=== PATIENT | female | born 1945 | race Caucasian/White ===

== ENCOUNTER → 2018-11-08 09:18 | Outpatient (CLI) | payer OTHER, SELFPAY ==
--- NOTE | 2018-11-08 09:20 | DI.RAD.S_ITS ---
PROCEDURE: XR SHOULDER LT MIN 2V INDICATIONS: left shoulder pain TECHNIQUE: 3 views of the shoulder were acquired. COMPARISON: None. FINDINGS: Bones: Acute comminuted and impacted proximal humeral fracture is seen with superior migration of humeral shaft in relation to humeral head. No frederic dislocation. Fracture is seen involving both greater and lesser tuberosities. No suspicious bony lesions. Visualized ribs appear intact. Soft tissues: No suspicious soft tissue calcifications. IMPRESSION: Acute comminuted impacted proximal humeral fracture as above. Dictated by: Rod Man M.D. on 11/08/2018 at 9:39 Approved by: Rod Man M.D. on 11/08/2018 at 9:41
== END ==
PROVIDERS: Visit Provider Physician Assistant
DX: M25.512 Pain in left shoulder (principal)
CPT/HCPCS: 73030

== ENCOUNTER 2018-11-08 09:59 | Emergency (ER) | payer OTHER, SELFPAY ==
[2018-11-08 10:06] VITALS: BP 166/88; PULSE 95; RESP 18; TEMP 36.9; O2SAT 99; BMI 24.1
--- NOTE | 2018-11-08 10:09 | ED.FALL ---
HPI - Fall General Chief Complaint: Extremity Injury, Upper Stated Complaint: hurt L shoulder Time Seen by Provider: 11/08/18 10:01 Source: patient Mode of arrival: ambulatory Limitations: no limitations History of Present Illness HPI Narrative: This is a 73-year-old female comes to the emergency department sent from walk-in clinic. Patient had a fall 2 days ago. She was getting out of a dinghy and jumping on to shore when she fell onto her left shoulder causing quite a bit of pain and bruising. Patient va came in for evaluation as her guest who were visiting had left. Patient states she has not been able to lift at the shoulder without quite a bit of pain but she is able to extend her arm and hand without issue. She denies any other injury, no headache, no neck pain, no bruising elsewhere. She denies any weakness or numbness in the hand. Patient has been taking Tylenol extra-strength in combination with Aleve which she has found helpful. She has seen Dr. Roberts before for other prior orthopedic surgeries. Denies any other medical issues. Does not take any regular medications. Denies any allergies to medications. Related Data Previous Rx's Medication Instructions Recorded tramadol 50 mg PO Q6H PRN #15 tab 11/08/18 Allergies Allergy/AdvReac Type Severity Reaction Status Date / Time No Known Drug Allergies Allergy Verified 11/08/18 10:10 Review of Systems Review of Systems ROS Unobtainable: All systems reviewed & are unremarkable except as noted in HPI and below Constitutional Denies weakness ENT Ears, Nose, Mouth, and Throat: Denies neck pain Musculoskeletal Reports as per HPI, Denies back pain, Reports arthralgias (left shoulder), Reports limited range of motion, Denies neck pain, Denies numbness, Denies radiating pain into limb, Denies stiffness and Denies tingling Integumentary/Breasts Reports unusual bruising Neurologic Denies numbness, Denies tingling, Denies paresthesias and Denies weakness Exam Narrative Exam Narrative: GENERAL: Alert and oriented x three, well-nourished, well-appearing female in mild distress HEENT: Head normocephalic, atraumatic, EOMI, pupils reactive, face symmetric, moist mucous membranes NECK: Supple, full range of motion CARDIOVASCULAR: Regular rate and rhythm without murmurs, rubs or gallops. RESPIRATORY: Breath sounds equal bilaterally, no wheezes rales or rhonchi. ABDOMEN: Soft, nontender. Normoactive bowel sounds all 4 quadrants. No guarding or rebound, rigidity, no mass : No CVA tenderness EXTREMITIES: Normal range of motion except for the left shoulder, patient has normal range of motion at the left elbow as well as hand and fingers. 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 Normal sensation throughout all 5 fingers. 2+ radial pulse. No clubbing or edema. Neurovascularly intact NEUROLOGICAL: Cranial nerves II through XII grossly intact. Moving all extremities SKIN: Warm, dry, no petechiae, no rashes or lesions. Initial Vital Signs Initial Vital Signs: Vital Signs Temperature 98.5 F 11/08/18 10:06 Pulse Rate 95 H 11/08/18 10:06 Respiratory Rate 18 11/08/18 10:06 Blood Pressure 166/88 H 11/08/18 10:06 Pulse Oximetry 99 11/08/18 10:06 [facility] Social History Smoking Status: Never smoker Social History Smoking Status: Never smoker Course Vital Signs - 8 hr 11/08/18 10:06 11/08/18 10:15 11/08/18 10:30 Temperature 98.5 F Pulse Rate 95 H 92 H Pulse Rate [Left Radial] 95 H Respiratory Rate 18 17 Blood Pressure 166/88 H Blood Pressure [Right Arm] 144/84 H Pulse Oximetry 99 97 MDM - Fall Imaging Data shoulder xray: Radiologist's impression: [address] [address] XRay Report Signed Patient: Radha Ambrocio AMR#: [id number] : 7Acct:[id number] Age/Sex: 73 / FDate of Service: 11/08/18 Loc: RAD Accession Number: [id number] Procedure: XR shoulder LT min 2V Ordering Provider: Usha Mitchell P.A-C PROCEDURE: XR SHOULDER LT MIN 2V INDICATIONS: left shoulder pain TECHNIQUE: 3 views of the shoulder were acquired. COMPARISON: None. FINDINGS: Bones: Acute comminuted and impacted proximal humeral fracture is seen with superior migration of humeral shaft in relation to humeral head. No frederic dislocation. Fracture is seen involving both greater and lesser tuberosities. No suspicious bony lesions. Visualized ribs appear intact. Soft tissues: No suspicious soft tissue calcifications. IMPRESSION: Acute comminuted impacted proximal humeral fracture as above. Dictated by: Rod Man M.D. on 11/08/2018 at 9:39 Approved by: Rod Man M.D. on 11/08/2018 at 9:41 MDM Narrative Medical decision making narrative: Spoke with Usha Mitchell, patient had already left walk in clinic when I spoke with her. Reviewed images, patient evaluated and Dr. Coyne contacted. Images reviewed. Dr. Coyne recommendations are plan for sling, pain control and follow up with office. Discussed with patient. We also discussed maximum amounts of tylenol and ibuprofen in 24 hour periods and medication for breaththrough pain. Patient has had oxycodone in the past but did not like the feeling. All questions answered, patient comfortable with plan. Discharge Plan Departure Patient Disposition: Home Clinical Impression: Left humeral fracture Qualifiers: Encounter type: initial encounter Humerus Location: proximal Discharge Date/Time: 11/08/18 11:09 Interventions: ED Discharge Assessment Last Done: 11/08/18 11:09 Instructions: DI for Humeral Fracture Activity Restrictions/Additional Instructions: Follow up with Dr. Coyne in the next 3-5 days for recheck. Call for an appointment. Take medication as prescribed, this medication can make you sleepy do not drive, perform hazardous activities or make any major decisions while taking it. You may take this medication for breaththrough pain with advil and/or tylenol if it is helpful. Do not exceed more than 3000mg of tylenol in a 24 hour period or 2400mg of ibuprofen in a 24 hours period. OK to use ice pack on the affected body part. Use for 15-20 minutes each time, for 5-6x per day. If you develop worsening pain, numbness, tingling, discoloration of the affected body part, loosen sling, and either see your doctor for an urgent re-assessment, or return to the Emergency Department. Return to the Emergency Department for any new or worsening symptoms. Prescriptions: New tramadol 50 mg tablet 50 mg PO Q6H PRN (Reason: pain) Qty: 15 RF: 0 Referrals: Rayshawn Coyne MD [Physician] -
[2018-11-08 10:15] VITALS: PULSE 95
--- NOTE | 2018-11-08 10:17 | ED_ITS ---
HPI - Fall General Chief Complaint: Extremity Injury, Upper Stated Complaint: hurt L shoulder Time Seen by Provider: 11/08/18 10:01 Source: patient Mode of arrival: ambulatory Limitations: no limitations History of Present Illness HPI Narrative: This is a 73-year-old female comes to the emergency department sent from walk-in clinic. Patient had a fall 2 days ago. She was getting out of a dinghy and jumping on to shore when she fell onto her left shoulder causing quite a bit of pain and bruising. Patient va came in for evaluation as her guest who were visiting had left. Patient states she has not been able to lift at the shoulder without quite a bit of pain but she is able to extend her arm and hand without issue. She denies any other injury, no headache, no neck pain, no bruising elsewhere. She denies any weakness or numbness in the hand. Patient has been taking Tylenol extra-strength in combination with Aleve which she has found helpful. She has seen Dr. Roberts before for other prior orthopedic surgeries. Denies any other medical issues. Does not take any regular medications. Denies any allergies to medications. Related Data Previous Rx's Medication Instructions Recorded tramadol 50 mg PO Q6H PRN #15 tab 11/08/18 Allergies Allergy/AdvReac Type Severity Reaction Status Date / Time No Known Drug Allergies Allergy Verified 11/08/18 10:10 Review of Systems Review of Systems ROS Unobtainable: All systems reviewed & are unremarkable except as noted in HPI and below Constitutional Denies weakness ENT Ears, Nose, Mouth, and Throat: Denies neck pain Musculoskeletal Reports as per HPI, Denies back pain, Reports arthralgias (left shoulder), Reports limited range of motion, Denies neck pain, Denies numbness, Denies radiating pain into limb, Denies stiffness and Denies tingling Integumentary/Breasts Reports unusual bruising Neurologic Denies numbness, Denies tingling, Denies paresthesias and Denies weakness Exam Narrative Exam Narrative: GENERAL: Alert and oriented x three, well-nourished, well- appearing female in mild distress HEENT: Head normocephalic, atraumatic, EOMI, pupils reactive, face symmetric, moist mucous membranes NECK: Supple, full range of motion CARDIOVASCULAR: Regular rate and rhythm without murmurs, rubs or gallops. RESPIRATORY: Breath sounds equal bilaterally, no wheezes rales or rhonchi. ABDOMEN: Soft, nontender. Normoactive bowel sounds all 4 quadrants. No guarding or rebound, rigidity, no mass : No CVA tenderness EXTREMITIES: Normal range of motion except for the left shoulder, patient has normal range of motion at the left elbow as well as hand and fingers. 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 Normal sensation throughout all 5 fingers. 2+ radial pulse. No clubbing or edema. Neurovascularly intact NEUROLOGICAL: Cranial nerves II through XII grossly intact. Moving all extremities SKIN: Warm, dry, no petechiae, no rashes or lesions. Initial Vital Signs Initial Vital Signs: Vital Signs Temperature 98.5 F 11/08/18 10:06 Pulse Rate 95 H 11/08/18 10:06 Respiratory Rate 18 11/08/18 10:06 Blood Pressure 166/88 H 11/08/18 10:06 Pulse Oximetry 99 11/08/18 10:06 [facility] Social History Smoking Status: Never smoker Social History Smoking Status: Never smoker Course Vital Signs - 8 hr 11/08/18 10:06 11/08/18 10:15 11/08/18 10:30 Temperature 98.5 F Pulse Rate 95 H 92 H Pulse Rate [Left Radial] 95 H Respiratory Rate 18 17 Blood Pressure 166/88 H Blood Pressure [Right Arm] 144/84 H Pulse Oximetry 99 97 MDM - Fall Imaging Data shoulder xray: Radiologist's impression: [address] [address] XRay Report Signed Patient: Radha Ambrocio AMR#: [id number] : 7Acct:[id number] Age/Sex: 73 / FDate of Service: 11/08/18 Loc: RAD Accession Number: [id number] Procedure: XR shoulder LT min 2V Ordering Provider: Usha Mitchell P.A-C PROCEDURE: XR SHOULDER LT MIN 2V INDICATIONS: left shoulder pain TECHNIQUE: 3 views of the shoulder were acquired. COMPARISON: None. FINDINGS: Bones: Acute comminuted and impacted proximal humeral fracture is seen with superior migration of humeral shaft in relation to humeral head. No frederic dislocation. Fracture is seen involving both greater and lesser tuberosities. No suspicious bony lesions. Visualized ribs appear intact. Soft tissues: No suspicious soft tissue calcifications. IMPRESSION: Acute comminuted impacted proximal humeral fracture as above. Dictated by: Rod Man M.D. on 11/08/2018 at 9:39 Approved by: Rod Man M.D. on 11/08/2018 at 9:41 MDM Narrative Medical decision making narrative: Spoke with Usha Mitchell, patient had already left walk in clinic when I spoke with her. Reviewed images, patient evaluated and Dr. Coyne contacted. Images reviewed. Dr. Coyne recommendations are plan for sling, pain control and follow up with office. Discussed with patient. We also discussed maximum amounts of tylenol and ibuprofen in 24 hour periods and medication for breaththrough pain. Patient has had oxycodone in the past but did not like the feeling. All questions answered, patient comfortable with plan. Discharge Plan Departure Patient Disposition: Home Clinical Impression: Left humeral fracture Qualifiers: Encounter type: initial encounter Humerus Location: proximal Discharge Date/Time: 11/08/18 11:09 Interventions: ED Discharge Assessment Last Done: 11/08/18 11:09 Instructions: DI for Humeral Fracture Activity Restrictions/Additional Instructions: Follow up with Dr. Coyne in the next 3-5 days for recheck. Call for an appointment. Take medication as prescribed, this medication can make you sleepy do not drive, perform hazardous activities or make any major decisions while taking it. You may take this medication for breaththrough pain with advil and/or tylenol if it is helpful. Do not exceed more than 3000mg of tylenol in a 24 hour period or 2400mg of ibuprofen in a 24 hours period. OK to use ice pack on the affected body part. Use for 15-20 minutes each time, for 5-6x per day. If you develop worsening pain, numbness, tingling, discoloration of the affected body part, loosen sling, and either see your doctor for an urgent re-assessment, or return to the Emergency Department. Return to the Emergency Department for any new or worsening symptoms. Prescriptions: New tramadol 50 mg tablet 50 mg PO Q6H PRN (Reason: pain) Qty: 15 RF: 0 Referrals: Rayshawn Coyne MD [Physician] -
[2018-11-08 10:30] VITALS: BP 144/84; PULSE 92; RESP 17; O2SAT 97
== END 2018-11-08 11:09 | disposition home or self-care (01) ==
PROVIDERS: Emergency Provider Emergency Medicine
DX: S42.302A Unspecified fracture of shaft of humerus, left arm, initial encounter for closed fracture (principal); W19.XXXA Unspecified fall, initial encounter
CPT/HCPCS: 73030; 99282; 99283

== ENCOUNTER → 2018-11-16 09:00 | Outpatient (CLI) | payer OTHER, SELFPAY ==
--- NOTE | 2018-11-16 | DI.CT.S_ITS ---
PROCEDURE: CT UE LT WO CON INDICATIONS: Pain in unspecified shoulder LEFT SURG NECK FX TECHNIQUE: Noncontrast 1-1.5 mm thick sections acquired from the acromioclavicular joint to the inferior scapula, with coronal and sagittal reformatting. COMPARISON: [facility], [place], XR SHOULDER 2+ VIEWS LEFT, 11/13/2018, 10:19. FINDINGS: Image quality: Excellent. Bones: Impacted and severely comminuted fracture of the proximal left humerus involving the surgical neck, anatomic head, greater and lesser tuberosity. There is posterior rotation of the humeral head articular surface. The glenoid appears grossly intact. Anatomic alignment at the AC joint. Associated joint effusion. Visualized portions of the left upper lobe within normal limits. Scattered axillary edema and mild prominent lymph nodes without definite pathologic enlargement IMPRESSION: Severely comminuted and impacted proximal humerus fracture as above. Dictated by: Grzegorz Montejo M.D. on 11/16/2018 at 10:29 Approved by: Grzegorz Montejo M.D. on 11/16/2018 at 10:37
== END ==
PROVIDERS: PCP Nurse Practitioner Family; Visit Provider Orthopaedic Surgery
DX: S42.212A Unspecified displaced fracture of surgical neck of left humerus, initial encounter for closed fracture (principal); M25.519 Pain in unspecified shoulder
CPT/HCPCS: 73200

== ENCOUNTER 2020-08-19 20:55 | Observation (INO) | payer OTHER, SELFPAY ==
[2020-08-19] VITALS (11 sets, daily range): BP systolic 102–143; BP diastolic 59–86; PULSE 87–155; RESP 19–23; TEMP 36.4; O2SAT 94–97
--- NOTE | 2020-08-19 21:08 | DI.RAD.S_ITS ---
PROCEDURE: XR CHEST 1V INDICATIONS: chest pain TECHNIQUE: One view of the chest was acquired. COMPARISON: None. FINDINGS: Surgical changes and devices: None. Lungs and pleura: There is hyperinflation of the lungs with flattening of the hemidiaphragms compatible with COPD. No acute consolidation. No pleural effusions or pneumothorax. Mediastinum: Mediastinal contours appear normal. Heart size is normal. Bones and chest wall: No suspicious bony lesions. Overlying soft tissues appear unremarkable. IMPRESSION: 1. Findings compatible with COPD. 2. No definite acute cardiopulmonary disease. Dictated by: Rayshawn Madrigal M.D. on 08/19/2020 at 22:41 Approved by: Rayshawn Madrigal M.D. on 08/19/2020 at 22:42
[2020-08-19 21:25] LABS: Add Manual Diff / Slide Review NO; Basophils Absolute Auto 100 /uL (0-100); Basophils Percent Auto 1.1 % (0-2); Eosinophils Absolute Auto 100 /uL (0-450); Eosinophils Percent Auto 0.7 % (2-4); Hematocrit 44.2 % (36-46); Hemoglobin 14.7 g/dL (12.0-16.0); Lymphocytes Absolute Auto 1500 /uL (1100-4500); Mean Corpuscular HGB Conc 33.2 % (30-36); Mean Corpuscular Hemoglobin 28.8 PG (26-34); Mean Corpuscular Volume 86.8 fL (80-100); Monocytes Absolute Auto 900 /uL (0-900); Monocytes Percent Auto 11.8 % (3-14); Neutrophils Absolute Auto 5400 /uL (1500-7000); Neutrophils Percent Auto 67.4 % (50-75); Platelet Count 449 X10^3/uL (150-400); Red Cell Distribution Width 13.7 % (11.6-14.8)
[2020-08-19 21:31] LABS: Prothrombin Time 11.5 SECONDS (10.1-12.7)
[2020-08-19 21:34] LABS: PTT Partial Thromboplastin Tim 28 SECONDS (26.4-36.2)
[2020-08-19 21:36] LABS: Alanine Aminotransferase 20 IU/L (<35); Albumin 4.2 g/dL (3.5-5.0); Albumin Globulin Ratio 1.6 (1.0-2.8); Alkaline Phosphatase 68 U/L (38-126); Aspartate Aminotransferase 27 IU/L (14-36); BUN Creatinine Ratio 19.8 (6-22); Bilirubin Total 0.3 mg/dL (0.2-1.3); Blood Urea Nitrogen 18 mg/dL (7-17); Calcium 9.4 mg/dL (8.4-10.2); Carbon Dioxide 24 mmol/L (22-32); Chloride 103 mmol/L (98-107); Creatine Kinase 47 U/L (30-135); Estimated Glomerular Filt Rate > 60.0 mL/min (>60); Globulin 2.6 g/dL (1.7-4.1); Glucose 146 mg/dL (80-110); HEMOLYSIS < 15 (0-50); Lipase 198 U/L (23-300); Potassium 3.7 mmol/L (3.4-5.1); Sodium 139 mmol/L (137-145); Total Protein 6.8 g/dL (6.3-8.2)
[2020-08-19 21:47] LABS: Troponin I < 0.012 ng/mL (0.01-0.034)
--- NOTE | 2020-08-19 22:57 | ED_ITS ---
HPI - General Adult General Chief complaint: Syncope Stated complaint: passed out at home Time Seen by Provider: 08/19/20 22:56 Source: patient and family Mode of arrival: Ambulatory History of Present Illness HPI narrative: 74-year-old woman with no known significant history and currently on no medications presents after syncopal episode at home. She describes periods of fatigue lasting for a couple of weeks with intermittent periods of normal energy level. Most recently she has been somewhat tired over the past 2 weeks. She was standing in the kitchen and her describes an odd look on her face, turning pale she looked like she was going to stumble so he step to help and she had a syncopal episode with him immediately available to help urgently to the floor. She did not have any trauma from fall. Once on the floor she immediately regained consciousness. She has never had similar episodes. Had no seizure-like activity. Was not complaining of chest pain palpitations, tachycardia, cough, fevers, chills, lower extremity edema, weight loss, abdominal pain, nausea, lower extremity edema. Related Data Previous Rx's Medication Instructions Recorded varicella-zoster glycoE [id number] 50 mcg IM ONCE #1 each 11/09/18 adj(PF) 50 mcg/0.5 mL IM susp, kit Allergies Allergy/AdvReac Type Severity Reaction Status Date / Time No Known Drug Allergies Allergy Verified 03/14/20 12:15 Review of Systems Review of Systems Narrative: Remainder of complete review of systems is otherwise unremarkable except for that included in the HPI. Patient History Medical History Chicken pox Fibroids History of vaginal delivery Lesion of lower eyelid Measles Skin cancer (~1975) Surgical History Anesthesia Broken ankle History of elbow surgery Family History Father Hypertension Mother Hypertension Dementia Social History household members: spouse Smoking Status: Never smoker second hand exposure: No alcohol intake: current substance use type: does not use Smoking Status: Never smoker alcohol intake frequency: 0-2 drinks per day Substance Use Type: does not use Exam Narrative Exam Narrative: General: Healthy appearing, in no acute distress. Able to give a complete and coherent history. Well-nourished well-developed HEENT: Moist mucous membranes, normal sclera with reactive pupils, Neck: No JVD, supple Respiratory: Lungs are clear to auscultation, no wheezing no rales no rhonchi. Full and symmetrical air movement Cardiac: Irregular rate and rhythm no murmurs no bruits Abdomen: Soft, nontender, good bowel tones, no flank pain Skin: Warm and dry, no rashes Neurologic: Grossly neurologically intact with no obvious asymmetries or abnormalities Extremities: No trauma, well perfused Psych: Cooperative, appropriate insight and affect Initial Vital Signs Initial Vital Signs: Vital Signs Temperature 97.5 F L 08/19/20 21:04 Pulse Rate 111 H 08/19/20 21:04 Respiratory Rate 20 08/19/20 21:04 Blood Pressure 138/79 08/19/20 21:04 Pulse Oximetry 97 08/19/20 21:04 Course Orders Ordered: ED Orders 08/19/20 21:08 XR chest 1V Stat EKG-12 Lead Stat 08/19/20 21:19 Complete Blood Count AUTO DIFF Stat Comprehensive Metabolic Panel Stat Lipase Stat Partial Thromboplastin Time Stat Prothrombin Time INR Stat Troponin & CK Cardiac Panel Stat 08/20/20 00:40 COVID19 - ADMIT ([employer] swab/PCR) Stat 08/20/20 01:09 Education, smoking cessation ONGOING Apixaban (Apixaban 5 Mg Tablet) 5 mg PO BID JASBIR Diltiazem HCl (Diltiazem 30 Mg Tablet) 30 mg PO Q6HR JASBIR Diltiazem HCl 125 mg/ Sodium (Chloride) 125 mls @ 5 mls/hr IV TITRATE JASBIR; Protocol Last Titration: 08/20/20 02:36 Dose: 2.5 mg/hr, 2.5 mls/hr Documented by: Titration: 08/20/20 00:54 Dose: 5 mg/hr, 5 mls/hr Documented by: Admin: 08/19/20 23:27 Dose: 5 mg/hr, 5 mls/hr Documented by: NURYS Magnesium Hydroxide (Magnesium Hydroxide 30 Ml Udc) 30 ml PO BID PRN PRN Reason: Heartburn Naloxone HCl (Naloxone 0.4 Mg/Ml Vial) 0.2 mg IV Q2MIN PRN PRN Reason: Opiate Reversal Naloxone HCl (Naloxone 0.4 Mg/Ml Vial) 0.2 mg IV Q2MIN PRN PRN Reason: Opiate Reversal Pantoprazole Sodium (Pantoprazole Dr 40 Mg Tablet) 40 mg PO 0700 [facility] Discontinued Medications Diltiazem HCl (Diltiazem 5 Mg/Ml Sdv) 20 mg IV NOW ONE Stop: 08/19/20 22:57 Last Admin: 08/19/20 23:13 Dose: 20 mg Documented by: CHERRIE Enoxaparin Sodium (Enoxaparin 40 Mg/0.4 Ml Syringe) 40 mg SUBCUT DAILY [facility] Vital Signs Vital signs: Vital Signs - 8 hr 08/19/20 22:00 08/19/20 22:30 08/19/20 23:00 Pulse Rate 155 H 153 H 146 H Respiratory Rate 19 19 19 Blood Pressure Pulse Oximetry 94 94 95 08/19/20 23:17 08/19/20 23:20 08/19/20 23:23 Pulse Rate 143 H 105 H 93 H Respiratory Rate 22 23 20 Blood Pressure 143/86 H 106/60 102/59 L Pulse Oximetry 96 95 94 08/19/20 23:27 08/19/20 23:30 08/19/20 23:51 Pulse Rate 87 95 H 98 H Respiratory Rate 20 20 Blood Pressure 102/59 L 111/60 Pulse Oximetry 94 95 08/20/20 00:00 08/20/20 00:10 08/20/20 00:20 Pulse Rate 90 100 H 104 H Respiratory Rate 18 19 22 Blood Pressure 120/58 L 112/57 L 115/64 Pulse Oximetry 94 95 96 08/20/20 00:30 08/20/20 00:40 08/20/20 01:05 Pulse Rate 108 H 103 H 98 H Respiratory Rate 24 27 H Blood Pressure 129/74 118/62 Pulse Oximetry 96 95 Medical Decision Making Medical Records Medical records reviewed: Yes I reviewed the patient's medical records. Lab Data Lab results reviewed: Yes I reviewed the patient's lab results. Result diagrams: 08/19/20 21:19 08/19/20 21:19 Labs: Lab Results 08/19/20 08/19/20 08/19/20 Range/Units 21:19 21:19 21:19 WBC 8.0 (4.5-11.0) X10^3/uL RBC 5.10 (4.0-5.2) X10^6/uL Hgb 14.7 (12.0-16.0) g/dL Hct 44.2 (36-46) % MCV 86.8 (80-100) fL MCH 28.8 (26-34) PG MCHC 33.2 (30-36) % RDW 13.7 (11.6-14.8) % Plt Count 449 H (150-400) X10^3/uL Neut % (Auto) 67.4 (50-75) % Lymph % (Auto) 19.0 L (25-40) % [place] % (Auto) 11.8 (3-14) % Eos % (Auto) 0.7 L (2-4) % Baso % (Auto) 1.1 (0-2) % Neut # (Auto) 5400 (0761-4473) /uL Lymph # (Auto) 1500 (5894-5352) /uL [place] # (Auto) 900 (0-900) /uL Eos # (Auto) 100 (0-450) /uL Baso # (Auto) 100 (0-100) /uL PT 11.5 (10.1-12.7) SECONDS INR 1.0 (0.9-1.3) APTT 28 (26.4-36.2) SECONDS Sodium 139 (137-145) mmol/L Potassium 3.7 (3.4-5.1) mmol/L Chloride 103 (98-107) mmol/L Carbon Dioxide 24 (22-32) mmol/L BUN 18 H (7-17) mg/dL Creatinine 0.91 (0.52-1.04) mg/dL Estimated GFR > 60.0 (>60) mL/min BUN/Creatinine Ratio 19.8 (6-22) Glucose 146 H (80-110) mg/dL Calcium 9.4 (8.4-10.2) mg/dL Magnesium (1.6-2.3) mg/dL Total Bilirubin 0.3 (0.2-1.3) mg/dL AST 27 (14-36) IU/L ALT 20 (<35) IU/L Alkaline Phosphatase 68 (38-126) U/L Total Creatine Kinase 47 (30-135) U/L CK-MB (CK-2) TNP CK-MB (CK-2) Rel Index TNP Troponin I < 0.012 (0.01-0.034) ng/mL Total Protein 6.8 (6.3-8.2) g/dL Albumin 4.2 (3.5-5.0) g/dL Globulin 2.6 (1.7-4.1) g/dL Albumin/Globulin Ratio 1.6 (1.0-2.8) Lipase 198 (23-300) U/L TSH (0.47-4.68) uIU/mL SARS-CoV-2 (PCR) (Negative) 08/19/20 08/19/20 08/20/20 Range/Units 21:19 21:19 00:40 WBC (4.5-11.0) X10^3/uL RBC (4.0-5.2) X10^6/uL Hgb (12.0-16.0) g/dL Hct (36-46) % MCV (80-100) fL MCH (26-34) PG MCHC (30-36) % RDW (11.6-14.8) % Plt Count (150-400) X10^3/uL Neut % (Auto) (50-75) % Lymph % (Auto) (25-40) % [place] % (Auto) (3-14) % Eos % (Auto) (2-4) % Baso % (Auto) (0-2) % Neut # (Auto) (5563-2569) /uL Lymph # (Auto) (3670-6004) /uL [place] # (Auto) (0-900) /uL Eos # (Auto) (0-450) /uL Baso # (Auto) (0-100) /uL PT (10.1-12.7) SECONDS INR (0.9-1.3) APTT (26.4-36.2) SECONDS Sodium (137-145) mmol/L Potassium (3.4-5.1) mmol/L Chloride (98-107) mmol/L Carbon Dioxide (22-32) mmol/L BUN (7-17) mg/dL Creatinine (0.52-1.04) mg/dL Estimated GFR (>60) mL/min BUN/Creatinine Ratio (6-22) Glucose (80-110) mg/dL Calcium (8.4-10.2) mg/dL Magnesium 2.2 (1.6-2.3) mg/dL Total Bilirubin (0.2-1.3) mg/dL AST (14-36) IU/L ALT (<35) IU/L Alkaline Phosphatase (38-126) U/L Total Creatine Kinase (30-135) U/L CK-MB (CK-2) CK-MB (CK-2) Rel Index Troponin I (0.01-0.034) ng/mL Total Protein (6.3-8.2) g/dL Albumin (3.5-5.0) g/dL Globulin (1.7-4.1) g/dL Albumin/Globulin Ratio (1.0-2.8) Lipase (23-300) U/L TSH 3.87 (0.47-4.68) uIU/mL SARS-CoV-2 (PCR) Negative (Negative) Imaging Data Chest x-ray: Radiologist's Impression: FINDINGS: Surgical changes and devices: None. Lungs and pleura: There is hyperinflation of the lungs with flattening of the hemidiaphragms compatible with COPD. No acute consolidation. No pleural effus ions or pneumothorax. Mediastinum: Mediastinal contours appear normal. Heart size is normal. Bones and chest wall: No suspicious bony lesions. Overlying soft tissues appear unremarkable. IMPRESSION: 1. Findings compatible with COPD. 2. No definite acute cardiopulmonary disease. Dictated by: Rayshawn Madrigal M.D. on 08/19/2020 at 22:41 ECG Data Attestation: I personally reviewed and interpreted this ECG as follows: Interpretation: Atrial fibrillation at a rate of 146 without any acute ischemic changes MDM Narrative Medical decision making narrative: 74-year-old woman presents after a syncopal episode at home in new atrial fibrillation without signs or symptoms of acute coronary syndrome, seizure, stroke, pulmonary embolism or congestive heart failure. She has never had a diagnosed episode of atrial fibrillation before and did not recognize the rapid rhythm. Given the history of days to weeks of fatigue followed by normal energy level I suspect that she has been having paroxysmal atrial fibrillation for number of months. In the emergency department she started on a diltiazem drip with rate slowing nicely to the upper 90s. Remainder of workup is otherwise unremarkable. She is admitted to the hospitalist service for further evaluation of new onset atrial fibrillation with rapid ventricular response. Discharge Plan Departure Patient Disposition: Admitted as Observation Clinical Impression: Atrial fibrillation with rapid ventricular response Admit Date/Time: 08/20/20 01:09 Admit Provider: Lor Jain
[2020-08-19] MEDS: dilTIAZem 5 MG/ML SDV 20 MG IV (23:13)
[2020-08-19] MEDS: dilTIAZem 125 MG in SODIUM CHLORIDE 0.9% 100 ML IV (23:27)
[2020-08-20] VITALS (14 sets, daily range): BP systolic 102–139; BP diastolic 57–77; PULSE 61–108; RESP 16–27; TEMP 37–37.1; O2SAT 94–96; BMI 22.4
--- NOTE | 2020-08-20 01:16 | DI.ECHO.S_ITS ---
[place] [facility]---------+ [facility] +---------+ : : [address] : : : : [id number] : : : : Phone: [phone] Echocardiogram Report + + :Name: KAYE CANALES Study Date: 08/20/2020 Height: 65 in : :[facility] ReadingLocation: Weight: 135 lb : : Gender: Female BSA: 1.7 m2 : :: 1945 Age: 74 yrs BP: 126/75 mmHg: :Reason For Study: Atrial fibrillation : :Ordering Physician: KYLIE, : :MCKENZIE Performed By: Bg Daniel : :Referring: MCKENZIE ESPINAL : + + Interpretation Summary Normal sinus rhythm. Normal LV size, wall thickness, wall motion and left ventricular systolic function. Ejection fraction is 65-70%. Normal chamber sizes. No valvular abnormalities. No prior study available for comparison. Procedure: A two-dimensional transthoracic echocardiogram with color flow and Doppler was performed. The study quality was technically adequate. There is no prior echocardiogram noted for this patient. The patient was in sinus rhythm with heart rates between 67-82 bpm during the exam. Left Ventricle: The left ventricle is normal in size and wall thickness. Left ventricular systolic function is normal. The ejection fraction is estimated to be 65-70%. There are no focal wall motion abnormalities. Diastolic parameters suggest a relaxation abnormality of the left ventricle, consistent with probable normal filling pressures. Right Ventricle: The right ventricle is normal in size and function. Atria: Both atria are normal in size. There is no Doppler evidence for an interatrial shunt. Mitral Valve: The mitral valve is normal in structure and function. There is no mitral regurgitation noted. Aortic Valve: The aortic valve is normal in structure and function. No aortic regurgitation is present. Tricuspid Valve: The tricuspid valve is normal in structure and function. There is trace tricuspid regurgitation. Pulmonary artery pressures cannot be estimated because of the lack of a measurable TR jet velocity but the IVC suggests a CVP of around 3 mmHg. Pulmonic Valve: The pulmonic valve is not well visualized. There is no pulmonic valvular regurgitation. Great Vessels: The aortic root is normal size. The dimensions of the ascending aorta are normal. The IVC is of normal diameter and collapses greater than 50% with a sniff. This suggests a low right atrial pressure of 3 mm Hg. Pericardium/ Pleura There is no pericardial effusion. There is no pleural effusion. MMode/2D Measurements & Calculations LVIDd: 4.7 cm LVOT diam: 2.2 cm LVIDs: 3.1 cm Ao root diam: 3.0 cm FS: 33.8 % asc Aorta Diam: 2.8 cm IVSd: 0.85 cm LVPWd: 0.86 cm LV barraza. diameter/BSA (cm/m^2): 2.8 LV sys. diameter/BSA (cm/m^2): 1.9 LA A2 area: 12.9 cm2 RA long axis: 4.0 cm LA A4 area: 10.6 cm2 RA area: 13.6 cm2 LA length (vol): 4.0 cm RA vol: 39.9 ml LA vol: 29.0 ml RA : 23.8 ml/m2 LA vol index: 17.3 ml/m2 IVC diam: 1.6 cm TAPSE: 2.2 cm Doppler Measurements & Calculations Ao V2 max: 156.7 cm/sec LVOT Max Jefry: 127.1 cm/sec Ao V2 mean: 110.1 cm/sec LV V1 max P.5 mmHg Ao max P.8 mmHg LV V1 VTI: 24.1 cm Ao mean P.4 mmHg ARCHIE(I,D): 3.1 cm2 Ao V2 VTI: 28.1 cm ARCHIE(V,D): 3.0 cm2 sev ratio: 0.86 ARCHIE indexed to BSA (cm^2/m^2): 1.9 MV E max jefry: 86.5 cm/sec PA pr(Accel): 46.5 mmHg MV A max jefry: 117.0 cm/sec MV E/A: 0.74 Med Peak E' Jefry: 9.7 cm/sec E/E' med: 8.9 MV dec time: 0.28 sec SV(LVOT): 88.2 ml Electronically signed by: Dary Griffin M.D. on Reading Physician:08/20/2020 04:52 PM
--- NOTE | 2020-08-20 01:19 | P.HP_ITS ---
History of Present Illness History of Present Illness Date Patient Seen: 08/20/20 Time Patient Seen: 01:20 Chief complaint: passed out at home Narrative: Patient is a 74-year-old female Radha Ambrocio who presented to the ED with a chief complaint worsening fatigue over the last 2-3 weeks ending in a syncopal episode this evening. A friend who was an RN instructed the patient to come to the emergency room. Patient denies chest pain, shortness of breath, abdominal pain, nausea, vomiting, diarrhea, chills, body aches, changes in vision, headaches, weakness to 1 side, recent injury, illness, or trauma. Patient states that she cannot feel or sense the rapid heart rate. Patient states she may have had bouts of fatigue Anoop came went as far back is summer but she reports no other loss of consciousness prior. Patient denies any other chronic health conditions with the exception of a basal cell to the left eye in which she was scheduled for a Mohs procedure in [place] with Dr. Razo. Patient is resting comfortably in bed and is completely asymptomatic and unaware of her atrial fibrillation. Patient's vitals upon admit temp 97.5?, BP 118/62, HR 103, R 27, O2 saturation 95% on room air. Patient's labs for the most part are unremarkable we platelets 449, BUN 18, glucose 146, troponin is negative.CXR:Findings compatible with COPD. No definite acute cardiopulmonary disease. EKG : Demonstrated atrial fibrillation with RVR and initial rate of 140. Patient History Medical History Chicken pox Fibroids History of vaginal delivery Lesion of lower eyelid Measles Skin cancer (~1975) Surgical History Anesthesia Broken ankle History of elbow surgery Family & Social History Family History Father Hypertension Mother Hypertension Dementia Tobacco & Substance use: Smoking Status Never smoker alcohol intake current alcohol intake frequency 0-2 drinks per day Substance Use Type does not use Meds Home Medications and Allergies Home Medications Medication Instructions Recorded Confirmed Type varicella-zoster glycoE vacc-AS01B 50 mcg IM ONCE #1 each 08/01/19 12/04/20 Rx adj(PF) 50 mcg/0.5 mL IM susp, kit Allergies Allergy/AdvReac Type Severity Reaction Status Date / Time No Known Drug Allergies Allergy Verified 03/14/20 12:15 Review of Systems Review of Systems ROS: Yes All systems reviewed with the patient and are negative except as otherwise documented Constitutional Constitutional: Reports fatigue and Reports weakness Cardiovascular Cardiovascular: Reports syncope Neurologic Neurologic: Reports syncope and Reports weakness Endocrine Endocrine: Reports fatigue Exam Vital Signs (past 8 hours): - 08/19/20 21:04 08/19/20 21:38 08/19/20 22:00 Temperature 97.5 F L Pulse Rate 111 H 136 H 155 H Respiratory Rate 20 21 19 Blood Pressure 138/79 Pulse Oximetry 97 95 94 08/19/20 22:30 08/19/20 23:00 08/19/20 23:17 Temperature Pulse Rate 153 H 146 H 143 H Respiratory Rate 19 19 22 Blood Pressure 143/86 H Pulse Oximetry 94 95 96 08/19/20 23:20 08/19/20 23:23 08/19/20 23:27 Temperature Pulse Rate 105 H 93 H 87 Respiratory Rate 23 20 Blood Pressure 106/60 102/59 L 102/59 L Pulse Oximetry 95 94 08/19/20 23:30 08/19/20 23:51 08/20/20 00:00 Temperature Pulse Rate 95 H 98 H 90 Respiratory Rate 20 20 18 Blood Pressure 111/60 120/58 L Pulse Oximetry 94 95 94 08/20/20 00:10 08/20/20 00:20 08/20/20 00:30 Temperature Pulse Rate 100 H 104 H 108 H Respiratory Rate 19 22 24 Blood Pressure 112/57 L 115/64 129/74 Pulse Oximetry 95 96 96 08/20/20 00:40 Temperature Pulse Rate 103 H Respiratory Rate 27 H Blood Pressure 118/62 Pulse Oximetry 95 Oxygen Delivery Method Room Air Narrative Exam Narrative: General: Patient is a well-developed, well-nourished in no distress at this time. HEENT: Normocephalic, atraumatic, extraocular muscles intact, oral pharynx is clear and mucous membranes are moist. Neck is supple and symmetric, trachea is midline, no adenopathy, no thyroid enlargement, nontender, no masses palpated. Negative for JVD Chest: Normal AP diameter and contour without kyphoscoliosis, no nasal flaring, retractions, or tachypneic labored Lungs: Auscultation of all lung [place] are clear without adventitious sounds, wheezes, rhonchi, or rales. Cardio: Irregular rate and rhythm without murmur, rubs, or gallops, no carotid bruit, no cardiac pulsations present. Abdomen: Soft nontender, negative for organomegaly, or masses. Bowel sounds are present in all 4 quadrants without guarding or rebound, no CVA tenderness. Musculoskeletal: Muscle strength and tone are equal within normal limits, no deformity, crepitus, effusions, cyanosis, clubbing or edema present. Full range of motion intact radial and pedal pulses are normal. Skin: Warm dry and intact without rashes, ulcerations or petechiae. Neuro: Alert and orientated x3, strength is +5/5 in all extremities, sensation to touch intact, no gross deficits noted of cranial nerves. Psych: Patient has a well-kept appearance, appropriate affect, mental status attitude thought context and judgment are appropriate for age. Objective Labs Result Diagrams: 08/19/20 21:19 08/19/20 21:19 Labs: Laboratory Results - last 24 hr 08/19/20 08/19/20 08/19/20 21:19 21:19 21:19 WBC 8.0 RBC 5.10 Hgb 14.7 Hct 44.2 MCV 86.8 MCH 28.8 MCHC 33.2 RDW 13.7 Plt Count 449 H Neut % (Auto) 67.4 Lymph % (Auto) 19.0 L [place] % (Auto) 11.8 Eos % (Auto) 0.7 L Baso % (Auto) 1.1 Neut # (Auto) 5400 Lymph # (Auto) 1500 [place] # (Auto) 900 Eos # (Auto) 100 Baso # (Auto) 100 PT 11.5 INR 1.0 APTT 28 Sodium 139 Potassium 3.7 Chloride 103 Carbon Dioxide 24 BUN 18 H Creatinine 0.91 Estimated GFR > 60.0 BUN/Creatinine Ratio 19.8 Glucose 146 H Calcium 9.4 Total Bilirubin 0.3 AST 27 ALT 20 Alkaline Phosphatase 68 Total Creatine Kinase 47 CK-MB (CK-2) TNP CK-MB (CK-2) Rel Index TNP Troponin I < 0.012 Total Protein 6.8 Albumin 4.2 Globulin 2.6 Albumin/Globulin Ratio 1.6 Lipase 198 Assessment & Plan Assessment & Plan narrative: This patient requires Critical care inpatient hospital management for new onset atrial fibrillation with RVR. The patient is at much higher risk for medical and surgical complications because of atrial fibrillation. Which increases the chances of poor outcomes such as morbidity and mortality. The patient's finding of COPD on chest xray will likely impact her oxygenation in conjuction with atrial fibrillation. 1.Atrial fibrillation, new onset, with syncopal episode, acute, present on admission -indications for admit for new onset atrial fibrillation, treatment for comorbidities that may have caused the new AF, elderly patients, and further manifestations of heart failure or hypertension after control rhythm and rate.. - -Differential diagnosis PACs, atrial flutter, multifocal atrial tachycardia sinus tachycardia, sinus arrhythmia, SVT, WPW syndrome, and V-tach -evaluate for cardiac, pulmonary, metabolic, drugs, neurogenic, sepsis, malignancy, chronic? -factors hypertension, age, diabetes, cardiac disease, sleep apnea, male, , rheumatic heart disease Consider [id number] Score: 2, HOBSON-BLED score:1 -AFib that is not anticoagulated when it should be according to the CHA2 DS1- Vasc score has a high risk of embolic stroke -Patient has no prior history of stroke, cardiac disease, possible COPD findings on CXR -cardiac and neurological exam Admit telemetry, ICU -initial rate control followed by the attempt at cardioversion -vital signs q.2 hours x4, then decrease to q.4 hours, continuous telemetry. -activity as tolerated have patient sit at edge of bed for minutes before standing, bedrest with up to bathroom with assistance. -O2 via nasal cannula if ASA O2< 93%. -Diet heart healthy -fluids:none -meds:Eliquis 5mg BID -start Diltiazem drip 5mcg/min. Closely monitor blood pressure and heart rate while on Diltiazem drip. Hold drip if systolic blood pressure< 90 or heart rate is< 60. Once heart rate is maintained less than 100 begin oral Diltiazem regimen starting at 30 mg every 6 hours, taper and discontinue infusion 2 hours after 2nd oral dose. In patients with advanced heart failure or significant hypotension consider digoxin as initial therapy -if no other diagnosis is discharge 1 heart rate controlled, if discharged on Coumadin education on INR/diet and follow-up -labs BMP, CBC, trending troponins x3 q.6 hours, TSH, monitor electrolytes and supplement as indicated keep potassium> 4, magnesium> 2 Diagnostics: ECHO Ordered for tomorrow If further work-up is required : TTE - to look for LA size, a thrombosis in LA, valves, EF and pericardium, -monitor for complications stroke, heart failure, dementia 2. 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 Murillo for Mohs procedure Code status: Full code Surrogate decision maker:Alex Ambrocio Spouse COVID PCR: Negative DVT/VTE prophylaxis: Eliquis 5mg BID and SCDs Scores GCS [place] coma scale eye opening: Spontaneous [place] coma scale verbal response: Orientated Min coma scale motor response: Obey commands [place] coma scale total score: 15 CHADS-VASc Congestive heart failure: no Hypertension: no Age 75 years or older: no Diabetes mellitus: no Stroke, TIA, or TE: no Vascular disease: no Age 65 to 74 years: yes Sex category (female): Female CHADS-VASc Score: 2 Wells' Criteria for PE Clinical signs and symptoms of DVT: No PE is #1 Dx or equally likely: No Heart rate > 100: Yes Immobilization at least 3 days or surg in previous 4 weeks: No History of PE or DVT: No Hemoptysis: No Malignancy w/Treatment within 6 months or palliative: No Wells' PE Score total: 1.5 Quality MIPS - Admit I confirm the patient?s Advance Care Plan is present, Code status is documented, Surrogate decision maker is in patient?s record [If Yes, STOP here]: Yes
[2020-08-20 01:47] LABS: Magnesium 2.2 mg/dL (1.6-2.3)
[2020-08-20 01:48] LABS: COVID19 - ADMIT (NP swab/PCR) Negative (Negative)
[2020-08-20 02:05] LABS: Thyroid Stimulating Hormone 3.87 uIU/mL (0.47-4.68)
[2020-08-20 05:57] LABS: Add Manual Diff / Slide Review NO; Basophils Absolute Auto 100 /uL (0-100); Basophils Percent Auto 0.9 % (0-2); Eosinophils Absolute Auto 0 /uL (0-450); Eosinophils Percent Auto 0.4 % (2-4); Hematocrit 44.3 % (36-46); Hemoglobin 14.7 g/dL (12.0-16.0); Lymphocytes Absolute Auto 1500 /uL (1100-4500); Lymphocytes Percent Auto 20.4 % (25-40); Mean Corpuscular HGB Conc 33.1 % (30-36); Mean Corpuscular Hemoglobin 28.7 PG (26-34); Mean Corpuscular Volume 86.9 fL (80-100); Monocytes Absolute Auto 900 /uL (0-900); Monocytes Percent Auto 12.6 % (3-14); Neutrophils Absolute Auto 4900 /uL (1500-7000); Neutrophils Percent Auto 65.7 % (50-75); Platelet Count 465 X10^3/uL (150-400); Red Cell Distribution Width 13.6 % (11.6-14.8); White Blood Cell Count 7.4 X10^3/uL (4.5-11.0)
[2020-08-20 06:01] LABS: Blood Urea Nitrogen 20 mg/dL (7-17); Calcium 9.2 mg/dL (8.4-10.2); Carbon Dioxide 26 mmol/L (22-32); Chloride 107 mmol/L (98-107); Estimated Glomerular Filt Rate > 60.0 mL/min (>60); Glucose 123 mg/dL (80-110); HEMOLYSIS < 15 (0-50); Sodium 139 mmol/L (137-145)
[2020-08-20 06:11] LABS: Troponin I < 0.012 ng/mL (0.01-0.034)
[2020-08-20] MEDS: dilTIAZem 30 MG TABLET PO ×2 (06:13→12:06)
--- NOTE | 2020-08-20 06:41 | PC.NURSE ---
Admit/Night Note-Patient admitted to ICU room 228 at 0115, accompanied by spouse. She is A/Ox4, fatigued but ambulates steadily without dizziness. In A-fib RVR around 100bpm, diltiazem gtt infusing at 5mg/hr, VSS, lung sounds CTA on RA with sats >94%, denies shortness of breath. At 0505 patient converted to NSR, dilt gtt stopped, 30mg PO diltiazem started as ordered.
[2020-08-20] MEDS: PANTOPRAZOLE DR 40 MG TABLET PO (08:45)
[2020-08-20] MEDS: APIXABAN 5 MG TABLET PO (08:45)
[2020-08-20 09:46] LABS: Prothrombin Time 11.6 SECONDS (10.1-12.7)
--- NOTE | 2020-08-20 09:51 | P.DS_ITS ---
History of Present Illness History of Present Illness Chief complaint: passed out at home Narrative: [employer] and P from [place] Jain: Patient is a 74-year-old female Radha Ambrocio who presented to the ED with a c hief complaint worsening fatigue over the last 2-3 weeks ending in a syncopal episode this evening. A friend who was an RN instructed the patient to come to the emergency room. Patient denies chest pain, shortness of breath, abdominal pain, nausea, vomiting, diarrhea, chills, body aches, changes in vision, headaches, weakness to 1 side, recent injury, illness, or trauma. Patient states that she cannot feel or sense the rapid heart rate. Patient states she may have had bouts of fatigue Anoop came went as far back is summer but she reports no other loss of consciousness prior. 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 Razo. Patient is resting comfortably in bed and is completely asymptomatic and unaware of her atrial fibrillation. Patient's vitals upon admit temp 97.5?, BP 118/62, HR 103, R 27, O2 saturation 95% on room air. Patient's labs for the most part are unremarkable we platelets 449, BUN 18, glucose 146, troponin is negative.CXR:Findings compatible with COPD. No definite acute cardiopulmonary disease. EKG : Demonstrated atrial fibr illation with RVR and initial rate of 140. Discharge Providers Provider Date of admission: 08/20/20 01:09 Discharge Date: 08/20/20 Primary care physician: RADHA De Jesus Discharge provider: Ernie Michelle MD Summary Hospital Course Discharge Diagnosis: 1. Atrial fibrillation with rapid ventricular response 2. Presyncope Hospital Course: Ms. Ambrocio has no signifcant history and came in with presyncopal symptoms. She was found to be in atrial fibrillation, a new diagnosis for her. She had no evidence of myocardial ischemia. She had normal TSH. She was started on a diltiazem drip and she converted to normal sinus rhythm and was switched to oral diltiazem. She was started on apixaban to reduce the risk of stroke. her ECHO no abnormality. She should follow up with her PCP in 1-2 weeks. Exam Vital Signs (past 8 hours): Oxygen Delivery Method Room Air Narrative Exam Narrative: General: no acute distress Lungs: clear with with no wheezes, rhonchi, rales Cardio: Irregular rate and rhythm without murmurs Abdomen: Soft nontender, negative for organomegaly, or masses. Normal bowel sounds Musculoskeletal: Muscle strength and tone are equal within normal limits, Skin: Warm dry and intact without rashes Neuro: Alert and orientated x3, strength is +5/5 in all extremities. Objective Labs Result Diagrams: 08/20/20 05:40 08/20/20 05:40 [facility] Medical History Chicken pox Fibroids History of vaginal delivery Lesion of lower eyelid Measles Skin cancer (~1975) Surgical History Anesthesia Broken ankle History of elbow surgery Family History Father Hypertension Mother Hypertension Dementia Social History household members: spouse Smoking Status: Never smoker second hand exposure: No alcohol intake: current substance use type: does not use Discharge Plan Discharge Plan Patient Disposition: Home Provider Discharge Comment: Ms. Ambrocio came to the hospital with a fast heart rate that caused her to almost pass out. She was found to have an abnormal heart rhythm (atrial fibrillation). She was given medications that slowed her heart rate and her abnormal rhythm changed back to a normal rhythm. It is still possible to have abnormal rhythms return in the future. To try to help prevent that we have prescribed a new medication cardizem to take daily. Also, people with atrial fibrillation have higher risk of clots and stroke so we prescribe a blood thinner apixaban to help prevent this. She will be referred to a enterprise account executive. Discharge orders & Medications Prescriptions: New Eliquis 5 mg Tablet 5 mg PO BID Qty: 60 RF: 0 diltiazem HCl [Cardizem CD] 120 mg capsule,extended release 24hr 120 mg PO DAILY Qty: 30 RF: 0 Follow up/Referrals: Oli Puga ARNP [Primary Care Provider] - Tim Ramos MD [Physician] - Diet/Activity/Treatments Diet: Diet as Tolerated Visit Report/Discharge Packet Instructions: DI for Atrial Fibrillation, Diltiazem, Apixaban Discharge Data Primary Care Provider: Oli Puga
--- NOTE | 2020-08-20 14:25 | CM.DANOTE ---
DCP/Assessment: Reviewed chart. Patient is a 74yr old female admitted after syncopal episode at home. PCP listed is Lizette Puga. Primary payor is 1)[facility]. Attempted to meet with patient this afternoon. Patient had already discharged from [facility] without any d/c planning needs. Patient resides on [facility] with her spouse/Alex. P: Home today. ALLISON Ortiz Discharge Planning/Care Management CM Discharge Assessment Start: 08/20/20 14:19 Freq: Status: Discharge Protocol: Document 08/20/20 14:22 KJS (Rec: 08/20/20 14:25 KJS [id number]) Discharge Planning Assessment Assigned Can Runner ALLISON Ortiz Contact Information Alex Ambrocio (spouse) # Advance Directives? No Advance Directives on File No History Provided By Medical Record Prior Living Arrangements House Household Members spouse Independent with ADL's Yes Is patient alert and oriented? Yes Caregiver for Another No Barriers to Discharge No Discharge Plan Home Transportation Arrangement Family to provide transport Referrals Initiated None needed Review Status In Process Next Review Type Continued Stay Review
== END 2020-08-20 13:00 | disposition home or self-care (01) | DRG 310 ==
LOC: ED 22:56 → ICU 08-20 05:50 → AC 10-03 08:53 → ICU 10-03 08:53
PROVIDERS: Admitting Provider Nurse Practitioner Family; Emergency Provider Emergency Medicine; PCP Nurse Practitioner Family; Referring Provider Emergency Medicine; Visit Provider Nurse Practitioner Family
DX: I48.91 Unspecified atrial fibrillation (principal); R55 Syncope and collapse; C44.1191 Basal cell carcinoma of skin of left upper eyelid, including canthus; Z20.822 Contact with and (suspected) exposure to COVID-19
CPT/HCPCS: 36415; 71045; 80048; 80053; 82550; 83690; 83735; 84443; 84484; 85025; 85610; 85730; 87635; 87797; 93005; 93010; 93306; 96365; 96366; 99283; 99284; C9803; G0378

== ENCOUNTER → 2020-08-27 12:36 | Outpatient (CLI) | payer OTHER, SELFPAY ==
[2020-08-20 01:38] VITALS: BMI 22.4
--- NOTE | 2020-08-27 12:38 | DI.RAD.S_ITS ---
PROCEDURE: XR CHEST 2V INDICATIONS: weight loss TECHNIQUE: 2 views of the chest were acquired. COMPARISON: [facility], CR, XR CHEST 1V, 08/19/2020, 21:14. FINDINGS: Surgical changes and devices: None. Lungs and pleura: Scattered subsegmental scarring and/or atelectasis. No acute consolidation. No pleural effusions or pneumothorax. Mediastinum: Mediastinal contours are normal. Heart size is normal. Bones and chest wall: No suspicious bony abnormalities. Soft tissues appear unremarkable. IMPRESSION: No acute disease. Dictated by: Grzegorz Montejo M.D. on 08/27/2020 at 14:53 Approved by: Grzegorz Montejo M.D. on 08/27/2020 at 14:54
[2020-08-27 14:06] LABS: Hemoglobin A1C% w Est Avg Glu 5.8 % (4.0-6.0)
[2020-08-27 14:12] LABS: Erythrocyte Sedimentation Rate 1 MM/HR (0-20)
[2020-08-27 18:02] LABS: Alanine Aminotransferase 19 IU/L (<35); Albumin 4.3 g/dL (3.5-5.0); Albumin Globulin Ratio 1.5 (1.0-2.8); Alkaline Phosphatase 66 U/L (38-126); Aspartate Aminotransferase 26 IU/L (14-36); Bilirubin Total 0.3 mg/dL (0.2-1.3); Bilirubin Unconjugated 0.3 mg/dL (0.0-1.1); Cholesterol 213 mg/dL (140-199); Globulin 2.8 g/dL (1.7-4.1); HDL Cholesterol 70 mg/dL (40-60); HEMOLYSIS < 15 (0-50); LDL Cholesterol Calculated 124 mg/dL (<100); Total Protein 7.1 g/dL (6.3-8.2); Triglycerides 93 mg/dL (35-150)
[2020-08-28 16:44] LABS: Hep C Virus Ab w/Reflex Quant NEGATIVE s/c (NEGATIVE)
== END ==
PROVIDERS: PCP Nurse Practitioner Family; Referring Provider Nurse Practitioner Family; Visit Provider Nurse Practitioner Family
DX: R63.4 Abnormal weight loss (principal); I10 Essential (primary) hypertension; Z13.6 Encounter for screening for cardiovascular disorders
CPT/HCPCS: 36415; 71046; 80061; 80076; 83036; 85651; 86803

== ENCOUNTER → 2020-09-30 10:53 | Outpatient (CLI) | payer OTHER, SELFPAY ==
[2020-08-20 01:38] VITALS: BMI 22.4
--- NOTE | 2020-09-30 10:56 | DI.MG.S_ITS ---
BILATERAL DIGITAL SCREENING MAMMOGRAM 3D/2D WITH CAD: 09/30/2020 CLINICAL: Routine screening. No prior exams were available for comparison. The tissue of both breasts is heterogeneously dense. This may lower the sensitivity of mammography. Current study was also evaluated with a Computer Aided Detection (CAD) system. No significant masses, calcifications, or other findings are seen in either breast. IMPRESSION: NEGATIVE There is no mammographic evidence of malignancy. A 1 year screening mammogram is recommended. This exam was interpreted at Station ID: [id number]. NOTE: For mammograms, a report in lay terms will be sent to the patient. Approximately 15% of breast malignancies will not be visualized mammographically. In the management of a palpable breast mass, a negative mammogram must not discourage biopsy of a clinically suspicious lesion. Electronically Signed By: Lluvia dougherty/kathy:09/30/2020 14:16:16 letter sent: Normal Exam ACR BI-RADS Category 1: Negative [id number]
== END ==
PROVIDERS: PCP Nurse Practitioner Family; Referring Provider Nurse Practitioner Family; Visit Provider Nurse Practitioner Family
DX: Z12.31 Encounter for screening mammogram for malignant neoplasm of breast (principal)
CPT/HCPCS: 77063; 77067

== ENCOUNTER → 2021-03-19 11:31 | Outpatient (CLI) | payer OTHER, SELFPAY ==
[2020-08-20 01:38] VITALS: BMI 22.4
== END ==
PROVIDERS: PCP Nurse Practitioner Family; Referring Provider Internal Medicine Hematology & Oncology; Visit Provider Internal Medicine Hematology & Oncology
DX: D47.3 Essential (hemorrhagic) thrombocythemia (principal); Z53.8 Procedure and treatment not carried out for other reasons

== ENCOUNTER 2021-06-14 09:28 | Emergency (ER) | payer OTHER, SELFPAY ==
[2020-08-20 01:38] VITALS: BMI 22.4
[2021-06-14] VITALS (8 sets, daily range): BP systolic 138–156; BP diastolic 68–71; PULSE 58–94; RESP 17; TEMP 37; O2SAT 94–98; BMI 24.2
--- NOTE | 2021-06-14 09:50 | DI.RAD.S_ITS ---
PROCEDURE: XR ABDOMEN MIN 2V INDICATIONS: constipation TECHNIQUE: 2 views of the abdomen were acquired. COMPARISON: None. FINDINGS: Surgical changes and devices: None. Bowel: No pneumoperitoneum. The bowel gas pattern is normal. Large fecal load. Soft tissues: No masses; visualized solid organ contours appear normal in size. No suspicious abdominal calcifications. Bones: No suspicious bony abnormalities. IMPRESSION: Large fecal load. Normal bowel gas pattern. Dictated by: León Kearns M.D. on 06/14/2021 at 9:34 Approved by: León Kearns M.D. on 06/14/2021 at 9:35
--- NOTE | 2021-06-14 11:18 | ED_ITS ---
HPI - Abdominal Pain General Chief Complaint: Abdominal Pain Stated Complaint: CAN'T GO TO THE BATHROOM, BLOCKAGE Time Seen by Provider: 06/14/21 11:17 Source: patient Mode of arrival: Ambulatory Limitations: no limitations History of Present Illness HPI narrative: This is a 75-year-old female on Eliquis and diltiazem for atrial fibrillation. Patient states that she feels like she can not go to the bathroom and that there was some stool blocks. Patient states she normally has a regular bowel movement each day. She had a very small 1 today but did not feel sufficient. She is unclear if she feels it is right at the rectal vault versus higher up but she noticed a small amount of blood with her bowel movement today on the tissue paper and 1 time when she attempted to have a bowel movement. She has tried 3 or 4 times today. She denies any pain other than at the rectum. She denies any lightheadedness or passing out, no nausea or vomiting, no chest pain or shortness of breath. Patient has not tried any stool softeners at home, no glycerin suppositories or enemas. She denies any drug allergies. She is accompanied by her no tobacco, occasional alcohol, no illicit. Related Data Previous Rx's Medication Instructions Recorded apixaban 5 mg tablet (Eliquis) 5 mg PO BID #180 tab 01/01/21 diltiazem HCl 120 mg See Rx Instructions .ROUTE 04/16/21 capsule,extended release 24 hr .COMPLEX #90 cap Allergies Allergy/AdvReac Type Severity Reaction Status Date / Time No Known Drug Allergies Allergy Verified 08/27/20 12:04 Review of Systems Review of Systems ROS Unobtainable: All systems reviewed & are unremarkable except as noted in HPI and below Patient History Medical History Chicken pox COPD (chronic obstructive pulmonary disease) Fibroids History of vaginal delivery Lesion of lower eyelid Measles Skin cancer (~1975) Thrombocytosis (08/2020) Unintentional weight loss (03/2020) Surgical History Anesthesia Broken ankle History of elbow surgery Family History Father Hypertension Mother Hypertension Dementia Social History household members: spouse Smoking Status: Never smoker second hand exposure: No alcohol intake: current substance use type: does not use Smoking Status: Never smoker alcohol intake frequency: 0-2 drinks per day Substance Use Type: does not use Exam Narrative Exam Narrative: GENERAL: Alert and oriented x three, mild distress. HEENT: Head normocephalic, atraumatic, EOMI, pupils reactive, face symmetric, moist mucous membranes NECK: Supple, full range of motion CARDIOVASCULAR: Regular rate and rhythm without murmurs, rubs or gallops. RESPIRATORY: Breath sounds equal bilaterally, no wheezes rales or rhonchi. ABDOMEN: Soft, nontender. Nondistended. Normoactive bowel sounds all 4 quadrants. No guarding or rebound, rigidity, no mass. Digital rectal exam shows external as well as internal hemorrhoid with small amount of blood on exam. Patient does have stool present on exam which is hard. : No CVA tenderness EXTREMITIES: Normal range of motion, no clubbing or edema. Neurovascularly intact NEUROLOGICAL: Cranial nerves II through XII grossly intact. Moving all extremities SKIN: Warm, dry, no petechiae, no rashes or lesions. Initial Vital Signs Initial Vital Signs: Vital Signs Pulse Rate 78 06/14/21 09:36 Pulse Oximetry 97 06/14/21 09:36 Course Orders Ordered: Discontinued Medications Mineral Oil (Mineral Oil 1 Each Enema) 1 each [place] NOW ONE Stop: 06/14/21 11:25 Last Admin: 06/14/21 11:55 Dose: 1 each Documented by: SANTOS Reevaluation(s) Reevaluation #1: Patient had large bowel movement without any bleeding in department and feels better. Discussed can use stool softeners to help her have more soft regular bowel movements. Time: 12:45 Vital Signs Vital signs: Vital Signs - 8 hr 06/14/21 09:36 06/14/21 09:37 06/14/21 09:43 Temperature 98.6 F Pulse Rate 78 76 67 Respiratory Rate 17 Blood Pressure 138/68 138/68 Pulse Oximetry 97 97 96 06/14/21 10:00 06/14/21 10:01 06/14/21 10:31 Temperature Pulse Rate 85 58 L 87 Respiratory Rate Blood Pressure 156/71 H Pulse Oximetry 95 94 94 06/14/21 11:00 06/14/21 11:30 Temperature Pulse Rate 94 H 91 H Respiratory Rate Blood Pressure Pulse Oximetry 96 98 [facility] - Abdominal Pain Imaging Data Abdominal x-ray: Radiologist's Impression: [address] [address] XRay Report Signed Patient: Radha Ambrocio MR#: [id number] : 1945 Acct:[id number] Age/Sex: 75 / F Date of Service: 06/14/21 Loc: ED Accession Number: [id number] ?? Procedure: XR abdomen min 2V Ordering Provider: Mildred Wang D.O. PROCEDURE:? XR ABDOMEN MIN 2V ? INDICATIONS:? constipation ? TECHNIQUE:? 2 views of the abdomen were acquired.? ? COMPARISON:? None. ? FINDINGS:? Surgical changes and devices:? None.? ? Bowel:? No pneumoperitoneum.? The bowel gas pattern is normal.? Large fecal load. ? Soft tissues:? No masses; visualized solid organ contours appear normal in size.? No suspicious abdominal calcifications.? ? Bones:? No suspicious bony abnormalities.? ? IMPRESSION:? Large fecal load.? Normal bowel gas pattern. ? ? Dictated by: León Keanrs M.D. on 06/14/2021 at 9:34 ? ? Approved by: León Kearns M.D. on 06/14/2021 at 9:35?? [facility] Narrative Medical decision making narrative: This is a 75-year-old female comes in with complaint of constipation and feeling weak she has a blockage in her lower rectum. Patient has no obstructive changes on her x-ray. She does have stool on exam with digital rectal exam and noted some bright red blood today. She has reassuring vitals and has had external and internal hemorrhoids which have a small amount of blood on digital rectal exam. Patient had enema in the department with a large bowel movement and relief. She and I discussed options to help continue to have soft regular bowel movements. Discharge Plan Departure Patient Disposition: Home Clinical Impression: Constipation Instructions: DI for Constipation Activity Restrictions/Additional Instructions: Follow-up with your physician if you have persistent constipation. Your exam does show some small internal external hemorrhoids which are likely the source of the bright red blood that you saw today. These are often irritated and cause bleeding if you are constipated. You may benefit from having a stool softener once daily such as Colace or MiraLax but you do need to make sure you drink plenty of fluids. These medications do not work if you are not properly hydrated. You can use a glycerin suppository [id number] in the future if needed. Please return for fevers, abdominal pain, persistent vomiting, if you are unable to have bowel movements for several days without passing any gas or other new or concerning symptoms. Prescriptions: No Action Eliquis 5 mg tablet 5 mg PO BID Qty: 180 1RF diltiazem HCl 120 mg capsule,extended release 24hr See Rx Instructions .ROUTE .COMPLEX Qty: 90 0RF Dose Instruction: take 1 capsule by mouth once daily Rx Instructions: take 1 capsule by mouth once daily Referrals: Oli Puga ARNP [Primary Care Provider] -
[2021-06-14] MEDS: MINERAL OIL 1 EACH ENEMA PR (11:55)
== END 2021-06-14 13:09 | disposition home or self-care (01) ==
PROVIDERS: Emergency Provider Emergency Medicine; PCP Nurse Practitioner Family
DX: K59.00 Constipation, unspecified (principal); K62.5 Hemorrhage of anus and rectum
CPT/HCPCS: 74019; 99282; 99283

== ENCOUNTER → 2021-12-25 09:46 | Outpatient (CLI) | payer OTHER, SELFPAY ==
[2020-08-20 01:38] VITALS: BMI 22.4
[2021-12-25 10:25] LABS: Add Manual Diff / Slide Review NO; Basophils Absolute Auto 100 /uL (0-100); Basophils Percent Auto 0.8 % (0-2); Eosinophils Absolute Auto 100 /uL (0-450); Eosinophils Percent Auto 0.8 % (2-4); Hematocrit 42.6 % (36-46); Hemoglobin 14.2 g/dL (12.0-16.0); Lymphocytes Absolute Auto 1500 /uL (1100-4500); Lymphocytes Percent Auto 21.5 % (25-40); Mean Corpuscular HGB Conc 33.3 % (30-36); Mean Corpuscular Hemoglobin 28.6 PG (26-34); Mean Corpuscular Volume 85.8 fL (80-100); Monocytes Absolute Auto 700 /uL (0-900); Neutrophils Absolute Auto 4500 /uL (1500-7000); Neutrophils Percent Auto 66.9 % (50-75); Platelet Count 434 X10^3/uL (150-400); Red Blood Cell Count 4.97 X10^6/uL (4.0-5.2); Red Cell Distribution Width 13.6 % (11.6-14.8); White Blood Cell Count 6.8 X10^3/uL (4.5-11.0)
[2021-12-25 10:49] LABS: HEMOLYSIS < 15 (0-50); Iron 102 ug/dL (37-170)
[2021-12-25 10:51] LABS: Alanine Aminotransferase 17 IU/L (<35); Albumin 4.1 g/dL (3.5-5.0); Albumin Globulin Ratio 1.5 (1.0-2.8); Alkaline Phosphatase 71 U/L (38-126); Aspartate Aminotransferase 21 IU/L (14-36); BUN Creatinine Ratio 26.6 (6-22); Bilirubin Total 0.6 mg/dL (0.2-1.3); Blood Urea Nitrogen 21 mg/dL (7-17); C-Reactive Protein Quant < 0.5 mg/dL (<1.0); Calcium 9.2 mg/dL (8.4-10.2); Carbon Dioxide 29 mmol/L (22-32); Chloride 103 mmol/L (98-107); Cholesterol 204 mg/dL (140-199); Estimated Glomerular Filt Rate > 60 mL/min (>60); Globulin 2.8 g/dL (1.7-4.1); Glucose 97 mg/dL (80-110); HDL Cholesterol 69 mg/dL (40-60); HEMOLYSIS < 15 (0-50); LDL Cholesterol Calculated 116 mg/dL (<100); Potassium 4.3 mmol/L (3.4-5.1); Sodium 141 mmol/L (137-145); Total Protein 6.9 g/dL (6.3-8.2); Triglycerides 97 mg/dL (35-150)
[2021-12-25 11:01] LABS: Percent Iron Saturation 33 % (15-50); Total Iron Binding Capacity 311 ug/dL (265-497); Transferrin 224 mg/dL (206-381)
[2021-12-25 11:20] LABS: TSH w/ Reflex to FT4 2.19 uIU/mL (0.47-4.68)
[2021-12-25 11:24] LABS: Ferritin 79 ng/mL (11-264)
== END ==
PROVIDERS: PCP Registered Nurse Diabetes Educator; Referring Provider Registered Nurse Diabetes Educator; Visit Provider Registered Nurse Diabetes Educator
DX: D47.3 Essential (hemorrhagic) thrombocythemia (principal); E78.5 Hyperlipidemia, unspecified; R53.83 Other fatigue; R63.4 Abnormal weight loss
CPT/HCPCS: 36415; 80053; 80061; 82728; 83540; 83550; 84443; 85025; 86140

== ENCOUNTER → 2022-01-14 10:26 | Outpatient (CLI) | payer OTHER, SELFPAY ==
[2020-08-20 01:38] VITALS: BMI 22.4
[2022-01-14 11:56] LABS: Appearance Urine UA CLEAR; Bilirubin Urine UA NEGATIVE (NEGATIVE); Color Urine UA YELLOW; Glucose Urine UA NEGATIVE (Negative); Ketones Urine UA NEGATIVE (NEGATIVE); Leukocyte Esterase Urine UA 2+ (NEGATIVE); Nitrite Urine UA POSITIVE (Negative); Occult Blood Urine UA 1+ (Negative); Protein Urine UA NEGATIVE (Negative); Urobilinogen Urine UA 0.2 E.U./dL (0.2)
[2022-01-14 12:00] LABS: Bacteria Urine Many (>30); Culture Indicated Urine Specimen Cultured; RBC Urine 1-5/HPF (0-5/HPF); Squamous Epithelial Cell Urine 1-5 /HPF (0-5/HPF); WBC Urine 10-30/HPF (0-5/HPF)
[2022-01-15 13:46] LABS: Fecal Immunochemical Test Negative (Negative)
== END ==
PROVIDERS: PCP Registered Nurse Diabetes Educator; Referring Provider Registered Nurse Diabetes Educator; Visit Provider Registered Nurse Diabetes Educator
DX: D47.3 Essential (hemorrhagic) thrombocythemia (principal); R53.83 Other fatigue; R63.0 Anorexia; R63.4 Abnormal weight loss; Z12.11 Encounter for screening for malignant neoplasm of colon
CPT/HCPCS: 81003; 81015; 82274; 87077; 87086; 87186

== ENCOUNTER → 2022-02-01 12:36 | Outpatient (CLI) | payer OTHER, SELFPAY ==
[2020-08-20 01:38] VITALS: BMI 22.4
[2022-02-01 13:15] LABS: Appearance Urine UA CLEAR; Bilirubin Urine UA NEGATIVE (NEGATIVE); Color Urine UA YELLOW; Glucose Urine UA NEGATIVE (Negative); Ketones Urine UA NEGATIVE (NEGATIVE); Leukocyte Esterase Urine UA 3+ (NEGATIVE); Nitrite Urine UA NEGATIVE (Negative); Occult Blood Urine UA 2+ (Negative); Protein Urine UA NEGATIVE (Negative); Specific Gravity Urine UA 1.015 (1.000-1.035); Urobilinogen Urine UA 0.2 E.U./dL (0.2)
[2022-02-01 13:23] LABS: RBC Urine 10-30/HPF (0-5/HPF); WBC Urine 30-100/HPF (0-5/HPF)
[2022-02-01 13:24] LABS: Bacteria Urine None Seen; Culture Indicated Urine Specimen Cultured; Squamous Epithelial Cell Urine 1-5 /HPF (0-5/HPF)
== END ==
PROVIDERS: PCP Registered Nurse Diabetes Educator; Referring Provider Registered Nurse Diabetes Educator; Visit Provider Registered Nurse Diabetes Educator
DX: R82.90 Unspecified abnormal findings in urine (principal)
CPT/HCPCS: 81001; 87086

== ENCOUNTER → 2022-02-12 10:03 | Outpatient (CLI) | payer OTHER, SELFPAY ==
[2020-08-20 01:38] VITALS: BMI 22.4
--- NOTE | 2022-02-12 | DI.CT.S_ITS ---
PROCEDURE: CT CHEST ABD PEL W CON INDICATIONS: ELEVATED PLATELETS; WEIGHT LOSS TECHNIQUE: After the administration of oral and intravenous contrast, axial sections acquired from the supraclavicular neck to the pubic symphysis. Coronal and sagittal reformats were performed. For radiation dose reduction, the following was used: automated exposure control, adjustment of mA and/or kV according to patient size. COMPARISON: None. FINDINGS: Image quality: Excellent. CHEST: Lower Neck: No enlarged lymph nodes. Thyroid: Right thyroid nodule measuring 1.6 cm. Additional smaller thyroid nodules. Axillae: Enlarged left axillary lymph nodes. For example node measuring 1 cm in short axis diameter, (2/15). Chest Wall: Unremarkable. Lungs and Airways: Mucous plug at the lingula and right lung base. Left lower lobe pulmonary nodule measuring 0.4 cm, (3/153). Airways are clear. Pleura: No pneumothorax or pleural effusions. Heart: Heart size is normal. No pericardial effusion. Thoracic Vessels: The aorta and pulmonary arteries demonstrate normal size. Mediastinum and Anne: No enlarged lymph nodes. Esophagus: No wall thickening. No hiatal hernia. ABDOMEN: Liver: Small cyst near the gallbladder. Gallbladder: Unremarkable. Biliary ducts: Unremarkable. Pancreas: Unremarkable. Spleen: No splenomegaly. Spleen measures 7.6 cm. Adrenal Glands: Unremarkable. Kidneys and Ureters: No hydronephrosis. Small peripelvic cysts. Stomach and Bowel: Stomach, small bowel loops, and colon are unremarkable. Normal appendix. Peritoneum: No abnormal intraperitoneal fluid. No free air. Ventral Wall: No hernia. Abdominal Nodes: No retroperitoneal or mesenteric adenopathy by size criteria. Vessels: Aorta and inferior vena cava are normal in size. PELVIS: Pelvic Organs: Anteverted uterus. A calcified fibroid. Bladder: Not distended. Small calcification at the urachus. Pelvic Nodes: No enlarged lymph nodes. Miscellaneous: No inguinal hernias are seen. Bones: No suspicious lesion. No compression fracture. IMPRESSION: 1. Enlarged left axillary lymph nodes. Recommend left axillary ultrasound and biopsy. Diagnostic mammogram would also be helpful. 2. No adenopathy in the abdomen or pelvis is identified. No splenomegaly. No free fluid. 3. Thyroid nodules. Right thyroid nodule measuring 1.6 cm. Thyroid ultrasound is recommended. Dictated by: Hernan Linares M.D. on 02/12/2022 at 12:26 Approved by: Hernan Linares M.D. on 02/12/2022 at 12:37
[2022-02-12 10:31] LABS: Estimated Glomerular Filt Rate > 60 mL/min (>60)
[2022-02-12 11:28] LABS: Appearance Urine UA SL CLOUDY; Bilirubin Urine UA NEGATIVE (NEGATIVE); Color Urine UA YELLOW; Glucose Urine UA TRACE g/dL (Negative); Ketones Urine UA TRACE (NEGATIVE); Leukocyte Esterase Urine UA 2+ (NEGATIVE); Nitrite Urine UA NEGATIVE (Negative); Occult Blood Urine UA 3+ (Negative); Protein Urine UA TRACE (Negative); Specific Gravity Urine UA 1.015 (1.000-1.035); Urobilinogen Urine UA 0.2 E.U./dL (0.2)
[2022-02-12 11:33] LABS: Bacteria Urine None Seen; RBC Urine 10-30/HPF (0-5/HPF); Squamous Epithelial Cell Urine 0-1 /HPF (0-5/HPF); WBC Urine 5-10/HPF (0-5/HPF)
[2022-02-12 11:34] LABS: Culture Indicated Urine Specimen Cultured
== END ==
PROVIDERS: Radiology Body Imaging; PCP Registered Nurse Diabetes Educator; Referring Provider Registered Nurse Diabetes Educator; Visit Provider Registered Nurse Diabetes Educator
DX: N39.0 Urinary tract infection, site not specified (principal); R63.4 Abnormal weight loss; R59.0 Localized enlarged lymph nodes; E04.2 Nontoxic multinodular goiter; R91.1 Solitary pulmonary nodule; N28.1 Cyst of kidney, acquired; K82.8 Other specified diseases of gallbladder; D25.9 Leiomyoma of uterus, unspecified
CPT/HCPCS: 36415; 71260; 74177; 81001; 82565; 87086; Q9967

== ENCOUNTER → 2022-02-24 12:13 | Outpatient (CLI) | payer OTHER, SELFPAY ==
[2020-08-20 01:38] VITALS: BMI 22.4
[2022-02-24 12:34] LABS: Add Manual Diff / Slide Review NO; Basophils Absolute Auto 100 /uL (0-100); Basophils Percent Auto 1.1 % (0-2); Eosinophils Absolute Auto 0 /uL (0-450); Eosinophils Percent Auto 0.8 % (2-4); Hematocrit 41.9 % (36-46); Hemoglobin 13.7 g/dL (12.0-16.0); Lymphocytes Absolute Auto 1500 /uL (1100-4500); Lymphocytes Percent Auto 25.7 % (25-40); Mean Corpuscular HGB Conc 32.7 % (30-36); Mean Corpuscular Hemoglobin 28.1 PG (26-34); Monocytes Absolute Auto 700 /uL (0-900); Monocytes Percent Auto 12.7 % (3-14); Neutrophils Absolute Auto 3500 /uL (1500-7000); Neutrophils Percent Auto 59.7 % (50-75); Platelet Count 521 X10^3/uL (150-400); Red Blood Cell Count 4.87 X10^6/uL (4.0-5.2); Red Cell Distribution Width 13.6 % (11.6-14.8); White Blood Cell Count 5.8 X10^3/uL (4.5-11.0)
[2022-02-24 12:43] LABS: Appearance Urine UA SL CLOUDY; Bilirubin Urine UA NEGATIVE (NEGATIVE); Color Urine UA YELLOW; Glucose Urine UA NEGATIVE (Negative); Ketones Urine UA NEGATIVE (NEGATIVE); Leukocyte Esterase Urine UA 1+ (NEGATIVE); Nitrite Urine UA NEGATIVE (Negative); Occult Blood Urine UA 3+ (Negative); Protein Urine UA TRACE (Negative); Specific Gravity Urine UA 1.025 (1.000-1.035); Urobilinogen Urine UA 0.2 E.U./dL (0.2)
[2022-02-24 12:49] LABS: HEMOLYSIS < 15 (0-50); Iron 105 ug/dL (37-170)
[2022-02-24 12:51] LABS: pH Urine UA 5.5 (4.5-8.0)
[2022-02-24 12:55] LABS: RBC Urine 10-30/HPF (0-5/HPF)
[2022-02-24 12:55] LABS: Erythrocyte Sedimentation Rate 5 MM/HR (0-20)
[2022-02-24 12:56] LABS: Alanine Aminotransferase 23 IU/L (<35); Albumin 4.3 g/dL (3.5-5.0); Albumin Globulin Ratio 1.5 (1.0-2.8); Alkaline Phosphatase 68 U/L (38-126); Aspartate Aminotransferase 25 IU/L (14-36); BUN Creatinine Ratio 29.7 (6-22); Bilirubin Total 0.5 mg/dL (0.2-1.3); Blood Urea Nitrogen 22 mg/dL (7-17); C-Reactive Protein Quant < 0.5 mg/dL (<1.0); Calcium 9.1 mg/dL (8.4-10.2); Carbon Dioxide 28 mmol/L (22-32); Chloride 106 mmol/L (98-107); Estimated Glomerular Filt Rate > 60 mL/min (>60); Globulin 2.9 g/dL (1.7-4.1); Glucose 104 mg/dL (80-110); HEMOLYSIS 20 (0-50); Potassium 4.3 mmol/L (3.4-5.1); Sodium 143 mmol/L (137-145); Total Protein 7.2 g/dL (6.3-8.2)
[2022-02-24 12:56] LABS: Amorphous Sediment Urine 1+; Bacteria Urine Few (2-10); Culture Indicated Urine Specimen Cultured; Mucus Urine 1+ (Negative); Squamous Epithelial Cell Urine 1-5 /HPF (0-5/HPF); WBC Urine 5-10/HPF (0-5/HPF)
[2022-02-24 13:00] LABS: Percent Iron Saturation 35 % (15-50); Total Iron Binding Capacity 301 ug/dL (265-497); Transferrin 244 mg/dL (206-381)
[2022-02-24 13:28] LABS: Ferritin 85 ng/mL (11-264)
[2022-02-26 13:36] LABS: Albumin 3.8 g/dL (2.9-4.4); Alpha-1-Globulin 0.2 g/dL (0.0-0.4); Alpha-2-Globulin 0.8 g/dL (0.4-1.0); Gamma Globulin 0.8 g/dL (0.4-1.8); Globulin Total 2.6 g/dL (2.2-3.9); Protein, Total 6.4 g/dL (6.0-8.5)
== END ==
PROVIDERS: Internal Medicine Medical Oncology; PCP Registered Nurse Diabetes Educator; Referring Provider Registered Nurse Diabetes Educator; Visit Provider Registered Nurse Diabetes Educator
DX: D47.3 Essential (hemorrhagic) thrombocythemia (principal); R82.90 Unspecified abnormal findings in urine
CPT/HCPCS: 80053; 81001; 81270; 82728; 83540; 83550; 84155; 84165; 85025; 85651; 86140; 87086

== ENCOUNTER 2022-03-17 13:35 | Inpatient (IN) | payer OTHER, SELFPAY ==
[2020-08-20 01:38] VITALS: BMI 22.4
[2022-03-17] VITALS (82 sets, daily range): BP systolic 96–157; BP diastolic 65–102; PULSE 87–155; RESP 15–24; TEMP 36.4; O2SAT 92–98; BMI 23.3
--- NOTE | 2022-03-17 15:15 | ED.PSYCH ---
HPI - Psych General Chief Complaint: Psychiatric Symptoms Stated Complaint: Drank drano Time Seen by Provider: 03/17/22 15:14 Source: patient and EMS Mode of arrival: EMS Limitations: no limitations History of Present Illness HPI Narrative: The patient arrives by EMS after a suicide attempt. She consumed a tbsp of Drano about 11:00 a.m. this morning. Her intent was to kill herself. She is no prior psychiatric history, she is no prior history of suicide attempt. Her rationale is she is no longer to live life as she would prefer. She is recently been seen by a doctor. She is history of skin cancer. She is convinced she has an intra-abdominal process. She is decreased appetite. She is no known history of GI bleeding. She is no persistent abdominal pain or distention. She is no nausea, vomiting or diarrhea. She denies dysuria hematuria. Evaluation include labs, most concerning for hematuria. CT of the chest/abdomen pelvis revealed an enlarged isolated lymph node, biopsy and mammogram are recommended. She also had a thyroid nodule that should be followed up with ultrasound. Apparently her doctor has not contact her with her labs or studies. She has no confirmed cancer, she is assumed size from the way she feels and the lack of information from her doctor. She is abdominal discomfort with loss of appetite after consuming the Drano. She is no nausea vomiting. She is no chest pain, cough or dyspnea. He is also noted she has a history of AFib. She failed to take her medications this morning, she is AFib with RVR. Patient was given IV Cardizem, x2 doses. Tachycardic continued. She received IV metoprolol. Care needs are ongoing. Related Data Previous Rx's Medication Instructions Recorded apixaban 5 mg tablet (Eliquis) See Rx Instructions .Route 11/26/21 .COMPLEX #180 tabs diltiazem HCl 120 mg See Rx Instructions .Route 11/26/21 capsule,extended release 24 hr .COMPLEX #90 caps Allergies Allergy/AdvReac Type Severity Reaction Status Date / Time No Known Drug Allergies Allergy Verified 01/06/22 13:44 Review of Systems Constitutional Constitutional: Reports as per HPI, Reports anorexia, Denies chills, Denies fatigue, Denies fever(s), Reports lethargy, Denies night sweats, Reports poor appetite, Denies weakness and Denies weight loss Eyes Eyes: Denies blurry vision and Denies change in vision ENT Ears, Nose, Mouth, and Throat: Denies dental pain, Denies vertigo, Denies dizziness, Denies neck pain, Denies sinus pain and Denies sinus pressure Cardiovascular Cardiovascular: Denies chest pain, Denies rapid heart rate and Denies dyspnea Respiratory Respiratory: Denies cough and Denies dyspnea Gastrointestinal Gastrointestinal: Reports abdominal pain, Denies change in stool character, Denies dyspepsia, Denies nausea and Denies vomiting Genitourinary Genitourinary: Denies dysuria Musculoskeletal Musculoskeletal: Denies arthralgias, Denies back pain, Denies myalgias and Denies neck pain Integumentary/Breasts Skin/Breast: Denies lesions and Denies rash Neurologic Neurologic: Denies abnormal speech, Denies confusion, Denies vertigo, Denies dizziness and Denies weakness Psychiatric Psychiatric: Denies confusion Comments: SI as identified HPI. Endocrine Endocrine: Denies fatigue Hematologic/Lymphatic On Anticoagulants: No Patient History Medical History Chicken pox COPD (chronic obstructive pulmonary disease) Fibroids History of basal cell carcinoma (BCC) History of vaginal delivery Lesion of lower eyelid Measles Skin cancer (~1975) Thrombocytosis (08/2020) Unintentional weight loss (03/2020) Surgical History Anesthesia Broken ankle History of elbow surgery Family History Father Hypertension Mother Hypertension Dementia Social History household members: spouse Smoking Status: Never smoker second hand exposure: No alcohol intake: current substance use type: does not use Smoking Status: Never smoker alcohol intake frequency: 0-2 drinks per day Substance Use Type: does not use Exam Initial Vital Signs Initial Vital Signs: Vital Signs Pulse Rate 92 H 03/17/22 13:36 Pulse Oximetry 98 03/17/22 13:36 Const General: cooperative, healthy appearing, comfortable, well developed, well groomed and No anxious HENMT Head: normocephalic and atraumatic Mouth: oral mucosae normal Throat: posterior oropharynx normal Eyes General: Yes appearance normal, both eyes and all related structures Neck Neck: normal visual inspection and No JVD Thyroid: thyroid normal Chest Chest: normal inspection of the chest Resp Effort & Inspection: normal respiratory effort Auscultation: clear to auscultation bilaterally Cardio Rate: regular rate Rhythm: regular rhythm Heart Sounds: S1 normal, S2 normal and no murmurs GI Palpation: soft and tender (Tenderness in epigastric region, no distension, no guarding or rebound.) Back/Spine/Pelvis Back: normal to inspection Skin General: no rashes or lesions noted Neuro General: patient alert, patient awake, patient oriented x3 and no focal motor deficits Extrem General: normal to inspection, full ROM, no pedal edema and no calf tenderness Psych Other: Oriented. No hallucinations illusions. She has ongoing suicidal thoughts Course Course Course Narrative: Poison control was called regarding this patient. The caustic nature of the compound consumed is very concerning. This could lead to ulceration, practice perforation. Consumption was several hours prior to arrival. She is mild abdominal, she declines eating. She is nausea, no emesis. Protonix was given. Zofran was given. Poison control raised the concern of needing EGD. Dr. Holm, surgery, was consulted. He agreed to see the patient consultation. The intent is to admit to the hospitalist. CT the chest,/abdomen/pelvis showed inflammatory changes consistent with consumption of the caustic material. She is admitted to hospitalist,Dr Michelle. Orders Ordered: ED Orders 03/17/22 14:06 [place] to [facility] [place] Stat 03/17/22 15:48 Acetaminophen Stat CMP [Comprehensive Metabolic Panel] Stat Complete Blood Count AUTO DIFF Stat ETOH [Ethanol (ETOH)] Stat Lipase Stat Salicylate Stat 03/17/22 17:00 Urine Culture Stat Urine Microscopic Stat urine tox [Urine Drug Screen, Rapid] Stat 03/17/22 19:15 CT chest abd pel w con Stat Sodium Chloride (Normal Saline 0.9%) 1,000 mls @ 150 mls/hr IV CONT JASBIR Last Infusion: 03/17/22 21:41 Dose: 0 mls/hr Documented By: Admin: 03/17/22 15:49 Dose: 150 mls/hr Documented By: RB Sodium Chloride (Normal Saline 0.9%) 1,000 mls @ 150 mls/hr IV CONT JASBIR Last Admin: 03/17/22 21:50 Dose: 150 mls/hr Documented By: RB Discontinued Medications Diltiazem HCl (Diltiazem 5 Mg/Ml Sdv) 10 mg IV NOW ONE Stop: 03/17/22 15:24 Last Admin: 03/17/22 15:50 Dose: 10 mg Documented By: RB Diltiazem HCl (Diltiazem 5 Mg/Ml Sdv) 20 mg IV NOW ONE Stop: 03/17/22 17:28 Last Admin: 03/17/22 17:33 Dose: 20 mg Documented By: RB Diphenhydramine HCl (Diphenhydramine 50 Mg/Ml Vial) 25 mg IV NOW ONE Stop: 03/17/22 21:05 Last Admin: 03/17/22 21:17 Dose: 25 mg Documented By: RB Metoclopramide HCl (Metoclopramide 10 Mg/2 Ml Inj) 10 mg IV NOW ONE Stop: 03/17/22 21:05 Last Admin: 03/17/22 21:17 Dose: 10 mg Documented By: RB Metoprolol Tartrate (Metoprolol Tartrate 5 Mg/5 Ml Inj) 5 mg IV Q5M JASBIR Stop: 03/17/22 20:26 Last Admin: 03/17/22 20:44 Dose: 5 mg Documented By: Admin: 03/17/22 20:30 Dose: 5 mg Documented By: Admin: 03/17/22 20:08 Dose: 5 mg Documented By: RB Ondansetron HCl (Ondansetron 4 Mg/2 Ml Inj) 4 mg IV NOW ONE Stop: 03/17/22 16:15 Last Admin: 03/17/22 16:21 Dose: 4 mg Documented By: RB Vital Signs Vital signs: Vital Signs - 8 hr 03/17/22 13:59 03/17/22 13:54 03/17/22 13:54 Temperature 97.5 F L Pulse Rate 141 H 96 H Respiratory Rate 16 15 Blood Pressure 139/84 151/82 H Pulse Oximetry 96 98 Oxygen Delivery Method Room Air 03/17/22 14:00 03/17/22 14:00 03/17/22 14:30 Temperature Pulse Rate 150 H Respiratory Rate 17 Blood Pressure 139/84 115/81 Pulse Oximetry 96 Oxygen Delivery Method 03/17/22 14:30 03/17/22 15:00 03/17/22 15:00 Temperature Pulse Rate 144 H 145 H Respiratory Rate 20 18 Blood Pressure 127/85 Pulse Oximetry 97 97 Oxygen Delivery Method 03/17/22 15:30 03/17/22 15:31 03/17/22 15:31 Temperature Pulse Rate 148 H 151 H Respiratory Rate 23 20 Blood Pressure 130/76 Pulse Oximetry 98 98 Oxygen Delivery Method 03/17/22 15:50 03/17/22 15:45 03/17/22 16:00 Temperature Pulse Rate 144 H 146 H Respiratory Rate 20 Blood Pressure 130/76 116/82 Pulse Oximetry 98 Oxygen Delivery Method 03/17/22 16:00 03/17/22 16:15 03/17/22 16:30 Temperature Pulse Rate 125 H 125 H Respiratory Rate 19 20 Blood Pressure 122/75 Pulse Oximetry 96 95 Oxygen Delivery Method 03/17/22 16:30 03/17/22 16:45 03/17/22 16:54 Temperature Pulse Rate 132 H 131 H 141 H Respiratory Rate 19 21 19 Blood Pressure Pulse Oximetry 98 97 98 Oxygen Delivery Method 03/17/22 16:54 03/17/22 17:00 03/17/22 17:00 Temperature Pulse Rate 143 H Respiratory Rate 18 Blood Pressure 148/80 H 136/85 Pulse Oximetry 94 Oxygen Delivery Method 03/17/22 17:33 03/17/22 17:15 03/17/22 17:30 Temperature Pulse Rate 155 H 135 H Respiratory Rate 19 Blood Pressure 140/88 140/88 Pulse Oximetry 95 Oxygen Delivery Method 03/17/22 17:30 03/17/22 17:45 03/17/22 17:53 Temperature Pulse Rate 147 H 87 98 H Respiratory Rate 18 17 18 Blood Pressure Pulse Oximetry 94 92 95 Oxygen Delivery Method 03/17/22 17:53 03/17/22 17:54 03/17/22 17:54 Temperature Pulse Rate 95 H Respiratory Rate 17 Blood Pressure 118/85 128/73 Pulse Oximetry 93 Oxygen Delivery Method 03/17/22 17:55 03/17/22 17:55 03/17/22 17:56 Temperature Pulse Rate 98 H 99 H Respiratory Rate 17 18 Blood Pressure 134/66 Pulse Oximetry 93 94 Oxygen Delivery Method 03/17/22 17:56 03/17/22 17:57 03/17/22 17:57 Temperature Pulse Rate 101 H Respiratory Rate 17 Blood Pressure 125/70 122/84 Pulse Oximetry 93 Oxygen Delivery Method 03/17/22 18:00 03/17/22 18:01 03/17/22 18:01 Temperature Pulse Rate 100 H 101 H Respiratory Rate 18 17 Blood Pressure 124/73 Pulse Oximetry 94 94 Oxygen Delivery Method 03/17/22 18:15 03/17/22 18:15 03/17/22 18:30 Temperature Pulse Rate 110 H Respiratory Rate 20 Blood Pressure 116/66 96/68 Pulse Oximetry 98 Oxygen Delivery Method 03/17/22 18:30 03/17/22 18:39 03/17/22 18:39 Temperature Pulse Rate 122 H 137 H Respiratory Rate 20 18 Blood Pressure 141/84 H Pulse Oximetry 95 96 Oxygen Delivery Method 03/17/22 18:40 03/17/22 18:40 03/17/22 18:45 Temperature Pulse Rate 131 H Respiratory Rate 19 Blood Pressure 142/72 H 135/83 Pulse Oximetry 96 Oxygen Delivery Method 03/17/22 18:45 03/17/22 18:50 03/17/22 18:50 Temperature Pulse Rate 145 H 146 H Respiratory Rate 18 21 Blood Pressure 138/89 Pulse Oximetry 96 96 Oxygen Delivery Method 03/17/22 18:55 03/17/22 18:55 03/17/22 19:00 Temperature Pulse Rate 122 H Respiratory Rate 19 Blood Pressure 143/79 H 120/75 Pulse Oximetry 97 Oxygen Delivery Method 03/17/22 19:00 03/17/22 19:05 03/17/22 19:05 Temperature Pulse Rate 140 H 143 H Respiratory Rate 21 19 Blood Pressure 119/92 H Pulse Oximetry 94 94 Oxygen Delivery Method 03/17/22 19:10 03/17/22 19:10 03/17/22 19:15 Temperature Pulse Rate 125 H Respiratory Rate 24 Blood Pressure 145/90 H 137/91 H Pulse Oximetry 96 Oxygen Delivery Method 03/17/22 19:15 03/17/22 19:20 03/17/22 19:20 Temperature Pulse Rate 131 H 140 H Respiratory Rate 20 19 Blood Pressure 139/89 Pulse Oximetry 96 97 Oxygen Delivery Method 03/17/22 19:35 03/17/22 19:45 03/17/22 20:00 Temperature Pulse Rate 124 H 132 H 144 H Respiratory Rate Blood Pressure Pulse Oximetry 96 96 95 Oxygen Delivery Method 03/17/22 20:15 03/17/22 20:30 03/17/22 20:45 Temperature Pulse Rate 96 H 104 H 102 H Respiratory Rate 22 Blood Pressure Pulse Oximetry 96 96 94 Oxygen Delivery Method 03/17/22 20:57 03/17/22 20:57 03/17/22 21:00 Temperature Pulse Rate 101 H 103 H Respiratory Rate 18 20 Blood Pressure 122/73 Pulse Oximetry 95 95 Oxygen Delivery Method 03/17/22 21:12 03/17/22 21:12 03/17/22 21:14 Temperature Pulse Rate 113 H 96 H Respiratory Rate 21 18 Blood Pressure 127/85 Pulse Oximetry 95 95 Oxygen Delivery Method 03/17/22 21:14 03/17/22 21:15 03/17/22 21:16 Temperature Pulse Rate 108 H 107 H Respiratory Rate 20 17 Blood Pressure 126/66 Pulse Oximetry 95 94 Oxygen Delivery Method 03/17/22 21:16 03/17/22 21:20 03/17/22 21:20 Temperature Pulse Rate 107 H Respiratory Rate 18 Blood Pressure 112/67 134/102 H Pulse Oximetry 96 Oxygen Delivery Method 03/17/22 21:25 03/17/22 21:25 Temperature Pulse Rate 105 H Respiratory Rate 18 Blood Pressure 133/94 H Pulse Oximetry 95 Oxygen Delivery Method MDM - Psych Lab Data Result diagrams: 03/17/22 15:48 03/17/22 15:48 Labs: Lab Results 03/17/22 03/17/22 03/17/22 Range/Units 15:48 15:48 17:00 WBC 16.7 H (4.5-11.0) X10^3/uL RBC 5.25 H (4.0-5.2) X10^6/uL Hgb 14.7 (12.0-16.0) g/dL Hct 44.8 (36-46) % MCV 85.4 (80-100) fL MCH 28.0 (26-34) PG MCHC 32.8 (30-36) % RDW 13.7 (11.6-14.8) % Plt Count 476 H (150-400) X10^3/uL Neut % (Auto) 86.8 H (50-75) % Lymph % (Auto) 6.1 L (25-40) % [place] % (Auto) 6.5 (3-14) % Eos % (Auto) 0.1 L (2-4) % Baso % (Auto) 0.5 (0-2) % Neut # (Auto) 58509 H (5982-8470) /uL Lymph # (Auto) 1000 L (2521-7645) /uL [place] # (Auto) 1100 H (0-900) /uL Eos # (Auto) 0 (0-450) /uL Baso # (Auto) 100 (0-100) /uL Total Counted Cancelled Seg Neutrophils % Cancelled Band Neutrophils % Cancelled Lymphocytes % (Manual) Cancelled Atypical Lymphs % Cancelled Monocytes % (Manual) Cancelled Eosinophils % (Manual) Cancelled Basophils % (Manual) Cancelled Metamyelocytes % Cancelled Myelocytes % Cancelled Promyelocytes % Cancelled Blast Cells % Cancelled Neutrophils # (Manual) Cancelled Nucleated RBCs Cancelled Differential Comment Cancelled Hypersegmented Neuts Cancelled Reactive Lymphocytes Cancelled Plasma Cells Cancelled Smudge Cells Cancelled Other Cell Type Cancelled Toxic Granulation Cancelled Toxic Vacuolation Cancelled Dohle Bodies Cancelled Steve Rods Cancelled WBC Morphology Comment Cancelled Platelet Estimate Cancelled Clumped Platelets Cancelled Plt Morphology Comment Cancelled RBC Morphology Cancelled Dimorphic RBCs Cancelled Polychromasia Cancelled Hypochromasia Cancelled Poikilocytosis Cancelled Basophilic Stippling Cancelled Anisocytosis Cancelled Microcytosis Cancelled Macrocytosis Cancelled Spherocytes Cancelled Pappenheimer Bodies Cancelled Sickle Cells Cancelled Target Cells Cancelled Tear Drop Cells Cancelled Ovalocytes Cancelled Stomatocytes Cancelled Helmet Cells Cancelled [place] Bodies Cancelled Mereta Rings Cancelled [place] Cells Cancelled Acanthocytes (Spur) Cancelled Rouleaux Cancelled Schistocytes Cancelled Sodium 142 (137-145) mmol/L Potassium 4.5 (3.4-5.1) mmol/L Chloride 104 (98-107) mmol/L Carbon Dioxide 29 (22-32) mmol/L BUN 25 H (7-17) mg/dL Creatinine 0.74 (0.52-1.04) mg/dL Estimated GFR > 60 (>60) mL/min BUN/Creatinine Ratio 33.8 H (6-22) Glucose 139 H (80-110) mg/dL Calcium 9.2 (8.4-10.2) mg/dL Total Bilirubin 0.5 (0.2-1.3) mg/dL AST 37 H (14-36) IU/L ALT 24 (<35) IU/L Alkaline Phosphatase 85 (38-126) U/L Total Protein 7.4 (6.3-8.2) g/dL Albumin 4.3 (3.5-5.0) g/dL Globulin 3.1 (1.7-4.1) g/dL Albumin/Globulin Ratio 1.4 (1.0-2.8) Lipase 78 (23-300) U/L Urine RBC (0-5/HPF) Urine WBC (0-5/HPF) Ur Squamous Epith Cells (0-5/HPF) Amorphous Sediment Urine Bacteria (None) Salicylates < 1.0 (<20) mg/dL U Opiates 300ng/mL cut Negative (Negative) Ur Oxycodone Screen Negative (Negative) Urine Methadone Screen Negative (Negative) Acetaminophen < 10 (10-30) ug/mL Ur Barbiturates Screen Negative (Negative) U Tricyclic Antidepress Negative (Negative) Ur Phencyclidine Scrn Negative (Negative) Ur Amphetamines Screen Negative (Negative) U Methamphetamines Scrn Negative (Negative) Ur MDMA Scrn (Ecstasy) Negative (Negative) U Benzodiazepines Scrn Negative (Negative) Urine Cocaine Screen Negative (Negative) U Marijuana (THC) Screen Negative (Negative) Ethyl Alcohol < 10 ( - 10) mg/dL 03/17/22 Range/Units 17:00 WBC (4.5-11.0) X10^3/uL RBC (4.0-5.2) X10^6/uL Hgb (12.0-16.0) g/dL Hct (36-46) % MCV (80-100) fL MCH (26-34) PG MCHC (30-36) % RDW (11.6-14.8) % Plt Count (150-400) X10^3/uL Neut % (Auto) (50-75) % Lymph % (Auto) (25-40) % [place] % (Auto) (3-14) % Eos % (Auto) (2-4) % Baso % (Auto) (0-2) % Neut # (Auto) (4294-1736) /uL Lymph # (Auto) (6506-8937) /uL [place] # (Auto) (0-900) /uL Eos # (Auto) (0-450) /uL Baso # (Auto) (0-100) /uL Total Counted Seg Neutrophils % Band Neutrophils % Lymphocytes % (Manual) Atypical Lymphs % Monocytes % (Manual) Eosinophils % (Manual) Basophils % (Manual) Metamyelocytes % Myelocytes % Promyelocytes % Blast Cells % Neutrophils # (Manual) Nucleated RBCs Differential Comment Hypersegmented Neuts Reactive Lymphocytes Plasma Cells Smudge Cells Other Cell Type Toxic Granulation Toxic Vacuolation Dohle Bodies Steve Rods WBC Morphology Comment Platelet Estimate Clumped Platelets Plt Morphology Comment RBC Morphology Dimorphic RBCs Polychromasia Hypochromasia Poikilocytosis Basophilic Stippling Anisocytosis Microcytosis Macrocytosis Spherocytes Pappenheimer Bodies Sickle Cells Target Cells Tear Drop Cells Ovalocytes Stomatocytes Helmet Cells [place] Bodies Mereta Rings Bro Cells Acanthocytes (Spur) Rouleaux Schistocytes Sodium (137-145) mmol/L Potassium (3.4-5.1) mmol/L Chloride (98-107) mmol/L Carbon Dioxide (22-32) mmol/L BUN (7-17) mg/dL Creatinine (0.52-1.04) mg/dL Estimated GFR (>60) mL/min BUN/Creatinine Ratio (6-22) Glucose (80-110) mg/dL Calcium (8.4-10.2) mg/dL Total Bilirubin (0.2-1.3) mg/dL AST (14-36) IU/L ALT (<35) IU/L Alkaline Phosphatase (38-126) U/L Total Protein (6.3-8.2) g/dL Albumin (3.5-5.0) g/dL Globulin (1.7-4.1) g/dL Albumin/Globulin Ratio (1.0-2.8) Lipase (23-300) U/L Urine RBC 1-5/hpf D (0-5/HPF) Urine WBC 0-1/hpf (0-5/HPF) Ur Squamous Epith Cells 0-1 /hpf (0-5/HPF) Amorphous Sediment 1+ Urine Bacteria None seen (None) Salicylates (<20) mg/dL U Opiates 300ng/mL cut (Negative) Ur Oxycodone Screen (Negative) Urine Methadone Screen (Negative) Acetaminophen (10-30) ug/mL Ur Barbiturates Screen (Negative) U Tricyclic Antidepress (Negative) Ur Phencyclidine Scrn (Negative) Ur Amphetamines Screen (Negative) U Methamphetamines Scrn (Negative) Ur MDMA Scrn (Ecstasy) (Negative) U Benzodiazepines Scrn (Negative) Urine Cocaine Screen (Negative) U Marijuana (THC) Screen (Negative) Ethyl Alcohol ( - 10) mg/dL Urine Dip Bedside Urine Glucose Negative Bedside Urine Bilirubin - Negative Bedside Urine Ketone + 15 Urine Specific [place] 1.020 Bedside Urine Occult Blood + Bedside Urine pH 6.0 Bedside Urine Protein - Negative Bedside Urine Urobilinogen - Negative Bedside Urine Nitrite - Negative Bedside Urine Leukocytes - Negative Esterase ECG Data Attestation: I personally reviewed and interpreted this ECG as follows: (AFib with RVR, rate 142. Nonspecific ST T wave changes. ) Critical Care Time Critical Care Time Critical Care Time: Yes Total Critical Care Time: 50 Attestation: Time includes initial assessment patient, review of lab and EKG data, we have radiology data, in consultation with the above-mentioned physicians. Patient was notified of the ongoing concerns. Discharge Plan Departure Patient Disposition: Admitted As Inpatient Clinical Impression: Overdose, Esophagitis, Gastritis, Atrial fibrillation with rapid ventricular response Admit Date/Time: 03/17/22 21:28 Admit Provider: Ernie Michelle
[2022-03-17] MEDS: SODIUM CHLORIDE 0.9% 1,000 ML 150 ML IV ×2 (15:49→21:50)
[2022-03-17] MEDS: dilTIAZem 5 MG/ML SDV 10 MG IV (15:50)
[2022-03-17 15:58] LABS: Add Manual Diff / Slide Review NO; Basophils Absolute Auto 100 /uL (0-100); Basophils Percent Auto 0.5 % (0-2); Eosinophils Absolute Auto 0 /uL (0-450); Eosinophils Percent Auto 0.1 % (2-4); Hematocrit 44.8 % (36-46); Hemoglobin 14.7 g/dL (12.0-16.0); Lymphocytes Absolute Auto 1000 /uL (1100-4500); Lymphocytes Percent Auto 6.1 % (25-40); Mean Corpuscular HGB Conc 32.8 % (30-36); Mean Corpuscular Volume 85.4 fL (80-100); Monocytes Absolute Auto 1100 /uL (0-900); Monocytes Percent Auto 6.5 % (3-14); Neutrophils Absolute Auto 14500 /uL (1500-7000); Neutrophils Percent Auto 86.8 % (50-75); Platelet Count 476 X10^3/uL (150-400); Red Blood Cell Count 5.25 X10^6/uL (4.0-5.2); Red Cell Distribution Width 13.7 % (11.6-14.8); White Blood Cell Count 16.7 X10^3/uL (4.5-11.0)
[2022-03-17 16:04] LABS: Acetaminophen < 10 ug/mL (10-30); Alanine Aminotransferase 24 IU/L (<35); Albumin 4.3 g/dL (3.5-5.0); Albumin Globulin Ratio 1.4 (1.0-2.8); Alkaline Phosphatase 85 U/L (38-126); Aspartate Aminotransferase 37 IU/L (14-36); BUN Creatinine Ratio 33.8 (6-22); Bilirubin Total 0.5 mg/dL (0.2-1.3); Blood Urea Nitrogen 25 mg/dL (7-17); Calcium 9.2 mg/dL (8.4-10.2); Carbon Dioxide 29 mmol/L (22-32); Chloride 104 mmol/L (98-107); Estimated Glomerular Filt Rate > 60 mL/min (>60); Ethanol (ETOH) < 10 mg/dL; Globulin 3.1 g/dL (1.7-4.1); Glucose 139 mg/dL (80-110); HEMOLYSIS 17 (0-50); Lipase 78 U/L (23-300); Potassium 4.5 mmol/L (3.4-5.1); Salicylate < 1.0 mg/dL (<20); Sodium 142 mmol/L (137-145); Total Protein 7.4 g/dL (6.3-8.2)
--- NOTE | 2022-03-17 16:08 | CM.SWNOTE ---
TRUCK DRIVER'S OFFSIDER - Ldr Nurse Assessment TRUCK DRIVER'S OFFSIDER - Ldr Nurse Assessment Start: 03/17/22 15:58 Freq: Status: Active Protocol: Document 03/17/22 15:58 TM (Rec: 03/17/22 16:07 TM [id number]) TRUCK DRIVER'S OFFSIDER/Ldr Nurse Assessment Time Spent with Patient Start date 03/17/22 Visit Start Time 15:00 End date 03/17/22 Visit End Time 15:58 Mental Health Screening Include Onset, Duration, Intensity Presenting Problem Pt presents to ED following SI attempt via draino injestion. Precipitating Event(s) Pt reports that she feels like she hasn't been able to do anything for a year due to feeling sick. Pt reports loss of appetite, weight loss, and thinning hair. Pt reports that she is working with an oncologist and got blood tests done to determine if she has cancer. Pt states that not knowing what is wrong with her has added to her depression. Patient Strengths supportive family, adult sons, spouse. Current Behavioral Health Provider(s) none. Include Facility, Provider, Ph. # Psych. Hx Mental Health and Chemical No formal history. Pt reports Dependency that she has been feeling depressed for about a year. Pt reports that SI started about a year ago. Pt denies substance use. Family Hx of Behavioral Abuse Remote. Pt reports that she has an uncle that sucessfully completed suicide in the past. Psychiatric Hospitalizations (date(s)/ None. location) Psychosocial information & Support Pt has friends that are mental Systems health providers that have been supportive. Pt's sons Anthony and Syed are also supportive. School/Work Pt is retired. Legal Concerns Legal Matters - Outstanding Issues None. Mental Status Orientation (Person/Place/Time) Pt is oriented to person, place, and time. Stated Mood I'm not liking how I am feeling now. I am depressed. Affect (Congruent with Mood?) Broad, congruent with mood. Thought Content - Specify/Describe Denies AH or VH. Obsessions, Delusions, Hallucinations Thought Processes (Batgdks-Zntcmobz-Hviv Logical. Nxjcjlau-Ojxmccgu-Zahzlxwnwc- Xqholyxtyadnlw-Iozxdjh-Arneidklyzvf- Thought Blocking) Speech (Chmdwq-Kcud-Zvzrphy-Rapid-Soft- normal. Loud-Pressured) Motor (Lzetju-Greyvvipt-Dwgr-Other) normal. Insight (Ivye-Xsoc-Apte/Limited) Fair. Judgement (Iydc-Zwgd-Zpcx/Limited) Fair. Impulse Control (Adequate-Impaired) adequate. Memory (Wdwkbovsm-Kjjlyp-Iushgn, intact. Impaired-Intact) Concentration (Intact-Impaired) intact. Attention (Intact-Impaired) intact. Behavior (Appropriate-Inappropriate) appropriate. Risk Assessment Suicidal Ideation (Plan) No Homicidal Ideation (Plan) No Comment Pt denies active SI but reports that she is still depressed. Intervention Intervention SW met with pt at bedside to initiate MH evaluation. Pt reports that she has no formal MH history and has never been treated for depression. Pt denies previous attempts. Pt denies self harm. Pt reports that she does not have access to weapons. Pt lives with her spouse, Alex. Pt's son Anthony lives nearby in [place]. Pt' s son Syed lives in [place]. SW discussed various options with patient, including seeking outpatient mental health treatment vs inpatient psych hospitalization. Pt would like to think about her options. With pt's permission, SW called son Syed to discuss. SW provided limited specific information but took collateral from Syed. Syed reports that two byrne ago, pt seemed to be in a manic state with lots of energy and grandiose ideas. Pt would alternate between alisa and depressive episodes. For about a year and a half pt has not had any alisa but depression has worsened. Reported lack of emotional support inside of the home. Plan RA Plan SW will wait until patient is medically clear to form a plan of outpatient vs inpatient MH treatment.
[2022-03-17] MEDS: ONDANSETRON 4 MG/2 ML INJ IV (16:21)
--- NOTE | 2022-03-17 17:17 | PC.NURSE ---
Patient arrived after ingestion of Drano Crystal drain jewel hole rough opener. Patient mouth is dusky, red and dry in appearance. There is a marbeled burn appearance with differing shades of red with pin prick white spots. Patient complains that she has a burning feeling in her mouth, throat and chest. Poison control who stated that this chemical is likely to cause chemical montes wherever it comes in contact with the patient digestive tract. Dr. Bai immediately notified.
[2022-03-17 17:23] LABS: UR Morphine/Opiate cutoff 300 Negative (Negative); Ur Creatinine Normal (Normal); Ur Specific Gravity Normal (Normal); Urine Amphetamines Negative (Negative); Urine Barbiturates Negative (Negative); Urine Benzodiazepines Negative (Negative); Urine Cocaine Negative (Negative); Urine MDMA Negative (Negative); Urine Methadone Negative (Negative); Urine Methamphetamines Negative (Negative); Urine Oxycodone Negative (Negative); Urine Phencyclidine Negative (Negative); Urine Tetrahydrocannabinol Negative (Negative); Urine Tricyclic Antidepressant Negative (Negative); Urine pH Normal (Normal)
[2022-03-17] MEDS: dilTIAZem 5 MG/ML SDV 20 MG IV (17:33)
[2022-03-17 18:53] LABS: Amorphous Sediment Urine 1+; Bacteria Urine None Seen; RBC Urine 1-5/HPF (0-5/HPF); Squamous Epithelial Cell Urine 0-1 /HPF (0-5/HPF); WBC Urine 0-1/HPF (0-5/HPF)
--- NOTE | 2022-03-17 19:15 | DI.CT.S_ITS ---
PROCEDURE: CT CHEST ABD PEL W CON INDICATIONS: Drano ingestion TECHNIQUE: After the administration of intravenous contrast, 5 mm thick sections acquired from the lung apices to the symphysis. 5 mm coronal and sagittal reformats were performed, with additional 7 mm MIP reformats through the lungs. For radiation dose reduction, the following was used: automated exposure control, adjustment of mA and/or kV according to patient size. COMPARISON: [facility], CT, CT CHEST ABD PEL W CON, 02/12/2022, 10:58. FINDINGS: Image quality: Excellent. CHEST: Lungs and pleura: No acute airspace opacities. No pleural effusions or pneumothorax. Central and peripheral airways appear patent and normal in caliber. Mediastinum: Heart size is normal. No pericardial effusion. No mediastinal or hilar adenopathy by size criteria. Thoracic aorta and central pulmonary arteries are normal in size. There is diffuse esophageal wall thickening and edema with a small hiatal hernia. Chest wall: No axillary or supraclavicular adenopathy by size criteria on the current study. Previously noted enlarged left axillary lymph nodes are no longer present. Previously described bilateral hypodense thyroid nodules are unchanged in size and appearance. ABDOMEN: Solid organs: Liver is normal in size and enhancement. Gallbladder is within normal limits. Biliary system is non dilated. Pancreas enhances normally. Spleen is normal in size and enhancement. No adrenal nodules. Kidneys demonstrate normal size and enhancement, without hydronephrosis. Peritoneum and bowel: There is diffuse gastric wall thickening and edema. Questionable wall thickening involving proximal to mid small bowel wall is seen. More distal small bowel loops are noted normal in caliber and wall thickness. No colonic wall thickening or pericolonic fat stranding. No abscess collection. No free fluid or free air. Nodes and vessels: No retroperitoneal or mesenteric adenopathy by size criteria. Aorta and inferior vena cava are normal in size. Miscellaneous: No ventral hernias. PELVIS: Genitourinary: Bladder wall thickness is normal. Miscellaneous: No inguinal hernias or adenopathy. Multiple calcified uterine fibroids are again seen. No gross abnormality is seen in bilateral ovaries. Bones: No suspicious bony lesions. No vertebral body compression fractures. IMPRESSION: 1. Diffuse esophageal wall thickening, diffuse gastric wall thickening and likely proximal to mid small bowel wall thickening consistent with inflammatory esophagitis, gastritis and enteritis secondary to toxic chemical ingestion. No signs of perforation. No free fluid or free air. 2. No lymphadenopathy is seen in chest, abdomen or pelvis on the current study. 3. Stable appearance of thyroid gland with bilateral thyroid nodules. Dictated by: Rod Man M.D. on 03/17/2022 at 19:54 Approved by: Rod Man M.D. on 03/17/2022 at 20:03
--- NOTE | 2022-03-17 19:36 | PC.NURSE ---
Brought to CT
[2022-03-17] MEDS: METOPROLOL TARTRATE 5 MG/5 ML INJ IV ×3 (20:08→20:44)
[2022-03-17] MEDS: diphenhydrAMINE 50 MG/ML VIAL 25 MG IV (21:17)
[2022-03-17] MEDS: METOCLOPRAMIDE 10 MG/2 ML INJ IV (21:17)
--- NOTE | 2022-03-17 21:34 | PM.HP.1 ---
History of Present Illness History of Present Illness Date Patient Seen: 03/17/22 Time Patient Seen: 20:30 Chief complaint: Drank drano Narrative: Ms. Ambrocio is a 74W with PMH afib on eliquis who presents to the hospital for ingestion of Drano. She ingested this earlier this morning at 11am in a suicide attempt to harm herself. She has no previous history of suicide attempts. Apparently she has been concerned about her medical health recently and has been convinced she has some serious medical issue occurring which played a role in this decision. She has been recently seen by oncology for weight loss and thromboctyosis and is in the process of establishing diagnosis of etiology. Afterward she was having abdominal pain and chest/esophageal pain. She is denying any mouth pain. She has no visible mouth sores. She has no shortness of breath. When I asked her if she was suicidal or had thoughts of harming herself she stated well not with drano but was evasive about if she was considering other methods or what her feelings were. In the ED workup was done, vitals notable for tachycardia with afib with RVR. She did get two doses of IV diltiazem. Labs notable for WBC 16.7, plts 476. Creatinine 0.74. Urine drug screen negative. Tylenol, salicylates and alcohol negative. UA negative. EKG showed afib with rapid rate in the 140s. CT showed diffuse esophageal wall thickening, gastric wall thickening, and small bowel wall thickening. No signs of perforation. She had stable bilateral thyroid nodules. Poison control was contacted and recommended keeping patient NPO, monitor for possible respiratory failure and perforation, and consideration of EGD. She was placed on IV fluids and admitted for further treatment. Patient History Medical History Chicken pox COPD (chronic obstructive pulmonary disease) Fibroids History of basal cell carcinoma (BCC) History of vaginal delivery Lesion of lower eyelid Measles Skin cancer (~1975) Thrombocytosis (08/2020) Unintentional weight loss (03/2020) Surgical History Anesthesia Broken ankle History of elbow surgery Family & Social History Family History Father Hypertension Mother Hypertension Dementia Social History: household members spouse Safety & Behavioral: Feels Safe in Current Yes Environment Been Physically Hurt or No Threatened By a Person Suicidal Ideation Description Constant Suicide Plan Description Clear,Organized,Specific Tobacco & Substance use: Smoking Status Never smoker alcohol intake current alcohol intake frequency 0-2 drinks per day Substance Use Type does not use Meds Home Medications and Allergies Home Medications Medication Instructions Recorded Confirmed Type apixaban 5 mg tablet (Eliquis) See Rx Instructions .Route 11/26/21 02/17/22 Rx .COMPLEX #180 tabs diltiazem HCl 120 mg See Rx Instructions .Route 11/26/21 02/17/22 Rx capsule,extended release 24 hr .COMPLEX #90 caps Allergies Allergy/AdvReac Type Severity Reaction Status Date / Time No Known Drug Allergies Allergy Verified 01/06/22 13:44 Review of Systems Review of Systems Narrative: 14 systems reviewed and negative aside from what is noted in HPI Exam Vital Signs (past 8 hours): - 03/17/22 19:35 03/17/22 19:45 03/17/22 20:00 Pulse Rate 124 H 132 H 144 H Respiratory Rate Blood Pressure Pulse Oximetry 96 96 95 03/17/22 20:15 03/17/22 20:30 03/17/22 20:45 Pulse Rate 96 H 104 H 102 H Respiratory Rate 22 Blood Pressure Pulse Oximetry 96 96 94 03/17/22 20:57 03/17/22 20:57 03/17/22 21:00 Pulse Rate 101 H 103 H Respiratory Rate 18 20 Blood Pressure 122/73 Pulse Oximetry 95 95 03/17/22 21:12 03/17/22 21:12 03/17/22 21:14 Pulse Rate 113 H 96 H Respiratory Rate 21 18 Blood Pressure 127/85 Pulse Oximetry 95 95 03/17/22 21:14 03/17/22 21:15 03/17/22 21:16 Pulse Rate 108 H 107 H Respiratory Rate 20 17 Blood Pressure 126/66 Pulse Oximetry 95 94 03/17/22 21:16 03/17/22 21:20 03/17/22 21:20 Pulse Rate 107 H Respiratory Rate 18 Blood Pressure 112/67 134/102 H Pulse Oximetry 96 03/17/22 21:25 03/17/22 21:25 03/17/22 21:30 Pulse Rate 105 H Respiratory Rate 18 Blood Pressure 133/94 H 129/94 H Pulse Oximetry 95 03/17/22 21:30 03/17/22 21:35 03/17/22 21:35 Pulse Rate 127 H 126 H Respiratory Rate 20 19 Blood Pressure 119/81 Pulse Oximetry 93 95 03/17/22 21:40 03/17/22 21:40 03/17/22 21:45 Pulse Rate 103 H Respiratory Rate 19 Blood Pressure 119/82 117/80 Pulse Oximetry 94 03/17/22 21:45 03/17/22 21:50 03/17/22 21:50 Pulse Rate 113 H 111 H Respiratory Rate 18 20 Blood Pressure 130/81 Pulse Oximetry 94 95 03/17/22 21:58 03/17/22 21:58 03/17/22 22:00 Pulse Rate 109 H 112 H Respiratory Rate 16 18 Blood Pressure 115/76 Pulse Oximetry 96 96 03/17/22 22:01 03/17/22 22:01 03/17/22 22:05 Pulse Rate 105 H 118 H Respiratory Rate 15 19 Blood Pressure 157/74 H Pulse Oximetry 96 96 03/17/22 22:05 03/17/22 22:10 03/17/22 22:10 Pulse Rate 108 H Respiratory Rate 20 Blood Pressure 134/65 150/86 H Pulse Oximetry 95 03/17/22 22:20 03/17/22 22:22 03/17/22 22:22 Pulse Rate 112 H 120 H Respiratory Rate 17 Blood Pressure 129/80 Pulse Oximetry 95 03/17/22 22:25 03/17/22 22:25 03/17/22 22:30 Pulse Rate 128 H Respiratory Rate 19 Blood Pressure 126/85 110/82 Pulse Oximetry 95 03/17/22 22:30 03/17/22 22:40 03/17/22 22:40 Pulse Rate 118 H 90 Respiratory Rate 18 17 Blood Pressure 123/70 Pulse Oximetry 94 95 03/17/22 22:45 03/17/22 22:45 03/17/22 22:50 Pulse Rate 93 H Respiratory Rate 18 Blood Pressure 124/76 130/83 Pulse Oximetry 94 03/17/22 22:50 03/17/22 22:55 03/17/22 22:55 Pulse Rate 94 H 92 H Respiratory Rate 18 18 Blood Pressure 135/81 Pulse Oximetry 95 94 03/17/22 23:00 03/17/22 23:00 03/17/22 23:05 Pulse Rate 93 H Respiratory Rate 17 Blood Pressure 136/80 134/79 Pulse Oximetry 95 03/17/22 23:05 03/17/22 23:10 03/17/22 23:15 Pulse Rate 93 H 92 H Respiratory Rate 16 17 Blood Pressure 128/80 Pulse Oximetry 94 94 03/17/22 23:15 03/17/22 23:20 03/17/22 23:20 Pulse Rate 94 H 94 H Respiratory Rate 18 17 Blood Pressure 129/81 Pulse Oximetry 93 95 03/17/22 23:25 03/17/22 23:25 03/17/22 23:30 Pulse Rate 96 H Respiratory Rate 18 Blood Pressure 127/83 143/85 H Pulse Oximetry 94 03/17/22 23:30 03/17/22 23:35 03/17/22 23:35 Pulse Rate 94 H 94 H Respiratory Rate 17 17 Blood Pressure 134/81 Pulse Oximetry 94 95 03/17/22 23:40 03/17/22 23:40 03/17/22 23:45 Pulse Rate 96 H Respiratory Rate 18 Blood Pressure 138/82 148/73 H Pulse Oximetry 94 03/17/22 23:45 Pulse Rate 96 H Respiratory Rate 19 Blood Pressure Pulse Oximetry 95 Oxygen Delivery Method Room Air Narrative Exam Narrative: GEN: in distress from pain HEENT: moist mucous membranes, no injuries noted on oral mucosa NECK: trachea midline, no JVD PULM: clear bilaterally, no wheezes, rhonchi, rales CV: irregular, tachycardic ABD: soft, nontender, nondistended, no organomegaly, normal bowel sounds EXT: warm and well perfused with no edema NEURO: awake, alert, oriented, no focal deficits Objective Labs Result Diagrams: 03/17/22 15:48 03/17/22 15:48 Labs: Laboratory Results - last 24 hr 03/17/22 03/17/22 03/17/22 15:48 15:48 17:00 WBC 16.7 H RBC 5.25 H Hgb 14.7 Hct 44.8 MCV 85.4 MCH 28.0 MCHC 32.8 RDW 13.7 Plt Count 476 H Neut % (Auto) 86.8 H Lymph % (Auto) 6.1 L [place] % (Auto) 6.5 Eos % (Auto) 0.1 L Baso % (Auto) 0.5 Neut # (Auto) 40102 H Lymph # (Auto) 1000 L [place] # (Auto) 1100 H Eos # (Auto) 0 Baso # (Auto) 100 Total Counted Cancelled Seg Neutrophils % Cancelled Band Neutrophils % Cancelled Lymphocytes % (Manual) Cancelled Atypical Lymphs % Cancelled Monocytes % (Manual) Cancelled Eosinophils % (Manual) Cancelled Basophils % (Manual) Cancelled Metamyelocytes % Cancelled Myelocytes % Cancelled Promyelocytes % Cancelled Blast Cells % Cancelled Neutrophils # (Manual) Cancelled Nucleated RBCs Cancelled Differential Comment Cancelled Hypersegmented Neuts Cancelled Reactive Lymphocytes Cancelled Plasma Cells Cancelled Smudge Cells Cancelled Other Cell Type Cancelled Toxic Granulation Cancelled Toxic Vacuolation Cancelled Dohle Bodies Cancelled Steve Rods Cancelled WBC Morphology Comment Cancelled Platelet Estimate Cancelled Clumped Platelets Cancelled Plt Morphology Comment Cancelled RBC Morphology Cancelled Dimorphic RBCs Cancelled Polychromasia Cancelled Hypochromasia Cancelled Poikilocytosis Cancelled Basophilic Stippling Cancelled Anisocytosis Cancelled Microcytosis Cancelled Macrocytosis Cancelled Spherocytes Cancelled Pappenheimer Bodies Cancelled Sickle Cells Cancelled Target Cells Cancelled Tear Drop Cells Cancelled Ovalocytes Cancelled Stomatocytes Cancelled Helmet Cells Cancelled [place] Bodies Cancelled [place] Rings Cancelled Bro Cells Cancelled Acanthocytes (Spur) Cancelled Rouleaux Cancelled Schistocytes Cancelled Sodium 142 Potassium 4.5 Chloride 104 Carbon Dioxide 29 BUN 25 H Creatinine 0.74 Estimated GFR > 60 BUN/Creatinine Ratio 33.8 H Glucose 139 H Calcium 9.2 Total Bilirubin 0.5 AST 37 H ALT 24 Alkaline Phosphatase 85 Total Protein 7.4 Albumin 4.3 Globulin 3.1 Albumin/Globulin Ratio 1.4 Lipase 78 Urine RBC Urine WBC Ur Squamous Epith Cells Amorphous Sediment Urine Bacteria Salicylates < 1.0 U Opiates 300ng/mL cut Negative Ur Oxycodone Screen Negative Urine Methadone Screen Negative Acetaminophen < 10 Ur Barbiturates Screen Negative U Tricyclic Antidepress Negative Ur Phencyclidine Scrn Negative Ur Amphetamines Screen Negative U Methamphetamines Scrn Negative Ur MDMA Scrn (Ecstasy) Negative U Benzodiazepines Scrn Negative Urine Cocaine Screen Negative U Marijuana (THC) Screen Negative Ethyl Alcohol < 10 03/17/22 17:00 WBC RBC Hgb Hct MCV MCH MCHC RDW Plt Count Neut % (Auto) Lymph % (Auto) [place] % (Auto) Eos % (Auto) Baso % (Auto) Neut # (Auto) Lymph # (Auto) [place] # (Auto) Eos # (Auto) Baso # (Auto) Total Counted Seg Neutrophils % Band Neutrophils % Lymphocytes % (Manual) Atypical Lymphs % Monocytes % (Manual) Eosinophils % (Manual) Basophils % (Manual) Metamyelocytes % Myelocytes % Promyelocytes % Blast Cells % Neutrophils # (Manual) Nucleated RBCs Differential Comment Hypersegmented Neuts Reactive Lymphocytes Plasma Cells Smudge Cells Other Cell Type Toxic Granulation Toxic Vacuolation Dohle Bodies Steve Rods WBC Morphology Comment Platelet Estimate Clumped Platelets Plt Morphology Comment RBC Morphology Dimorphic RBCs Polychromasia Hypochromasia Poikilocytosis Basophilic Stippling Anisocytosis Microcytosis Macrocytosis Spherocytes Pappenheimer Bodies Sickle Cells Target Cells Tear Drop Cells Ovalocytes Stomatocytes Helmet Cells [place] Bodies [place] Rings Bro Cells Acanthocytes (Spur) Rouleaux Schistocytes Sodium Potassium Chloride Carbon Dioxide BUN Creatinine Estimated GFR BUN/Creatinine Ratio Glucose Calcium Total Bilirubin AST ALT Alkaline Phosphatase Total Protein Albumin Globulin Albumin/Globulin Ratio Lipase Urine RBC 1-5/hpf D Urine WBC 0-1/hpf Ur Squamous Epith Cells 0-1 /hpf Amorphous Sediment 1+ Urine Bacteria None seen Salicylates U Opiates 300ng/mL cut Ur Oxycodone Screen Urine Methadone Screen Acetaminophen Ur Barbiturates Screen U Tricyclic Antidepress Ur Phencyclidine Scrn Ur Amphetamines Screen U Methamphetamines Scrn Ur MDMA Scrn (Ecstasy) U Benzodiazepines Scrn Urine Cocaine Screen U Marijuana (THC) Screen Ethyl Alcohol Assessment & Plan Assessment & Plan narrative: 1. Caustic alkali ingestion -poison control notified, per their advice most acute injury is within 4-6 hours, no further treatment is recommended currently besides supportive care -continue to monitor for respiratory failure if she vomits and aspirated, and monitor for worsening acidosis, or for esophageal or visceral perforation -CT scan consistent with esophagitis, gastritis and enteritis due to chemical ingestion -PPI ordered -keep NPO -continue IV fluids -consult surgery for EGD -patient at risk of subacute development of strictures in the next few weeks 2. Suicide attempt -she acknowledges this was an intentional attempt to harm herself -after discussion with me she is not forthcoming about whether she has suicidal ideation at this time -appreciate social work consult -suspect patient may be medically stable in 1-2 days and then will need reassessment on how to appropriately treat her mental health 3. Atrial fibrillation, chronic, with RVR -patient did not take home medications this morning -unable to take PO medications currently -for now hold diltiazem and apixaban -ideally will be able to start medications if EGD confirms minor injury -if delayed restart of oral medications could need dilt and heparin gtt She is likely to require to midnights due to the dangerous substance ingested and risk of organ failure and visceral perforation. She in unable to eat currently, and further medical management depends on severity of disease on EGD. She will also need management of her psychiatric disease more definitively when her medical problems are stable. CODE: Full Proxy: Alex Ambrocio, spouse I have utilized all available resources to reconcile the patient's home medications Time Spent With Patient Critical Care time: I spent a total of [] minutes of critical care time on this patient's care today; this time is exclusive of procedural time.
[2022-03-17] MEDS: MORPHINE 2 MG/ML INJ IV (22:19)
[2022-03-18] VITALS (93 sets, daily range): BP systolic 110–149; BP diastolic 63–92; PULSE 74–108; RESP 0–36; TEMP 35.9–37.2; O2SAT 84–98; BMI 23.3
--- NOTE | 2022-03-18 02:46 | PC.NURSE ---
[facility] note, pt feeling nauseous
[2022-03-18] MEDS: ONDANSETRON 4 MG/2 ML INJ IV ×2 (02:53→12:02)
[2022-03-18] MEDS: SODIUM CHLORIDE 0.9% 1,000 ML 150 ML IV ×3 (04:36→21:51)
[2022-03-18 05:17] LABS: Add Manual Diff / Slide Review NO; Basophils Absolute Auto 0 /uL (0-100); Basophils Percent Auto 0.1 % (0-2); Eosinophils Absolute Auto 0 /uL (0-450); Hematocrit 41.2 % (36-46); Hemoglobin 13.6 g/dL (12.0-16.0); Lymphocytes Absolute Auto 600 /uL (1100-4500); Lymphocytes Percent Auto 2.7 % (25-40); Mean Corpuscular Hemoglobin 27.8 PG (26-34); Mean Corpuscular Volume 84.3 fL (80-100); Monocytes Absolute Auto 2000 /uL (0-900); Monocytes Percent Auto 9.7 % (3-14); Neutrophils Absolute Auto 18100 /uL (1500-7000); Neutrophils Percent Auto 87.5 % (50-75); Platelet Count 431 X10^3/uL (150-400); Red Blood Cell Count 4.88 X10^6/uL (4.0-5.2); Red Cell Distribution Width 13.8 % (11.6-14.8); White Blood Cell Count 20.7 X10^3/uL (4.5-11.0)
[2022-03-18 05:21] LABS: Magnesium 1.9 mg/dL (1.6-2.3); Phosphorous 3.5 mg/dL (2.8-4.1)
[2022-03-18 05:22] LABS: Alanine Aminotransferase 21 IU/L (<35); Albumin 3.5 g/dL (3.5-5.0); Albumin Globulin Ratio 1.5 (1.0-2.8); Alkaline Phosphatase 65 U/L (38-126); Aspartate Aminotransferase 20 IU/L (14-36); BUN Creatinine Ratio 27.3 (6-22); Bilirubin Total 0.6 mg/dL (0.2-1.3); Blood Urea Nitrogen 21 mg/dL (7-17); Calcium 8.4 mg/dL (8.4-10.2); Carbon Dioxide 26 mmol/L (22-32); Chloride 109 mmol/L (98-107); Estimated Glomerular Filt Rate > 60 mL/min (>60); Globulin 2.4 g/dL (1.7-4.1); Glucose 168 mg/dL (80-110); HEMOLYSIS < 15 (0-50); Potassium 3.9 mmol/L (3.4-5.1); Sodium 140 mmol/L (137-145); Total Protein 5.9 g/dL (6.3-8.2)
--- NOTE | 2022-03-18 06:22 | P.PN_ITS ---
Subjective Subjective Date Patient Seen: 03/18/22 Time Patient Seen: 06:00 Interval history: She feels quite a bit better. She has some abdominal discomfort and nausea through the night but this is improving. She has no respiratory issues, no shortness of breath. She has felt depression for years she states and does not have psychiatrist. She has not been on any medications for this. When asked if she is suicidal she again deflects the question. Exam Vital Signs (past 8 hours): - 03/17/22 22:25 03/17/22 22:25 03/17/22 22:30 Pulse Rate 128 H Respiratory Rate 19 Blood Pressure 126/85 110/82 Pulse Oximetry 95 03/17/22 22:30 03/17/22 22:40 03/17/22 22:40 Pulse Rate 118 H 90 Respiratory Rate 18 17 Blood Pressure 123/70 Pulse Oximetry 94 95 03/17/22 22:45 03/17/22 22:45 03/17/22 22:50 Pulse Rate 93 H Respiratory Rate 18 Blood Pressure 124/76 130/83 Pulse Oximetry 94 03/17/22 22:50 03/17/22 22:55 03/17/22 22:55 Pulse Rate 94 H 92 H Respiratory Rate 18 18 Blood Pressure 135/81 Pulse Oximetry 95 94 03/17/22 23:00 03/17/22 23:00 03/17/22 23:05 Pulse Rate 93 H Respiratory Rate 17 Blood Pressure 136/80 134/79 Pulse Oximetry 95 03/17/22 23:05 03/17/22 23:10 03/17/22 23:15 Pulse Rate 93 H 92 H Respiratory Rate 16 17 Blood Pressure 128/80 Pulse Oximetry 94 94 03/17/22 23:15 03/17/22 23:20 03/17/22 23:20 Pulse Rate 94 H 94 H Respiratory Rate 18 17 Blood Pressure 129/81 Pulse Oximetry 93 95 03/17/22 23:25 03/17/22 23:25 03/17/22 23:30 Pulse Rate 96 H Respiratory Rate 18 Blood Pressure 127/83 143/85 H Pulse Oximetry 94 03/17/22 23:30 03/17/22 23:35 03/17/22 23:35 Pulse Rate 94 H 94 H Respiratory Rate 17 17 Blood Pressure 134/81 Pulse Oximetry 94 95 03/17/22 23:40 03/17/22 23:40 03/17/22 23:45 Pulse Rate 96 H Respiratory Rate 18 Blood Pressure 138/82 148/73 H Pulse Oximetry 94 03/17/22 23:45 03/18/22 02:35 03/18/22 02:40 Pulse Rate 96 H 98 H Respiratory Rate 19 Blood Pressure 141/76 H Pulse Oximetry 95 95 03/18/22 02:40 03/18/22 02:45 03/18/22 02:45 Pulse Rate 90 105 H Respiratory Rate Blood Pressure 133/87 Pulse Oximetry 95 95 03/18/22 02:50 03/18/22 02:50 03/18/22 02:55 Pulse Rate 95 H 96 H Respiratory Rate Blood Pressure 141/74 H Pulse Oximetry 93 95 03/18/22 02:55 03/18/22 03:00 03/18/22 03:00 Pulse Rate 92 H Respiratory Rate Blood Pressure 129/78 131/82 Pulse Oximetry 94 03/18/22 03:05 03/18/22 03:05 03/18/22 03:10 Pulse Rate 92 H 92 H Respiratory Rate Blood Pressure 139/80 Pulse Oximetry 93 91 03/18/22 03:10 03/18/22 03:15 03/18/22 03:15 Pulse Rate 91 H Respiratory Rate Blood Pressure 145/71 H 148/81 H Pulse Oximetry 94 03/18/22 03:20 03/18/22 03:20 03/18/22 03:25 Pulse Rate 90 Respiratory Rate Blood Pressure 140/76 137/78 Pulse Oximetry 95 03/18/22 03:25 03/18/22 03:30 03/18/22 03:30 Pulse Rate 88 96 H Respiratory Rate Blood Pressure 134/78 Pulse Oximetry 94 96 03/18/22 03:35 03/18/22 03:35 03/18/22 03:40 Pulse Rate 92 H 91 H Respiratory Rate Blood Pressure 141/77 H Pulse Oximetry 95 96 03/18/22 03:40 03/18/22 03:45 03/18/22 03:45 Pulse Rate 92 H Respiratory Rate Blood Pressure 138/78 146/81 H Pulse Oximetry 92 03/18/22 03:56 03/18/22 03:56 03/18/22 04:00 Pulse Rate 99 H 99 H Respiratory Rate 0 L 18 Blood Pressure 140/66 Pulse Oximetry 96 95 03/18/22 04:01 03/18/22 04:01 03/18/22 04:05 Pulse Rate 100 H 96 H Respiratory Rate 20 18 Blood Pressure 146/72 H Pulse Oximetry 95 93 03/18/22 04:05 03/18/22 04:10 03/18/22 04:10 Pulse Rate 97 H Respiratory Rate 18 Blood Pressure 134/73 130/74 Pulse Oximetry 94 03/18/22 04:15 03/18/22 04:15 03/18/22 04:26 Pulse Rate 97 H Respiratory Rate 17 Blood Pressure 131/68 144/80 H Pulse Oximetry 94 03/18/22 04:26 03/18/22 04:30 03/18/22 04:30 Pulse Rate 98 H 92 H Respiratory Rate 31 H 19 Blood Pressure 133/81 Pulse Oximetry 93 92 03/18/22 04:45 03/18/22 05:00 03/18/22 05:15 Pulse Rate 92 H 92 H 92 H Respiratory Rate 18 17 19 Blood Pressure Pulse Oximetry 95 93 94 03/18/22 05:30 03/18/22 05:45 03/18/22 06:00 Pulse Rate 91 H 98 H 88 Respiratory Rate 18 18 17 Blood Pressure Pulse Oximetry 93 96 93 Oxygen Delivery Method Room Air Narrative Exam Narrative: GEN: no acute distress HEENT: moist mucous membranes, no injuries noted on oral mucosa NECK: trachea midline, no JVD PULM: clear bilaterally, no wheezes, rhonchi, rales CV: irregular ABD: soft, nontender, nondistended, no organomegaly, normal bowel sounds EXT: warm and well perfused with no edema NEURO: awake, alert, oriented, no focal deficits Objective Labs Result Diagrams: 03/18/22 05:05 03/18/22 05:05 Labs: Laboratory Results - last 24 hr 03/17/22 03/17/22 03/17/22 15:48 15:48 17:00 WBC 16.7 H RBC 5.25 H Hgb 14.7 Hct 44.8 MCV 85.4 MCH 28.0 MCHC 32.8 RDW 13.7 Plt Count 476 H Neut % (Auto) 86.8 H Lymph % (Auto) 6.1 L [place] % (Auto) 6.5 Eos % (Auto) 0.1 L Baso % (Auto) 0.5 Neut # (Auto) 28027 H Lymph # (Auto) 1000 L [place] # (Auto) 1100 H Eos # (Auto) 0 Baso # (Auto) 100 Total Counted Cancelled Seg Neutrophils % Cancelled Band Neutrophils % Cancelled Lymphocytes % (Manual) Cancelled Atypical Lymphs % Cancelled Monocytes % (Manual) Cancelled Eosinophils % (Manual) Cancelled Basophils % (Manual) Cancelled Metamyelocytes % Cancelled Myelocytes % Cancelled Promyelocytes % Cancelled Blast Cells % Cancelled Neutrophils # (Manual) Cancelled Nucleated RBCs Cancelled Differential Comment Cancelled Hypersegmented Neuts Cancelled Reactive Lymphocytes Cancelled Plasma Cells Cancelled Smudge Cells Cancelled Other Cell Type Cancelled Toxic Granulation Cancelled Toxic Vacuolation Cancelled Dohle Bodies Cancelled Steve Rods Cancelled WBC Morphology Comment Cancelled Platelet Estimate Cancelled Clumped Platelets Cancelled Plt Morphology Comment Cancelled RBC Morphology Cancelled Dimorphic RBCs Cancelled Polychromasia Cancelled Hypochromasia Cancelled Poikilocytosis Cancelled Basophilic Stippling Cancelled Anisocytosis Cancelled Microcytosis Cancelled Macrocytosis Cancelled Spherocytes Cancelled Pappenheimer Bodies Cancelled Sickle Cells Cancelled Target Cells Cancelled Tear Drop Cells Cancelled Ovalocytes Cancelled Stomatocytes Cancelled Helmet Cells Cancelled [place] Bodies Cancelled [place] Rings Cancelled Bro Cells Cancelled Acanthocytes (Spur) Cancelled Rouleaux Cancelled Schistocytes Cancelled Sodium 142 Potassium 4.5 Chloride 104 Carbon Dioxide 29 BUN 25 H Creatinine 0.74 Estimated GFR > 60 BUN/Creatinine Ratio 33.8 H Glucose 139 H Calcium 9.2 Phosphorus Magnesium Total Bilirubin 0.5 AST 37 H ALT 24 Alkaline Phosphatase 85 Total Protein 7.4 Albumin 4.3 Globulin 3.1 Albumin/Globulin Ratio 1.4 Lipase 78 Urine RBC Urine WBC Ur Squamous Epith Cells Amorphous Sediment Urine Bacteria Salicylates < 1.0 U Opiates 300ng/mL cut Negative Ur Oxycodone Screen Negative Urine Methadone Screen Negative Acetaminophen < 10 Ur Barbiturates Screen Negative U Tricyclic Antidepress Negative Ur Phencyclidine Scrn Negative Ur Amphetamines Screen Negative U Methamphetamines Scrn Negative Ur MDMA Scrn (Ecstasy) Negative U Benzodiazepines Scrn Negative Urine Cocaine Screen Negative U Marijuana (THC) Screen Negative Ethyl Alcohol < 10 03/17/22 03/18/22 03/18/22 17:00 05:05 05:05 WBC 20.7 H RBC 4.88 Hgb 13.6 Hct 41.2 MCV 84.3 MCH 27.8 MCHC 33.0 RDW 13.8 Plt Count 431 H Neut % (Auto) 87.5 H Lymph % (Auto) 2.7 L [place] % (Auto) 9.7 Eos % (Auto) 0.0 L Baso % (Auto) 0.1 Neut # (Auto) 83227 H Lymph # (Auto) 600 L [place] # (Auto) 2000 H Eos # (Auto) 0 Baso # (Auto) 0 Total Counted Seg Neutrophils % Band Neutrophils % Lymphocytes % (Manual) Atypical Lymphs % Monocytes % (Manual) Eosinophils % (Manual) Basophils % (Manual) Metamyelocytes % Myelocytes % Promyelocytes % Blast Cells % Neutrophils # (Manual) Nucleated RBCs Differential Comment Hypersegmented Neuts Reactive Lymphocytes Plasma Cells Smudge Cells Other Cell Type Toxic Granulation Toxic Vacuolation Dohle Bodies Steve Rods WBC Morphology Comment Platelet Estimate Clumped Platelets Plt Morphology Comment RBC Morphology Dimorphic RBCs Polychromasia Hypochromasia Poikilocytosis Basophilic Stippling Anisocytosis Microcytosis Macrocytosis Spherocytes Pappenheimer Bodies Sickle Cells Target Cells Tear Drop Cells Ovalocytes Stomatocytes Helmet Cells [place] Bodies [place] Rings [place] Cells Acanthocytes (Spur) Rouleaux Schistocytes Sodium 140 Potassium 3.9 Chloride 109 H Carbon Dioxide 26 BUN 21 H Creatinine 0.77 Estimated GFR > 60 BUN/Creatinine Ratio 27.3 H Glucose 168 H Calcium 8.4 Phosphorus Magnesium Total Bilirubin 0.6 AST 20 ALT 21 Alkaline Phosphatase 65 Total Protein 5.9 L Albumin 3.5 Globulin 2.4 Albumin/Globulin Ratio 1.5 Lipase Urine RBC 1-5/hpf D Urine WBC 0-1/hpf Ur Squamous Epith Cells 0-1 /hpf Amorphous Sediment 1+ Urine Bacteria None seen Salicylates U Opiates 300ng/mL cut Ur Oxycodone Screen Urine Methadone Screen Acetaminophen Ur Barbiturates Screen U Tricyclic Antidepress Ur Phencyclidine Scrn Ur Amphetamines Screen U Methamphetamines Scrn Ur MDMA Scrn (Ecstasy) U Benzodiazepines Scrn Urine Cocaine Screen U Marijuana (THC) Screen Ethyl Alcohol 03/18/22 03/18/22 05:05 05:05 WBC RBC Hgb Hct MCV MCH MCHC RDW Plt Count Neut % (Auto) Lymph % (Auto) [place] % (Auto) Eos % (Auto) Baso % (Auto) Neut # (Auto) Lymph # (Auto) [place] # (Auto) Eos # (Auto) Baso # (Auto) Total Counted Seg Neutrophils % Band Neutrophils % Lymphocytes % (Manual) Atypical Lymphs % Monocytes % (Manual) Eosinophils % (Manual) Basophils % (Manual) Metamyelocytes % Myelocytes % Promyelocytes % Blast Cells % Neutrophils # (Manual) Nucleated RBCs Differential Comment Hypersegmented Neuts Reactive Lymphocytes Plasma Cells Smudge Cells Other Cell Type Toxic Granulation Toxic Vacuolation Dohle Bodies Steve Rods WBC Morphology Comment Platelet Estimate Clumped Platelets Plt Morphology Comment RBC Morphology Dimorphic RBCs Polychromasia Hypochromasia Poikilocytosis Basophilic Stippling Anisocytosis Microcytosis Macrocytosis Spherocytes Pappenheimer Bodies Sickle Cells Target Cells Tear Drop Cells Ovalocytes Stomatocytes Helmet Cells [place] Bodies [place] Rings Bro Cells Acanthocytes (Spur) Rouleaux Schistocytes Sodium Potassium Chloride Carbon Dioxide BUN Creatinine Estimated GFR BUN/Creatinine Ratio Glucose Calcium Phosphorus 3.5 Magnesium 1.9 Total Bilirubin AST ALT Alkaline Phosphatase Total Protein Albumin Globulin Albumin/Globulin Ratio Lipase Urine RBC Urine WBC Ur Squamous Epith Cells Amorphous Sediment Urine Bacteria Salicylates U Opiates 300ng/mL cut Ur Oxycodone Screen Urine Methadone Screen Acetaminophen Ur Barbiturates Screen U Tricyclic Antidepress Ur Phencyclidine Scrn Ur Amphetamines Screen U Methamphetamines Scrn Ur MDMA Scrn (Ecstasy) U Benzodiazepines Scrn Urine Cocaine Screen U Marijuana (THC) Screen Ethyl Alcohol [facility] Medical History Chicken pox COPD (chronic obstructive pulmonary disease) Fibroids History of basal cell carcinoma (BCC) History of vaginal delivery Lesion of lower eyelid Measles Skin cancer (~1975) Thrombocytosis (08/2020) Unintentional weight loss (03/2020) Surgical History Anesthesia Broken ankle History of elbow surgery Family History Father Hypertension Mother Hypertension Dementia Social History household members: spouse Smoking Status: Never smoker second hand exposure: No alcohol intake: current substance use type: does not use Assessment & Plan Assessment & Plan narrative: 1. Caustic alkali ingestion -poison control notified, per their advice most acute injury is within 4-6 hours, no further treatment is recommended currently besides supportive care -continue to monitor for respiratory failure if she vomits and aspirated, and monitor for worsening acidosis, or for esophageal or visceral perforation -CT scan consistent with esophagitis, gastritis and enteritis due to chemical ingestion -PPI ordered -keep NPO -continue IV fluids -consult surgery for EGD -patient at risk of subacute development of strictures in the next few weeks 2. Suicide attempt -she acknowledges this was an intentional attempt to harm herself -after discussion with me she is not forthcoming about whether she has suicidal ideation at this time -appreciate social work consult -suspect patient may be medically stable in 1-2 days and then will need reassessment on how to appropriately treat her mental health 3. Atrial fibrillation, chronic, with RVR -patient did not take home medications this morning -unable to take PO medications currently -for now hold diltiazem and apixaban -ideally will be able to start medications if EGD confirms minor injury -if delayed restart of oral medications could need dilt and heparin gtt She is likely to require to midnights due to the dangerous substance ingested and risk of organ failure and visceral perforation. She in unable to eat currently, and further medical management depends on severity of disease on EGD. She will also need management of her psychiatric disease more definitively when her medical problems are stable. CODE: Full Proxy: Alex Ambrocio, spouse I have utilized all available resources to reconcile the patient's home medications Time Spent With Patient Critical Care time: I spent a total of [] minutes of critical care time on this patient's care today; this time is exclusive of procedural time.
--- NOTE | 2022-03-18 06:31 | PC.NURSE ---
pt wanted ice chips verified with nurse to see if it was ok, offered ice chips and pt got nauseas, ice chips were taken away and nurse went into room
--- NOTE | 2022-03-18 06:45 | PC.NURSE ---
pt ask for phone pt currently on phone
--- NOTE | 2022-03-18 08:04 | PC.NURSE ---
both sons in room with her
--- NOTE | 2022-03-18 08:12 | PM.OP.COLON ---
Operative Date/Time/Diagnoses Date of procedure: 03/18/22 Time of procedure: 08:12 Pre-op diagnosis: Colon cancer screening and history of polyps Post-op diagnosis: same Procedure & Clinicians Study performed: Colonoscopy Same procedure as scheduled: Yes Surgeon: Lb Floyd Procedure Notes Procedure in detail: Surgeon: Lb Floyd MD Anesthesia: By Dr. Frausto Procedure: The patient was brought to the endoscopy suite, placed in left lateral decubitus position. The patient was connected to monitoring devices. A time-out was performed. Sedation was administered. Once the patient was adequately sedated, a digital rectal exam was performed and was normal. The scope was then inserted and advanced to the cecum where the appendiceal orifice was identified and photographed. The scope was then slowly withdrawn over greater than 6 minutes. The mucosa was thoroughly inspected. No abnormalities were noted. The scope was retroflexed in the rectum. No abnormalities were noted in the rectum. The scope was straightened and removed. The patient was awakened and brought to recovery. Scope withdrawal time: 9 min Sedation time: 14 min EBL: 0 Findings: Normal colon Post-procedure Plan for aftercare: You had no polyps. You may stop colon cancer screening. Disposition: PACU
[2022-03-18] MEDS: PANTOPRAZOLE 40 MG VIAL IV ×2 (08:45→20:42)
--- NOTE | 2022-03-18 08:46 | PC.NURSE ---
pt states that yesterday she was ready to
--- NOTE | 2022-03-18 10:30 | PC.NURSE ---
pt walked with help to the restroom pt made comment about how she regrets what she did and hopes to be home for the holidays with family
[2022-03-18 10:31] LABS: COVID19 -Nasal RAPID Negative (Negative)
--- NOTE | 2022-03-18 10:53 | PC.NURSE ---
poison control called to check in on patient. informed them airway is patent, pt is not vomiting today. scheduled for EGD within the hour. they would like to call back at the end of the day for those results.
--- NOTE | 2022-03-18 11:26 | PM.HP.1 ---
History of Present Illness History of Present Illness Date Patient Seen: 03/18/22 Time Patient Seen: 11:26 Chief complaint: Rena gonzalez Narrative: Radha is a 76-year-old woman who ingested lye yesterday. She reports that she put about a tablespoon of ly in glass of water. The lye she ingested was over 10 years old. Patient History Medical History Chicken pox COPD (chronic obstructive pulmonary disease) Fibroids History of basal cell carcinoma (BCC) History of vaginal delivery Lesion of lower eyelid Measles Skin cancer (~1975) Thrombocytosis (08/2020) Unintentional weight loss (03/2020) Surgical History Anesthesia Broken ankle History of elbow surgery Family & Social History Family History Father Hypertension Mother Hypertension Dementia Social History: household members spouse Safety & Behavioral: Feels Safe in Current Yes Environment Been Physically Hurt or No Threatened By a Person Suicidal Ideation Description Constant Suicide Plan Description Clear,Organized,Specific,Feasible,High Lethality Tobacco & Substance use: Smoking Status Never smoker alcohol intake current alcohol intake frequency 0-2 drinks per day Substance Use Type does not use Meds Home Medications and Allergies Home Medications Medication Instructions Recorded Confirmed Type apixaban 5 mg tablet (Eliquis) See Rx Instructions .Route 11/26/21 02/17/22 Rx .COMPLEX #180 tabs diltiazem HCl 120 mg See Rx Instructions .Route 11/26/21 02/17/22 Rx capsule,extended release 24 hr .COMPLEX #90 caps Allergies Allergy/AdvReac Type Severity Reaction Status Date / Time No Known Drug Allergies Allergy Verified 03/18/22 11:25 Exam Vital Signs (past 8 hours): - 03/18/22 03:30 03/18/22 03:30 03/18/22 03:35 Temperature Pulse Rate 96 H Respiratory Rate Blood Pressure 134/78 141/77 H Pulse Oximetry 96 Oxygen Delivery Method 03/18/22 03:35 03/18/22 03:40 03/18/22 03:40 Temperature Pulse Rate 92 H 91 H Respiratory Rate Blood Pressure 138/78 Pulse Oximetry 95 96 Oxygen Delivery Method 03/18/22 03:45 03/18/22 03:45 03/18/22 03:56 Temperature Pulse Rate 92 H Respiratory Rate Blood Pressure 146/81 H 140/66 Pulse Oximetry 92 Oxygen Delivery Method 03/18/22 03:56 03/18/22 04:00 03/18/22 04:01 Temperature Pulse Rate 99 H 99 H Respiratory Rate 0 L 18 Blood Pressure 146/72 H Pulse Oximetry 96 95 Oxygen Delivery Method 03/18/22 04:01 03/18/22 04:05 03/18/22 04:05 Temperature Pulse Rate 100 H 96 H Respiratory Rate 20 18 Blood Pressure 134/73 Pulse Oximetry 95 93 Oxygen Delivery Method 03/18/22 04:10 03/18/22 04:10 03/18/22 04:15 Temperature Pulse Rate 97 H Respiratory Rate 18 Blood Pressure 130/74 131/68 Pulse Oximetry 94 Oxygen Delivery Method 03/18/22 04:15 03/18/22 04:26 03/18/22 04:26 Temperature Pulse Rate 97 H 98 H Respiratory Rate 17 31 H Blood Pressure 144/80 H Pulse Oximetry 94 93 Oxygen Delivery Method 03/18/22 04:30 03/18/22 04:30 03/18/22 04:45 Temperature Pulse Rate 92 H 92 H Respiratory Rate 19 18 Blood Pressure 133/81 Pulse Oximetry 92 95 Oxygen Delivery Method 03/18/22 05:00 03/18/22 05:15 03/18/22 05:30 Temperature Pulse Rate 92 H 92 H 91 H Respiratory Rate 17 19 18 Blood Pressure Pulse Oximetry 93 94 93 Oxygen Delivery Method 03/18/22 05:45 03/18/22 06:00 03/18/22 06:15 Temperature Pulse Rate 98 H 88 91 H Respiratory Rate 18 17 17 Blood Pressure Pulse Oximetry 96 93 94 Oxygen Delivery Method 03/18/22 06:30 03/18/22 06:45 03/18/22 07:00 Temperature Pulse Rate 102 H 100 H 96 H Respiratory Rate 16 20 23 Blood Pressure Pulse Oximetry 94 95 95 Oxygen Delivery Method 03/18/22 07:15 03/18/22 07:30 03/18/22 07:38 Temperature Pulse Rate 98 H 96 H Respiratory Rate 19 18 Blood Pressure 125/64 Pulse Oximetry 94 94 Oxygen Delivery Method 03/18/22 07:38 03/18/22 07:40 03/18/22 07:40 Temperature Pulse Rate 94 H 96 H Respiratory Rate 21 17 Blood Pressure 130/63 Pulse Oximetry 94 95 Oxygen Delivery Method 03/18/22 07:45 03/18/22 07:46 03/18/22 07:46 Temperature Pulse Rate 96 H 99 H Respiratory Rate 23 23 Blood Pressure 121/76 Pulse Oximetry 95 94 Oxygen Delivery Method 03/18/22 07:51 03/18/22 07:51 03/18/22 07:55 Temperature Pulse Rate 97 H 96 H Respiratory Rate 18 17 Blood Pressure 133/65 Pulse Oximetry 93 93 Oxygen Delivery Method 03/18/22 07:55 03/18/22 08:00 03/18/22 08:00 Temperature Pulse Rate 94 H Respiratory Rate 23 Blood Pressure 133/65 135/76 Pulse Oximetry 93 Oxygen Delivery Method 03/18/22 08:06 03/18/22 08:06 03/18/22 08:10 Temperature Pulse Rate 98 H 94 H Respiratory Rate 23 15 Blood Pressure 122/73 Pulse Oximetry 94 96 Oxygen Delivery Method 03/18/22 08:10 03/18/22 08:15 03/18/22 08:15 Temperature Pulse Rate 96 H Respiratory Rate 21 Blood Pressure 125/71 132/74 Pulse Oximetry 93 Oxygen Delivery Method 03/18/22 08:20 03/18/22 08:20 03/18/22 08:25 Temperature Pulse Rate 96 H 96 H Respiratory Rate 16 21 Blood Pressure 126/76 Pulse Oximetry 93 92 Oxygen Delivery Method 03/18/22 08:25 03/18/22 08:30 03/18/22 08:30 Temperature Pulse Rate 96 H Respiratory Rate 22 Blood Pressure 124/68 127/75 Pulse Oximetry 94 Oxygen Delivery Method 03/18/22 08:35 03/18/22 08:35 03/18/22 08:40 Temperature Pulse Rate 94 H 96 H Respiratory Rate 19 22 Blood Pressure 123/77 Pulse Oximetry 92 94 Oxygen Delivery Method 03/18/22 08:40 03/18/22 08:45 03/18/22 08:45 Temperature Pulse Rate 98 H Respiratory Rate 22 Blood Pressure 134/73 134/81 Pulse Oximetry 95 Oxygen Delivery Method 03/18/22 08:50 03/18/22 08:50 03/18/22 08:55 Temperature Pulse Rate 97 H Respiratory Rate 28 H Blood Pressure 134/67 133/79 Pulse Oximetry 95 Oxygen Delivery Method 03/18/22 08:55 03/18/22 09:00 03/18/22 09:01 Temperature Pulse Rate 97 H 100 H 100 H Respiratory Rate 23 22 25 H Blood Pressure Pulse Oximetry 94 94 93 Oxygen Delivery Method 03/18/22 09:01 03/18/22 09:05 03/18/22 09:05 Temperature Pulse Rate 96 H Respiratory Rate 36 H Blood Pressure 129/80 128/78 Pulse Oximetry 95 Oxygen Delivery Method 03/18/22 09:10 03/18/22 09:10 03/18/22 09:15 Temperature Pulse Rate 95 H Respiratory Rate 14 Blood Pressure 126/80 120/77 Pulse Oximetry 94 Oxygen Delivery Method 03/18/22 09:15 03/18/22 09:20 03/18/22 09:20 Temperature Pulse Rate 97 H 94 H Respiratory Rate 21 18 Blood Pressure 125/78 Pulse Oximetry 95 94 Oxygen Delivery Method 03/18/22 09:25 03/18/22 09:25 03/18/22 09:30 Temperature Pulse Rate 96 H Respiratory Rate 24 Blood Pressure 132/74 128/67 Pulse Oximetry 93 Oxygen Delivery Method 03/18/22 09:30 03/18/22 09:35 03/18/22 09:35 Temperature Pulse Rate 96 H 96 H Respiratory Rate 22 20 Blood Pressure 129/72 Pulse Oximetry 95 96 Oxygen Delivery Method 03/18/22 09:40 03/18/22 09:40 03/18/22 09:45 Temperature Pulse Rate 95 H Respiratory Rate 21 Blood Pressure 138/78 133/75 Pulse Oximetry 94 Oxygen Delivery Method 03/18/22 09:45 03/18/22 09:50 03/18/22 09:50 Temperature Pulse Rate 95 H 96 H Respiratory Rate 16 22 Blood Pressure 131/74 Pulse Oximetry 94 92 Oxygen Delivery Method 03/18/22 09:55 03/18/22 09:55 03/18/22 10:00 Temperature Pulse Rate 94 H Respiratory Rate 23 Blood Pressure 138/70 133/63 Pulse Oximetry 96 Oxygen Delivery Method 03/18/22 10:00 03/18/22 10:08 03/18/22 10:08 Temperature Pulse Rate 98 H 96 H Respiratory Rate 25 H Blood Pressure 133/73 Pulse Oximetry 90 L 93 Oxygen Delivery Method 03/18/22 10:10 03/18/22 10:10 03/18/22 10:15 Temperature Pulse Rate 101 H Respiratory Rate 21 Blood Pressure 129/78 130/70 Pulse Oximetry 84 L Oxygen Delivery Method 03/18/22 10:15 03/18/22 10:20 03/18/22 10:20 Temperature Pulse Rate 98 H 97 H Respiratory Rate 19 20 Blood Pressure 132/74 Pulse Oximetry 96 95 Oxygen Delivery Method 03/18/22 10:25 03/18/22 10:25 03/18/22 10:30 Temperature Pulse Rate 96 H Respiratory Rate 25 H Blood Pressure 133/71 138/73 Pulse Oximetry 94 Oxygen Delivery Method 03/18/22 10:30 03/18/22 10:36 03/18/22 10:36 Temperature Pulse Rate 96 H 95 H Respiratory Rate 15 18 Blood Pressure 143/86 H Pulse Oximetry 96 95 Oxygen Delivery Method 03/18/22 10:40 03/18/22 10:40 03/18/22 10:45 Temperature Pulse Rate 96 H Respiratory Rate 19 Blood Pressure 138/70 137/69 Pulse Oximetry 96 Oxygen Delivery Method 03/18/22 10:45 03/18/22 10:50 03/18/22 10:50 Temperature Pulse Rate 94 H 96 H Respiratory Rate 14 21 Blood Pressure 128/73 Pulse Oximetry 96 97 Oxygen Delivery Method 03/18/22 10:55 03/18/22 10:55 03/18/22 11:16 Temperature 98.1 F Pulse Rate 94 H 98 H Respiratory Rate 27 H 17 Blood Pressure 123/77 139/75 Pulse Oximetry 96 98 Oxygen Delivery Method Room Air Oxygen Delivery Method Room Air Narrative Exam Narrative: Abdomen soft Unlabored breaths Objective Labs Result Diagrams: 03/18/22 05:05 03/18/22 05:05 Labs: Laboratory Results - last 24 hr 03/17/22 03/17/22 03/17/22 15:48 15:48 17:00 WBC 16.7 H RBC 5.25 H Hgb 14.7 Hct 44.8 MCV 85.4 MCH 28.0 MCHC 32.8 RDW 13.7 Plt Count 476 H Neut % (Auto) 86.8 H Lymph % (Auto) 6.1 L [place] % (Auto) 6.5 Eos % (Auto) 0.1 L Baso % (Auto) 0.5 Neut # (Auto) 18374 H Lymph # (Auto) 1000 L [place] # (Auto) 1100 H Eos # (Auto) 0 Baso # (Auto) 100 Total Counted Cancelled Seg Neutrophils % Cancelled Band Neutrophils % Cancelled Lymphocytes % (Manual) Cancelled Atypical Lymphs % Cancelled Monocytes % (Manual) Cancelled Eosinophils % (Manual) Cancelled Basophils % (Manual) Cancelled Metamyelocytes % Cancelled Myelocytes % Cancelled Promyelocytes % Cancelled Blast Cells % Cancelled Neutrophils # (Manual) Cancelled Nucleated RBCs Cancelled Differential Comment Cancelled Hypersegmented Neuts Cancelled Reactive Lymphocytes Cancelled Plasma Cells Cancelled Smudge Cells Cancelled Other Cell Type Cancelled Toxic Granulation Cancelled Toxic Vacuolation Cancelled Dohle Bodies Cancelled Steve Rods Cancelled WBC Morphology Comment Cancelled Platelet Estimate Cancelled Clumped Platelets Cancelled Plt Morphology Comment Cancelled RBC Morphology Cancelled Dimorphic RBCs Cancelled Polychromasia Cancelled Hypochromasia Cancelled Poikilocytosis Cancelled Basophilic Stippling Cancelled Anisocytosis Cancelled Microcytosis Cancelled Macrocytosis Cancelled Spherocytes Cancelled Pappenheimer Bodies Cancelled Sickle Cells Cancelled Target Cells Cancelled Tear Drop Cells Cancelled Ovalocytes Cancelled Stomatocytes Cancelled Helmet Cells Cancelled [place] Bodies Cancelled [place] Rings Cancelled [place] Cells Cancelled Acanthocytes (Spur) Cancelled Rouleaux Cancelled Schistocytes Cancelled Sodium 142 Potassium 4.5 Chloride 104 Carbon Dioxide 29 BUN 25 H Creatinine 0.74 Estimated GFR > 60 BUN/Creatinine Ratio 33.8 H Glucose 139 H Calcium 9.2 Phosphorus Magnesium Total Bilirubin 0.5 AST 37 H ALT 24 Alkaline Phosphatase 85 Total Protein 7.4 Albumin 4.3 Globulin 3.1 Albumin/Globulin Ratio 1.4 Lipase 78 Urine RBC Urine WBC Ur Squamous Epith Cells Amorphous Sediment Urine Bacteria Salicylates < 1.0 U Opiates 300ng/mL cut Negative Ur Oxycodone Screen Negative Urine Methadone Screen Negative Acetaminophen < 10 Ur Barbiturates Screen Negative U Tricyclic Antidepress Negative Ur Phencyclidine Scrn Negative Ur Amphetamines Screen Negative U Methamphetamines Scrn Negative Ur MDMA Scrn (Ecstasy) Negative U Benzodiazepines Scrn Negative Urine Cocaine Screen Negative U Marijuana (THC) Screen Negative Ethyl Alcohol < 10 SARS-CoV-2 (PCR) 03/17/22 03/18/22 03/18/22 17:00 05:05 05:05 WBC 20.7 H RBC 4.88 Hgb 13.6 Hct 41.2 MCV 84.3 MCH 27.8 MCHC 33.0 RDW 13.8 Plt Count 431 H Neut % (Auto) 87.5 H Lymph % (Auto) 2.7 L [place] % (Auto) 9.7 Eos % (Auto) 0.0 L Baso % (Auto) 0.1 Neut # (Auto) 85150 H Lymph # (Auto) 600 L [place] # (Auto) 2000 H Eos # (Auto) 0 Baso # (Auto) 0 Total Counted Seg Neutrophils % Band Neutrophils % Lymphocytes % (Manual) Atypical Lymphs % Monocytes % (Manual) Eosinophils % (Manual) Basophils % (Manual) Metamyelocytes % Myelocytes % Promyelocytes % Blast Cells % Neutrophils # (Manual) Nucleated RBCs Differential Comment Hypersegmented Neuts Reactive Lymphocytes Plasma Cells Smudge Cells Other Cell Type Toxic Granulation Toxic Vacuolation Dohle Bodies Steve Rods WBC Morphology Comment Platelet Estimate Clumped Platelets Plt Morphology Comment RBC Morphology Dimorphic RBCs Polychromasia Hypochromasia Poikilocytosis Basophilic Stippling Anisocytosis Microcytosis Macrocytosis Spherocytes Pappenheimer Bodies Sickle Cells Target Cells Tear Drop Cells Ovalocytes Stomatocytes Helmet Cells [place] Bodies [place] Rings [place] Cells Acanthocytes (Spur) Rouleaux Schistocytes Sodium 140 Potassium 3.9 Chloride 109 H Carbon Dioxide 26 BUN 21 H Creatinine 0.77 Estimated GFR > 60 BUN/Creatinine Ratio 27.3 H Glucose 168 H Calcium 8.4 Phosphorus Magnesium Total Bilirubin 0.6 AST 20 ALT 21 Alkaline Phosphatase 65 Total Protein 5.9 L Albumin 3.5 Globulin 2.4 Albumin/Globulin Ratio 1.5 Lipase Urine RBC 1-5/hpf D Urine WBC 0-1/hpf Ur Squamous Epith Cells 0-1 /hpf Amorphous Sediment 1+ Urine Bacteria None seen Salicylates U Opiates 300ng/mL cut Ur Oxycodone Screen Urine Methadone Screen Acetaminophen Ur Barbiturates Screen U Tricyclic Antidepress Ur Phencyclidine Scrn Ur Amphetamines Screen U Methamphetamines Scrn Ur MDMA Scrn (Ecstasy) U Benzodiazepines Scrn Urine Cocaine Screen U Marijuana (THC) Screen Ethyl Alcohol SARS-CoV-2 (PCR) 03/18/22 03/18/22 03/18/22 05:05 05:05 09:51 WBC RBC Hgb Hct MCV MCH MCHC RDW Plt Count Neut % (Auto) Lymph % (Auto) [place] % (Auto) Eos % (Auto) Baso % (Auto) Neut # (Auto) Lymph # (Auto) [place] # (Auto) Eos # (Auto) Baso # (Auto) Total Counted Seg Neutrophils % Band Neutrophils % Lymphocytes % (Manual) Atypical Lymphs % Monocytes % (Manual) Eosinophils % (Manual) Basophils % (Manual) Metamyelocytes % Myelocytes % Promyelocytes % Blast Cells % Neutrophils # (Manual) Nucleated RBCs Differential Comment Hypersegmented Neuts Reactive Lymphocytes Plasma Cells Smudge Cells Other Cell Type Toxic Granulation Toxic Vacuolation Dohle Bodies Steve Rods WBC Morphology Comment Platelet Estimate Clumped Platelets Plt Morphology Comment RBC Morphology Dimorphic RBCs Polychromasia Hypochromasia Poikilocytosis Basophilic Stippling Anisocytosis Microcytosis Macrocytosis Spherocytes Pappenheimer Bodies Sickle Cells Target Cells Tear Drop Cells Ovalocytes Stomatocytes Helmet Cells [place] Bodies [place] Rings Bro Cells Acanthocytes (Spur) Rouleaux Schistocytes Sodium Potassium Chloride Carbon Dioxide BUN Creatinine Estimated GFR BUN/Creatinine Ratio Glucose Calcium Phosphorus 3.5 Magnesium 1.9 Total Bilirubin AST ALT Alkaline Phosphatase Total Protein Albumin Globulin Albumin/Globulin Ratio Lipase Urine RBC Urine WBC Ur Squamous Epith Cells Amorphous Sediment Urine Bacteria Salicylates U Opiates 300ng/mL cut Ur Oxycodone Screen Urine Methadone Screen Acetaminophen Ur Barbiturates Screen U Tricyclic Antidepress Ur Phencyclidine Scrn Ur Amphetamines Screen U Methamphetamines Scrn Ur MDMA Scrn (Ecstasy) U Benzodiazepines Scrn Urine Cocaine Screen U Marijuana (THC) Screen Ethyl Alcohol SARS-CoV-2 (PCR) Negative Assessment & Plan Assessment and plan (1) Esophagitis: Status: Acute Plan Reviewed risks and benefits of EGD to evaluate esophagus and stomach for caustic injury. She understands the risks and wishes to proceed. Time Spent With Patient Critical Care time: I spent a total of [] minutes of critical care time on this patient's care today; this time is exclusive of procedural time.
--- NOTE | 2022-03-18 11:34 | SUR.HOLD ---
Pt arrived from ER, on SI at all times for recent suicide attempt 03/17/22/. Pt within view of RN station within line of site at all times 1:1. Ramsey Lynch in waiting room. Pt to Endo for upper EGD.
--- NOTE | 2022-03-18 11:55 | PM.OP.EGD ---
Operative Date/Time/Diagnoses Date of procedure: 03/18/22 Time of procedure: 11:55 Pre-op diagnosis: Caustic esophageal injury Post-op diagnosis: same Procedure & Clinicians Study performed: Esophagogastroduodenoscopy Same procedure as scheduled: Yes Surgeon: Lb Floyd Procedure Notes Procedure in detail: Surgeon: Lb Floyd MD Anesthesia: Dr. Frausto A timeout was performed. A bite blocked was placed. The patient was positioned in the position. Anesthesia was administered. The endoscope was inserted through the bite block and passed through the esophagus and stomach and into the duodenum. The duodenal mucosa appeared normal. The duodenal bulb was erythematous. The scope was withdrawn into the stomach. There were linear ulcerations in the stomach and foul smell suggestive of necrosis. The scope was withdrawn into the esophagus. There were extensive exudates in the distal esophagus. There were areas of thrombosed mucosa throughout the esophagus. The exudates were greatest in the distal esophagus. The oropharyngeal mucosa was erythematous. The scope was withdrawn completely. The patient was awakened and brought to recovery. Sedation time: 9 Findings: Extensive mucosal damage of the esophagus and stomach Post-procedure Disposition: PACU
--- NOTE | 2022-03-18 12:22 | SUR.PHASEI ---
Called report to LANDY Rojas pt to have 1:1 on floor. Pt supervised 1:1 in PACU, vital signs stable, pt denies pain and nausea at this time.
--- NOTE | 2022-03-18 15:52 | CM.DPNOTE ---
Addendum entered by ALLISON Duvall 03/19/22 13:33: ADD: Patient will remain admitted at ; patient with extensive Corrosion of esophagus, currently NPO, IV fluids, TPN will be initiated while patient awaits placement of laparoscopic jejunostomy for enteral access next week Psychiatry consult placed [facility] [employer] team will continue to follow closely. Anticipate patient will require inpatient psychiatric management at an institution that can also manage her medical needs JW Original Note: [facility]/DCP Note Reviewed chart, introduced self and role to patient and her son Andrea. Both appreciative and state understanding that medical POC still unfolding. [facility] [employer] team will plan to reassess, likely with assistance from a psychiatrist, when patient getting closer to medical stability. Stepped out of room as both patient and son answered their phones and learned that patient being considered for transfer to d/t the severity of the damage to her esophagus, caused by ingestion of draino [facility] team following closely as medical plan of care unfolds ALLISON Watson
[2022-03-19] VITALS (15 sets, daily range): BP systolic 117–152; BP diastolic 73–102; PULSE 75–132; RESP 15–18; TEMP 36–37.2; O2SAT 93–98
[2022-03-19] MEDS: SODIUM CHLORIDE 0.9% 1,000 ML 150 ML IV ×2 (04:38→11:08)
[2022-03-19 05:31] LABS: Add Manual Diff / Slide Review NO; Basophils Absolute Auto 0 /uL (0-100); Eosinophils Absolute Auto 0 /uL (0-450); Hematocrit 38.2 % (36-46); Hemoglobin 12.2 g/dL (12.0-16.0); Lymphocytes Absolute Auto 800 /uL (1100-4500); Lymphocytes Percent Auto 4.6 % (25-40); Mean Corpuscular HGB Conc 31.8 % (30-36); Mean Corpuscular Hemoglobin 27.3 PG (26-34); Mean Corpuscular Volume 85.8 fL (80-100); Monocytes Absolute Auto 2100 /uL (0-900); Monocytes Percent Auto 11.4 % (3-14); Neutrophils Absolute Auto 15300 /uL (1500-7000); Platelet Count 380 X10^3/uL (150-400); Red Blood Cell Count 4.46 X10^6/uL (4.0-5.2); Red Cell Distribution Width 13.9 % (11.6-14.8); White Blood Cell Count 18.2 X10^3/uL (4.5-11.0)
[2022-03-19 05:36] LABS: Blood Urea Nitrogen 16 mg/dL (7-17); Calcium 8.1 mg/dL (8.4-10.2); Carbon Dioxide 24 mmol/L (22-32); Chloride 110 mmol/L (98-107); Estimated Glomerular Filt Rate > 60 mL/min (>60); Glucose 134 mg/dL (80-110); HEMOLYSIS < 15 (0-50); Potassium 3.4 mmol/L (3.4-5.1); Sodium 140 mmol/L (137-145)
--- NOTE | 2022-03-19 07:01 | PM.PN.1 ---
Subjective Subjective Date Patient Seen: 03/19/22 Time Patient Seen: 06:45 Interval history: She has no pain, no difficulty swallowing, no shortness of breath. She denies suicidal ideation Exam Vital Signs (past 8 hours): - 03/18/22 23:31 03/19/22 05:51 Temperature 96.6 F L 96.8 F L Pulse Rate 95 H 94 H Respiratory Rate 15 15 Blood Pressure 135/75 126/87 Pulse Oximetry 93 93 Oxygen Flow Rate 0 0 Oxygen Delivery Method Room Air Oxygen Flow Rate 0 Narrative Exam Narrative: GEN: no acute distress HEENT: moist mucous membranes, no injuries noted on oral mucosa NECK: trachea midline, no JVD PULM: clear bilaterally, no wheezes, rhonchi, rales CV: irregular ABD: soft, nontender, nondistended, no organomegaly, normal bowel sounds EXT: warm and well perfused with no edema NEURO: awake, alert, oriented, no focal deficits Objective Labs Result Diagrams: 03/19/22 04:36 03/19/22 04:36 Labs: Laboratory Results - last 24 hr 03/18/22 03/19/22 03/19/22 09:51 04:36 04:36 WBC 18.2 H RBC 4.46 Hgb 12.2 Hct 38.2 MCV 85.8 MCH 27.3 MCHC 31.8 RDW 13.9 Plt Count 380 Neut % (Auto) 84.0 H Lymph % (Auto) 4.6 L [place] % (Auto) 11.4 Eos % (Auto) 0.0 L Baso % (Auto) 0.0 Neut # (Auto) 81977 H Lymph # (Auto) 800 L [place] # (Auto) 2100 H Eos # (Auto) 0 Baso # (Auto) 0 Sodium 140 Potassium 3.4 Chloride 110 H Carbon Dioxide 24 BUN 16 Creatinine 0.64 Estimated GFR > 60 BUN/Creatinine Ratio 25.0 H Glucose 134 H Calcium 8.1 L SARS-CoV-2 (PCR) Negative [facility] Medical History Chicken pox COPD (chronic obstructive pulmonary disease) Fibroids History of basal cell carcinoma (BCC) History of vaginal delivery Lesion of lower eyelid Measles Skin cancer (~1975) Thrombocytosis (08/2020) Unintentional weight loss (03/2020) Surgical History Anesthesia Broken ankle History of elbow surgery Family History Father Hypertension Mother Hypertension Dementia Social History household members: spouse Smoking Status: Never smoker second hand exposure: No alcohol intake: current substance use type: does not use Assessment & Plan Assessment & Plan narrative: 1. Esophageal injury from cause alkali ingestion, 3b grade -poison control notified, per their advice most acute injury is within 4-6 hours, no further treatment is recommended currently besides supportive care -continue to monitor for respiratory failure if she vomits and aspirated, and monitor for worsening acidosis, or for esophageal or visceral perforation -CT scan consistent with esophagitis, gastritis and enteritis due to chemical ingestion -PPI ordered -keep NPO -continue IV fluids -consult surgery for EGD which showed severe esophageal injury and necrosis -will need prolonged NPO status for at least one week until EGD to repeat view of esophageal injury, but suspect longer 4-6 weeks -patient at risk of subacute development of strictures in the next few weeks 2. Suicide attempt -she acknowledges this was an intentional attempt to harm herself -today she says she no suicidal ideation -appreciate social work consult -patient will likely not be medically stable for approximately one week 3. Atrial fibrillation, chronic, with RVR -patient did not take home medications this morning -unable to take PO medications currently -for now hold diltiazem and apixaban -ideally will be able to start medications if EGD confirms minor injury -if delayed restart of oral medications could need dilt and heparin gtt She is likely to require to midnights due to the dangerous substance ingested and risk of organ failure and visceral perforation. She in unable to eat currently, and further medical management depends on severity of disease on EGD. She will also need management of her psychiatric disease more definitively when her medical problems are stable. CODE: Full Proxy: Alex Vepam, spouse I have utilized all available resources to reconcile the patient's home medications Time Spent With Patient Critical Care time: I spent a total of [] minutes of critical care time on this patient's care today; this time is exclusive of procedural time. Quality VTE Deep Vein Thrombosis/Pulmonary Embolism Present on Admission: No
--- NOTE | 2022-03-19 07:22 | PC.NURSE ---
Patient is sleeping
--- NOTE | 2022-03-19 08:28 | P.PN_ITS ---
Subjective Subjective Date Patient Seen: 03/19/22 Time Patient Seen: 08:28 Interval history: 76-year-old woman admitted after a caustic ingestion with esophageal injury. No major overnight events. She reports abdominal pain no nausea vomiting. Exam Vital Signs (past 8 hours): - 03/19/22 05:51 Temperature 96.8 F L Pulse Rate 94 H Respiratory Rate 15 Blood Pressure 126/87 Pulse Oximetry 93 Oxygen Flow Rate 0 Oxygen Delivery Method Room Air Oxygen Flow Rate 0 Narrative Exam Narrative: General elderly woman alert oriented no distress Abdomen soft nontender nondistended. Objective Labs Result Diagrams: 03/19/22 04:36 03/19/22 04:36 Labs: Laboratory Results - last 24 hr 03/18/22 03/19/22 03/19/22 09:51 04:36 04:36 WBC 18.2 H RBC 4.46 Hgb 12.2 Hct 38.2 MCV 85.8 MCH 27.3 MCHC 31.8 RDW 13.9 Plt Count 380 Neut % (Auto) 84.0 H Lymph % (Auto) 4.6 L [place] % (Auto) 11.4 Eos % (Auto) 0.0 L Baso % (Auto) 0.0 Neut # (Auto) 66280 H Lymph # (Auto) 800 L [place] # (Auto) 2100 H Eos # (Auto) 0 Baso # (Auto) 0 Sodium 140 Potassium 3.4 Chloride 110 H Carbon Dioxide 24 BUN 16 Creatinine 0.64 Estimated GFR > 60 BUN/Creatinine Ratio 25.0 H Glucose 134 H Calcium 8.1 L SARS-CoV-2 (PCR) Negative [facility] Medical History Chicken pox COPD (chronic obstructive pulmonary disease) Fibroids History of basal cell carcinoma (BCC) History of vaginal delivery Lesion of lower eyelid Measles Skin cancer (~1975) Thrombocytosis (08/2020) Unintentional weight loss (03/2020) Surgical History Anesthesia Broken ankle History of elbow surgery Family History Father Hypertension Mother Hypertension Dementia Social History household members: spouse Smoking Status: Never smoker second hand exposure: No alcohol intake: current substance use type: does not use Assessment & Plan Assessment and plan (1) Caustic esophageal injury: Qualifiers: Encounter type: initial encounter Qualified Code(s): T28.6XXA - Corrosion of esophagus, initial encounter Status: Acute Assessment & Plan narrative: 76-year-old woman with a caustic esophageal injury with extensive esophagitis no perforation. - NPO IV fluids - start TPN - anticipate laparoscopic jejunostomy for enteral access next week Time Spent With Patient Critical Care time: I spent a total of [] minutes of critical care time on this patient's care today; this time is exclusive of procedural time. Quality VTE Deep Vein Thrombosis/Pulmonary Embolism Present on Admission: No
[2022-03-19] MEDS: PANTOPRAZOLE 40 MG VIAL IV ×2 (09:21→21:35)
[2022-03-19] MEDS: METOPROLOL TARTRATE 5 MG/5 ML INJ IV (09:21)
[2022-03-19] MEDS: ONDANSETRON 4 MG/2 ML INJ IV ×2 (09:22→18:40)
[2022-03-19] MEDS: MORPHINE 2 MG/ML INJ IV ×2 (09:43→22:32)
--- NOTE | 2022-03-19 12:05 | DIET.CONS ---
Dietary Consultation Note Admission Date: 03/17/2022 21:28 Assessment: 76y F admitted after ingestion of liquid alkali ([place]) as suicide attempt referred to nutrition for TPN reccs until pt can receive NJ or J-tube early next week for nutrition support. Pt had EGD yesterday showing gastritis and esophagitis with significant thrombosed mucosa and exudate in esophagus and linear ulcerations smelling of necrosis in stomach. Pt at risk for GI perforation and significant tissue slough. Pt with high kcal and protein needs for healing tissues. RD spoke with pt at bedside, pt desires TPN artificial nutrition and feeding tube placement when available. Pt states prior to hospitalization she was eating normally, pt BMI low for age, however pt low risk for refeeding syndrome. Ht: 165.1 cm Wt: 57 kg BMI: 23.3 UBW: 57-65kg Last BM: 03/18/22 (03/18/22 12:38) MNA: 11 Luis E Score: 16 Diet: 03/17/22 22:16 NPO Diet Diet Modifications: Safety Tray needed?: No NPO Type: Strict Labs: RBC 4.46 X10^6/uL (4.0-5.2) 03/19/22 04:36 Hgb 12.2 g/dL (12.0-16.0) 03/19/22 04:36 Hct 38.2 % (36-46) 03/19/22 04:36 Creatinine 0.64 mg/dL (0.52-1.04) 03/19/22 04:36 Interventions: 1. Recc initiation of TPN for GI rest until NJ/Jtube can safely be placed to feed via enteral route. 1.5L Clinimix E running continuously at 62mL/h via central line with 250mL IVFE three days per week. EER: 1534kcal (27kcal/kg), 75g PRO (1.3g/kg) Monitoring/Evaluations: recc NJ/Jtube placement for preferred enteral feeding better able to meet pts nutritional needs. Please reconsult RD for enteral feeding reccs to support tissue healing. Electronically Signed by: Estela Grady 03/19/22 12:05 Clinical Dietitian [address] [address]
--- NOTE | 2022-03-19 15:05 | DI.RAD.S_ITS ---
PROCEDURE: XR CHEST 1V INDICATIONS: PICC line placement. TECHNIQUE: One view of the chest was acquired. COMPARISON: [facility], CR, XR CHEST 2V, 08/27/2020, 13:18. [facility], CR, XR CHEST 1V, 08/19/2020, 21:14. FINDINGS: Surgical changes and devices: PICC line in normal position from right-sided approach extending into the distal SVC.. Lungs and pleura: Lungs are abnormal bilaterally with minimal alveolar infiltration right lung base and moderate infiltration with possible slight subpulmonic pleural effusion on the left. No pleural effusions or pneumothorax. Mediastinum: Mediastinal contours appear normal. Heart size is normal. Bones and chest wall: No suspicious bony lesions. Overlying soft tissues appear unremarkable. IMPRESSION: Bilateral pneumonia pattern, left greater than right. Central line from right sided approach extends into the distal SVC. Dictated by: Norman Gordillo M.D. on 03/19/2022 at 15:43 Approved by: Norman Gordillo M.D. on 03/19/2022 at 15:44
[2022-03-19] MEDS: FAT EMULSIONS 50 GM/250 ML EMULSION IV (18:09)
[2022-03-19] MEDS: AA 5 %/CALCIUM/LYTES/DEXT 20 % 1,500 ML with MULTIVITAMIN 10 ML, TRACE ELEMENTS 1 ML 62.958 ML IV (18:09)
--- NOTE | 2022-03-19 19:47 | PC.NURSE ---
Psych: Pt has had 1:1 contact all day. Discussed what brought her to the hospital, she was able to say what brought her here. Asked how she felt now, [place]. Asked to explain response SIm sick, [place] keeps eyes averted. Didn't want to respond if she would make another attempt and didn't want to speak more on this subject. Request understood. She is to see someone from psych, consult placed to them by Dr. Griffin. PIC line placed and TPN was started. Cardiac: Heart rate has been controlled since this am. No c/p or chest pressure. Trop was negative. Remains on tele. GI: Has had some nausea, feels queasy, zofran given x2 and has been effective.
--- NOTE | 2022-03-19 22:29 | PC.NURSE ---
UP TO BATHROOM,BACK INTO CHAIR WITH HER PHONE, REQUESTING MORPHINE , STATES VERY UNCOMFORTABLE
--- NOTE | 2022-03-19 23:37 | PC.NURSE ---
Pt sleeping in chair-resps even and unlabored. Woke Pt to check vital signs and PICC line. IV's infusing as ordered. Pt stated she has been having back pain which she describes as chronic-repositioned for greater comfort. Pt denies shortness of breath or nausea. Pt O2 sat 96% on RA. Speech clear, swallow intact, answers questions appropriately. Pt is calm and cooperative and back to sleep by the end of our conversation.
[2022-03-19] MEDS: SODIUM CHLORIDE 0.9% 1,000 ML 75 ML IV (23:41)
[2022-03-20] VITALS (15 sets, daily range): BP systolic 126–151; BP diastolic 69–97; PULSE 59–116; RESP 16–18; TEMP 36.4–37.2; O2SAT 91–98
--- NOTE | 2022-03-20 01:49 | PC.NURSE ---
Addendum entered by Jaelyn Gallegos R.N. 03/20/22 05:20: Pt resting in bed, c/o nausea but too soon for Zofran which was given at 0230 and ordered q8hrs. Received orders for time change for Zofran and IV Lorazepam. Discussed with Pt-Lorazepam given. Placed more pillows around Pt for greater comfort and a warm blanket to her lower back for back pain. Pt denies needs at this time. Original Note: Pt back to bed per request and now positioned comfortably on her right side. Bed alarm on for safety and Pt denies needs at this time.
[2022-03-20] MEDS: ONDANSETRON 4 MG/2 ML INJ IV (02:30)
[2022-03-20 04:57] LABS: Add Manual Diff / Slide Review NO; Basophils Absolute Auto 0 /uL (0-100); Eosinophils Absolute Auto 0 /uL (0-450); Hematocrit 34.3 % (36-46); Hemoglobin 11.3 g/dL (12.0-16.0); Lymphocytes Absolute Auto 800 /uL (1100-4500); Lymphocytes Percent Auto 5.8 % (25-40); Mean Corpuscular Hemoglobin 27.9 PG (26-34); Mean Corpuscular Volume 84.7 fL (80-100); Monocytes Absolute Auto 1800 /uL (0-900); Monocytes Percent Auto 13.8 % (3-14); Neutrophils Absolute Auto 10500 /uL (1500-7000); Neutrophils Percent Auto 80.4 % (50-75); Platelet Count 340 X10^3/uL (150-400); Red Blood Cell Count 4.04 X10^6/uL (4.0-5.2); Red Cell Distribution Width 13.8 % (11.6-14.8)
[2022-03-20 05:01] LABS: BUN Creatinine Ratio 35.6 (6-22); Blood Urea Nitrogen 21 mg/dL (7-17); Calcium 7.7 mg/dL (8.4-10.2); Carbon Dioxide 28 mmol/L (22-32); Chloride 105 mmol/L (98-107); Estimated Glomerular Filt Rate > 60 mL/min (>60); Glucose 203 mg/dL (80-110); HEMOLYSIS < 15 (0-50); Potassium 3.4 mmol/L (3.4-5.1); Sodium 138 mmol/L (137-145)
[2022-03-20] MEDS: LORazepam 2 MG/ML INJ 0.5 MG IV ×2 (05:15→20:23)
--- NOTE | 2022-03-20 05:52 | P.PN_ITS ---
Subjective Subjective Date Patient Seen: 03/20/22 Time Patient Seen: 05:30 Interval history: She has nausea. No vomiting. No shortness of breath, but she says she feels better on 1L oxygen. Exam Vital Signs (past 8 hours): - 03/20/22 03:00 03/19/22 23:00 03/20/22 04:52 Temperature 98.1 F Pulse Rate 59 L 75 87 Respiratory Rate 16 16 Blood Pressure 139/81 151/94 H Pulse Oximetry 98 96 95 Oxygen Flow Rate 1 0 1 Oxygen Delivery Method Nasal Cannula Oxygen Flow Rate 1 Narrative Exam Narrative: GEN: no acute distress HEENT: moist mucous membranes, no injuries noted on oral mucosa NECK: trachea midline, no JVD PULM: clear bilaterally, no wheezes, rhonchi, rales CV: irregular ABD: soft, nontender, nondistended, no organomegaly, normal bowel sounds EXT: warm and well perfused with no edema NEURO: awake, alert, oriented, no focal deficits Objective Labs Result Diagrams: 03/20/22 04:23 03/20/22 04:23 Labs: Laboratory Results - last 24 hr 03/19/22 03/20/22 03/20/22 10:30 04:23 04:23 WBC 13.0 H RBC 4.04 Hgb 11.3 L Hct 34.3 L MCV 84.7 MCH 27.9 MCHC 33.0 RDW 13.8 Plt Count 340 Neut % (Auto) 80.4 H Lymph % (Auto) 5.8 L [place] % (Auto) 13.8 Eos % (Auto) 0.0 L Baso % (Auto) 0.0 Neut # (Auto) 11409 H Lymph # (Auto) 800 L [place] # (Auto) 1800 H Eos # (Auto) 0 Baso # (Auto) 0 Sodium 138 Potassium 3.4 Chloride 105 Carbon Dioxide 28 BUN 21 H Creatinine 0.59 Estimated GFR > 60 BUN/Creatinine Ratio 35.6 H Glucose 203 H Calcium 7.7 L Troponin I 0.020 PFSH Medical History Chicken pox COPD (chronic obstructive pulmonary disease) Fibroids History of basal cell carcinoma (BCC) History of vaginal delivery Lesion of lower eyelid Measles Skin cancer (~1975) Thrombocytosis (08/2020) Unintentional weight loss (03/2020) Surgical History Anesthesia Broken ankle History of elbow surgery Family History Father Hypertension Mother Hypertension Dementia Social History household members: spouse Smoking Status: Never smoker second hand exposure: No alcohol intake: current substance use type: does not use Assessment & Plan Assessment & Plan narrative: 1. Esophageal injury from cause alkali ingestion -poison control notified, per their advice most acute injury is within 4-6 hours, no further treatment is recommended currently besides supportive care -continue to monitor for respiratory failure if she vomits and aspirated, and monitor for worsening acidosis, or for esophageal or visceral perforation -CT scan consistent with esophagitis, gastritis and enteritis due to chemical ingestion -PPI ordered -keep NPO -continue IV fluids -consult surgery for EGD which showed severe esophageal injury and necrosis -will need prolonged NPO status for at least one week until EGD to repeat view of esophageal injury, but suspect longer will be necessary -patient at risk of subacute development of strictures in the next few weeks -plan for j-tube placement with surgery possibly on 03/23 2. Suicide attempt -she acknowledges this was an intentional attempt to harm herself -today she says she no suicidal ideation -appreciate social work consult 3. Atrial fibrillation, chronic, with RVR -patient did not take home medications this morning -unable to take PO medications currently -for now hold diltiazem and apixaban -ideally will be able to start medications if EGD confirms minor injury -if delayed restart of oral medications could need dilt and heparin gtt 4. Fluid overload -has been receiving IV fluid -chest xray shows possible pleural effusion -stop normal saline -give one time dose of lasix -if not improving consider CT scan, consider abx for pneumonia, she denies any aspiration so doubt this is pulmonary injury from alkali CODE: Full Proxy: Alex Ambrocio, spouse I have utilized all available resources to reconcile the patient's home medications Time Spent With Patient Critical Care time: I spent a total of [] minutes of critical care time on this patient's care today; this time is exclusive of procedural time. Quality VTE Deep Vein Thrombosis/Pulmonary Embolism Present on Admission: No
[2022-03-20] MEDS: FUROSEMIDE 20 MG/2 ML VIAL IV (06:27)
[2022-03-20] MEDS: PANTOPRAZOLE 40 MG VIAL IV ×2 (10:30→20:23)
[2022-03-20] MEDS: INSULIN LISPRO 100 UNIT/ML 3ML VIAL SUBCUT (12:45)
--- NOTE | 2022-03-20 13:03 | P.PN_ITS ---
Subjective Subjective Date Patient Seen: 03/20/22 Time Patient Seen: 13:03 Interval history: No new complaints. Exam Vital Signs (past 8 hours): - 03/20/22 08:00 03/20/22 08:00 03/20/22 12:00 Temperature 98.5 F 98.7 F Pulse Rate 116 H 91 H Respiratory Rate 16 16 Blood Pressure 136/97 H 143/83 H Pulse Oximetry 92 95 92 Oxygen Delivery Method Nasal Cannula Oxygen Flow Rate 0.5 1 1 Oxygen Delivery Method Nasal Cannula Oxygen Flow Rate 1 Const General: No acute distress Objective Labs Result Diagrams: 03/20/22 04:23 03/20/22 04:23 Labs: Laboratory Results - last 24 hr 03/20/22 03/20/22 04:23 04:23 WBC 13.0 H RBC 4.04 Hgb 11.3 L Hct 34.3 L MCV 84.7 MCH 27.9 MCHC 33.0 RDW 13.8 Plt Count 340 Neut % (Auto) 80.4 H Lymph % (Auto) 5.8 L [place] % (Auto) 13.8 Eos % (Auto) 0.0 L Baso % (Auto) 0.0 Neut # (Auto) 24685 H Lymph # (Auto) 800 L [place] # (Auto) 1800 H Eos # (Auto) 0 Baso # (Auto) 0 Sodium 138 Potassium 3.4 Chloride 105 Carbon Dioxide 28 BUN 21 H Creatinine 0.59 Estimated GFR > 60 BUN/Creatinine Ratio 35.6 H Glucose 203 H Calcium 7.7 L PFSH Medical History Chicken pox COPD (chronic obstructive pulmonary disease) Fibroids History of basal cell carcinoma (BCC) History of vaginal delivery Lesion of lower eyelid Measles Skin cancer (~1975) Thrombocytosis (08/2020) Unintentional weight loss (03/2020) Surgical History Anesthesia Broken ankle History of elbow surgery Family History Father Hypertension Mother Hypertension Dementia Social History household members: spouse Smoking Status: Never smoker second hand exposure: No alcohol intake: current substance use type: does not use Assessment & Plan Assessment and plan (1) Caustic esophageal injury: Qualifiers: Encounter type: initial encounter Qualified Code(s): T28.6XXA - Corrosion of esophagus, initial encounter Status: Acute Plan We discussed risks and benefits of a laparoscopically placed jejunostomy feeding tube. We can perform this on Tuesday. She would like to proceed. Please hold any anticoagulation starting on Tuesday. Time Spent With Patient Critical Care time: I spent a total of [] minutes of critical care time on this patient's care today; this time is exclusive of procedural time. Quality VTE Deep Vein Thrombosis/Pulmonary Embolism Present on Admission: No
--- NOTE | 2022-03-20 14:07 | CM.DPC ---
Addendum entered by ALLISON Alanis 03/20/22 15:03: ADD: SW called following [facility] In[facility] units so far to determine if enteral feedings a barrier: [place]- cannot take enteral feeding [facility]- cannot take enteral feeding [facility]- cannot take enteral feeding [place]- no answer [facility]- currently full but could review even with enteral feeding Pt not medically cleared yet so no referral sent at this time and unclear if Inpt MH tx needed at discharge and if so if pt would be voluntary or involuntary. BF Original Note: DCP Cont: Per Surgeon, met bedside with pt and discussed J Tube placement and pt remains in agreement and plan is surgical intervention on 03/23/22 for enteral feeding needs. Per sitter/[employer]RNA[employer] OTHER WRITERS, pt has ambulated to commode and in the room and no identified need for PT/OT at this time. Per MD, in agreement with Psych Consult orders as pt's intentional ingestion of drano was significant and pt may not be able to safely d/c to the community if not able to express her feelings of depression and hopelessness. MD aware that Psychiatrist not available until Mon at the earliest as this is the weekend. Pt made initial referral to [facility] towards reviewing pt's insurance for coverage of enteral feedings at discharge and faxed clinicals to review. SW made initial [facility] referral by [facility] for HH RN for new artificial nutrition needs at d/c in case pt is safe for d/c home with spouse at discharge. Pt's current medical needs may be a barrier to Inpt MH tx at discharge. Plan: SW to follow closely for ongoing bedside discussion with pt regarding above and d/c plan and to call [facility] Mon AM to alert Psychiatry team for the need of Consult towards determining discharge planning mental health needs and if pt can safely return to the community. Pt's medical needs may be a barrier to Inpt MH tx at discharge. ALLISON Alanis
[2022-03-20] MEDS: METOPROLOL TARTRATE 5 MG/5 ML INJ IV (17:39)
[2022-03-20] MEDS: AA 5 %/CALCIUM/LYTES/DEXT 20 % 1,500 ML with MULTIVITAMIN 10 ML, TRACE ELEMENTS 1 ML, P... 63.792 ML IV (18:35)
[2022-03-20] MEDS: dilTIAZem 5 MG/ML SDV IV (20:09)
[2022-03-20 20:24] LABS: BUN Creatinine Ratio 37.8 (6-22); Blood Urea Nitrogen 17 mg/dL (7-17); Carbon Dioxide 34 mmol/L (22-32); Chloride 98 mmol/L (98-107); Estimated Glomerular Filt Rate > 60 mL/min (>60); Glucose 151 mg/dL (80-110); Magnesium 2.2 mg/dL (1.6-2.3); Potassium 3.9 mmol/L (3.4-5.1); Sodium 137 mmol/L (137-145)
[2022-03-20 20:25] LABS: HEMOLYSIS 69 (0-50)
[2022-03-21] VITALS (8 sets, daily range): BP systolic 112–129; BP diastolic 73–90; PULSE 78–107; RESP 16–18; TEMP 36.2–36.6; O2SAT 93–95
[2022-03-21 05:02] LABS: Add Manual Diff / Slide Review NO; Basophils Absolute Auto 0 /uL (0-100); Basophils Percent Auto 0.3 % (0-2); Eosinophils Absolute Auto 0 /uL (0-450); Eosinophils Percent Auto 0.2 % (2-4); Hematocrit 38.1 % (36-46); Hemoglobin 12.6 g/dL (12.0-16.0); Lymphocytes Absolute Auto 900 /uL (1100-4500); Lymphocytes Percent Auto 10.4 % (25-40); Mean Corpuscular Hemoglobin 27.9 PG (26-34); Mean Corpuscular Volume 84.5 fL (80-100); Monocytes Absolute Auto 1400 /uL (0-900); Monocytes Percent Auto 15.4 % (3-14); Neutrophils Absolute Auto 6700 /uL (1500-7000); Neutrophils Percent Auto 73.7 % (50-75); Platelet Count 408 X10^3/uL (150-400); Red Blood Cell Count 4.51 X10^6/uL (4.0-5.2); Red Cell Distribution Width 13.4 % (11.6-14.8); White Blood Cell Count 9.1 X10^3/uL (4.5-11.0)
[2022-03-21 05:06] LABS: Magnesium 2.1 mg/dL (1.6-2.3)
[2022-03-21 05:08] LABS: BUN Creatinine Ratio 31.7 (6-22); Blood Urea Nitrogen 19 mg/dL (7-17); Carbon Dioxide 33 mmol/L (22-32); Chloride 100 mmol/L (98-107); Estimated Glomerular Filt Rate > 60 mL/min (>60); Glucose 159 mg/dL (80-110); HEMOLYSIS < 15 (0-50); Sodium 137 mmol/L (137-145)
--- NOTE | 2022-03-21 05:42 | PM.PN.1 ---
Subjective Subjective Date Patient Seen: 03/21/22 Time Patient Seen: 05:00 Interval history: She has no chest pain, no abdominal pain. Deflects when asked about suicidal ideation Exam Vital Signs (past 8 hours): - 03/21/22 00:00 03/21/22 04:46 Temperature 97.2 F L 97.9 F Pulse Rate 107 H 98 H Respiratory Rate 18 18 Blood Pressure 129/90 129/76 Pulse Oximetry 94 94 Oxygen Flow Rate 1 1 Oxygen Delivery Method Nasal Cannula Oxygen Flow Rate 1 Narrative Exam Narrative: GEN: no acute distress HEENT: moist mucous membranes, no injuries noted on oral mucosa PULM: clear bilaterally, no wheezes, rhonchi, rales CV: irregular ABD: soft, nontender, nondistended, no organomegaly, normal bowel sounds Objective Labs Result Diagrams: 03/21/22 04:36 03/21/22 04:36 Labs: Laboratory Results - last 24 hr 03/20/22 03/20/22 03/21/22 20:00 20:00 04:36 WBC 9.1 RBC 4.51 Hgb 12.6 Hct 38.1 MCV 84.5 MCH 27.9 MCHC 33.0 RDW 13.4 Plt Count 408 H Neut % (Auto) 73.7 Lymph % (Auto) 10.4 L [place] % (Auto) 15.4 H Eos % (Auto) 0.2 L Baso % (Auto) 0.3 Neut # (Auto) 6700 Lymph # (Auto) 900 L [place] # (Auto) 1400 H Eos # (Auto) 0 Baso # (Auto) 0 Sodium 137 Potassium 3.9 Chloride 98 Carbon Dioxide 34 H BUN 17 Creatinine 0.45 L Estimated GFR > 60 BUN/Creatinine Ratio 37.8 H Glucose 151 H Calcium 8.0 L Magnesium 2.2 03/21/22 03/21/22 04:36 04:36 WBC RBC Hgb Hct MCV MCH MCHC RDW Plt Count Neut % (Auto) Lymph % (Auto) [place] % (Auto) Eos % (Auto) Baso % (Auto) Neut # (Auto) Lymph # (Auto) [place] # (Auto) Eos # (Auto) Baso # (Auto) Sodium 137 Potassium 3.0 L Chloride 100 Carbon Dioxide 33 H BUN 19 H Creatinine 0.60 Estimated GFR > 60 BUN/Creatinine Ratio 31.7 H Glucose 159 H Calcium 8.0 L Magnesium 2.1 PFSH Medical History Chicken pox COPD (chronic obstructive pulmonary disease) Fibroids History of basal cell carcinoma (BCC) History of vaginal delivery Lesion of lower eyelid Measles Skin cancer (~1975) Thrombocytosis (08/2020) Unintentional weight loss (03/2020) Surgical History Anesthesia Broken ankle History of elbow surgery Family History Father Hypertension Mother Hypertension Dementia Social History household members: spouse Smoking Status: Never smoker second hand exposure: No alcohol intake: current substance use type: does not use Assessment & Plan Assessment & Plan narrative: 1. Esophageal injury from cause alkali ingestion -CT scan consistent with esophagitis, gastritis and enteritis due to chemical ingestion -PPI ordered -EGD which showed severe esophageal injury and necrosis -keep NPO -will need prolonged NPO status for at least one week until EGD to repeat view of esophageal injury, but suspect longer will be necessary -patient at risk of subacute development of strictures in the next few weeks -plan for surgery for jejunal feeding possibly on 03/23 2. Suicide attempt -she acknowledges this was an intentional attempt to harm herself -today she deflects if she has suicidal ideation -appreciate social work consult 3. Atrial fibrillation, chronic, with RVR -patient did not take home medications this morning -unable to take PO medications currently -for now hold diltiazem and apixaban -ideally will be able to start medications if EGD confirms minor injury -if delayed restart of oral medications could need dilt and heparin gtt CODE: Full Proxy: Alex Sayraal, spouse I have utilized all available resources to reconcile the patient's home medications Time Spent With Patient Critical Care time: I spent a total of [] minutes of critical care time on this patient's care today; this time is exclusive of procedural time. Quality VTE Deep Vein Thrombosis/Pulmonary Embolism Present on Admission: No
--- NOTE | 2022-03-21 06:32 | PC.NURSE ---
[facility] Pt potassium level came back at 3.0 orders for six bags of potassium, Pt has TPN going that contains 40 meq. Contacted night service pharmacy to double check potassium administration amount. Pharmacist double checked rates and gave verbal order to run potassium at 80 mls /hr instead of 100 mls/hr. Pharmacist documented and sent report to [facility] pharmacist to address potassium supplements to accommodate for the time delay of the slower rate.
[2022-03-21] MEDS: POTASSIUM CHLORIDE IN WATER 10 MEQ/100 ML PIGGYBACK 80 MEQ IV ×6 (06:50→14:19)
[2022-03-21] MEDS: PANTOPRAZOLE 40 MG VIAL IV ×2 (08:18→21:09)
[2022-03-21] MEDS: ONDANSETRON 4 MG/2 ML INJ IV ×2 (11:16→18:53)
[2022-03-21] MEDS: INSULIN LISPRO 100 UNIT/ML 3ML VIAL SUBCUT ×2 (12:26→18:36)
[2022-03-21] MEDS: dilTIAZem 5 MG/ML SDV IV (13:21)
--- NOTE | 2022-03-21 13:52 | PC.NURSE ---
Pt is calm this morning and pleasant. She is smiling and texting, and talking on the phone but to her friends and family she reports she is feeling puny. She states she feels fatigued and would like to eat but is understanding of treatment currently. Given mouth swabs with ice water. Double lumen PICC running TPN, Potassium IVPB x6 replaced this shift. She is up to [facility], urine is medium yellow and clear. Friends and family at bedside. Her friend who is a hair rooting machine operator, encourages her to shower and she is assisted to the shower, then attempted to sit at the sink on BSC for a haircut, however HR on telemetry increased to 190's. Pt reports feeling slightly light headed, and is assisted back to bed and given 5mg diltiazem IV with good effect. HR decreased to 90's and she remains a fib on the monitor. Her 02 sats and RR is wnl on RA. She appears more interactive and in better spirits than past days. Continuous monitoring.
--- NOTE | 2022-03-21 15:58 | CM.DPC ---
SW met with pt's son Syed ([phone]) and son's girlfriend Molly as they had just visited with pt for a long time and asked pt pointedly if she was still suicidal and pt had stated she was feeling hopeful. Son states though that pt is a people pleaser and unsure if pt is seeking tx just to please the family. Son states that he took a picture of pt's suicide note and emailed it to SW and SW printed it off and son and family feel that pt has likely undiagnosed bipolar disorder and that spouse is fairly co-dependent and they live in a home that is close to being a hoarder house. Son feels that pt has struggled with mental health for many years and perseverating on the possibility that she thinks she has underlying cancer that has not yet been diagnosed. SW discussed the complex [facility] and the hopeful Psych Consult tomorrow for clarity of maybe med management and initial dx and safety. Son and family feel Psychiatry is very needed. SW briefly discussed if pt discharges home then the need for [facility] and likely a HH RN and outpt close f/u with Mental Health/Behavioral health. Son plans to be available for assist and coordination and understanding of some of the complexities with discharge planning. Plan: SW to follow closely for plan of J Tube placement tu03/23/22 and artificial nutrition and Psych Consult for assist with discharge planning needs. ALLISON Alanis
--- NOTE | 2022-03-21 16:01 | PC.NURSE ---
Note: Patient sleeping between care and watching [employer] game. HR between 86 - 90 at rest. O2 sat 94% asleep and at rest. Son Syed at bedside this afternoon providing supportive care. Continue NPO.
[2022-03-21] MEDS: AA 5 %/CALCIUM/LYTES/DEXT 20 % 1,500 ML with MULTIVITAMIN 10 ML, TRACE ELEMENTS 1 ML 62.958 ML IV (19:37)
[2022-03-21] MEDS: ENOXAPARIN 60 MG/0.6 ML SYRINGE SUBCUT (21:08)
[2022-03-21] MEDS: LORazepam 2 MG/ML INJ 0.5 MG IV (22:52)
[2022-03-22] VITALS (9 sets, daily range): BP systolic 124–141; BP diastolic 70–87; PULSE 77–86; RESP 16–18; TEMP 36.2–36.6; O2SAT 93–96
[2022-03-22 06:09] LABS: BUN Creatinine Ratio 44.1 (6-22); Blood Urea Nitrogen 26 mg/dL (7-17); Calcium 7.9 mg/dL (8.4-10.2); Carbon Dioxide 30 mmol/L (22-32); Chloride 100 mmol/L (98-107); Estimated Glomerular Filt Rate > 60 mL/min (>60); Glucose 126 mg/dL (80-110); HEMOLYSIS 80 (0-50); Sodium 136 mmol/L (137-145)
[2022-03-22 06:10] LABS: Magnesium 2.2 mg/dL (1.6-2.3); Phosphorous 3.5 mg/dL (2.8-4.1); Potassium 4.3 mmol/L (3.4-5.1); Triglycerides 154 mg/dL (35-150)
--- NOTE | 2022-03-22 06:37 | PM.PN.1 ---
Subjective Subjective Date Patient Seen: 03/22/22 Time Patient Seen: 06:00 Interval history: Overnight had nausea. Got zofran and ativan and felt improved. This morning no complaints. No chest pain, shortness of breath. Exam Vital Signs (past 8 hours): - 03/22/22 00:00 03/22/22 02:56 03/22/22 04:02 Temperature 97.9 F Pulse Rate 80 83 82 Respiratory Rate 16 17 16 Blood Pressure 141/76 H Pulse Oximetry 95 94 95 Oxygen Flow Rate 0 0 03/22/22 06:08 Temperature Pulse Rate 86 Respiratory Rate 17 Blood Pressure 134/82 Pulse Oximetry 96 Oxygen Flow Rate 0 Oxygen Delivery Method Room Air Oxygen Flow Rate 0 Narrative Exam Narrative: GEN: no acute distress HEENT: moist mucous membranes, no injuries noted on oral mucosa PULM: clear bilaterally, no wheezes, rhonchi, rales CV: regular rate and rhythm ABD: soft, nontender, nondistended, no organomegaly, normal bowel sounds Objective Labs Result Diagrams: 03/21/22 04:36 03/22/22 05:35 Labs: Laboratory Results - last 24 hr 03/22/22 03/22/22 05:35 05:35 Sodium 136 L Potassium 4.3 D Chloride 100 Carbon Dioxide 30 BUN 26 H Creatinine 0.59 Estimated GFR > 60 BUN/Creatinine Ratio 44.1 H Glucose 126 H Calcium 7.9 L Phosphorus 3.5 Magnesium 2.2 Triglycerides 154 H PFSH Medical History Chicken pox COPD (chronic obstructive pulmonary disease) Fibroids History of basal cell carcinoma (BCC) History of vaginal delivery Lesion of lower eyelid Measles Skin cancer (~1975) Thrombocytosis (08/2020) Unintentional weight loss (03/2020) Surgical History Anesthesia Broken ankle History of elbow surgery Family History Father Hypertension Mother Hypertension Dementia Social History household members: spouse Smoking Status: Never smoker second hand exposure: No alcohol intake: current substance use type: does not use Assessment & Plan Assessment & Plan narrative: 1. Esophageal injury from cause alkali ingestion -CT scan consistent with esophagitis, gastritis and enteritis due to chemical ingestion -PPI ordered -EGD which showed severe esophageal injury and necrosis -keep NPO -will need prolonged NPO status for at least one week until EGD to repeat view of esophageal injury, but suspect longer will be necessary -patient at risk of subacute development of strictures in the next few weeks -plan for surgery for jejunal feeding possibly on 03/23 2. Suicide attempt -she acknowledges this was an intentional attempt to harm herself -today she deflects if she has suicidal ideation -appreciate social work consult 3. Atrial fibrillation, chronic, with RVR -patient did not take home medications this morning -unable to take PO medications currently -for now hold diltiazem and apixaban -ideally will be able to start medications if EGD confirms minor injury -if delayed restart of oral medications could need dilt and heparin gtt CODE: Full Proxy: Alex Ambrocio, spouse I have utilized all available resources to reconcile the patient's home medications Time Spent With Patient Critical Care time: I spent a total of [] minutes of critical care time on this patient's care today; this time is exclusive of procedural time. Quality VTE Deep Vein Thrombosis/Pulmonary Embolism Present on Admission: No
--- NOTE | 2022-03-22 09:24 | CM.DPC ---
DCP/continued: Reviewed chart. Order placed for psychiatric evaluation on 03-19-[address] Velasco. Patient not yet seen therefore, ART DEPARTMENT HEAD placed call to [facility] ext# [phone] requesting that consult be completed today or that Dr. Velasco contacts Dr. Griffin. P: CM team following closely. DOUGLAS
[2022-03-22] MEDS: ENOXAPARIN 60 MG/0.6 ML SYRINGE SUBCUT (10:05)
[2022-03-22] MEDS: PANTOPRAZOLE 40 MG VIAL IV ×2 (10:05→21:50)
--- NOTE | 2022-03-22 10:38 | PC.NURSE ---
Assess- Patient is alert and oriented x4, she has a patient tech sitting with her today. She has not mentioned anything about feeling suicidal and is in good spirits. Patient will get a covid swab today before having her peg tube placement surgery tomorrow. She has a friend visiting now and is content. She is a stand by assist to get up to the bathroom and steady on her feet. Resting comfortably.
[2022-03-22] MEDS: INSULIN LISPRO 100 UNIT/ML 3ML VIAL SUBCUT (12:51)
--- NOTE | 2022-03-22 14:28 | DIET.CONS2 ---
Dietary Inpatient Consultation Note Admission Date: 03/17/2022 21:28 Pt tolerating TPN running at goal rate through the weekend. Pt scheduled for surgically placed j-tube tomorrow to transition to post pyloric enteral feeding as majority of damage with alkali ingestion is in esophagus and stomach. Pt NPO to allow proper healing of tissues without food disrupting formation of granulation healing tissues. Recc continue TPN for 24h after placement of jtube then initiation of continuous enteral feeding to test for tolerance. Plan likely to be pt d/c on continuous or 16h nocturnal pump assisted feeding via jtube until pt safe to resume oral intake per surgery. bolus/gravity feeding is contraindicated for jtube route of feeding. Concern for pts slightly elevated triglycerides (154) indicating importance of transitioning to intermittent feeding to give liver rest. RD to write reccs for enteral nutrition on 03/23/22. Diet: 03/17/22 22:16 NPO Diet Diet Modifications: Safety Tray needed?: No NPO Type: Strict Nutrition Percent Meal Consumed NPO 03/21/22 13:35 Percent Meal Consumed 0% 03/20/22 18:00 Electronically Signed by: Estela Grady 03/22/22 14:28 Clinical Dietitian [address] [address]
[2022-03-22 14:56] LABS: COVID19 -Nasal RAPID Negative (Negative)
--- NOTE | 2022-03-22 15:37 | CM.DPNOTE ---
Discharge Planning Note: Psych eval pending, was ordered 03/19/[address] Velasco. [facility] can accept for enteral feeding teaching and supplies. Insurance co-pay will be $60.00 for first month. The plan is for patient to have JT tube insertion tomorrow. [facility] cannot accept due to mental health concerns. Lives with spouse Alex and has 2 supportive sons ([place] and [place]). Plan: Await psych eval results. Keep following up with agencies. Discharge home when medically cleared. Has supportive family. Sandrine Garcia RN/DCP
--- NOTE | 2022-03-22 17:16 | P.CONS_ITS ---
History of Present Illness Consult details Date Patient Seen: 03/22/22 Time Patient Seen: 11:44 Chief complaint: Drank drano Reason for consult: Psychiatry consult for treatment recommendations Requesting provider: Ernie Michelle Narrative: REFERRAL INFORMATION This is the first psychiatric evaluation for this 76-year-old female referred from the inpatient [facility] for evaluation of depression following a suicide attempt. RECORDS REVIEW The patient?s referral documents, medical records and intake questionnaire were reviewed as part of this evaluation. CHIEF COMPLAINT ?I am not sure what happened. I could not figure out what to do.? HISTORY OF PRESENT ILLNESS The patient is a 76-year-old female who was admitted following an emergency department visit after she drank adrenal in a suicide attempt. The patient gives a history of experiencing depressive symptoms on and off for the past couple of years and more recently noted some difficulty with health concerns as she was evaluated for possible cancer diagnosis. She reports having a CT scan of her thorax with a couple of ?spots? found as well as some concerns about her thyroid. She reports having a fear of having cancer and this might have influenced her thoughts. She can not explain why she chose to try to kill herself now. While her was away from the home, she wrote a suicide note, dissolved a quantity of DRANO (lye) in water and drank it. She then went outside and laid down in the grass where her found her, called EMS and medical help ensued. The patient gives a 2 year history of depressive symptoms that basically date slightly before the pandemic that include depressed mood, decreased energy and enthusiasm and anhedonia, increased sleep, fatigue, increased appetite, poor concentration, decreased self-esteem, and apparently has had suicidal ideation off and on for quite some time. Possibly many months. She mentioned that she might have bipolar disorder, but upon further examination and questioning this did not seem apparent that she had any possible episode of alisa or hypomania. The patient denies any symptoms of psychosis or alisa. PAST PSYCHIATRIC HISTORY * Diagnoses: None * Inpatient: None. * Outpatient: None. * Suicide Attempts: No prior episodes of suicide attempts PREVIOUS PSYCHIATRIC MEDICATION TRIALS The patient has no prior history of psychotropic medication treatment. CURRENT PSYCHOTROPIC MEDICATIONS None FAMILY HISTORY * Maternal: None. * Paternal: None. * Siblings: None. SUBSTANCE USE HISTORY * Tobacco: The patient does not smoke. * Alcohol: The patient does not drink. No history of abuse. * Drugs: The patient does not use drugs. DEVELOPMENTAL AND SOCIAL HISTORY * Family Constellation/Environment: The patient is 2nd of 2 children from an intact home. * Childhood Trauma: The patient denied any history of physical or sexual abuse, and has no history of witnessing violence as a child. * Developmental milestones: The patient reached normal developmental milestones. * Education: The patient was an adequate student in school and graduated from high school. She then attended both [employer] and [employer] in her later years. 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 * Relationships: over 54 years and has 2 grown children. * Current Living: Lives on [address] with her and both of her grown sons live nearby on the [place] as well. * Support: Income from [employer] * Legal: No current legal difficulties. Meds Home Medications and Allergies Home Medications Medication Instructions Recorded Confirmed Type apixaban 5 mg tablet (Eliquis) See Rx Instructions .Route 11/26/21 03/18/22 Rx .COMPLEX #180 tabs diltiazem HCl 120 mg See Rx Instructions .Route 11/26/21 03/18/22 Rx capsule,extended release 24 hr .COMPLEX #90 caps Allergies Allergy/AdvReac Type Severity Reaction Status Date / Time No Known Drug Allergies Allergy Verified 03/18/22 11:25 Exam Vital Signs (past 8 hours): - 03/22/22 10:00 03/22/22 10:22 03/22/22 14:03 Temperature 97.1 F L 97.9 F Pulse Rate 79 79 Respiratory Rate 17 18 Blood Pressure 124/70 126/80 Pulse Oximetry 94 94 Oxygen Delivery Method Room Air Oxygen Flow Rate 0 0 03/22/22 14:38 Temperature 97.4 F L Pulse Rate 78 Respiratory Rate 16 Blood Pressure 129/79 Pulse Oximetry 93 Oxygen Delivery Method Oxygen Flow Rate 0 Oxygen Delivery Method Room Air Oxygen Flow Rate 0 Narrative Exam Narrative: MENTAL STATUS EXAM * Appearance: The patient is a slender female seen lying in her hospital bed * Grooming: Dressed in hospital attire and adequately groomed. * Behavior: Calm and cooperative with the evaluation * Eye contact: Good eye contact * Gait: Not test * Speech: Normal rate, volume, and larry * Mood: ?Kind of down.? * Affect: Generally pleasant, cooperative, neutral, only mildly dysphoric. Con gruent with content, normal range and reactivity * Thought Process: Linear, logical, and goal-directed * Thought Content: Denies suicidal ideation, denies homicidal ideation, intent or plan; and there was no evidence of a formal thought or perceptual disturbance. * Attention: Attentive to interview * Orientation: Oriented to person, place, time, and circumstance * Memory: Intact for interview, not formally tested * Insight: Fair * Judgment: Fair Objective Labs Result Diagrams: 03/21/22 04:36 03/22/22 05:35 Labs: Laboratory Results - last 24 hr 03/22/22 03/22/22 03/22/22 05:35 05:35 14:25 Sodium 136 L Potassium 4.3 D Chloride 100 Carbon Dioxide 30 BUN 26 H Creatinine 0.59 Estimated GFR > 60 BUN/Creatinine Ratio 44.1 H Glucose 126 H Calcium 7.9 L Phosphorus 3.5 Magnesium 2.2 Triglycerides 154 H SARS-CoV-2 (PCR) Negative [facility] Medical History Chicken pox COPD (chronic obstructive pulmonary disease) Fibroids History of basal cell carcinoma (BCC) History of vaginal delivery Lesion of lower eyelid Measles Skin cancer (~1975) Thrombocytosis (08/2020) Unintentional weight loss (03/2020) Surgical History Anesthesia Broken ankle History of elbow surgery Family History Father Hypertension Mother Hypertension Dementia Social History household members: spouse Tobacco & Substance Use Smoking Status: Never smoker second hand exposure: No alcohol intake: current substance use type: does not use Assessment & Plan Assessment and plan (1) Atypical depression: Status: Acute (2) Overdose: Qualifiers: Encounter type: sequela Injury intent: intentional self-harm Qualified Code(s): T50.902S - Poisoning by unspecified drugs, medicaments and biological substances, intentional self-harm, sequela Status: Acute Assessment & Plan narrative: ASSESSMENT/MEDICAL DECISION MAKING The patient is a 76-year-old female with no prior psychiatric history but endorses a 2 year history of depressive symptoms indicative of atypical depression as well as suicidal ideation ultimately resulting in a potentially fatal suicide attempt by drinking a caustic substance. The patient appears oddly unconcerned with her physical health despite also expressing a fear of having cancer inciting this as a major precipitant for her suicide attempt. RECOMMENDATIONS: 1. Continue one-to-one watch as you have been. 2. Understand that patient may be having a J-tube placed which will enable improved access for feeding and medications. Once placed, recommend starting bupropion XL 150 mg daily. 3. We will continue follow-up with you and tease out further history. 4. Once medically stable will re-evaluate for possible psychiatric admission. Time Spent With Patient Critical Care time: I spent a total of [] minutes of critical care time on this patient's care today; this time is exclusive of procedural time.
[2022-03-22] MEDS: AA 5 %/CALCIUM/LYTES/DEXT 20 % 1,500 ML with MULTIVITAMIN 10 ML, TRACE ELEMENTS 1 ML 62.958 ML IV (18:36)
[2022-03-22] MEDS: FAT EMULSIONS 50 GM/250 ML EMULSION IV (18:36)
[2022-03-22] MEDS: MORPHINE 2 MG/ML INJ IV (23:34)
[2022-03-23] VITALS (18 sets, daily range): BP systolic 109–134; BP diastolic 64–83; PULSE 63–130; RESP 12–18; TEMP 36.3–37.6; O2SAT 92–96; BMI 20.9
[2022-03-23] MEDS: dilTIAZem 5 MG/ML SDV IV (03:16)
[2022-03-23] MEDS: METOPROLOL TARTRATE 5 MG/5 ML INJ IV (04:17)
--- NOTE | 2022-03-23 04:32 | PC.NURSE ---
Dr. Michelle notified in regards pt going from SR into afib, orders taken for a stat EKG, Pt received 5 mg ivp diltiazen, HR slow down for a couple of minutes. Dr. Michelle notified again since pt HR goes up to 140's, pt asymptomatic, pt received a dose of metoprolol IVP. Pt does have history of afib and normally takes diltiazem daily and hasn't taken it since she has been here. Dr. Michelle awared that pt might need to be on a diltiazen gtt. However pt HR seem to be improving with the metoprolol ivp.
[2022-03-23 05:38] LABS: BUN Creatinine Ratio 36.6 (6-22); Blood Urea Nitrogen 15 mg/dL (7-17); Calcium 6.8 mg/dL (8.4-10.2); Carbon Dioxide 29 mmol/L (22-32); Chloride 102 mmol/L (98-107); Estimated Glomerular Filt Rate > 60 mL/min (>60); Glucose 107 mg/dL (80-110); Sodium 137 mmol/L (137-145)
[2022-03-23 05:40] LABS: HEMOLYSIS 75 (0-50); Potassium 3.2 mmol/L (3.4-5.1)
--- NOTE | 2022-03-23 08:34 | PM.PN.1 ---
Subjective Subjective Date Patient Seen: 03/23/22 Interval history: Patient feeling ok today. No throat pain suprisingly. She is awaiting J tube placement today. Exam Vital Signs (past 8 hours): - 03/23/22 03:14 03/23/22 03:16 03/23/22 04:10 Temperature 97.3 F L Pulse Rate 63 130 H 130 H Respiratory Rate 18 Blood Pressure 128/64 128/64 132/83 Pulse Oximetry 94 Oxygen Flow Rate 0 03/23/22 07:51 Temperature 97.5 F L Pulse Rate 68 Respiratory Rate 16 Blood Pressure 118/77 Pulse Oximetry 95 Oxygen Flow Rate 0 Oxygen Delivery Method Room Air Oxygen Flow Rate 0 Narrative Exam Narrative: GEN: no acute distress HEENT: moist mucous membranes, no injuries noted on oral mucosa PULM: clear bilaterally, no wheezes, rhonchi, rales CV: regular rate and rhythm ABD: soft, nontender, nondistended, no organomegaly, normal bowel sounds Objective Labs Result Diagrams: 03/21/22 04:36 03/23/22 05:00 Labs: Laboratory Results - last 24 hr 03/22/22 03/23/22 14:25 05:00 Sodium 137 Potassium 3.2 L Chloride 102 Carbon Dioxide 29 BUN 15 Creatinine 0.41 L Estimated GFR > 60 BUN/Creatinine Ratio 36.6 H Glucose 107 Calcium 6.8 L SARS-CoV-2 (PCR) Negative [facility] Medical History Chicken pox COPD (chronic obstructive pulmonary disease) Fibroids History of basal cell carcinoma (BCC) History of vaginal delivery Lesion of lower eyelid Measles Skin cancer (~1975) Thrombocytosis (08/2020) Unintentional weight loss (03/2020) Surgical History Anesthesia Broken ankle History of elbow surgery Family History Father Hypertension Mother Hypertension Dementia Social History household members: spouse Smoking Status: Never smoker second hand exposure: No alcohol intake: current substance use type: does not use Assessment & Plan Assessment & Plan narrative: 1. Esophageal injury from cause alkali ingestion -CT scan consistent with esophagitis, gastritis and enteritis due to chemical ingestion -PPI ordered -EGD which showed severe esophageal injury and necrosis -keep NPO -will need prolonged NPO status for at least one week until EGD to repeat view of esophageal injury, but suspect longer will be necessary -patient at risk of subacute development of strictures in the next few weeks -plan for surgery for jejunal feeding 03/23 2. Suicide attempt -she acknowledges this was an intentional attempt to harm herself -psych consulted who rec wellbutrin 150 daily once J tube is in, will continue to follow to give psych recs -appreciate social work consult 3. Atrial fibrillation, chronic, with RVR -patient did not take home medications this morning -unable to take PO medications currently -for now hold diltiazem and apixaban -ideally will be able to start medications if EGD confirms minor injury -if delayed restart of oral medications could need dilt and heparin gtt CODE: Full Proxy: Alex Ambrocio, spouse I have utilized all available resources to reconcile the patient's home medications Dispo: Several days. Unclear if she will need inpatient psych at this time. Time Spent With Patient Critical Care time: I spent a total of [] minutes of critical care time on this patient's care today; this time is exclusive of procedural time. Quality VTE Deep Vein Thrombosis/Pulmonary Embolism Present on Admission: No
[2022-03-23] MEDS: PANTOPRAZOLE 40 MG VIAL IV ×2 (10:34→20:56)
[2022-03-23] MEDS: POTASSIUM CHLORIDE IN WATER 10 MEQ/100 ML PIGGYBACK 100 MEQ IV ×4 (10:34→19:04)
[2022-03-23 11:37] LABS: Vitamin D 25 Hydroxy (D3) < 12.8 ng/mL (30.0-100.0)
--- NOTE | 2022-03-23 15:24 | DIET.CONS2 ---
Addendum entered by Estela Grady 03/24/22 12:28: Met c pt at bedside. Educated pt on role of TPN over the past few days and what to expect with jejunal feeding over the next few days during hospitalization then once d/c'd with home use. Pt exhibited surprise to learn she will need 16h feeds at home. Educated pt on anatomy differences between jejunum and stomach r/t volume load tolerance. Reassured pt she will be unhooked from feeds for 8h every day at home and she can decide when that 8h period occurs to maximize independence. Pt expressed gratitude regarding discussion on plan, pt agrees to plan. Addendum entered by Estela Grady 03/24/22 11:05: If pt not tolerating 100mL pump assisted free water flushes, okay to reduce volume of flushes and increase frequency to tolerance. Original Note: Dietary Inpatient Consultation Note Admission Date: 03/17/2022 21:28 Pt having j-tube placed this evening for outsole leveler enteral access as GI system heals from alkali ingestion. Pt currently tolerating TPN running at goal rate without complication. Recc continuing TPN this evening to supply essential protein and nutrients for mucosal healing then initiate j-tube enteral feeding afternoon of 03/24. Enteral Feeding Plan: Initiate continuous feeding of Jevity 1.2 via j-tube at 30mL/h to test for formula and rate tolerance. Increase by 10mL q6h as tolerated to goal rate of 60mL/h. Free Water Flushes: 100mL free water flushes q4h. Goal rate formula and free water provide: 1728kcals (30kcal/kg), 80g PRO (1.4g/kg), 1162mL feed water and 600mL free water flushes providing 1762mL free water (31mL/kg). Pt will d/c on nocturnal 16h pump assisted feeds into j-tube at 90mL/h. Diet: 03/17/22 22:16 NPO Diet Diet Modifications: Safety Tray needed?: No NPO Type: Strict Electronically Signed by: Estela Grady 03/23/22 15:24 Clinical Dietitian [address] [address]
[2022-03-23] MEDS: LACTATED RINGERS 1,000 ML 120 ML IV (15:35)
--- NOTE | 2022-03-23 15:39 | PM.PREOP ---
Pre-operative Note COVID-19 COVID-19 status: Negative Result date/Date tested (Pos, Neg/Pending): 03/18/22 Interval Note History & Physical reviewed/Exam performed by Physician: Yes Changes to H&P: Yes H&P completed within 30 days and has changed as indicated here:: Dr. Griffin discussed her case with thoracic surgeons at [facility] who recommended a jejunostomy tube for enteral nutrition. I discussed procedure with the patient and she understands the risks, benefits and indications and she would like to proceed. ASA Class (for procedural sedation): III
[2022-03-23] MEDS: PIPERACILLIN/TAZO 3.375 GM in SODIUM CHLORIDE 0.9% 100 ML IV (16:02)
--- NOTE | 2022-03-23 16:27 | SUR.OPER ---
Supine on padded OR bed, head on pillow, arms secured on padded arm boards at <90 degrees abduction, legs uncrossed, safety belt at thigh, pillow unde knees, tape over blanket over lower legs.
[2022-03-23] MEDS: BUPIVACAINE 0.5% (PF) 30 ML, EPINEPHrine 0.15 MG INJ (16:37)
--- NOTE | 2022-03-23 17:09 | PM.OP.1 ---
Operative Date/Time/Diagnoses Date of procedure: 03/23/22 Time of procedure: 17:11 Pre-op diagnosis: Caustic esophageal injury Post-op diagnosis: same Procedure & Clinicians Procedure: Feeding jejunostomy Same procedure as scheduled: Yes Surgeon: Lb Floyd Operative Notes Procedure in detail: The patient was brought into the operating room and placed on the table in the supine position. General endotracheal anesthesia was induced. Prophylactic Zosyn was administered. The abdomen was prepped and draped in the normal fashion. A time-out was performed. We made a 6 cm upper midline incision and placed a small Alli wound retractor the wound. The transverse colon was grasped and retracted cephalad. A loop of small bowel was grasped just inferior to the transverse mesocolon and 2 fingers were used to trace loop of bowel up to the ligament Treitz confirm that it was the jejunum. A silk seromuscular stitch was placed along the orad portion of this small bowel and a Vicryl stitch was placed into the distally to maintain orientation. We then opened a 20 [place] red Matthews catheter and created a small enterotomy along the anti mesenteric section of bowel. The red Matthews catheter was placed into the small bowel and advanced about 6 cm. We placed a pursestring stitch around enterotomy using a 3-0 silk and extended down around the catheter going into the bowel. We then created a 4 cm serosal tunnel using seromuscular bites with multiple interrupted 3-0 silk sutures. Next, we created small stab incision in the left upper quadrant and pierced the abdominal wall with a tonsil clamp and grasped the exterior portion of the catheter and pulled it through the abdominal wall retrograde. We then dropped the segment of ileum back into the left quadrant. Several interrupted 3-0 silk sutures were placed to fix the segment of ileum to the abdominal wall in the left upper quadrant prevent volvulus. The red rubber catheter was secured to the skin with a 2-0 nylon stitch. We removed the Alli retractor and injected some local just deep and superficial to the fascia. We then closed the fascia with a running 0 PDS. 4-0 Monocryl was used to close the skin. A cap was placed into the end of the catheter and dressings were applied. EBL: 10 mL Post-operative Condition: stable Disposition: PACU
[2022-03-23] MEDS: AA 5 %/CALCIUM/LYTES/DEXT 20 % 1,500 ML with MULTIVITAMIN 10 ML, TRACE ELEMENTS 1 ML 62.958 ML IV (19:02)
[2022-03-23] MEDS: MORPHINE 2 MG/ML INJ IV (19:18)
[2022-03-23] MEDS: INSULIN LISPRO 100 UNIT/ML 3ML VIAL SUBCUT ×2 (19:31→23:13)
[2022-03-23] MEDS: PIPERACILLIN/TAZO 4.5 GM in SODIUM CHLORIDE 0.9% 100 ML IV (21:14)
[2022-03-23] MEDS: AMPICILLIN/SULBACTAM 3 GM 3 GM in SODIUM CHLORIDE 0.9% 100 ML IV (22:03)
[2022-03-24] VITALS (7 sets, daily range): BP systolic 124–142; BP diastolic 84–96; PULSE 87–102; RESP 16–18; TEMP 36.2–37.1; O2SAT 94–97
--- NOTE | 2022-03-24 09:30 | PM.PN.1 ---
Subjective Subjective Date Patient Seen: 03/24/22 Interval history: Patient feeling well today with some minor soreness around J-tube site. Friend is in room and questions were answered. Dr. Velasco came by and is now recommending lithium instead of wellbutrin for possible bipolar disorder. Exam Vital Signs (past 8 hours): - 03/24/22 02:35 03/24/22 07:30 Temperature 97.2 F L 98.7 F Pulse Rate 87 91 H Respiratory Rate 18 16 Blood Pressure 124/84 139/87 Pulse Oximetry 94 95 Oxygen Flow Rate 0 0 Oxygen Delivery Method Room Air Oxygen Flow Rate 0 Narrative Exam Narrative: GEN: no acute distress HEENT: moist mucous membranes, no injuries noted on oral mucosa PULM: clear bilaterally, no wheezes, rhonchi, rales CV: regular rate and rhythm ABD: soft, nontender, nondistended, no organomegaly, normal bowel sounds, J-tube site without erythema Objective Labs Result Diagrams: 03/21/22 04:36 03/23/22 05:00 Labs: Laboratory Results - last 24 hr 03/23/22 05:00 25-OH Vitamin D Total < 12.8 L [facility] Medical History Chicken pox COPD (chronic obstructive pulmonary disease) Fibroids History of basal cell carcinoma (BCC) History of vaginal delivery Lesion of lower eyelid Measles Skin cancer (~1975) Thrombocytosis (08/2020) Unintentional weight loss (03/2020) Surgical History Anesthesia Broken ankle History of elbow surgery Family History Father Hypertension Mother Hypertension Dementia Social History household members: spouse Smoking Status: Never smoker second hand exposure: No alcohol intake: current substance use type: does not use Assessment & Plan Assessment & Plan narrative: 1. Esophageal injury from drano ingestion -CT scan consistent with esophagitis, gastritis and enteritis due to chemical ingestion -PPI ordered -EGD 03/18 showed severe esophageal injury and necrosis -keep NPO -patient at risk of subacute development of strictures in the next few weeks -J-tube placed on 03/23, restarting tube feeds -repeat EGD planned with Dr. Floyd on 03/25 2. Suicide attempt -she acknowledges this was an intentional attempt to harm herself -psych consulted who rec lithium 300mg daily then checking a level soon -appreciate social work consult -psych will provide dispo recs as things progress 3. Paroxysmal atrial fibrillation,chronic -restart dilt tablet 30mg q6h via J-tube -hold apixaban until after EGD CODE: Full Proxy: Alex Colbertal, spouse I have utilized all available resources to reconcile the patient's home medications Dispo: Several days. Unclear if she will need inpatient psych at this time. Time Spent With Patient Critical Care time: I spent a total of [] minutes of critical care time on this patient's care today; this time is exclusive of procedural time. Quality VTE Deep Vein Thrombosis/Pulmonary Embolism Present on Admission: No
[2022-03-24] MEDS: PANTOPRAZOLE 40 MG VIAL IV ×2 (09:49→22:01)
[2022-03-24] MEDS: ENOXAPARIN 60 MG/0.6 ML SYRINGE SUBCUT ×2 (09:49→22:01)
[2022-03-24 12:04] LABS: Albumin 2.5 g/dL (3.5-5.0)
[2022-03-24] MEDS: INSULIN LISPRO 100 UNIT/ML 3ML VIAL SUBCUT ×2 (13:56→18:32)
--- NOTE | 2022-03-24 15:48 | P.PN_ITS ---
Subjective Subjective Date Patient Seen: 03/24/22 Time Patient Seen: 13:10 Interval history: Patient seen for psych follow-up. She reports feeling much better today, feeling less depressed, more hopeful and more animated in discussions of her recent actions and suicide attempt as opposed to being somewhat distant and an emotional about it during our initial conversations 2 days ago. Today we discussed and attempted to flush out in more details the patient's r ecent history. She notes that she has been depressed for about the last year and a half would also reports a history of possible episodes of hypomania in the past as well. Apparently, she has been discussing this with her son and others as a possibility. I spoke with the son last night to obtain collateral history and he stated that there have been periods of time often weeks or months where the patient has increased energy, inflated self-esteem and grandiosity, increasing goal-directed behavior, some high risk behavior (mostly spending money on things not needed), and that these symptoms have often cause difficulty in her life. Exam Vital Signs (past 8 hours): - 03/24/22 12:00 Pulse Rate 90 Respiratory Rate 16 Blood Pressure 129/96 H Pulse Oximetry 97 Oxygen Flow Rate 0 Oxygen Delivery Method Room Air Oxygen Flow Rate 0 Narrative Exam Narrative: MENTAL STATUS EXAM * Appearance: The patient is a slender female seen lying in her hospital bed * Grooming: Dressed in hospital attire and adequately groomed. * Behavior: Calm and cooperative with the evaluation. * Eye contact: Good eye contact * Gait: Not tested * Speech: Normal rate, volume, and larry * Mood: ?much better. ? * Affect: Generally pleasant, cooperative, moderately dysphoric, occasionally tearful, but also much more engaged, interactive, and with much more normal range and reactivity * Thought Process: Linear, logical, and goal-directed * Thought Content: Denies suicidal ideation, denies homicidal ideation, intent or plan; and there was no evidence of a formal thought or perceptual disturbance. * Attention: Attentive to interview * Orientation: Oriented to person, place, time, and circumstance * Memory: Intact for interview, not formally tested * Insight: Fair * Judgment: Fair Objective Labs Result Diagrams: 03/21/22 04:36 03/23/22 05:00 Labs: Laboratory Results - last 24 hr 03/24/22 05:00 Albumin 2.5 L [facility] Medical History Chicken pox COPD (chronic obstructive pulmonary disease) Fibroids History of basal cell carcinoma (BCC) History of vaginal delivery Lesion of lower eyelid Measles Skin cancer (~1975) Thrombocytosis (08/2020) Unintentional weight loss (03/2020) Surgical History Anesthesia Broken ankle History of elbow surgery Family History Father Hypertension Mother Hypertension Dementia Social History household members: spouse Smoking Status: Never smoker second hand exposure: No alcohol intake: current substance use type: does not use Assessment & Plan Assessment and plan (1) Bipolar depression: Status: Acute (2) Overdose: Qualifiers: Encounter type: sequela Injury intent: intentional self-harm Qualified Code(s): T50.902S - Poisoning by unspecified drugs, medicaments and biological substances, intentional self-harm, sequela Status: Acute Plan ASSESSMENT: The patient is a 76-year-old female admitted following an 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 I was able to obtain some collateral informa tion from her son and corroborated with the patient. They describe some possible episodes of hypomania that may indicate bipolar depression which would change our approach to treating her depression. Given that lithium is the indicated medication of choice, and also may be helpful with suicidal ideation, we recommend starting at a low dose and monitoring particularly for side effects of nausea and vomiting. RECOMMENDATIONS: 1. Discontinue bupropion XL 2. Start lithium 300 mg via J-tube q.h.s. 3. We will continue to follow-up with you while patient is in the hospital 4. Will continue to evaluate for future disposition with social work. Time Spent With Patient Time with patient: 30 to 49 minutes with 50% spent counseling/coordinating care Critical Care time: I spent a total of 35 minutes of critical care time on this patient's care today; this time is exclusive of procedural time. Quality VTE Deep Vein Thrombosis/Pulmonary Embolism Present on Admission: No
--- NOTE | 2022-03-24 15:51 | CM.DPC ---
DCP Cont: Per MD, J Tube placement by Surgeon last night 03/23/22 and per hand ornament maker to initiate feedings via tube this afternoon and pt has tolerated previous tube feedings prior to J Tube placement. Surgeon plans to have repeat EGD tomorrow 03/25/22 to determine if pt is healing and the progress of her esophogeal and stomach damage. Dr. Velasco Psychiatrist kindly met bedside with pt again today for ongoing consultation for mental health and med management. Psychiatrist recommending med change to [facility] for possible bipolar DO and will help to manage and monitor. Psychiatrist plans to continue to assess closer to discharge to help determine if pt safe for d/c to community or if Inpt MH recommended. Per previous SW calls, currently [facility] would be willing to review when pt medically stable to determine if they can meet her needs and her J Tube for feedings does not initially rule her out for placement. Pt's family and friends have been supportive and bedside and involved in her care and planning. Plan: SW to follow closely after EGD tomorrow and to confirm if pt tolerates her feeds being initiated by new J Tube today and towards determining d/c home with family and [facility] ([facility] declines due to concern with MH care needs) vs Inpt MH tx attempts. ALLISON Alanis
[2022-03-24] MEDS: ONDANSETRON 4 MG/2 ML INJ IV ×2 (16:05→22:19)
[2022-03-24] MEDS: MORPHINE 2 MG/ML INJ IV (18:35)
[2022-03-24] MEDS: dilTIAZem 30 MG TABLET PO (18:35)
[2022-03-24] MEDS: LITHIUM 300 MG ER TABLET PO (22:00)
[2022-03-25] VITALS (15 sets, daily range): BP systolic 93–132; BP diastolic 57–80; PULSE 76–120; RESP 16–19; TEMP 36.3–37.2; O2SAT 93–97
[2022-03-25] MEDS: dilTIAZem 30 MG TABLET PO ×5 (00:33→23:28)
[2022-03-25] MEDS: LORazepam 2 MG/ML INJ 0.5 MG IV (00:34)
--- NOTE | 2022-03-25 08:49 | PM.PN.1 ---
Subjective Subjective Date Patient Seen: 03/25/22 Interval history: Patient started lithium last night via J-tube. Had some NV overnight and tube feeds rate lowered and patient tolerating well currently. Exam Vital Signs (past 8 hours): - 03/25/22 04:00 03/25/22 06:30 03/25/22 06:21 Temperature 98.0 F Pulse Rate 88 91 H 90 Respiratory Rate 16 Blood Pressure 98/57 L 115/71 115/71 Pulse Oximetry 95 95 Oxygen Delivery Method Oxygen Flow Rate 0 03/25/22 08:02 Temperature Pulse Rate Respiratory Rate Blood Pressure Pulse Oximetry 97 Oxygen Delivery Method Room Air Oxygen Flow Rate Oxygen Delivery Method Room Air Oxygen Flow Rate 0 Narrative Exam Narrative: GEN: no acute distress HEENT: moist mucous membranes, no injuries noted on oral mucosa PULM: clear bilaterally, no wheezes, rhonchi, rales CV: regular rate and rhythm ABD: soft, nontender, nondistended, no organomegaly, normal bowel sounds, J-tube site without erythema Objective Labs Result Diagrams: 03/21/22 04:36 03/23/22 05:00 Labs: Laboratory Results - last 24 hr 03/24/22 05:00 Albumin 2.5 L [facility] Medical History Chicken pox COPD (chronic obstructive pulmonary disease) Fibroids History of basal cell carcinoma (BCC) History of vaginal delivery Lesion of lower eyelid Measles Skin cancer (~1975) Thrombocytosis (08/2020) Unintentional weight loss (03/2020) Surgical History Anesthesia Broken ankle History of elbow surgery Family History Father Hypertension Mother Hypertension Dementia Social History household members: spouse Smoking Status: Never smoker second hand exposure: No alcohol intake: current substance use type: does not use Assessment & Plan Assessment & Plan narrative: 1. Esophageal injury from drano ingestion -CT scan consistent with esophagitis, gastritis and enteritis due to chemical ingestion -PPI ordered -EGD 03/18 showed severe esophageal injury and necrosis -keep NPO -patient at risk of subacute development of strictures in the next few weeks -J-tube placed on 03/23, restarted tube feeds -Dr. Floyd and Dr. Holm both feel repeat EGD after only 1 week not warranted and wouldn't change management expert, pt will likely need repeat in the future as outpatient 2. Suicide attempt -she acknowledges this was an intentional attempt to harm herself -psych consulted who rec lithium 300mg nightly, will check level on 03/26 -appreciate social work consult -psych will provide dispo recs as things progress 3. Paroxysmal atrial fibrillation,chronic -restart dilt tablet 30mg q6h via J-tube -holding apixaban until surgery clears to restart CODE: Full Proxy: Alex Sayraal, spouse I have utilized all available resources to reconcile the patient's home medications Dispo: 1-2 days pending dispo plan. Unclear if she will need inpatient psych at this time. Time Spent With Patient Critical Care time: I spent a total of [] minutes of critical care time on this patient's care today; this time is exclusive of procedural time. Quality VTE Deep Vein Thrombosis/Pulmonary Embolism Present on Admission: No
[2022-03-25] MEDS: ENOXAPARIN 60 MG/0.6 ML SYRINGE SUBCUT (10:31)
[2022-03-25] MEDS: PANTOPRAZOLE 40 MG VIAL IV ×2 (10:31→21:29)
--- NOTE | 2022-03-25 13:54 | PC.NURSE ---
pt has been happy and talkative. pt has had company all day. pt is been watching movies and laying down
--- NOTE | 2022-03-25 18:12 | PM.PN.1 ---
Subjective Subjective Date Patient Seen: 03/25/22 Time Patient Seen: 17:45 Interval history: Patient seen for psych follow-up. She reports feeling much better today, feeling less depressed, more hopeful and more animated in discussions of her recent actions and suicide attempt as opposed to being somewhat distant and an emotional about it during our initial conversations 3 days ago. Today, the patient continues to report doing well and not feeling depressed, sad, or down. We discussed the concept of ?flight into health? and that her mood may change once she is released from the hospital and sent home particularly as she denies any depressive symptoms at this time. She expresses some regret and remorse for what she did. Currently denies any suicidal or homicidal ideation, intent, or plan. She appears to be tolerating lithium introduced via J-tube adequately and we will continue to monitor this. She had some nausea and slight vomiting earlier but this may be due to not having been fed for awhile and feeding rate just needing to be slow down not due to the lithium. Overall reports doing well with good mood and seems to have a much better perspective on things in his much more engaging. Exam Vital Signs (past 8 hours): - 03/25/22 12:58 03/25/22 14:00 03/25/22 17:00 Temperature 98.3 F 99.0 F Pulse Rate 77 76 82 Respiratory Rate 16 19 Blood Pressure 122/80 116/69 123/78 Pulse Oximetry 95 94 Oxygen Flow Rate 0 0 03/25/22 16:59 Temperature Pulse Rate 82 Respiratory Rate Blood Pressure 123/78 Pulse Oximetry Oxygen Flow Rate Oxygen Delivery Method Room Air Oxygen Flow Rate 0 Narrative Exam Narrative: MENTAL STATUS EXAM Appearance: The patient is a slender female seen lying in her hospital bed Grooming: Dressed in hospital attire and adequately groomed. Behavior: Calm and cooperative with the evaluation. Eye contact: Good eye contact Gait: Not tested Speech: Normal rate, volume, and larry Mood: ?I feel pretty good. ? Affect: Generally pleasant, cooperative, generally euthymic, more engaged, interactive, and with much more normal range and reactivity Thought Process: Linear, logical, and goal-directed Thought Content: Denies suicidal ideation, denies homicidal ideation, intent or plan; and there was no evidence of a formal thought or perceptual disturbance. Attention: Attentive to interview Orientation: Oriented to person, place, time, and circumstance Memory: Intact for interview, not formally tested Insight: Fair Judgment: Fair Objective Labs Result Diagrams: 03/21/22 04:36 03/23/22 05:00 Labs: Laboratory Results - last 24 hr 03/23/22 05:00 Smear Path Review [facility] Medical History Chicken pox COPD (chronic obstructive pulmonary disease) Fibroids History of basal cell carcinoma (BCC) History of vaginal delivery Lesion of lower eyelid Measles Skin cancer (~1975) Thrombocytosis (08/2020) Unintentional weight loss (03/2020) Surgical History Anesthesia Broken ankle History of elbow surgery Family History Father Hypertension Mother Hypertension Dementia Social History household members: spouse Smoking Status: Never smoker second hand exposure: No alcohol intake: current substance use type: does not use Assessment & Plan Assessment and plan (1) Bipolar depression: Status: Acute (2) Overdose: Qualifiers: Encounter type: sequela Injury intent: intentional self-harm Qualified Code(s): T50.902S - Poisoning by unspecified drugs, medicaments and biological substances, intentional self-harm, sequela Status: Acute Plan ASSESSMENT: The patient is a 76-year-old female admitted following an 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 I was able to obtain some collateral information from her son and corroborated with the patient. They describe some possible episodes of hypomania that may indicate bipolar depression which would change our approach to treating her depression. We note that the patient is started lithium and appears to be tolerating it well via J-tube. RECOMMENDATIONS: 1. Continue lithium 300 mg via J-tube q.h.s. 2. We will continue to follow-up with you while patient is in the hospital 3. The patient is currently not suicidal or homicidal at this time and able to contract for safety and expresses a reasonable safety plan and likely not holdable despite fairly serious suicide attempt. 4. Since [facility] bed may be unlikely and difficult to find, particularly given the patient's J-tube and medical situation, I recommend that she follow-up with me next week if she is discharged over this weekend. Please contact Contact our waterfront director for time. Will notify them. Time Spent With Patient Time with patient: less than 30 minutes Critical Care time: I spent a total of 25 minutes of critical care time on this patient's care today; this time is exclusive of procedural time. Quality VTE Deep Vein Thrombosis/Pulmonary Embolism Present on Admission: No
--- NOTE | 2022-03-25 19:00 | PM.PN.1 ---
Subjective Subjective Date Patient Seen: 03/25/22 Time Patient Seen: 19:00 Interval history: The midline dressing has become saturated with blood. Exam Vital Signs (past 8 hours): - 03/25/22 12:58 03/25/22 14:00 03/25/22 17:00 Temperature 98.3 F 99.0 F Pulse Rate 77 76 82 Respiratory Rate 16 19 Blood Pressure 122/80 116/69 123/78 Pulse Oximetry 95 94 Oxygen Flow Rate 0 0 03/25/22 16:59 Temperature Pulse Rate 82 Respiratory Rate Blood Pressure 123/78 Pulse Oximetry Oxygen Flow Rate Oxygen Delivery Method Room Air Oxygen Flow Rate 0 Narrative Exam Narrative: There is venous oozing from the lower third of the midline incision. Objective Labs Result Diagrams: 03/21/22 04:36 03/23/22 05:00 Labs: Laboratory Results - last 24 hr 03/23/22 05:00 Smear Path Review [facility] Medical History Chicken pox COPD (chronic obstructive pulmonary disease) Fibroids History of basal cell carcinoma (BCC) History of vaginal delivery Lesion of lower eyelid Measles Skin cancer (~1975) Thrombocytosis (08/2020) Unintentional weight loss (03/2020) Surgical History Anesthesia Broken ankle History of elbow surgery Family History Father Hypertension Mother Hypertension Dementia Social History household members: spouse Smoking Status: Never smoker second hand exposure: No alcohol intake: current substance use type: does not use Assessment & Plan Assessment and plan (1) Caustic esophageal injury: Qualifiers: Encounter type: initial encounter Qualified Code(s): T28.6XXA - Corrosion of esophagus, initial encounter Status: Acute Plan Hold lovenox Apply pressure dressing with binder to stop bleeding No need for EGD at this time. The patient can follow up with me as an outpatient to arrange a follow EGD or barium swallow study in 6-8 weeks. Time Spent With Patient Critical Care time: I spent a total of [] minutes of critical care time on this patient's care today; this time is exclusive of procedural time. Quality VTE Deep Vein Thrombosis/Pulmonary Embolism Present on Admission: No
[2022-03-25] MEDS: LITHIUM 300 MG ER TABLET PO (21:29)
[2022-03-25] MEDS: SODIUM CHLORIDE 0.9% FLUSH 10 ML IV (21:29)
[2022-03-26] VITALS (26 sets, daily range): BP systolic 87–129; BP diastolic 52–72; PULSE 73–107; RESP 16–18; TEMP 36.3; O2SAT 93–100
--- NOTE | 2022-03-26 04:05 | DI.CT.S_ITS ---
PROCEDURE: CT STROKE INDICATIONS: syncope TECHNIQUE: Noncontrast 4.5 mm thick angled axial sections acquired from the foramen magnum to the vertex, with coronal reformats. For radiation dose reduction, the following was used: automated exposure control, adjustment of mA and/or kV according to patient size. COMPARISON: None. FINDINGS: Image quality: Excellent. CSF spaces: Basal cisterns are patent. No extra-axial fluid collections. The ventricles are symmetric in size and shape. Brain: No intracranial bleeds or masses. There are old lacunar infarcts in basal ganglia/internal capsules bilaterally. Brainstem demonstrates decreased attenuation. There is moderate cerebral volume loss for age, with resultant ventricular and sulcal prominence. There are moderate periventricular and deep white matter chronic small vessel ischemic changes. There is intracranial internal carotid artery atherosclerosis. Skull and face: Calvarium and visualized facial bones appear intact, without suspicious lesions. Sinuses: Visualized sinuses and mastoids are clear. IMPRESSION: 1. No acute intracranial abnormalities. 2. Cerebral volume loss and chronic microvascular ischemic changes. 3. 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 4. There is decreased attenuation in brainstem, which may be caused by artifact but posterior stroke cannot be excluded. Recommend MRI for further evaluation. No significant discrepancy with the physician ophthalmologist radiology preliminary report. This study fulfills neurological imaging criteria for inclusion or exclusion of acute stroke therapies based on available published neurological guidelines. Dictated by: Sloane Reyes M.D. on 03/26/2022 at 7:32 Approved by: Sloane Reyes M.D. on 03/26/2022 at 8:26
[2022-03-26 04:26] LABS: Add Manual Diff / Slide Review NO; Basophils Absolute Auto 100 /uL (0-100); Basophils Percent Auto 0.5 % (0-2); Eosinophils Absolute Auto 100 /uL (0-450); Hematocrit 40.6 % (36-46); Hemoglobin 13.3 g/dL (12.0-16.0); Lymphocytes Absolute Auto 2000 /uL (1100-4500); Lymphocytes Percent Auto 19.8 % (25-40); Mean Corpuscular HGB Conc 32.7 % (30-36); Mean Corpuscular Hemoglobin 27.8 PG (26-34); Monocytes Absolute Auto 1900 /uL (0-900); Neutrophils Absolute Auto 6300 /uL (1500-7000); Neutrophils Percent Auto 60.7 % (50-75); Platelet Count 504 X10^3/uL (150-400); Red Blood Cell Count 4.77 X10^6/uL (4.0-5.2); Red Cell Distribution Width 13.4 % (11.6-14.8); White Blood Cell Count 10.3 X10^3/uL (4.5-11.0)
[2022-03-26 04:36] LABS: Alanine Aminotransferase 150 IU/L (<35); Albumin 3.1 g/dL (3.5-5.0); Albumin Globulin Ratio 1.1 (1.0-2.8); Alkaline Phosphatase 82 U/L (38-126); Aspartate Aminotransferase 64 IU/L (14-36); BUN Creatinine Ratio 32.9 (6-22); Bilirubin Total 0.3 mg/dL (0.2-1.3); Blood Urea Nitrogen 24 mg/dL (7-17); Calcium 8.1 mg/dL (8.4-10.2); Carbon Dioxide 28 mmol/L (22-32); Chloride 99 mmol/L (98-107); Creatine Kinase < 20 U/L (30-135); Estimated Glomerular Filt Rate > 60 mL/min (>60); Globulin 2.8 g/dL (1.7-4.1); Glucose 138 mg/dL (80-110); HEMOLYSIS 20 (0-50); Potassium 3.8 mmol/L (3.4-5.1); Sodium 136 mmol/L (137-145); Total Protein 5.9 g/dL (6.3-8.2)
[2022-03-26 04:47] LABS: Troponin I < 0.012 ng/mL (0.01-0.034)
--- NOTE | 2022-03-26 04:48 | P.EN_ITS ---
Event Note Date Patient Seen: 03/26/22 Time Patient Seen: 04:00 Event Note (Rapid Response, Code, or fall): Rapid response called, patient was being assisted to the bathroom and had apparently passed out. ICU nurse thought that the patient might be having a stroke. WADER BOOT TOP ASSEMBLER in the room stated that she appeared to be out of it for a couple of minutes. When I got to see her in the bathroom she was able to follow commands but kept falling asleep. They brought her to the bed and her blood pressures were a bit low. I did the leg lift on her and she seemed to respond with a better blood pressure so she was given a 1 L bolus of normal saline. Initial neuro exam was normal she was able to open her eyes, she did not have a facial droop or asymmetry of the tongue, had equal handgrip, she had no drift with either arm or leg raises. She stated to me that she felt a little bit lightheaded and dizzy when this happened. EKG showed atrial fibrillation with RVR which is consistent with prior EKGs and no pauses were found on her rhythm strips. She is currently just returned from imaging for a CT of the head. Results are pending. Gen: Alert, oriented, well-developed 76 y.o. female, NAD HEENT: normocephalic, atraumatic, conjunctiva clear, sclera non-icteric, oral mucosa pink and moist Neck: supple, full ROM, no JVD, trachea is midline Resp: Lungs CTA, non-labored breathing CV: RRR, no murmur or rubs Skin: no lesions or rashes, dry and intact Neuro: Alert and oriented X 4 w/no focal deficits. No upper or lower extremity pronator drift, speech clear and coherent. Extremities: moves all 4 extremities, is ambulatory, negative Aidan?s sign Psyche: normal mood and affect. Plan: CT of the head was negative for an intercranial injury. Have ordered a MRI stroke as well as an echocardiogram w/bubble study.
--- NOTE | 2022-03-26 05:11 | DI.ECHO.S_ITS ---
[place] [facility]---------+ [facility] +---------+ : : [address] : : : : [id number] : : : : Phone: [phone]+ Echocardiogram Report + + :Name: KAYE CANALES Study Date: 03/26/2022 Height: 65 in : :[facility] ReadingLocation: Weight: 125 lb : : Gender: Female BSA: 1.6 m2 : :: 1945 Age: 76 yrs BP: 109/61 mmHg: :Reason For Study: Syncope : :Ordering Physician: BRIDGER, : :RICK Performed By: Josefa Palacios : :Referring: RICK SPARKS : + + Interpretation Summary The patient was in atrial fibrillation with heart rates between 85-100 bpm during the exam. The left ventricle is grossly normal size. The ejection fraction is estimated to be 55-60%. The right ventricle is grossly normal size. The right ventricular systolic function is normal. There is mild to moderate tricuspid regurgitation. Right ventricular systolic pressure is estimated to be 17.3 mmHg plus the clinically estimated CVP which cannot be estimated on this exam. Mild atherosclerotic plaque(s) in the aortic arch. Procedure: A two-dimensional transthoracic echocardiogram with color flow and Doppler was performed. The study quality was technically adequate. The patient was in atrial fibrillation with heart rates between 85-100 bpm during the exam. Left Ventricle: The left ventricle is grossly normal size. Proximal septal thickening is noted. There is no echo evidence for significant left ventricular outflow tract obstruction. There is no thrombus. The ejection fraction is estimated to be 55-60%. There are no focal wall motion abnormalities. Diastolic function could not be accurately assessed due to atrial fibrillation. E/E' med: 7.1. Right Ventricle: The right ventricle is grossly normal size. The right ventricular systolic function is normal. Atria: The left atrium is mildly dilated. The right atrium is mildly dilated. Mitral Valve: There is mild mitral annular calcification. There is mild mitral regurgitation. Aortic Valve: The aortic valve is trileaflet. There is discrete nodular thickening of the non- coronary cusp. Moderate calcification seen on noncoronary cusp. There is no hemodynamically significant valvular aortic stenosis. There is mild aortic regurgitation. Tricuspid Valve: The tricuspid valve is normal. There is mild to moderate tricuspid regurgitation. Right ventricular systolic pressure is estimated to be 17.3 mmHg plus the clinically estimated CVP which cannot be estimated on this exam. Pulmonic Valve: The pulmonic valve is not well seen, but is grossly normal. There is trace pulmonic regurgitation. Great Vessels: The dimensions of the ascending aorta are normal. Mild atherosclerotic plaque(s) in the aortic arch. IVC not well visualized due to abdominal binder. Pericardium/ Pleura There is no pericardial effusion. There is a moderate left-sided pleural effusion. MMode/2D Measurements & Calculations LVIDd: 3.6 cm LVOT diam: 2.1 cm LVIDs: 2.1 cm Ao root diam: 3.0 cm FS: 41.7 % asc Aorta Diam: 2.9 cm EPSS: 0.22 cm Ao Arch Diam (Prox Trans): 2.8 cm IVSd: 1.1 cm LVPWd: 0.87 cm LV barraza. diameter/BSA (cm/m^2): 2.2 LV sys. diameter/BSA (cm/m^2): 1.3 LA A2 area: 18.8 cm2 RA long axis: 4.3 cm LA A4 area: 19.2 cm2 RA area: 13.5 cm2 LA length (vol): 5.4 cm RA vol: 35.9 ml LA vol: 57.0 ml RA : 22.2 ml/m2 LA vol index: 35.2 ml/m2 TAPSE: 1.9 cm Doppler Measurements & Calculations Ao V2 max: 111.7 cm/sec LVOT Max Jefry: 90.8 cm/sec Ao V2 mean: 82.3 cm/sec LV V1 max P.3 mmHg Ao max P.0 mmHg LV V1 VTI: 15.9 cm Ao mean P.9 mmHg ARCHIE(I,D): 3.1 cm2 Ao V2 VTI: 17.3 cm ARCHIE(V,D): 2.8 cm2 sev ratio: 0.92 ARCHIE indexed to BSA (cm^2/m^2): 1.9 MV E max jefry: 73.7 cm/sec TR max jefry: 207.4 cm/sec MV A max jefry: 39.0 cm/sec TR max P.3 mmHg MV E/A: 1.9 PA V2 max: 56.5 cm/sec Med Peak E' Jefry: 10.4 cm/sec PA V2 mean: 47.7 cm/sec E/E' med: 7.1 PA mean P.93 mmHg Lat Peak E' Jefry: 10.6 cm/sec E/E' lat: 6.9 E/e' average: 7.0 MV dec time: 0.21 sec MVA(VTMaggy): 2.6 cm2 MV V2 mean: 65.8 cm/sec SV(LVOT): 54.3 ml MV mean P.1 mmHg MV V2 VTI: 21.1 cm Reading Physician:11:28 AM
--- NOTE | 2022-03-26 05:12 | DI.MRI.S_ITS ---
PROCEDURE: MR STROKE Pre- and post-contrast brain MRI, non-contrast brain MR angiogram, pre- and postcontrast neck MR angiogram INDICATIONS: syncope, tia vs CVA suspected TECHNIQUE: Brain: Noncontrast axial T1 spin echo, axial T2 fast spin echo, sagittal and axial FLAIR, coronal T2 fast spin echo, axial gradient echo, axial diffusion and ADC through the brain. After the administration of contrast, axial 3D VIBE of the cranial vasculature and brain. Brain MRA: Non-contrast 3-D time of flight MR angiogram, with multiple dpjoicw-hzjaupwdt-kweuepzgug (MIP) reformats performed. Neck MRA: Axial and sagittal TruFISP through the neck. Coronal dynamic MR angiogram during administration of contrast in the arterial and venous phases, with 3-dimenstional vayhhne-ycvnufdlv-uarzzwprmr (MIP) reformats constructed from subtraction images. COMPARISON: [facility], CT, CT STROKE, 03/26/2022, 4:09. FINDINGS: Image quality: Excellent. BRAIN: CSF spaces: Ventricles are normal in size and shape. Basal cisterns are patent. No extra-axial fluid collections. Brain: No intracranial bleeds or mass effects. There is moderate diffuse cerebral volume loss. Mild degree of patchy high FLAIR signal within the periventricular and subcortical white matter. Roblero-white matter interface is normal. Diffusion weighted images show no acute ischemic insults. Brainstem appears normal. Normal intravascular flow voids are present. No abnormal intracranial enhancement. Skull and face: Calvarial marrow signal is normal. Orbits appear normal. Sinuses: Sinuses and mastoids are clear. BRAIN MR ANGIOGRAM: Anterior circulation: Intracranial internal carotid arteries are normal in size and enhancement. The flow within the paired anterior cerebral arteries is normal and symmetric. The flow within the middle cerebral arteries is normal and symmetric. The anterior communicating artery is seen. No stenoses, occlusions, or aneurysms. Posterior circulation: The visualized portions of the vertebral arteries demonstrate normal caliber, and join to form a normal appearing basilar artery. The flow within the posterior cerebral arteries is normal and symmetric. No stenoses, occlusions, or aneurysms. NECK MR ANGIOGRAM: Carotids: Great vessels demonstrate a conventional anatomy as they arise from the aortic arch. The origins of the common carotid arteries appear patent. The calibers and courses of both common carotid arteries are normal. The bifurcation regions appear normal bilaterally. The internal carotid arteries demonstrate normal course and caliber. Posterior circulation: The origins of the vertebral arteries appear patent. More superior portions of both vertebral arteries demonstrate normal course and caliber, and join to form a normal appearing basilar artery. Miscellaneous: Subclavian arteries appear patent. Pre-contrast images through the neck show no soft tissue abnormalities. Small bilateral pleural effusions are present. IMPRESSION: BRAIN MRI: 1. Volume loss and small vessel ischemic disease. 2. No acute process. No recent infarct. BRAIN MR ANGIOGRAM: Negative cerebral MR angiography. NECK MR ANGIOGRAM: 1. No internal carotid artery stenosis bilaterally. 2. Patent bilateral vertebral arteries. 3. Bilateral pleural effusions. Dictated by: Regina Luu M.D. on 03/26/2022 at 9:51 Approved by: Regina Luu M.D. on 03/26/2022 at 9:54
[2022-03-26 05:28] LABS: Cholesterol 163 mg/dL (140-199); HDL Cholesterol 32 mg/dL (40-60); LDL Cholesterol Calculated 95 mg/dL (<100); Triglycerides 178 mg/dL (35-150)
[2022-03-26] MEDS: dilTIAZem 30 MG TABLET PO ×3 (06:07→18:25)
--- NOTE | 2022-03-26 07:37 | PC.NURSE ---
@ 0345 staff assist and then code phil called overhead to Rm 224 , Pt had gotten up to BR with [employer] 1:1 sitter and had a very large loose BM,felt faint and then pt became unresponsive on toilet. Patient was breathing and had Afib with RVR > Hr 120. pt was carried back to bed and became responsive as she was laid in the bed . VSS stabilized and her Map reamained greater than 65. blood glucose 114, NIH 0. Pt was given 1 liter bolus. orders were recieved and @ 0437 patient taken down For Head CT and returned @ 0447, VSS documented in chart. Pt ordered to Have MRI of the Brain with and without contrast to be completed on day shift. .
[2022-03-26] MEDS: PANTOPRAZOLE 40 MG VIAL IV ×2 (11:23→20:42)
[2022-03-26] MEDS: SODIUM CHLORIDE 0.9% FLUSH 10 ML IV ×2 (11:24→20:43)
[2022-03-26] MEDS: LACTATED RINGERS 1,000 ML 1000 ML IV (12:30)
[2022-03-26 12:39] LABS: Lithium < 0.2 mmol/L (0.6-1.2)
--- NOTE | 2022-03-26 16:00 | DIET.CONS ---
Dietary Consultation Note Admission Date: 03/17/2022 21:28 Assessment: RD consulted for diarrhea and hypotension and adjustment of TF. Per nursing Radha is unable to tolerate advancement of TF rate. Continues at 30 ml/hr. With advancement comes increased watery diarrhea. Unclear if this is from the increased rate or formula. Will reduce flushes from 100mls to 60 mls. Hospitalist to manage hypotension with IV fluids. RD follow-up tomorrow. Following closely. Diet: 03/17/22 22:16 NPO Diet Diet Modifications: Safety Tray needed?: No NPO Type: Strict 03/24/22 Lunch Tube Feeding Diet Diet Modifications: Safety Tray needed?: Yes TF Supplement type: Jevity 1.2 alok TF mode of delivery: Continuous Starting flow rate mL/hr: 30 Flow rate goal mL/hr: 60 Titration Schedule to reach Goal Rate: increase by 10mL q6h as tolerated Max total daily volume in mL: 1,762 Free fluid: 60 Free Water Frequency: Q4H Comment: ok for TPN to run simultaneously for remainder of today 03/25/22 Breakfast Tube Feeding Diet Diet Modifications: Diet change per RD - Pt having problems tolerating May Advance Diet as Tolerated: No Safety Tray needed?: Yes TF Supplement type: Jevity 1.2 alok TF mode of delivery: Continuous Starting flow rate mL/hr: 20 Flow rate goal mL/hr: 60 Titration Schedule to reach Goal Rate: Increase by 10mls q6hr as tolerated. Max total daily volume in mL: 1,762 Free fluid: 60 Free Water Frequency: Q4H Comment: Let RD know if pt has problems with feedings. Nutrition Type of Feeding Tube Jejunostomy 03/25/22 11:03 Type of Feeding Tube Jejunostomy 03/24/22 17:57 Type of Feeding Tube Jejunostomy 03/24/22 16:25 Monitoring/Evaluations: TF and flushes tolerance, TF advancement Electronically Signed by: Shanita Michel 03/26/22 16:00 Clinical Dietitian [address] [address]
--- NOTE | 2022-03-26 16:30 | P.PN_ITS ---
Subjective Subjective Date Patient Seen: 03/26/22 Interval history: 76-year-old female with atrial fibrillation on chronic Eliquis anticoagulation who is presently hospital day number 9 secondary to suicide attempt by ingesting drain out. She developed caustic esophagitis. She has had difficulty with AFib with RVR due to her NPO status. She was on TPN up until a couple of days ago af ter undergoing J-tube placement. She is now back on her usual home diltiazem dosing with good effect. Patient reports she has had difficulties with diarrhea today. She reports she was initiated on tube feeds yesterday. RN reports difficulties titrating it secondary to poor tolerance. Both patient and nursing describes the stool as being watery and brown. No blood or black/tarry stool. She has had some difficulty with hypotension today as well. Patient did have a rapid response called last night due to a syncopal event. She underwent evaluation including an MRI and echocardiogram, as well as a head CT. Exam Vital Signs (past 8 hours): - 03/26/22 09:13 03/26/22 10:50 03/26/22 11:14 Pulse Rate 92 H 91 H 92 H Blood Pressure 103/64 98/60 91/66 03/26/22 11:24 03/26/22 12:18 03/26/22 12:58 Pulse Rate 97 H 107 H 85 Blood Pressure 103/71 129/55 L 100/63 03/26/22 13:14 03/26/22 15:49 Pulse Rate 87 88 Blood Pressure 115/61 124/71 Oxygen Delivery Method Room Air Oxygen Flow Rate 0 Narrative Exam Narrative: GEN: Pleasant elderly female, Alert and oriented x 3, NAD HEENT:NC, Face symmetric CHEST: Respiratory excursions symmetric, CTAB CV: RRR, no M/R/G ABD: Soft, NT/ND, BT present in all 4 quadrants, no organomegaly or masses EXTR: warm, well perfused, no C/C/E SKIN: warm and dry, no rash NEURO: Alert and oriented x 3, nonfocal Objective Labs Result Diagrams: 03/26/22 04:08 03/26/22 04:08 Labs: Laboratory Results - last 24 hr 03/26/22 03/26/22 03/26/22 04:00 04:08 04:08 WBC 10.3 RBC 4.77 Hgb 13.3 Hct 40.6 MCV 85.0 MCH 27.8 MCHC 32.7 RDW 13.4 Plt Count 504 H Neut % (Auto) 60.7 Lymph % (Auto) 19.[address] [place] % (Auto) 18.0 H Eos % (Auto) 1.0 L Baso % (Auto) 0.5 Neut # (Auto) 6300 Lymph # (Auto) 2000 [place] # (Auto) 1900 H Eos # (Auto) 100 Baso # (Auto) 100 Sodium 136 L Potassium 3.8 Chloride 99 Carbon Dioxide 28 BUN 24 H Creatinine 0.73 Estimated GFR > 60 BUN/Creatinine Ratio 32.9 H Glucose 138 H Lactate Calcium 8.1 L Total Bilirubin 0.3 AST 64 H ALT 150 H Alkaline Phosphatase 82 Total Creatine Kinase < 20 L CK-MB (CK-2) TNP CK-MB (CK-2) Rel Index TNP Troponin I < 0.012 Total Protein 5.9 L Albumin 3.1 L Globulin 2.8 Albumin/Globulin Ratio 1.1 Triglycerides Cholesterol LDL Cholesterol, Calc HDL Cholesterol [place] Cancelled 03/26/22 03/26/22 03/26/22 04:08 04:08 11:30 WBC RBC Hgb Hct MCV MCH MCHC RDW Plt Count Neut % (Auto) Lymph % (Auto) [place] % (Auto) Eos % (Auto) Baso % (Auto) Neut # (Auto) Lymph # (Auto) [place] # (Auto) Eos # (Auto) Baso # (Auto) Sodium Potassium Chloride Carbon Dioxide BUN Creatinine Estimated GFR BUN/Creatinine Ratio Glucose Lactate 2.0 Calcium Total Bilirubin AST ALT Alkaline Phosphatase Total Creatine Kinase CK-MB (CK-2) CK-MB (CK-2) Rel Index Troponin I Total Protein Albumin Globulin Albumin/Globulin Ratio Triglycerides 178 H Cholesterol 163 LDL Cholesterol, Calc 95 HDL Cholesterol 32 L [place] < 0.2 L [facility] Medical History Chicken pox COPD (chronic obstructive pulmonary disease) Fibroids History of basal cell carcinoma (BCC) History of vaginal delivery Lesion of lower eyelid Measles Skin cancer (~1975) Thrombocytosis (08/2020) Unintentional weight loss (03/2020) Surgical History Anesthesia Broken ankle History of elbow surgery Family History Father Hypertension Mother Hypertension Dementia Social History household members: spouse Smoking Status: Never smoker second hand exposure: No alcohol intake: current substance use type: does not use Assessment & Plan Assessment & Plan narrative: 1. Caustic esophagitis secondary to ingestion of Drano Patient remains NPO. Remains on IV PPI b.i.d.. Plans are in place for out patient follow-up endoscopy. No concerning symptoms or signs of perforation. Patient is at risk for development of strictures. As noted, J-tube was placed on 03/23/2022. 2. Suicide attempt Patient was initiated on lithium per Psychiatry. Will change from extended release version to immediate release version as it is being given via J-tube. Dr. Velasco, Psychiatry, did assess her and feels she could be safe to discharge home if placement in a geropsych program proves to be difficult. He kindly has agreed to follow her on an outpatient basis. Continue one-to-one sitter. 3. Paroxysmal atrial fibrillation Patient remains on diltiazem 30 mg q.6 hours. Heart rate is in the 90s. Although she is having some hypotension, I will not hold diltiazem as she did have significant difficulties with RVR last week. She is holding apixaban until General surgery clears her for re-initiation. 4. Hypotension associated with syncopal event last night. CT scan done last evening revealed no acute abnormalities. 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 Decreased attenuation in the brainstem which could be artifactual. MRI of the brain revealed volume loss and small-vessel ischemic disease without acute process. Negative MRA. Echocardiogram was also unremarkable with the exception of mild to moderate tricuspid regurgitation and RVSP was estimated to be 17.3 mmHg.. Systolic blood pressure dropped into the 80s today. She did have some syncope last night went up to the bathroom. No evidence of stroke. We will give bolus of IV fluids. Discussed with dietitian that her volume needs maybe increasing related to diarrhea. However, dietitian did raise concern that as her water flushes are being given per J-tube, this may be contributing to the diarrhea. We will work on increasing her tube feed rate, decrease water flushes. For now, continue monitoring blood pressures and response to fluid bolus. 5. Thrombocytosis Platelet count is 504. Likely reactive in nature. 6. Hyponatremia Very mild at 136. Will follow. 7. Hypokalemia Improved on today's labs. Code status Full Prophylaxis Deferred pending clearance per General surgery Disposition Pending Time Spent With Patient Critical Care time: I spent a total of [] minutes of critical care time on this patient's care today; this time is exclusive of procedural time. Quality VTE Deep Vein Thrombosis/Pulmonary Embolism Present on Admission: No
--- NOTE | 2022-03-26 20:37 | PM.CALLCOV.1 ---
Call Coverage Note Note Date of Patient Contact: 03/26/22 Time of Patient Contact: 20:38 Narrative of Care Provided: Patient safe to discharge from surgical perspective when medically appropriate. She may have sips of liquids no solid food. Outpatient follow up endoscopy with Dr. Floyd.
[2022-03-26] MEDS: LITHIUM 150 MG IR CAPSULE PO (20:42)
[2022-03-27] VITALS (11 sets, daily range): BP systolic 98–123; BP diastolic 58–72; PULSE 69–84; RESP 16–18; TEMP 36.3–37.4; O2SAT 96–99
[2022-03-27] MEDS: dilTIAZem 30 MG TABLET PO ×4 (00:16→18:55)
[2022-03-27] MEDS: LORazepam 2 MG/ML INJ 0.5 MG IV ×2 (02:25→21:20)
[2022-03-27] MEDS: SODIUM CHLORIDE 0.9% FLUSH 10 ML IV ×4 (02:26→21:20)
[2022-03-27 05:49] LABS: Add Manual Diff / Slide Review NO; Basophils Absolute Auto 100 /uL (0-100); Basophils Percent Auto 0.8 % (0-2); Eosinophils Absolute Auto 200 /uL (0-450); Eosinophils Percent Auto 2.6 % (2-4); Hemoglobin 11.3 g/dL (12.0-16.0); Lymphocytes Absolute Auto 1300 /uL (1100-4500); Lymphocytes Percent Auto 14.7 % (25-40); Mean Corpuscular HGB Conc 33.2 % (30-36); Mean Corpuscular Hemoglobin 27.9 PG (26-34); Mean Corpuscular Volume 84.3 fL (80-100); Monocytes Absolute Auto 1300 /uL (0-900); Monocytes Percent Auto 14.5 % (3-14); Neutrophils Absolute Auto 5900 /uL (1500-7000); Neutrophils Percent Auto 67.4 % (50-75); Platelet Count 417 X10^3/uL (150-400); Red Blood Cell Count 4.04 X10^6/uL (4.0-5.2); Red Cell Distribution Width 13.5 % (11.6-14.8); White Blood Cell Count 8.7 X10^3/uL (4.5-11.0)
[2022-03-27 06:01] LABS: Alanine Aminotransferase 100 IU/L (<35); Albumin 2.5 g/dL (3.5-5.0); Alkaline Phosphatase 58 U/L (38-126); Aspartate Aminotransferase 39 IU/L (14-36); BUN Creatinine Ratio 29.5 (6-22); Bilirubin Total 0.2 mg/dL (0.2-1.3); Blood Urea Nitrogen 18 mg/dL (7-17); Calcium 7.8 mg/dL (8.4-10.2); Carbon Dioxide 29 mmol/L (22-32); Chloride 102 mmol/L (98-107); Estimated Glomerular Filt Rate > 60 mL/min (>60); Globulin 2.6 g/dL (1.7-4.1); Glucose 112 mg/dL (80-110); HEMOLYSIS < 15 (0-50); Potassium 4.1 mmol/L (3.4-5.1); Sodium 135 mmol/L (137-145); Total Protein 5.1 g/dL (6.3-8.2)
--- NOTE | 2022-03-27 08:03 | PM.PN.1 ---
Subjective Subjective Date Patient Seen: 03/27/22 Interval history: She remains mentally stable on lithium and denies active suicidal ideation. Her 2 sons and her are involved in discussions with high school social studies teacher about mental health inpatient placement. Her medical stability should be adequate once the J-tube feeding reaches the goal maintenance rate of 60 mL/hr. She is now at 40 mL/hr. We discussed with her that her brain MRI was normal and her echocardiogram was okay. The hemoglobin is 11.3 with an ALT of 100 and an albumin of 2.5. 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 She says that she has no problem swallowing her saliva and would like to resume swallowing food as soon as allowed. Exam Vital Signs (past 8 hours): - 03/27/22 00:16 03/27/22 02:21 03/27/22 05:45 Pulse Rate 80 69 75 Respiratory Rate 18 Blood Pressure 110/63 109/58 L 104/63 Pulse Oximetry 97 Oxygen Delivery Method Room Air Oxygen Flow Rate 0 Narrative Exam Narrative: Alert and oriented x3. She appears to be anxious. She is swallowing her saliva normally. Heart is regular rate and rhythm without murmur. Lungs are clear to auscultation bilaterally. Extremities have no ankle edema. Abdomen has a G-tube in place, nontender, soft, bowel sounds active. Objective Labs Result Diagrams: 03/27/22 05:35 03/27/22 05:35 Labs: Laboratory Results - last 24 hr 03/26/22 03/27/22 03/27/22 11:30 05:35 05:35 WBC 8.7 RBC 4.04 Hgb 11.3 L Hct 34.0 L MCV 84.3 MCH 27.9 MCHC 33.2 RDW 13.5 Plt Count 417 H Neut % (Auto) 67.4 Lymph % (Auto) 14.7 L [place] % (Auto) 14.5 H Eos % (Auto) 2.6 Baso % (Auto) 0.8 Neut # (Auto) 5900 Lymph # (Auto) 1300 [place] # (Auto) 1300 H Eos # (Auto) 200 Baso # (Auto) 100 Sodium 135 L Potassium 4.1 Chloride 102 Carbon Dioxide 29 BUN 18 H Creatinine 0.61 Estimated GFR > 60 BUN/Creatinine Ratio 29.5 H Glucose 112 H Calcium 7.8 L Total Bilirubin 0.2 AST 39 H ALT 100 H Alkaline Phosphatase 58 Total Protein 5.1 L Albumin 2.5 L Globulin 2.6 Albumin/Globulin Ratio 1.0 [place] < 0.2 L [facility] Medical History Chicken pox COPD (chronic obstructive pulmonary disease) Fibroids History of basal cell carcinoma (BCC) History of vaginal delivery Lesion of lower eyelid Measles Skin cancer (~1975) Thrombocytosis (08/2020) Unintentional weight loss (03/2020) Surgical History Anesthesia Broken ankle History of elbow surgery Family History Father Hypertension Mother Hypertension Dementia Social History household members: spouse Smoking Status: Never smoker second hand exposure: No alcohol intake: current substance use type: does not use Assessment & Plan Assessment & Plan narrative: 1. Caustic esophagitis secondary to ingestion of Drano (Alkalotic) Patient remains NPO.? Remains on IV PPI b.i.d..? Plans are in place for outpatient follow-up endoscopy.? No concerning symptoms or signs of perforation.? Patient is at risk for development of strictures.? As noted, J-tube was placed on 03/23/2022. 2. Suicide attempt Patient was initiated on lithium per Psychiatry.? Will change from extended release version to immediate release version as it is being given via J-tube.? Dr. Velasco, Psychiatry, did assess her and feels she could be safe to discharge home if placement in a geropsych program proves to be difficult.? He kindly has agreed to follow her on an outpatient basis.? Continue one-to-one sitter. 3. Paroxysmal atrial fibrillation Patient remains on diltiazem 30 mg q.6 hours.? Heart rate is in the 90s.? Although she is having some hypotension, I will not hold diltiazem as she did have significant difficulties with RVR last week.? She is holding apixaban until General surgery clears her for re-initiation. 4. Hypotension associated with syncopal event last night. CT scan done last evening revealed no acute abnormalities.? There were old lacunar infarcts in the basal ganglia/internal capsules bilaterally.? Decreased attenuation in the brainstem which could be artifactual.? MRI of the brain revealed volume loss and small-vessel ischemic disease without acute process.? Negative MRA.? Echocardiogram was also unremarkable with the exception of mild to moderate tricuspid regurgitation and RVSP was estimated to be 17.3 mmHg..? Systolic blood pressure dropped into the 80s today.? She did have some syncope last night went up to the bathroom.? No evidence of stroke.? We will give bolus of IV fluids.? Discussed with dietitian that her volume needs maybe increasing related to diarrhea.? However, dietitian did raise concern that as her water flushes are being given per J-tube, this may be contributing to the diarrhea.? We will work on increasing her tube feed rate, decrease water flushes.? For now, continue monitoring blood pressures and response to fluid bolus. 5. Thrombocytosis Platelet count is 504.? Likely reactive in nature. 6. Hyponatremia Very mild at 136.? Will follow. 7. Hypokalemia Improved on today's labs. Code status Full Prophylaxis Deferred pending clearance per General surgery Disposition Pending ? Time Spent With Patient Critical Care time: I spent a total of [] minutes of critical care time on this patient's care today; this time is exclusive of procedural time. Quality VTE Deep Vein Thrombosis/Pulmonary Embolism Present on Admission: No
[2022-03-27] MEDS: PANTOPRAZOLE 40 MG VIAL IV ×2 (08:07→21:20)
[2022-03-27] MEDS: LITHIUM 150 MG IR CAPSULE PO ×2 (08:07→21:20)
--- NOTE | 2022-03-27 11:08 | DIET.CONS2 ---
Dietary Inpatient Consultation Note Admission Date: 03/17/2022 21:28 RD f/u this am. RD met c pt at bedside. Pt tolerated reduced free water flushes with no s/sx diarrhea. Pt now tolerating goal rate EN via jtube at 60mL/h. Home plan would be for pt to tolerate nocturnal pump assisted 16h feeds of Jevity 1.2 through jtube with 60mL free water flushes q4h. Per surgeon, pt cleared for sips of clear, pulp-free liquids, NO SOLIDS. RD to request outpatient referral to follow patient as she advances diet over the next several months as pt high risk for malnutrition and feeding complications secondary to alkali ingestion. Diet: 03/17/22 22:16 NPO Diet Diet Modifications: Safety Tray needed?: No NPO Type: Strict 03/25/22 Breakfast Tube Feeding Diet Diet Modifications: Diet change per RD - Pt having problems tolerating May Advance Diet as Tolerated: No Safety Tray needed?: Yes TF Supplement type: Jevity 1.2 alok TF mode of delivery: Continuous Starting flow rate mL/hr: 20 Flow rate goal mL/hr: 60 Titration Schedule to reach Goal Rate: Increase by 10mls q6hr as tolerated. Max total daily volume in mL: 1,762 Free fluid: 60 Free Water Frequency: Q4H Comment: Let RD know if pt has problems with feedings. Nutrition Percent Meal Consumed NPO Jevity tube feed 03/26/22 18:00 Electronically Signed by: Estlea Grady 03/27/22 11:08 Clinical Dietitian [address] [address]
--- NOTE | 2022-03-27 15:15 | CM.DPNOTE ---
SUPERVISOR INTELLIGENCE ANALYST/DCP NOte According to Dr Bal and dietitian Estela andrew; patient's infusion goal for feeding is 60 ml per hour, which has been started today. Patient is not medically ready for discharge today but expected to be tomorrow Long conversation today w/patient, spouse Alex and son Syed joined by phone; reviewed dispo plan and options This SUPERVISOR INTELLIGENCE ANALYST feels patient would be a good candidate for inpatient psychiatric care, however, this may not be an option and patient/family state understanding. In addition, Dr Velasco, psychiatrist has cleared patient for return home w/immediate f/u with him Tuesday morning at 0815 Patient explains that she prefers to return home w/family to support but would consider an inpatient option if available, this SUPERVISOR INTELLIGENCE ANALYST agreed to report back after placing calls. Meanwhile, discussed home option w/patient alone and patient tells this SUPERVISOR INTELLIGENCE ANALYST she feels safe returning home w/family. I strongly encouraged patient to follow closely w/psychiatry and counseling services and patient agreed. Patient denies current suicidal ideation and feels motivated today to seek treatment with hope of better quality of life. Also discussed the option for intensive outpatient services. Will plan to email patient and family a link to IOP options. Discussed warning signs w/patient and family for suicidal intent and risk of attempt and completion, per training and presentation packet by Irineo Blankenship, Suicidologist Suicide & Self-Harm Stopping the Pain After this meeting placed call to: [facility]- [facility] [place]- COVID outbreak, not taking admissions [facility], [facility]- [facility], not taking admissions [facility], [facility]- Cannot accommodate a new feeding tube, would consider an established one only [facility]- No, too medically complex Will plan to report findings to patient/family and Dr Bal Placed call to Casandra, pharmacist at [facility] who reports they do not have the staffing to assist in patient's discharge Tuesday but could plan to assist/teach on Tuesday plan: Expect that patient will discharge home w/family Tuesday or Tuesday, [facility] for assist w/new j tube and enteral feedings, [facility] (?) and close f/u w/ Dr Velasco, appt set up for Tuesday AM at 0815, needs to be rescheduled if patient is still admitted CM team will plan to follow closely for coordination of safe dispo; appears to be outpatient plan at this time ALLISON Watson
[2022-03-28] VITALS (10 sets, daily range): BP systolic 102–120; BP diastolic 64–81; PULSE 69–84; RESP 16–18; TEMP 36.3–37.2; O2SAT 93–98
[2022-03-28] MEDS: dilTIAZem 30 MG TABLET PO ×5 (00:40→23:50)
[2022-03-28 04:46] LABS: Add Manual Diff / Slide Review NO; Basophils Absolute Auto 0 /uL (0-100); Basophils Percent Auto 0.5 % (0-2); Eosinophils Absolute Auto 200 /uL (0-450); Eosinophils Percent Auto 2.3 % (2-4); Hematocrit 33.7 % (36-46); Hemoglobin 11.5 g/dL (12.0-16.0); Lymphocytes Absolute Auto 1200 /uL (1100-4500); Lymphocytes Percent Auto 11.8 % (25-40); Mean Corpuscular HGB Conc 34.1 % (30-36); Mean Corpuscular Hemoglobin 28.5 PG (26-34); Mean Corpuscular Volume 83.8 fL (80-100); Monocytes Absolute Auto 1400 /uL (0-900); Monocytes Percent Auto 14.1 % (3-14); Neutrophils Absolute Auto 7100 /uL (1500-7000); Neutrophils Percent Auto 71.3 % (50-75); Platelet Count 453 X10^3/uL (150-400); Red Blood Cell Count 4.02 X10^6/uL (4.0-5.2); Red Cell Distribution Width 13.2 % (11.6-14.8)
[2022-03-28 05:11] LABS: Alanine Aminotransferase 97 IU/L (<35); Albumin 2.7 g/dL (3.5-5.0); Albumin Globulin Ratio 1.1 (1.0-2.8); Alkaline Phosphatase 62 U/L (38-126); Aspartate Aminotransferase 37 IU/L (14-36); BUN Creatinine Ratio 25.4 (6-22); Bilirubin Total 0.2 mg/dL (0.2-1.3); Blood Urea Nitrogen 17 mg/dL (7-17); Calcium 7.9 mg/dL (8.4-10.2); Carbon Dioxide 30 mmol/L (22-32); Chloride 102 mmol/L (98-107); Estimated Glomerular Filt Rate > 60 mL/min (>60); Globulin 2.5 g/dL (1.7-4.1); Glucose 124 mg/dL (80-110); HEMOLYSIS < 15 (0-50); Sodium 136 mmol/L (137-145); Total Protein 5.2 g/dL (6.3-8.2)
[2022-03-28] MEDS: PANTOPRAZOLE 40 MG VIAL IV ×2 (08:58→20:28)
[2022-03-28] MEDS: SODIUM CHLORIDE 0.9% FLUSH 10 ML IV ×2 (08:58→20:29)
[2022-03-28] MEDS: LITHIUM 150 MG IR CAPSULE PO ×2 (08:58→20:28)
--- NOTE | 2022-03-28 15:26 | PM.PN.1 ---
Subjective Subjective Date Patient Seen: 03/28/22 Interval history: She remains mentally stable on lithium and denies active suicidal ideation. Unfortunately no inpatient facilities are currently accepting patient, and plan is for discharge home. She is at goal feedings. Currently waiting for tube feeds to be available at home prior to discharge, likely tomorrow. She has some mild stomach pain, but is much improved. Exam Vital Signs (past 8 hours): - 03/28/22 08:00 03/28/22 12:00 Temperature 98.9 F Pulse Rate 73 84 Respiratory Rate 16 18 Blood Pressure 105/65 102/81 Pulse Oximetry 96 98 Oxygen Flow Rate 0 0 Oxygen Delivery Method Room Air Oxygen Flow Rate 0 Narrative Exam Narrative: GEN: no acute distress HEENT: moist mucous membranes, no injuries noted on oral mucosa PULM: clear bilaterally, no wheezes, rhonchi, rales CV: regular rate and rhythm ABD: soft, nontender, nondistended, no organomegaly, normal bowel sounds, J-tube site without erythema Objective Labs Result Diagrams: 03/28/22 04:24 03/28/22 04:24 Labs: Laboratory Results - last 24 hr 03/28/22 03/28/22 04:24 04:24 WBC 10.0 RBC 4.02 Hgb 11.5 L Hct 33.7 L MCV 83.8 MCH 28.5 MCHC 34.1 RDW 13.2 Plt Count 453 H Neut % (Auto) 71.3 Lymph % (Auto) 11.8 L Kendall % (Auto) 14.1 H Eos % (Auto) 2.3 Baso % (Auto) 0.5 Neut # (Auto) 7100 H Lymph # (Auto) 1200 Kendall # (Auto) 1400 H Eos # (Auto) 200 Baso # (Auto) 0 Sodium 136 L Potassium 4.0 Chloride 102 Carbon Dioxide 30 BUN 17 Creatinine 0.67 Estimated GFR > 60 BUN/Creatinine Ratio 25.4 H Glucose 124 H Calcium 7.9 L Total Bilirubin 0.2 AST 37 H ALT 97 H Alkaline Phosphatase 62 Total Protein 5.2 L Albumin 2.7 L Globulin 2.5 Albumin/Globulin Ratio 1.1 PFSH Medical History Chicken pox COPD (chronic obstructive pulmonary disease) Fibroids History of basal cell carcinoma (BCC) History of vaginal delivery Lesion of lower eyelid Measles Skin cancer (~1975) Thrombocytosis (08/2020) Unintentional weight loss (03/2020) Surgical History Anesthesia Broken ankle History of elbow surgery Family History Father Hypertension Mother Hypertension Dementia Social History household members: spouse Smoking Status: Never smoker second hand exposure: No alcohol intake: current substance use type: does not use Assessment & Plan Assessment & Plan narrative: 1. Caustic esophagitis secondary to ingestion of Drano (Alkalotic) Patient remains NPO but okay for small sips of clears.? Remains on IV PPI b.i.d..? Plans are in place for outpatient follow-up endoscopy.? No concerning symptoms or signs of perforation.? Patient is at risk for development of strictures.? As noted, J-tube was placed on 03/23/2022. 2. Suicide attempt Patient was initiated on lithium per Psychiatry.? Will change from extended release version to immediate release version as it is being given via J-tube.? Dr. Velasco, Psychiatry, did assess her and feels she could be safe to discharge home if placement in a geropsych program proves to be difficult, which it has been.? He kindly has agreed to follow her on an outpatient basis.? Continue one-to-one sitter. 3. Paroxysmal atrial fibrillation Patient remains on diltiazem 30 mg q.6 hours.? Heart rate is in the 90s.? Although she is having some hypotension, I will not hold diltiazem as she did have significant difficulties with RVR last week.? She is holding apixaban until General surgery clears her for re-initiation. 4. Hypotension associated with syncopal event CT scan done last evening revealed no acute abnormalities.? There were old lacunar infarcts in the basal ganglia/internal capsules bilaterally.? Decreased attenuation in the brainstem which could be artifactual.? MRI of the brain revealed volume loss and small-vessel ischemic disease without acute process.? Negative MRA.? Echocardiogram was also unremarkable with the exception of mild to moderate tricuspid regurgitation and RVSP was estimated to be 17.3 mmHg..? Systolic blood pressure dropped into the 80s today.? She did have some syncope last night went up to the bathroom.? No evidence of stroke and improved with fluid bolus. Free water flushes likely contributed to diarrhea but now appears to be tolerating. 5. Thrombocytosis Platelet count is 504.? Likely reactive in nature. 6. Hyponatremia Very mild at 136.? Will follow. 7. Hypokalemia Improved on today's labs. Code status Full Prophylaxis Deferred pending clearance per General surgery Disposition Home with close outpatient follow up, can discharge home once home feeding via J tube is set up. ? Time Spent With Patient Critical Care time: I spent a total of [] minutes of critical care time on this patient's care today; this time is exclusive of procedural time. Quality VTE Deep Vein Thrombosis/Pulmonary Embolism Present on Admission: No
--- NOTE | 2022-03-28 22:28 | PC.NURSE ---
Patient is alert and oriented. Is open about discussing suicide attempt and expresses hopefulness for future. Breath sounds CTA with RA sat of 93%. HRR w/telemetry reading of SR. Denies nausea. BT present and abdomen is soft. Has jejunostomy tube with feeding infusing along with q4h water flush. Wearing an abdominal binder. Has reportedly been taking in good amounts clear liquids in addition to tube feedings. Denies any sore throat or difficulty swallowing and able to take po pills/water without difficulty. Denies dysuria, frequency or urgency and is getting up to BSC with SBA; does report she feels weak. Is able to turn herself in bed. Denies pain. Refuses SCD's so reminded to ankle wave when awake. Fall risk score is moderate but has 1:1 staff observation due to suicide attempt prompting her admission so alarm is not in use at this time.
[2022-03-29 00:02] VITALS: BP 109/64; PULSE 69; RESP 16; TEMP 36.6; O2SAT 100
[2022-03-29 05:30] VITALS: BP 104/65; PULSE 70; RESP 18; TEMP 36.6; O2SAT 98
[2022-03-29] MEDS: dilTIAZem 30 MG TABLET PO ×3 (05:30→18:35)
[2022-03-29] MEDS: SODIUM CHLORIDE 0.9% FLUSH 10 ML IV ×2 (05:32→08:50)
[2022-03-29] MEDS: PANTOPRAZOLE 40 MG VIAL IV (08:50)
[2022-03-29] MEDS: LITHIUM 150 MG IR CAPSULE PO (08:50)
--- NOTE | 2022-03-29 08:52 | PM.PN.1 ---
Subjective Subjective Date Patient Seen: 03/29/22 Time Patient Seen: 08:25 Interval history: Patient seen for psych follow-up. She continues report feeling much better, much less depressed, more hopeful and displays more appropriate animation and affect in her interactions with me. Today, she continues to report not feeling depressed, sad, or down. I continue to discuss with her the concept of ?flight into health? and cautioned her about mood changes once she is released from the hospital and returns home. We had an extensive discussion about safety planning and discussed various alternatives should she become acutely suicidal again such as contacting or reaching out to her , sons, dealing [phone], or 911, or reaching out to many of her friends who live nearby on [facility]. We also discussed continuing lithium and will likely increase the dose however I would like to switch to have her take 300 mg at night rather than 150 mg twice a day. And I will have her get a lithium level morning before she comes to see me. Exam Vital Signs (past 8 hours): - 03/29/22 05:30 03/29/22 05:30 Temperature 97.9 F Pulse Rate 70 70 Respiratory Rate 18 Blood Pressure 104/65 104/65 Pulse Oximetry 98 Oxygen Flow Rate 0 Oxygen Delivery Method Room Air Oxygen Flow Rate 0 Narrative Exam Narrative: MENTAL STATUS EXAM Appearance: The patient is a slender female seen lying in her hospital bed Grooming: Dressed in hospital attire and adequately groomed. Behavior: Calm and cooperative with the evaluation. Eye contact: Good eye contact Gait: Not tested Speech: Normal rate, volume, and larry Mood: ?I am doing okay. ? Affect: Generally pleasant, cooperative, generally euthymic, more engaged, interactive, and with much more normal range and reactivity Thought Process: Linear, logical, and goal-directed Thought Content: Denies suicidal ideation, denies homicidal ideation, intent or plan; and there was no evidence of a formal thought or perceptual disturbance. Attention: Attentive to interview Orientation: Oriented to person, place, time, and circumstance Memory: Intact for interview, not formally tested Insight: Fair Judgment: Fair Objective Labs Result Diagrams: 03/28/22 04:24 03/28/22 04:24 [facility] Medical History Chicken pox COPD (chronic obstructive pulmonary disease) Fibroids History of basal cell carcinoma (BCC) History of vaginal delivery Lesion of lower eyelid Measles Skin cancer (~1975) Thrombocytosis (08/2020) Unintentional weight loss (03/2020) Surgical History Anesthesia Broken ankle History of elbow surgery Family History Father Hypertension Mother Hypertension Dementia Social History household members: spouse Smoking Status: Never smoker second hand exposure: No alcohol intake: current substance use type: does not use Assessment & Plan Assessment and plan (1) Bipolar depression: Status: Acute (2) Overdose: Qualifiers: Encounter type: sequela Injury intent: intentional self-harm Qualified Code(s): T50.902S - Poisoning by unspecified drugs, medicaments and biological substances, intentional self-harm, sequela Status: Acute Plan ASSESSMENT: The patient is a 76-year-old female admitted following an overdose attempt by drinking airplane cleaner. During the course of consult management, we have determined that the patient may have had some episodes of hypomania as well as her most recent episode a fairly severe depression. Our provisional diagnosis is bipolar depression and we will continue lithium targeting both her suicidal history and bipolar depression. RECOMMENDATIONS: 1. Continue lithium 300 mg via J-tube q.h.s. recommending giving it all at once rather than b.i.d.. 2. I will continue to follow-up with the patient as an outpatient. 3. The patient is currently not suicidal or homicidal at this time and able to contract for safety and expresses a reasonable safety plan and likely not holdable despite fairly serious suicide attempt. Since geropsych bed is highly unlikely given the patient's J-tube and medical history we will not attempt to hospitalize this time and I believe we can manage her appropriately as an outpatient. 4. I recommend that she follow-up with me on March at 8:45 a.m. Time Spent With Patient Time with patient: less than 30 minutes Critical Care time: I spent a total of 25 minutes of critical care time on this patient's care today; this time is exclusive of procedural time. Quality VTE Deep Vein Thrombosis/Pulmonary Embolism Present on Admission: No
[2022-03-29 09:00] VITALS: BP 104/59; PULSE 77; RESP 20; TEMP 36.4; O2SAT 98
[2022-03-29 09:21] LABS: BUN Creatinine Ratio 23.4 (6-22); Blood Urea Nitrogen 15 mg/dL (7-17); Calcium 8.3 mg/dL (8.4-10.2); Carbon Dioxide 30 mmol/L (22-32); Chloride 101 mmol/L (98-107); Estimated Glomerular Filt Rate > 60 mL/min (>60); Glucose 86 mg/dL (80-110); HEMOLYSIS 40 (0-50); Magnesium 2.4 mg/dL (1.6-2.3); Potassium 4.7 mmol/L (3.4-5.1); Sodium 137 mmol/L (137-145)
--- NOTE | 2022-03-29 10:45 | P.DS_ITS ---
History of Present Illness History of Present Illness Date Patient Seen: 03/29/22 Chief complaint: Drank drstevie Narrative: Per admitting provider, Ms. Ambrocio is a 74W with PMH afib on eliquis who presents to the hospital for ingestion of Drano. She ingested this earlier this morning at 11am in a suicide attempt to harm herself. She has no previous history of suicide attempts. Apparently she has been concerned about her medical health recently and has been convinced she has some serious medical issue occurring which played a role in this decision. She has been recently seen by oncology for weight loss and thromboctyosis and is in the process of establishing diagnosis of etiology. Afterward she was having abdominal pain and chest/esophageal pain. She is de nying any mouth pain. She has no visible mouth sores. She has no shortness of breath. When I asked her if she was suicidal or had thoughts of harming herself she stated well not with drano but was evasive about if she was considering other methods or what her feelings were. In the ED workup was done, vitals notable for tachycardia with afib with RVR. She did get two doses of IV diltiazem. Labs notable for WBC 16.7, plts 476. Creatinine 0.74. Urine drug screen negative. Tylenol, salicylates and alcohol negative. UA negative. EKG showed afib with rapid rate in the 140s. CT showed diffuse esophageal wall thickening, gastric wall thickening, and small bowel wall thickening. No signs of perforation. She had stable bilateral thyroid nodules. Poison control was contacted and recommended keeping patient NPO, monitor for possible respiratory failure and perforation, and consideration of EGD. She was placed on IV fluids and admitted for further treatment. Discharge Providers Provider Date of admission: 03/17/22 21:28 Discharge Date: 03/29/22 Primary care physician: RADHA Rueda Consults: 03/17/22 14:06 Consult to [facility] [employer]pper Stat Comment: 03/18/22 02:46 Consult to Physician Routine Comment: Consulting Provider: Kulwinder Holm Reason for consultation: Caustic ingestion, request EGD Has provider been notified: Yes 03/18/22 21:17 Consult to Dietitian, Adult Routine Comment: NPO at least 1 week, jejunal tube placement 03/23? Reason For Exam: TPN recs 03/19/22 10:56 Consult to Physician Routine Comment: Consulting Provider: James Velasco Reason for consultation: suicide attempt, drank nancyo Has provider been notified: Yes 03/26/22 11:30 Consult to Dietitian, Adult Routine Comment: having hypotension&diarrhea, pls adjust free h2o Reason For Exam: assess fluid needs Discharge provider: Mahendra Kapoor DO Summary Hospital Course Discharge Diagnosis: 1. Caustic esophagitis secondary to ingestion of Drano (Alkalotic) 2. Suicide attempt 3. Paroxysmal atrial fibrillation with RVR, RVR resolved. 4. Hypotension associated with syncopal event 5. Thrombocytosis 6. Hyponatremia, improved. 7. Hypokalemia, improved Hospital Course: This is a 76 year old female with PMH of paroxysmal atrial fibrillation admitted after an intentional ingestion of drano as a suicide attempt. She underwent EGD which showed extensive exudates in the distal esophagus along with thrombosed mucosa along with linear ulcerations in the stomach with possible necrosis given a foul smell noted in operative report. J tube was ultimately placed, she was started on a PPI and placed on a 1:1. She underwent psychiatry evaluation and search for an inpatient psych facility was performed. Unfortunately, no facility was able to accommodate her medical needs with her J tube. Psychiatry did think she would be appropriate for discharge home given no bed availability, improvement in patient's symptoms with initiation of lithium, and sufficient family support. For her atrial fibrillation her medications were changed to accommodate her J tube, with dilt changed to 30 mg q6hr via her J tube. Her apixaban was refilled as well. PPI was continued BID at the time of discharge to assist with gastric healing. She will follow up as an outpatient with PCP, surgery or GI for repeat endoscopy to determine when it may be safe to eat a gain. During her stay she had a syncopal event with hypotension, likely related to volume loss in the setting of diarrhea possibly from free water flushes. Evaluation included a stroke workup which did reveal old lacunar infarcts bilaterally, but no acute processes. Echo was also unremarkable. Time Spent with Patient Time spent: Greater than 30 minutes Exam Vital Signs (past 8 hours): - 03/29/22 05:30 03/29/22 05:30 03/29/22 09:00 Temperature 97.9 F 97.5 F L Pulse Rate 70 70 77 Respiratory Rate 18 20 Blood Pressure 104/65 104/65 104/59 L Pulse Oximetry 98 98 Oxygen Flow Rate 0 0 Oxygen Delivery Method Room Air Oxygen Flow Rate 0 Narrative Exam Narrative: GEN: no acute distress HEENT: moist mucous membranes, no injuries noted on oral mucosa PULM: clear bilaterally, no wheezes, rhonchi, rales CV: regular rate and rhythm ABD: soft, nontender, nondistended, no organomegaly, normal bowel sounds, J-tube site without erythema Objective Labs Result Diagrams: 03/28/22 04:24 03/29/22 05:40 Labs: Laboratory Results - last 24 hr 03/29/22 05:40 Sodium 137 Potassium 4.7 Chloride 101 Carbon Dioxide 30 BUN 15 Creatinine 0.64 Estimated GFR > 60 BUN/Creatinine Ratio 23.4 H Glucose 86 Calcium 8.3 L Magnesium 2.4 H [facility] Medical History Chicken pox COPD (chronic obstructive pulmonary disease) Fibroids History of basal cell carcinoma (BCC) History of vaginal delivery Lesion of lower eyelid Measles Skin cancer (~1975) Thrombocytosis (08/2020) Unintentional weight loss (03/2020) Surgical History Anesthesia Broken ankle History of elbow surgery Family History Father Hypertension Mother Hypertension Dementia Social History household members: spouse Smoking Status: Never smoker second hand exposure: No alcohol intake: current substance use type: does not use Discharge Plan Discharge Plan Patient Disposition: Home Health Service Provider Discharge Comment: You were admitted to the hospital after drinking a roller cleaner. To allow for stomach healing, you were started on tube feedings which will continue. Please continue to follow up with the surgeons, psychiatry, and your PCP. Discharge orders & Medications Prescriptions: New lithium carbonate 150 mg Capsule 150 mg feeding tube BID 30 Days Qty: 60 0RF diltiazem HCl 30 mg Tablet 30 mg feeding tube Q6HR 30 Days Qty: 120 0RF pantoprazole [address] for susp in packet 40 mg feeding tube BID 30 Days Qty: 60 0RF apixaban 5 mg tablet 5 mg PO BID 30 Days Qty: 60 0RF Continued Eliquis 5 mg tablet See Rx Instructions .ROUTE .COMPLEX Qty: 180 0RF Dose Instruction: take 1 tablet by mouth twice a day Rx Instructions: take 1 tablet by mouth twice a day Discontinued diltiazem HCl 120 mg capsule,extended release 24hr See Rx Instructions .ROUTE .COMPLEX Qty: 90 0RF Dose Instruction: take 1 capsule by mouth once daily Rx Instructions: take 1 capsule by mouth once daily Follow up/Referrals: James Velasco MD [Physician] - Kulwinder Holm MD [Physician] - Juanito Hoffman ARNP [Primary Care Provider] - Other Ambulatory Orders: Complete Blood Count AUTO DIFF (Routine) Timeframe: 2 Weeks Facility: [facility] - Location: Laboratory Ordered By: Mahendra Kapoor Complete Blood Count AUTO DIFF (Routine) Timeframe: 1 Week Facility: [facility] - Location: Laboratory Ordered By: Mahendra Kapoor Comprehensive Metabolic Panel (Routine) Timeframe: 1 Week Facility: [facility] - Location: Laboratory Ordered By: Mahendra Kapoor Comprehensive Metabolic Panel (Routine) Timeframe: 2 Weeks Facility: [facility] - Location: Laboratory Ordered By: Mahendra Kapoor Diet/Activity/Treatments Diet: Tube Feeding Diet comment: okay for small sips of clears only Activity: As tolerated Visit Report/Discharge Packet Instructions: How to Care for Your PEG Tube Discharge Data Primary Care Provider: Juanito Hoffman
--- NOTE | 2022-03-29 11:07 | CM.DPC ---
Addendum entered by ALLISON Alanis 03/29/22 12:12: ADD: Per [facility], they are agreeable to accept pt on their service. F2F completed and HH orders placed and scanned into EMR for [facility]. DG updated MD who remains in agreement. BF Original Note: DCP Discharge Home Per MD, pt is medically stable to d/c today as pt tolerating enteral feeding via new J tube placement last week and will have close outpt f/u with Surgeon regarding when next scope should be completed to confirm healing and length of enteral feeding needs. DG met with Psychiatrist and Hospitalist and in agreement that pt not actively suicidal and currently safe for d/c to home today and Psychiatrist kindly willing to get pt on his schedule for outpt f/u. DG called [facility] and updated on plan of d/c to home today and they can do bedside teaching with pt today at 1530. Deangelo also confirmed he had lengthy discussion with son Syed and provided information about their services and care. DG called [facility] and updated on pt status and inquired if they would be willing to re-consider opening pt to services since she will have close outpt f/u with [facility], [facility], [facility], Psychiatry, and PCP. Gerardo will review with his team and confirm if they can accept. DG met bedside with pt, spouse, son Syed and [facility] and discussed plan of home and provided [facility] and [facility] brochure and they in agreeable with bedside teaching today and family plans to provide transport home. Plan: DG to follow for plan of home today after [facility] bedside teaching at 1530 and to fax d/c summ and orders and confirm if [facility] can open pt to service. ALLISON Alanis
--- NOTE | 2022-03-29 11:56 | CM.DPNOTE ---
Called Lawrence at [facility] and he they Will accept patient. I let Heidy know. Sherry Redd CM Assist.
[2022-03-29 13:00] VITALS: BP 99/57; PULSE 79; RESP 18; TEMP 36.4; O2SAT 98
== END 2022-03-29 19:37 | disposition home health service (06) | DRG 918 ==
LOC: ED 15:14 → AC 21:28
PROVIDERS: Family Medicine; Internal Medicine; Nurse Practitioner Family; Student in an Organized Health Care Education/Training Program; Surgery; Admitting Provider Internal Medicine; Emergency Provider Emergency Medicine; PCP Registered Nurse Diabetes Educator; Referring Provider Emergency Medicine; Visit Provider Internal Medicine
PROC: 0DJ08ZZ Inspection of Upper Intestinal Tract, Via Natural or Artificial Opening Endoscopic (ICD-10-PCS; CPT 43235; principal; 2022-03-18 11:30)
PROC: 0DHA0UZ Insertion of Feeding Device into Jejunum, Open Approach (ICD-10-PCS; principal; 2022-03-23 12:45)
DX: T54.3X2A Toxic effect of corrosive alkalis and alkali-like substances, intentional self-harm, initial encounter (principal); T28.6XXA Corrosion of esophagus, initial encounter; I96 Gangrene, not elsewhere classified; K20.90 Esophagitis, unspecified without bleeding; K29.70 Gastritis, unspecified, without bleeding; I48.91 Unspecified atrial fibrillation; K52.9 Noninfective gastroenteritis and colitis, unspecified; R11.0 Nausea; F31.9 Bipolar disorder, unspecified; I48.0 Paroxysmal atrial fibrillation; R55 Syncope and collapse; X58.XXXA Exposure to other specified factors, initial encounter; Z79.01 Long term (current) use of anticoagulants; Z20.822 Contact with and (suspected) exposure to COVID-19
CPT/HCPCS: 36415; 36569; 36592; 43235; 49441; 70450; 70548; 70553; 71045; 71260; 74177; 80048; 80053; 80061; 80178; 80305; 80320; 80329; 81003; 81015; 82040; 82306; 82550; 82962; 83605; 83690; 83735; 84100; 84478; 84484; 85025; 87086; 87635; 90792; 93005; 93010; 93306; 94760; 94762; 96374; 96375; 96376; 99232; 99285; 99291; C9803; A9579; B4185; B4189; C9113; G0480; J0171; J0295; J1100; J1200; J1642; J1650; J1815; J1940; J2060; J2250; J2270; J2405; J2543; J2704; J2765; J3010; J3480; Q9967

== ENCOUNTER → 2022-04-01 08:32 | Outpatient (CLI) | payer OTHER, SELFPAY ==
[2022-03-18 12:38] VITALS: BMI 23.3
[2022-04-01 09:20] LABS: Add Manual Diff / Slide Review NO; Basophils Absolute Auto 0 /uL (0-100); Basophils Percent Auto 0.5 % (0-2); Eosinophils Absolute Auto 100 /uL (0-450); Eosinophils Percent Auto 1.5 % (2-4); Hemoglobin 12.2 g/dL (12.0-16.0); Lymphocytes Absolute Auto 1000 /uL (1100-4500); Lymphocytes Percent Auto 10.3 % (25-40); Mean Corpuscular Hemoglobin 27.6 PG (26-34); Mean Corpuscular Volume 86.3 fL (80-100); Monocytes Absolute Auto 1400 /uL (0-900); Monocytes Percent Auto 14.6 % (3-14); Neutrophils Absolute Auto 6800 /uL (1500-7000); Neutrophils Percent Auto 73.1 % (50-75); Platelet Count 669 X10^3/uL (150-400); Red Blood Cell Count 4.41 X10^6/uL (4.0-5.2); Red Cell Distribution Width 13.7 % (11.6-14.8); White Blood Cell Count 9.3 X10^3/uL (4.5-11.0)
[2022-04-01 09:32] LABS: Lithium 0.3 mmol/L (0.6-1.2)
[2022-04-01 09:34] LABS: Alanine Aminotransferase 47 IU/L (<35); Albumin 3.8 g/dL (3.5-5.0); Albumin Globulin Ratio 1.3 (1.0-2.8); Alkaline Phosphatase 77 U/L (38-126); Aspartate Aminotransferase 20 IU/L (14-36); Bilirubin Total 0.4 mg/dL (0.2-1.3); Blood Urea Nitrogen 23 mg/dL (7-17); Calcium 8.8 mg/dL (8.4-10.2); Carbon Dioxide 30 mmol/L (22-32); Chloride 102 mmol/L (98-107); Estimated Glomerular Filt Rate > 60 mL/min (>60); Globulin 2.9 g/dL (1.7-4.1); Glucose 105 mg/dL (80-110); HEMOLYSIS < 15 (0-50); Potassium 4.3 mmol/L (3.4-5.1); Sodium 139 mmol/L (137-145); Total Protein 6.7 g/dL (6.3-8.2)
== END ==
PROVIDERS: Internal Medicine; PCP Registered Nurse Diabetes Educator; Referring Provider Psychiatry & Neurology Psychiatry; Visit Provider Psychiatry & Neurology Psychiatry
DX: T28.6XXA Corrosion of esophagus, initial encounter (principal); Z51.81 Encounter for therapeutic drug level monitoring
CPT/HCPCS: 36415; 80053; 80178; 85025

== ENCOUNTER 2022-04-01 10:09 | Day surgery (SDC) | payer OTHER, SELFPAY ==
[2022-03-18 12:38] VITALS: BMI 23.3
[2022-04-01 10:44] VITALS: BP 104/70; PULSE 84; RESP 16; TEMP 37.6; O2SAT 97; BMI 23.3
[2022-04-01] MEDS: LACTATED RINGERS 1,000 ML 42 ML IV (11:15)
[2022-04-01 11:20] LABS: COVID19 -Nasal RAPID Negative (Negative)
--- NOTE | 2022-04-01 11:52 | PM.HP.1 ---
History of Present Illness History of Present Illness Date Patient Seen: 04/01/22 Time Patient Seen: 11:52 Chief complaint: SDC Narrative: Radha was discharged from the hospital a few days ago. See the discharge summary from Dr. Kapoor for details. She is here for her scheduled follow-up EGD. She has been sipping clear liquids at home along with getting tube feeds through her jejunostomy. Her only complaint is that she has had to get up to urinate frequently throughout the night. Patient History Medical History Chicken pox COPD (chronic obstructive pulmonary disease) Fibroids History of basal cell carcinoma (BCC) History of vaginal delivery Lesion of lower eyelid Measles Skin cancer (~1975) Thrombocytosis (08/2020) Unintentional weight loss (03/2020) Surgical History Anesthesia Broken ankle History of elbow surgery Family & Social History Family History Father Hypertension Mother Hypertension Dementia Social History: household members spouse Tobacco & Substance use: Smoking Status Never smoker alcohol intake current alcohol intake frequency 0-2 drinks per day Substance Use Type does not use Meds Home Medications and Allergies Home Medications Medication Instructions Recorded Confirmed Type apixaban 5 mg tablet (Eliquis) See Rx Instructions .Route 11/26/21 04/01/22 Rx .COMPLEX #180 tabs diltiazem HCl 30 mg tablet 30 mg feeding tube Q6HR 30 days 03/29/22 04/01/22 Rx #120 tabs lithium carbonate 150 mg capsule 150 mg feeding tube BID 30 days 03/29/22 04/01/22 Rx #60 caps pantoprazole 40 mg granules 40 mg feeding tube BID 30 days #60 03/29/22 04/01/22 Rx delayed-release for susp in packet ea apixaban 5 mg tablet 5 mg PO BID 30 days #60 tabs 03/30/22 04/01/22 Rx Allergies Allergy/AdvReac Type Severity Reaction Status Date / Time No Known Drug Allergies Allergy Verified 04/01/22 11:11 Exam Vital Signs (past 8 hours): - 04/01/22 10:44 Temperature 99.7 F H Pulse Rate 84 Respiratory Rate 16 Blood Pressure 104/70 Pulse Oximetry 97 Oxygen Delivery Method Room Air Oxygen Delivery Method Room Air Const General: healthy appearing and comfortable Objective Labs Labs: Laboratory Results - last 24 hr 04/01/22 11:02 SARS-CoV-2 (PCR) Negative Assessment & Plan Assessment and plan (1) Caustic esophageal injury: Qualifiers: Encounter type: initial encounter Qualified Code(s): T28.6XXA - Corrosion of esophagus, initial encounter Status: Acute Plan We reviewed the risks and benefits of EGD and she would like to proceed. Time Spent With Patient Critical Care time: I spent a total of [] minutes of critical care time on this patient's care today; this time is exclusive of procedural time.
--- NOTE | 2022-04-01 12:57 | PM.OP.EGD ---
Operative Date/Time/Diagnoses Date of procedure: 04/01/22 Time of procedure: 12:57 Pre-op diagnosis: Caustic esophageal injury Post-op diagnosis: same Procedure & Clinicians Study performed: Esophagogastroduodenoscopy Same procedure as scheduled: Yes Surgeon: Lb Floyd Procedure Notes Procedure in detail: Surgeon: Lb Floyd MD Anesthesia: Blanca Stevens CRNA A timeout was performed. A bite blocked was placed. The patient was positioned in the left lateral decubitus position. Anesthesia was administered. The endoscope was inserted through the bite block and passed into the distal esophagus. There was evidence of sloughing of the mucosa in the distal esophagus and there was a stricture in the distal esophagus that could not be traversed by the scope. Gentle pressure of the scoped not allow passage and the scope was withdrawn. There were some superficial tears the mucosa visualized from scope. The scope was withdrawn. The patient was awakened and brought to recovery. Sedation time: 6 minutes Findings: Distal esophageal stricture
[2022-04-01 13:00] VITALS: BP 109/59; BP 112/66; PULSE 84; PULSE 85; RESP 16; TEMP 36.8; O2SAT 98
[2022-04-01 13:48] VITALS: BP 125/77; PULSE 88; RESP 16; TEMP 36.8; O2SAT 98
== END 2022-04-01 13:52 | disposition home or self-care (01) ==
PROVIDERS: PCP Registered Nurse Diabetes Educator; Referring Provider Surgery; Visit Provider Surgery
PROC: 0DJ08ZZ Inspection of Upper Intestinal Tract, Via Natural or Artificial Opening Endoscopic (ICD-10-PCS; CPT 43235; principal; 2022-04-01 11:15)
DX: T28.6XXA Corrosion of esophagus, initial encounter (principal); Z20.822 Contact with and (suspected) exposure to COVID-19; K22.2 Esophageal obstruction; T14.91XA Suicide attempt, initial encounter; F31.9 Bipolar disorder, unspecified; Z79.899 Other long term (current) drug therapy; Z51.81 Encounter for therapeutic drug level monitoring
CPT/HCPCS: 43235; 36415; 80053; 80178; 85025; 87635; 99214; C9803; J2704

== ENCOUNTER → 2022-05-20 09:54 | Outpatient (CLI) | payer OTHER, SELFPAY ==
[2022-03-18 12:38] VITALS: BMI 23.3
[2022-05-20 10:43] LABS: Lithium 0.6 mmol/L (0.6-1.2)
== END ==
PROVIDERS: PCP Registered Nurse Diabetes Educator; Referring Provider Psychiatry & Neurology Psychiatry; Visit Provider Psychiatry & Neurology Psychiatry
DX: F31.9 Bipolar disorder, unspecified (principal); T14.91XA Suicide attempt, initial encounter; Z79.899 Other long term (current) drug therapy
CPT/HCPCS: 36415; 80178; 99214

== ENCOUNTER → 2022-06-17 11:16 | Outpatient (CLI) | payer OTHER, SELFPAY ==
[2022-03-18 12:38] VITALS: BMI 23.3
[2022-06-17 12:51] LABS: Lithium 0.6 mmol/L (0.6-1.2)
== END ==
PROVIDERS: PCP Registered Nurse Diabetes Educator; Referring Provider Psychiatry & Neurology Psychiatry; Visit Provider Psychiatry & Neurology Psychiatry
DX: F31.9 Bipolar disorder, unspecified (principal); T14.91XA Suicide attempt, initial encounter; Z79.899 Other long term (current) drug therapy
CPT/HCPCS: 36415; 80178; 99214

== ENCOUNTER 2022-06-19 08:26 | Emergency (ER) | payer OTHER, SELFPAY ==
[2022-03-18 12:38] VITALS: BMI 23.3
[2022-06-19 08:34] VITALS: BP 132/60; PULSE 72; RESP 18; TEMP 36.6; O2SAT 99; BMI 20.7
--- NOTE | 2022-06-19 08:39 | ED_ITS ---
HPI - General Adult General Chief complaint: Recheck/Abnormal Lab/Rx Stated complaint: feeding tube came out Time Seen by Provider: 06/19/22 08:27 Source: patient Mode of arrival: Family Vehicle Limitations: no limitations History of Present Illness HPI narrative: Patient is a 76-year-old female who had a GJ tube placed in March of 2022 after having an esophageal injury. She states that overnight the tube came out. She did use it last evening. Has not tried to use it this morning. Related Data Previous Rx's Medication Instructions Recorded apixaban 5 mg tablet (Eliquis) See Rx Instructions .Route 11/26/21 .COMPLEX #180 tabs lithium carbonate 150 mg capsule 150 mg PO BEDTIME #30 caps 06/17/22 lithium carbonate 300 mg capsule 300 mg PO BEDTIME #30 caps 06/17/22 Allergies Allergy/AdvReac Type Severity Reaction Status Date / Time No Known Drug Allergies Allergy Verified 04/13/22 08:42 Review of Systems Constitutional Constitutional: Reports system reviewed and no additional complaints, except as documented Gastrointestinal Gastrointestinal: Reports system reviewed and no additional complaints, except as documented Integumentary/Breasts Skin/Breast: Reports system reviewed and no additional complaints, except as documented Patient History Medical History Chicken pox COPD (chronic obstructive pulmonary disease) Fibroids History of basal cell carcinoma (BCC) History of vaginal delivery Lesion of lower eyelid Measles Skin cancer (~1975) Thrombocytosis (08/2020) Unintentional weight loss (03/2020) Surgical History Anesthesia Broken ankle History of elbow surgery Family History Father Hypertension Mother Hypertension Dementia Social History household members: spouse Smoking Status: Never smoker second hand exposure: No alcohol intake: current substance use type: does not use Smoking Status: Never smoker alcohol intake frequency: 0-2 drinks per day Substance Use Type: does not use Exam Initial Vital Signs Initial Vital Signs: Vital Signs Temperature 98 F 06/19/22 08:34 Pulse Rate 72 06/19/22 08:34 Respiratory Rate 18 06/19/22 08:34 Blood Pressure 132/60 06/19/22 08:34 Pulse Oximetry 99 06/19/22 08:34 Oxygen Delivery Method Room Air 06/19/22 08:34 Const General: cooperative and comfortable GI Other: Patient does have a well-appearing ostomy in the left upper quadrant consistent with his stated history. Skin Other: No surrounding erythema Neuro General: patient alert, patient awake and moves all extremities Extrem General: capillary refill normal Course Orders Ordered: ED Orders 06/19/22 08:46 Consult to General Surgery Stat Vital Signs Vital signs: Vital Signs - 8 hr 06/19/22 08:34 Temperature 98 F Pulse Rate 72 Respiratory Rate 18 Blood Pressure 132/60 Pulse Oximetry 99 Oxygen Delivery Method Room Air Medical Decision Making MDM Narrative Medical decision making narrative: Patient did have a she J-tube placed. Discussed the case with Dr. Holm on- call with General surgery who will come to the emergency department and see the patient. Patient was seen by Dr. Holm and had to the tube replaced here in the emergency department. No indication for admission. Okay to discharge home per General surgery. Discharge Plan Departure Patient Disposition: Home Clinical Impression: Complication of feeding tube Activity Restrictions/Additional Instructions: You can continue to use the tube as directed. Continue all of your medications. Keep all of your scheduled medical appointments. Return to the emergency department for new symptoms. Prescriptions: No Action lithium carbonate 150 mg capsule 150 mg PO BEDTIME MDD 450 mg Qty: 30 3RF Rx Instructions: Take with 300 mg cap for max daily dose of 450 mg per day. lithium carbonate 300 mg capsule 300 mg PO BEDTIME Qty: 30 3RF Rx Instructions: Take with 150 mg cap for max daily dose of 450 mg per day Eliquis 5 mg tablet See Rx Instructions .ROUTE .COMPLEX Qty: 180 0RF Dose Instruction: take 1 tablet by mouth twice a day Rx Instructions: take 1 tablet by mouth twice a day Referrals: Juanito Hoffman ARNP [Primary Care Provider] - Stand Alone Forms: Patient Portal/API
--- NOTE | 2022-06-19 08:44 | PC.NURSE ---
Dr. Brennan in room and inserted 12Fr catheter into LLQ feeding tube site. Surgery Materials notified of size of previous tube.
--- NOTE | 2022-06-19 11:24 | PC.NURSE ---
Dr. Holm replaced pt's own gtube with a suture. pt tolerated well. 4x4 and paper tape over insertion site.
[2022-06-19 11:33] VITALS: BP 123/45; PULSE 73; RESP 16
== END 2022-06-19 11:34 | disposition home or self-care (01) ==
PROVIDERS: Emergency Provider Emergency Medicine; PCP Registered Nurse Diabetes Educator
DX: K94.20 Gastrostomy complication, unspecified (principal)
CPT/HCPCS: 99281

== ENCOUNTER → 2022-06-22 13:04 | Outpatient (CLI) | payer OTHER, SELFPAY ==
[2022-03-18 12:38] VITALS: BMI 23.3
--- NOTE | 2022-06-22 13:05 | DI.RAD.S_ITS ---
PROCEDURE: XR CHEST 2V INDICATIONS: pre procedure exam last xray abnormal TECHNIQUE: 2 views of the chest were acquired. COMPARISON: [facility], , XR CHEST 2V, 08/27/2020, 13:18. FINDINGS: Surgical changes and devices: None. Lungs and pleura: Lungs are clear. No pleural effusions or pneumothorax. Mediastinum: Mediastinal contours are normal. Heart size is normal. Bones and chest wall: No suspicious bony abnormalities. Soft tissues appear unremarkable. IMPRESSION: No acute cardiopulmonary disease process. Dictated by: Danna Encinas MD, PhD on 06/22/2022 at 13:52 Approved by: Danna Encinas MD, PhD on 06/22/2022 at 13:52
[2022-06-22 13:52] LABS: Hematocrit 37.4 % (36-46); Hemoglobin 12.3 g/dL (12.0-16.0); Mean Corpuscular HGB Conc 32.9 % (30-36); Mean Corpuscular Hemoglobin 27.4 PG (26-34); Mean Corpuscular Volume 83.3 fL (80-100); Platelet Count 440 X10^3/uL (150-400); Red Blood Cell Count 4.49 X10^6/uL (4.0-5.2); Red Cell Distribution Width 13.9 % (11.6-14.8); White Blood Cell Count 6.7 X10^3/uL (4.5-11.0)
[2022-06-22 14:29] LABS: BUN Creatinine Ratio 36.1 (6-22); Blood Urea Nitrogen 22 mg/dL (7-17); Calcium 8.8 mg/dL (8.4-10.2); Carbon Dioxide 30 mmol/L (22-32); Chloride 101 mmol/L (98-107); Estimated Glomerular Filt Rate > 60 mL/min (>60); Glucose 107 mg/dL (80-110); HEMOLYSIS < 15 (0-50); Potassium 4.9 mmol/L (3.4-5.1); Sodium 138 mmol/L (137-145)
== END ==
PROVIDERS: PCP Registered Nurse Diabetes Educator; Referring Provider Nurse Practitioner Family; Visit Provider Nurse Practitioner Family
DX: I48.91 Unspecified atrial fibrillation (principal); Z01.818 Encounter for other preprocedural examination; J44.9 Chronic obstructive pulmonary disease, unspecified; Z01.812 Encounter for preprocedural laboratory examination
CPT/HCPCS: 36415; 71046; 80048; 85027

== ENCOUNTER 2022-07-01 08:27 | Emergency (ER) | payer OTHER, SELFPAY ==
[2022-03-18 12:38] VITALS: BMI 23.3
[2022-07-01] VITALS (34 sets, daily range): BP systolic 106–170; BP diastolic 61–79; PULSE 66–89; RESP 16–18; TEMP 36.7; O2SAT 95–100
--- NOTE | 2022-07-01 | DI.RAD.S_ITS ---
PROCEDURE: FL CATHETER PATENCY COMPARISON: [facility], CR, XR KUB, 07/01/2022, 13:11. INDICATIONS: PEG TUBE PLACEMENT CONFIRMATION FINDINGS: The patient has a percutaneous jejunostomy tube placed through the existing tract. Contrast was injected through the catheter. The jejunal loops are opacified by oral contrast. There is no findings to suggest contrast extravasation. IMPRESSION: There is a percutaneous jejunostomy. The catheter is within the jejunum. No contrast extravasation. Dictated by: Sloane Reyes M.D. on 07/01/2022 at 16:19 Approved by: Sloane Reyes M.D. on 07/01/2022 at 16:21
--- NOTE | 2022-07-01 13:12 | DI.RAD.S_ITS ---
PROCEDURE: XR KUB INDICATIONS: tube check TECHNIQUE: One view of the abdomen acquired. COMPARISON: None. FINDINGS: Surgical changes and devices: Possible PEG tube is seen projecting in left side of abdomen suggest clinical correlation. Bowel: Bowel gas pattern is normal. Soft tissues: No suspicious abdominal calcifications. Visualized solid organ contours appear normal in size. Bones: No suspicious bony lesions. IMPRESSION: Peg tube projecting in the expected location of stomach lumen. No gross free air. No evidence of bowel obstruction. No gross renal calcifications. Dictated by: Rod Mna M.D. on 07/01/2022 at 13:14 Approved by: Rod aMn M.D. on 07/01/2022 at 13:17
--- NOTE | 2022-07-01 13:41 | PC.NURSE ---
Attempted to withdraw gastric contents following placement of peg tube, unable to aspirate anything at all and tube began to collapse. Inserted 30 ml of water through peg tube and attempted to withdraw again and was unable to. No further attempts to gain gastric fluids, awaiting xray results to confirm placement at this time.
--- NOTE | 2022-07-01 14:49 | PC.NURSE ---
Another 30 ml of water put through peg tube and still unable to pull gastric content. Repositioned patient in several different ways and still cannot pull gastroc content
--- NOTE | 2022-07-05 20:59 | ED.RECABL ---
HPI - Recheck/Abnormal Lab/Rx General Chief Complaint: Recheck/Abnormal Lab/Rx Stated Complaint: feeding tube in stomach came out T-1 Time Seen by Provider: 07/01/22 08:31 Source: patient Mode of arrival: Ambulatory History of Present Illness HPI narrative: 76 year old female presenting with dislodged GJ tube. Pt reports noting tube removed within the last 12 hours. Pt with recent presentation for similar. Pt denies active symptoms on presentation to the ED. Related Data Home Medications Medication Instructions Recorded Confirmed diltiazem HCl 30 mg tablet 30 mg feeding tube DAILY 07/01/22 07/01/22 pantoprazole 40 mg granules 40 mg feeding tube BID 07/01/22 07/01/22 delayed-release for susp in packet Previous Rx's Medication Instructions Recorded apixaban 5 mg tablet (Eliquis) See Rx Instructions .Route 11/26/21 .COMPLEX #180 tabs lithium carbonate 150 mg capsule 150 mg PO BEDTIME #30 caps 06/17/22 lithium carbonate 300 mg capsule 300 mg PO BEDTIME #30 caps 06/17/22 Allergies Allergy/AdvReac Type Severity Reaction Status Date / Time No Known Drug Allergies Allergy Verified 06/22/22 12:30 Patient History Medical History Chicken pox COPD (chronic obstructive pulmonary disease) Fibroids History of basal cell carcinoma (BCC) History of vaginal delivery Lesion of lower eyelid Measles Skin cancer (~1975) Thrombocytosis (08/2020) Unintentional weight loss (03/2020) Surgical History Anesthesia Broken ankle History of elbow surgery Family History Father Hypertension Mother Hypertension Dementia Social History household members: spouse Smoking Status: Never smoker second hand exposure: No alcohol intake: current substance use type: does not use Smoking Status: Never smoker alcohol intake frequency: 0-2 drinks per day Substance Use Type: does not use Exam Narrative Exam Narrative: Vitals reviewed. Nursing note reviewed Constitutional: interactive HENT: Moist mucous membranes EYES: No scleral icterus NECK: no masses CV: Well perfused peripherally, no cyanosis present PULM: Unlabored respirations, symmetric chest rise ABD: Non-distended, GJ tube site without discharge or erythema MS: No gross deformities, no asymmetric edema noted SKIN: Warm and dry. PSYCH: Appropriate affect NEURO: Follows simple commands, moves extremities, interactive with exam Initial Vital Signs Initial Vital Signs: Vital Signs Temperature 98.1 F 07/01/22 08:33 Pulse Rate 70 07/01/22 08:33 Respiratory Rate 17 07/01/22 08:33 Blood Pressure 133/63 07/01/22 08:33 Pulse Oximetry 99 07/01/22 08:33 Oxygen Delivery Method Room Air 07/01/22 08:33 MDM - Recheck/Abnormal Lab/Rx MDM Narrative Medical decision making narrative: 76-year-old female presenting with GJ tube dislodgement. On presentation, vital signs reassuring. Physical exam notable for reassuring cardiopulmonary exam, benign abdomen, GJ tube site without erythema or active discharge. Patient without significant pain on presentation to the ED. Given GJ tube dislodgement, patient denying active symptoms in the emergency department, discussed plan for replacement with G-tube to preserve gastric access and gastric access tract, plan for outpatient follow up to facilitate GJ tube replacement. Patient consented to bedside reinsertion. However, attempts at bedside initially were not successful. Discussed case with on-call general surgery, Dr. Holm, evaluated patient and performed gastric access following dilations as separately documented. Follow up x-ray confirmed adequate placement. Patient is subsequently discharged with plan for outpatient follow up. Discharge Plan Departure Patient Disposition: Home Clinical Impression: Gastrostomy tube dysfunction Activity Restrictions/Additional Instructions: *You have been diagnosed with gastric tube malfunction. *What to do: Please follow up in the outpatient setting with your primary care provider and interventional radiology to have repeat GJ tube placed. You had a gastric tube replaced to maintain your gastric access. *Please follow up with your primary care provider in 2-3 days, call for an appointment. Let them know you were seen in the Emergency Department and that we ask that you be seen in follow up. We will electronically transmit a record of today's note if your PCP is in our system *Return to Emergency Department if you should have any new, worsening or concerning symptoms, such as [fever greater than 101 F, shaking chills, worsening pain, persistent vomiting or other bothersome symptoms] Prescriptions: No Action lithium carbonate 150 mg capsule 150 mg PO BEDTIME MDD 450 mg Qty: 30 3RF Rx Instructions: Take with 300 mg cap for max daily dose of 450 mg per day. lithium carbonate 300 mg capsule 300 mg PO BEDTIME Qty: 30 3RF Rx Instructions: Take with 150 mg cap for max daily dose of 450 mg per day Eliquis 5 mg tablet See Rx Instructions .ROUTE .COMPLEX Qty: 180 0RF Dose Instruction: take 1 tablet by mouth twice a day Rx Instructions: take 1 tablet by mouth twice a day diltiazem HCl 30 mg tablet 30 mg feeding tube DAILY Patient Comments: take 1 tablet VIA FEEDING TUBE every 6 hours pantoprazole [address] for susp in packet 40 mg feeding tube BID Patient Comments: TAKE FOURTY MG VIA FEEDING TUBE TWICE A DAY FOR THIRTY DAYS Referrals: Juanito Hoffman ARNP [Primary Care Provider] - Stand Alone Forms: Patient Portal/API
== END 2022-07-01 18:54 | disposition home or self-care (01) ==
PROVIDERS: Emergency Provider Emergency Medicine; PCP Registered Nurse Diabetes Educator
DX: K94.23 Gastrostomy malfunction (principal)
CPT/HCPCS: 74018; 76000; 93005; 93010; 99283; 99284

== ENCOUNTER → 2022-07-29 10:43 | Outpatient (CLI) | payer OTHER, SELFPAY ==
[2022-03-18 12:38] VITALS: BMI 23.3
[2022-07-29 12:12] LABS: Lithium 0.7 mmol/L (0.6-1.2)
== END ==
PROVIDERS: PCP Registered Nurse Diabetes Educator; Referring Provider Psychiatry & Neurology Psychiatry; Visit Provider Psychiatry & Neurology Psychiatry
DX: F31.9 Bipolar disorder, unspecified (principal); T14.91XA Suicide attempt, initial encounter; Z79.899 Other long term (current) drug therapy
CPT/HCPCS: 36415; 80178; 99214

== ENCOUNTER → 2022-12-27 09:48 | Outpatient (CLI) | payer OTHER, SELFPAY ==
[2022-10-28 10:19] VITALS: BMI 23.3
[2022-12-27 11:51] LABS: Lithium 0.6 mmol/L (0.6-1.2)
[2022-12-27 11:57] LABS: Alanine Aminotransferase 36 IU/L (<35); Albumin Globulin Ratio 1.5 (1.0-2.8); Alkaline Phosphatase 64 U/L (38-126); Aspartate Aminotransferase 28 IU/L (14-36); Bilirubin Total 0.4 mg/dL (0.2-1.3); Blood Urea Nitrogen 21 mg/dL (7-17); Calcium 9.7 mg/dL (8.4-10.2); Carbon Dioxide 29 mmol/L (22-32); Chloride 103 mmol/L (98-107); Estimated Glomerular Filt Rate > 60 mL/min (>60); Globulin 2.7 g/dL (1.7-4.1); Glucose 100 mg/dL (80-110); HEMOLYSIS < 15 (0-50); Sodium 138 mmol/L (137-145); Total Protein 6.7 g/dL (6.3-8.2)
[2022-12-27 12:07] LABS: Free T4, Direct Thyroxine 1.07 ng/dL (0.78-2.19)
[2022-12-27 12:21] LABS: Thyroid Stimulating Hormone 3.56 uIU/mL (0.47-4.68)
[2022-12-29 11:53] LABS: Lamotrigine Lamictal 3.6 ug/mL (2.0-20.0)
== END ==
PROVIDERS: PCP Registered Nurse Diabetes Educator; Referring Provider Psychiatry & Neurology Psychiatry; Visit Provider Psychiatry & Neurology Psychiatry
DX: Z79.899 Other long term (current) drug therapy (principal)
CPT/HCPCS: 36415; 80053; 80175; 80178; 84439; 84443

== ENCOUNTER 2022-12-30 08:26 | Emergency (ER) | payer OTHER, SELFPAY ==
[2022-10-28 10:19] VITALS: BMI 23.3
[2022-12-30 08:31] VITALS: BMI 21.6
--- NOTE | 2022-12-30 08:35 | DI.RAD.S_ITS ---
PROCEDURE: XR KNEE RT 3V INDICATIONS: fall injuring R knee TECHNIQUE: 3 views of the knee were acquired. COMPARISON: None. FINDINGS: Bones: No fractures or dislocations. No suspicious bony lesions. Soft tissues: Small joint effusion. No suspicious soft tissue calcifications. IMPRESSION: No acute osseous abnormality. If pain persists with conservative management, consider repeat x-ray in 10-14 days or cross-sectional imaging. Dictated by: Hussain Medrano M.D. on 12/30/2022 at 8:50 Approved by: Hussain Medrano M.D. on 12/30/2022 at 8:51
--- NOTE | 2022-12-30 08:38 | ED.LOWEXIN ---
HPI - Extremity Injury (Lower) General Chief Complaint: Extremity Injury, Lower Stated Complaint: fell T-1 RT knee hurt Time Seen by Provider: 12/30/22 08:37 Source: patient Mode of arrival: Ambulatory History of Present Illness HPI Narrative: Patient here for right knee pain and swelling. Patient has not been on her Eliquis for the past 3 days. She does not give a reason why but just decided not to take it for the past 3 days. Patient was going through her garage to the refrigerator lost her balance and fell onto her right knee. Denies any other injuries. Did not hit her head. Patient denies any previous surgery to the knee. Patient has been ambulatory. She fell on it last night. Patient NS skirt. Shoe and sock removed. Related Data Home Medications Medication Instructions Recorded Confirmed diltiazem HCl 30 mg tablet 30 mg feeding tube DAILY 07/01/22 12/06/22 Previous Rx's Medication Instructions Recorded apixaban 5 mg tablet (Eliquis) See Rx Instructions .Route 11/26/21 .COMPLEX #180 tabs propranolol 10 mg tablet 10 mg PO TID #90 tabs 11/10/22 lithium carbonate 300 mg capsule 600 mg PO BEDTIME #60 caps 12/22/22 Allergies Allergy/AdvReac Type Severity Reaction Status Date / Time No Known Drug Allergies Allergy Verified 12/30/22 08:35 Review of Systems Review of Systems Narrative: GENERAL: negative chills, fatigue, malaise, fever, sweats. HEENT: negative sinus pain, ear pain, sore throat RESPIRATORY: negative dyspnea, cough CARDIOVASCULAR: negative chest pain, palpitations GASTROINTESTINAL: negative nausea, vomiting, abdominal pain : negative dysuria, frequency, hematuria MUSCULOSKELETAL: negative muscle, positive bony pain SKIN: negative rash, skin lesions NEUROLOGIC: negative weakness, numbness ROS Unobtainable: All systems reviewed & are unremarkable except as noted in HPI and below Patient History Medical History Chicken pox COPD (chronic obstructive pulmonary disease) Fibroids History of basal cell carcinoma (BCC) History of vaginal delivery Lesion of lower eyelid Measles Skin cancer (~1975) Thrombocytosis (08/2020) Unintentional weight loss (03/2020) Surgical History Anesthesia Broken ankle History of elbow surgery Family History Father Hypertension Mother Hypertension Dementia Social History household members: spouse Smoking Status: Never smoker second hand exposure: No alcohol intake: current substance use type: does not use Smoking Status: Never smoker alcohol intake frequency: 0-2 drinks per day Substance Use Type: does not use Exam Narrative Exam Narrative: GENERAL: in no distress, not toxic not dyspneic HEAD: Normocephalic. EYES: Pupils equal round EXTREMITIES: No gross deformities. Knee to toes exposed on right side. Mild erythema to the mid patella. Patient able to fully extend the knee and fully flex to past 90?. Up and ambulating, mild antalgic gait due to right knee pain. There is no pain or laxity of the right knee with anterior posterior medial lateral rotational stress of the right leg. Foot is warm soft and pink strong pedal pulse light touch intact to foot and toes. Able to flex and extend at the ankle without difficulty. There is mild edema anterior right knee. NEURO: AOx4. SKIN: Warm and dry PSYCH: Not anxious, is cooperative Course Orders Ordered: ED Orders 12/30/22 08:35 XR knee RT 3V Stat MDM - Extremity Injury (Lower) Imaging Data Extremity x-ray #1: Radiologist's Impression: [address] [id number] ReportSigned Patient: Radha Ambrocio AMR#: [id number]: 7Acct:[id number]/Sex: 77 / FDate of Service: 12/30/22Loc: EDAccession Number: [id number] Procedure: XR knee RT 3V Ordering Provider: Jose David Machado MD PROCEDURE: XR KNEE RT 3V INDICATIONS: fall injuring R knee TECHNIQUE: 3 views of the knee were acquired. COMPARISON: None. FINDINGS: Bones: No fractures or dislocations. No suspicious bony lesions. Soft tissues: Small joint effusion. No suspicious soft tissue calcifications. IMPRESSION: No acute osseous abnormality. If pain persists with conservative management, consider repeat x-ray in 10-14 days or cross-sectional imaging. Dictated by: Hussain Medrano M.D. on 12/30/2022 at 8:50 Approved by: Hussain Medrano M.D. on 12/30/2022 at 8:51 MDM Narrative Medical decision making narrative: Patient here for right knee pain and swelling. Patient has not been on her Eliquis for the past 3 days. She does not give a reason why but just decided not to take it for the past 3 days. Patient was going through her garage to the refrigerator lost her balance and fell onto her right knee. Denies any other injuries. Did not hit her head. Patient denies any previous surgery to the knee. Patient has been ambulatory. She fell on it last night. Patient NS skirt. Shoe and sock removed. After history and exam x-ray right knee ice pack, patient has not done any home treatments for the right knee injury MDM CC: Right knee pain Complicating co-morbidities: On Eliquis but not on it for the past 3 days Data collected from: Patient Medical records reviewed: No previous visits recently for this complaint Differential considered: Includes but not limited to knee fracture knee contusion knee dislocation knee strain/sprain Exam documented above, pertinent findings include: Edema right knee, antalgic gait Imaging studies independently reviewed: X-ray right knee small joint effusion. No acute osseous abnormality. Treatments: Ice pack Re-evaluations: 9:10 a.m.. Reviewed results with patient. She desires Richard wrap. No indication for knee immobilizer at this time. She is ambulatory. Orthopedic referral provided. [id number] Tylenol for pain. Return precautions reviewed with her. May need repeat imaging 7 or 10 days. If not improving. She may resume her Eliquis. Discussion: Appropriate for discharge home. Exam is reassuring as well as imaging. Did review with patient ligamentous cartilaginous injury not ruled out but exam is reassuring. Patient may need future imaging if not improving 7-10 days. Pain control at time of discharge. Neurovascularly intact with the knee leg foot. Patient desires discharge home referral for Orthopedics provided. Diagnosis: Right knee contusion Discharge Plan Departure Patient Disposition: Home Clinical Impression: Contusion of right knee, initial encounter Instructions: DI for Contusion, DI for Knee Pain Activity Restrictions/Additional Instructions: Call provided orthopedic office today for office re-evaluation week. Use provided ice pack 20 minutes at a time as needed for pain or swelling. May continue Tylenol for pain. You may use [id number] knee brace for comfort. Return if worse if any questions or concerns. May need repeat imaging or x-ray or MRI if not improving 7 or 10 days. Prescriptions: No Action propranolol 10 mg tablet 10 mg PO TID Qty: 90 3RF lithium carbonate 300 mg capsule 600 mg PO BEDTIME Qty: 60 5RF Rx Instructions: Take 2 caps at bedtime Eliquis 5 mg tablet See Rx Instructions .ROUTE .COMPLEX Qty: 180 0RF Dose Instruction: take 1 tablet by mouth twice a day Rx Instructions: take 1 tablet by mouth twice a day diltiazem HCl 30 mg tablet 30 mg feeding tube DAILY Patient Comments: take 1 tablet VIA FEEDING TUBE every 6 hours Referrals: Kaylyn Flowers MD [Physician] - Juanito Hoffman ARNP [Primary Care Provider] - Stand Alone Forms: Patient Portal/API
== END 2022-12-30 09:13 | disposition home or self-care (01) ==
PROVIDERS: Emergency Provider Emergency Medicine; PCP Registered Nurse Diabetes Educator
DX: S80.01XA Contusion of right knee, initial encounter (principal); W18.30XA Fall on same level, unspecified, initial encounter
CPT/HCPCS: 73562; 99281; 99283

== ENCOUNTER → 2023-03-25 08:27 | Outpatient (CLI) | payer OTHER, SELFPAY ==
[2022-10-28 10:19] VITALS: BMI 23.3
[2023-03-25 09:39] LABS: Lithium 0.6 mmol/L (0.6-1.2)
[2023-03-28 17:34] LABS: Lamotrigine Lamictal 3.5 ug/mL (2.0-20.0)
== END ==
PROVIDERS: PCP Registered Nurse Diabetes Educator; Referring Provider Psychiatry & Neurology Psychiatry; Visit Provider Psychiatry & Neurology Psychiatry
DX: Z79.899 Other long term (current) drug therapy (principal); F31.9 Bipolar disorder, unspecified
CPT/HCPCS: 36415; 80175; 80178

== ENCOUNTER 2023-05-24 07:58 | Emergency (ER) | payer OTHER, SELFPAY ==
[2022-10-28 10:19] VITALS: BMI 23.3
[2023-05-24] VITALS (7 sets, daily range): BP systolic 129–136; BP diastolic 60–88; PULSE 72–77; RESP 18; TEMP 36.7; O2SAT 96–98; BMI 22.4
--- NOTE | 2023-05-24 08:29 | ED.GENADULT ---
HPI - General Adult General Chief complaint: Weakness Stated complaint: feels like she can't do anything Time Seen by Provider: 05/24/23 08:00 History of Present Illness HPI narrative: This is a 77-year-old female who arrives by private vehicle. History is obtained from patient and her who was present in contributes to history. In brief, she has a history of atrial fibrillation, prescribed apixaban and diltiazem, history of a G-tube after a suicide attempt via caustic ingestion in March of 2022, bipolar disorder and COPD. She comes in today reporting that she has low energy ?can not focus? and decided to come in today because she felt like she could not manage to make coffee or breakfast. She told me that she felt like this for months. At some point recently she stopped her lamotrigine and lithium, also then discloses to me that she stopped diltiazem and apixaban also. She could not specify a reason for having done this. Her was unaware that she had stopped taking her medications. She is denying chest pain or shortness of breath. She is denying fevers, she is denying abdominal pain nausea vomiting urinary symptoms, suicidal ideation or hallucinations. Says that she does not use alcohol. I note that there was a previous ED visit where she had stopped her anticoagulation without being able to identify a reason for having done so. She has not spoken to her psychiatrist (Rod) or her primary care provider (Dalton) about the concerns. Reportedly there is a plan in the works to have her G-tube discontinued and resume oral feedings, she has been attempting small amounts of oral feedings without difficulty as I understand it. The patient and her report that they are not aware of the status of the plan to discontinue the G-tube. Related Data Home Medications Medication Instructions Recorded Confirmed diltiazem HCl 30 mg tablet 30 mg feeding tube DAILY 07/01/22 12/06/22 Previous Rx's Medication Instructions Recorded apixaban 5 mg tablet (Eliquis) See Rx Instructions .Route 11/26/21 .COMPLEX #180 tabs propranolol 10 mg tablet 10 mg PO TID #90 tabs 11/10/22 lamotrigine 100 mg tablet 100 mg PO DAILY #90 tabs 04/25/23 lithium carbonate 300 mg capsule 600 mg (2 x 300 mg) PO BEDTIME 04/25/23 #180 caps Allergies Allergy/AdvReac Type Severity Reaction Status Date / Time No Known Drug Allergies Allergy Verified 12/30/22 08:35 Patient History Medical History Chicken pox COPD (chronic obstructive pulmonary disease) Fibroids History of basal cell carcinoma (BCC) History of vaginal delivery Lesion of lower eyelid Measles Skin cancer (~1975) Thrombocytosis (08/2020) Unintentional weight loss (03/2020) Surgical History Anesthesia Broken ankle History of elbow surgery Family History Father Hypertension Mother Hypertension Dementia Social History household members: spouse Smoking Status: Never smoker second hand exposure: No alcohol intake: current substance use type: does not use Smoking Status: Never smoker alcohol intake frequency: 0-2 drinks per day Substance Use Type: does not use Exam Narrative Exam Narrative: Elderly female who appears her stated age, she appears well kept and cooperative, has a somewhat flat affect. She is fully alert and oriented, seems to have poor insight regarding the role of medications in her health and well-being, does not appear to be responding to internal stimuli denies hallucinations or suicidal ideation Initial Vital Signs Initial Vital Signs: Vital Signs Temperature 98.0 F 05/24/23 08:24 Pulse Rate 75 05/24/23 08:24 Respiratory Rate 18 05/24/23 08:24 Blood Pressure 133/88 05/24/23 08:24 Pulse Oximetry 97 05/24/23 08:24 Oxygen Delivery Method Room Air 05/24/23 08:24 [facility] Head: normocephalic and atraumatic Mouth: oral mucosae normal Eyes Pupils: PERRL EOM: EOM intact bilaterally Neck Other: Neck is supple Resp Other: Lungs are clear with equal breath sounds Cardio Other: Regular rhythm and rate with a soft systolic murmur GI Other: G-tube in place in the left upper quadrant site looks good. Bowel sounds are normal Skin Other: Warm and dry Neuro Other: Alert oriented no facial droop or asymmetry speech is fluent no gross motor deficits Psych Other: As noted above Course Orders Ordered: ED Orders 05/24/23 08:27 EKG-12 Lead Stat 05/24/23 08:40 CBC Auto Diff [Complete Blood Count AUTO DIFF] Stat CMP [Comprehensive Metabolic Panel] Stat ETOH [Ethanol (ETOH)] Stat [place] Stat TSH [Thyroid Stimulating Hormone] Stat Reevaluation(s) Reevaluation #1: Prior to discharge, I confirmed with the patient that she has not having any thoughts of self-harm. I enlisted the patient's who has been unaware of her medication noncompliance in efforts to ensure that she is taking her medications. Also emphasized the need to follow up with primary care in her psychiatrist as soon as possible. Vital Signs Vital signs: Vital Signs - 8 hr 05/24/23 08:24 Temperature 98.0 F Pulse Rate 75 Respiratory Rate 18 Blood Pressure 133/88 Pulse Oximetry 97 Oxygen Delivery Method Room Air Medical Decision Making Lab Data Lab results narrative: CBC with diff CMP are unremarkable except for her baseline thrombocytosis. Ethanol is 0 lithium is none detected as expected. 05/24/23 08:40 05/24/23 08:40 Labs: Lab Results 05/24/23 Range/Units 08:40 WBC 5.3 (4.5-11.0) X10^3/uL RBC 5.14 (4.0-5.2) X10^6/uL Hgb 13.8 (12.0-16.0) g/dL Hct 42.4 (36-46) % MCV 82.5 (80-100) fL MCH 26.8 (26-34) PG MCHC 32.5 (30-36) % RDW 14.2 (11.6-14.8) % Plt Count 452 H (150-400) X10^3/uL Neut % (Auto) 61.7 (50-75) % Lymph % (Auto) 21.8 L (25-40) % [place] % (Auto) 13.3 (3-14) % Eos % (Auto) 2.1 (2-4) % Baso % (Auto) 1.1 (0-2) % Neut # (Auto) 3300 (7910-1239) /uL Lymph # (Auto) 1200 (1991-4973) /uL [place] # (Auto) 700 (0-900) /uL Eos # (Auto) 100 (0-450) /uL Baso # (Auto) 100 (0-100) /uL Sodium 141 (137-145) mmol/L Potassium 4.1 (3.4-5.1) mmol/L Chloride 105 (98-107) mmol/L Carbon Dioxide 26 (22-32) mmol/L BUN 15 (7-17) mg/dL Creatinine 0.75 (0.52-1.04) mg/dL Estimated GFR > 60 (>60) mL/min BUN/Creatinine Ratio 20.0 (6-22) Glucose 104 (80-110) mg/dL Calcium 9.5 (8.4-10.2) mg/dL Total Bilirubin 0.8 (0.2-1.3) mg/dL AST 24 (14-36) IU/L ALT 19 (<35) IU/L Alkaline Phosphatase 106 (38-126) U/L Total Protein 6.9 (6.3-8.2) g/dL Albumin 4.0 (3.5-5.0) g/dL Globulin 2.9 (1.7-4.1) g/dL Albumin/Globulin Ratio 1.4 (1.0-2.8) [place] < 0.2 L (0.6-1.2) mmol/L Ethyl Alcohol < 10 ( - 10) mg/dL ECG Data Interpretation: ECG shows normal sinus rhythm at a rate of [address] segment changes intervals are normal axis is normal noisy baseline MDM Narrative Medical decision making narrative: This is a 77-year-old female with bipolar disorder and history of medication noncompliance as well as a history of a suicide attempt via caustic ingestion which resulted in requirement for G-tube. She is here today with nonspecific complaints, she is fully oriented without suicidal ideation and hallucination. During history taking it came out that the patient has not been taking her medications including her psych meds. I do not find any acute problem today requiring hospitalization. Her is now aware that she has not been taking her medications and hopefully will assist and encouraging her to do so, and the patient has also agreed to restart her medications both for her bipolar disorder and her atrial fibrillation. I encouraged her to seek follow up with her primary care provider and her psychiatrist as soon as possible. Discharge Plan Departure Patient Disposition: Home Clinical Impression: Bipolar 1 disorder, depressed, moderate, Medical non-compliance Activity Restrictions/Additional Instructions: Emergency department workup today is reassuring with respect to labs and examination. I think it is concerning that you have stopped taking your medications and it is important that you resume them immediately. I also recommend that you make an appointment to see your psychiatrist as soon as possible and also follow up soon with primary care. If you are having thoughts of self-harm, shortness of breath chest pain or other acute issues recheck in the emergency department. Prescriptions: No Action propranolol 10 mg tablet 10 mg PO TID Qty: 90 3RF lamotrigine 100 mg tablet 100 mg PO DAILY Qty: 90 3RF Rx Instructions: Take 1 tab daily lithium carbonate 300 mg capsule 600 mg PO BEDTIME Qty: 180 3RF Rx Instructions: Take 2 caps at bedtime Eliquis 5 mg tablet See Rx Instructions .ROUTE .COMPLEX Qty: 180 0RF Dose Instruction: take 1 tablet by mouth twice a day Rx Instructions: take 1 tablet by mouth twice a day diltiazem HCl 30 mg tablet 30 mg feeding tube DAILY Patient Comments: take 1 tablet VIA FEEDING TUBE every 6 hours Referrals: Juanito Hoffman ARNP [Primary Care Provider] - Stand Alone Forms: Patient Portal/API
[2023-05-24 08:51] LABS: Add Manual Diff / Slide Review NO; Basophils Absolute Auto 100 /uL (0-100); Basophils Percent Auto 1.1 % (0-2); Eosinophils Absolute Auto 100 /uL (0-450); Eosinophils Percent Auto 2.1 % (2-4); Hematocrit 42.4 % (36-46); Hemoglobin 13.8 g/dL (12.0-16.0); Lymphocytes Absolute Auto 1200 /uL (1100-4500); Lymphocytes Percent Auto 21.8 % (25-40); Mean Corpuscular HGB Conc 32.5 % (30-36); Mean Corpuscular Hemoglobin 26.8 PG (26-34); Mean Corpuscular Volume 82.5 fL (80-100); Monocytes Absolute Auto 700 /uL (0-900); Monocytes Percent Auto 13.3 % (3-14); Neutrophils Absolute Auto 3300 /uL (1500-7000); Neutrophils Percent Auto 61.7 % (50-75); Platelet Count 452 X10^3/uL (150-400); Red Blood Cell Count 5.14 X10^6/uL (4.0-5.2); Red Cell Distribution Width 14.2 % (11.6-14.8); White Blood Cell Count 5.3 X10^3/uL (4.5-11.0)
[2023-05-24 09:03] LABS: Alanine Aminotransferase 19 IU/L (<35); Albumin Globulin Ratio 1.4 (1.0-2.8); Alkaline Phosphatase 106 U/L (38-126); Aspartate Aminotransferase 24 IU/L (14-36); Bilirubin Total 0.8 mg/dL (0.2-1.3); Blood Urea Nitrogen 15 mg/dL (7-17); Calcium 9.5 mg/dL (8.4-10.2); Carbon Dioxide 26 mmol/L (22-32); Chloride 105 mmol/L (98-107); Estimated Glomerular Filt Rate > 60 mL/min (>60); Ethanol (ETOH) < 10 mg/dL; Globulin 2.9 g/dL (1.7-4.1); Glucose 104 mg/dL (80-110); HEMOLYSIS < 15 (0-50); Potassium 4.1 mmol/L (3.4-5.1); Sodium 141 mmol/L (137-145); Total Protein 6.9 g/dL (6.3-8.2)
[2023-05-24 09:06] LABS: Lithium < 0.2 mmol/L (0.6-1.2)
[2023-05-24 09:40] LABS: Thyroid Stimulating Hormone 1.41 uIU/mL (0.47-4.68)
== END 2023-05-24 09:47 | disposition home or self-care (01) ==
PROVIDERS: Emergency Provider Emergency Medicine; PCP Registered Nurse Diabetes Educator
DX: F31.9 Bipolar disorder, unspecified (principal); Z91.148 Patient's other noncompliance with medication regimen for other reason; Z86.79 Personal history of other diseases of the circulatory system
CPT/HCPCS: 80053; 80178; 80320; 84443; 85025; 93005; 93010; 99281; 99283

== ENCOUNTER → 2023-07-27 07:31 | Outpatient (CLI) | payer OTHER, SELFPAY ==
[2022-10-28 10:19] VITALS: BMI 23.3
[2023-07-27 08:36] LABS: Lithium 0.8 mmol/L (0.6-1.2)
[2023-08-01 11:36] LABS: Lamotrigine Lamictal 5.1 ug/mL (2.0-20.0)
== END ==
PROVIDERS: PCP Registered Nurse Diabetes Educator; Referring Provider Psychiatry & Neurology Psychiatry; Visit Provider Psychiatry & Neurology Psychiatry
DX: F31.9 Bipolar disorder, unspecified (principal); Z79.899 Other long term (current) drug therapy
CPT/HCPCS: 36415; 80175; 80178

== ENCOUNTER → 2024-01-02 10:11 | Outpatient (CLI) | payer OTHER, SELFPAY ==
[2022-10-28 10:19] VITALS: BMI 23.3
== END ==
PROVIDERS: PCP Registered Nurse Diabetes Educator; Referring Provider Psychiatry & Neurology Psychiatry; Visit Provider Psychiatry & Neurology Psychiatry
DX: Z79.899 Other long term (current) drug therapy (principal); F31.9 Bipolar disorder, unspecified
CPT/HCPCS: 36415; 80175; 80178

== ENCOUNTER 2024-01-04 09:31 | Emergency (ER) | payer OTHER, SELFPAY ==
[2022-10-28 10:19] VITALS: BMI 23.3
[2024-01-04] VITALS (7 sets, daily range): BP systolic 122–129; BP diastolic 58–69; PULSE 73–85; RESP 15–35; TEMP 36.3; O2SAT 94–96; BMI 22.1
--- NOTE | 2024-01-04 09:36 | DI.RAD.S_ITS ---
PROCEDURE: XR CHEST 1V INDICATIONS: chest pain TECHNIQUE: One view of the chest was acquired. COMPARISON: [facility], CR, XR CHEST 2V, 06/22/2022, 13:12. FINDINGS: Surgical changes and devices: None. Lungs and pleura: Lungs are clear. No pleural effusions or pneumothorax. Mediastinum: Mediastinal contours appear normal. Heart size is normal. Bones and chest wall: No suspicious bony lesions. Overlying soft tissues appear unremarkable. IMPRESSION: No acute cardiopulmonary abnormality is seen. Dictated by: León Kearns M.D. on 01/04/2024 at 10:41 Approved by: León Kearns M.D. on 01/04/2024 at 10:41
[2024-01-04] MEDS: SODIUM CHLORIDE 0.9% 1,000 ML 1000 ML IV (09:45)
--- NOTE | 2024-01-04 09:47 | ED_ITS ---
HPI - General Adult General Chief complaint: Syncope Stated complaint: Syncope Time Seen by Provider: 01/04/24 09:38 Source: patient and EMS Mode of arrival: EMS History of Present Illness HPI narrative: 78-year-old lady with a history of bipolar disorder, atrial fibrillation, on Eliquis COPD, gastric stricture at 1 point had a G-tube that has since been replaced. She reportedly went to [facility] yesterday for endoscopy with esophageal stretching. She states she did not eat or drink anything because of this procedure. Her notes with the she takes care of all of her medications, he has not sure what she is actually on or if she actually taking them. Patient thinks she actually has not been taking Eliquis for a couple of weeks it is unclear if she is taking her lithium. Reportedly was standing cooking in the kitchen today began feeling lightheaded was heading toward the couch to sit down when she had a syncopal episode. Described as sinking to the floor than falling and both she and her are very clear that she did not hit her head. She has not complaining of any pain. They did have a nurse come over who was concerned that the pulse was very shallow. CPR was reportedly started but with 1 or 2 compressions clear that she was responding and alert. She was brought in by medics. On the way in she had an episode of nausea does not describe any nausea prior to the syncopal episode. No recent fevers or chills. No abdominal pain. Related Data Home Medications Medication Instructions Recorded Confirmed diltiazem HCl 30 mg tablet 30 mg feeding tube DAILY 07/01/22 06/15/23 Previous Rx's Medication Instructions Recorded apixaban 5 mg tablet (Eliquis) See Rx Instructions .Route 11/26/21 .COMPLEX #180 tabs lithium carbonate 300 mg capsule 600 mg (2 x 300 mg) PO BEDTIME 04/25/23 #180 caps propranolol 10 mg tablet 10 mg PO TID #90 tabs 07/25/23 lamotrigine 100 mg tablet 200 mg (2 x 100 mg) PO DAILY #180 11/28/23 tabs bupropion HCl 150 mg 24 hr tablet, 150 mg PO QAM #30 tabs 01/02/24 extended release Allergies Allergy/AdvReac Type Severity Reaction Status Date / Time No Known Drug Allergies Allergy Verified 01/04/24 09:47 Review of Systems Review of Systems Narrative: Pertinent positive and negative findings as per HPI Patient History Medical History (Updated 01/04/24 @ 11:00 by Annie Bautista MD) Esophageal stricture Afib History of basal cell carcinoma (BCC) Thrombocytosis (08/2020) Unintentional weight loss (03/2020) COPD (chronic obstructive pulmonary disease) Lesion of lower eyelid History of vaginal delivery Measles Chicken pox Fibroids Skin cancer (~1975) Surgical History Anesthesia History of elbow surgery Broken ankle Family History Father Hypertension Mother Hypertension Dementia Social History household members: spouse Smoking Status: Never smoker second hand exposure: No alcohol intake: current substance use type: does not use Smoking Status: Never smoker alcohol intake frequency: 0-2 drinks per day Substance Use Type: does not use Exam Initial Vital Signs Initial Vital Signs: Vital Signs Temperature 97.3 F L 01/04/24 09:32 Pulse Rate 78 01/04/24 09:32 Respiratory Rate 18 01/04/24 09:32 Blood Pressure 129/60 01/04/24 09:32 Pulse Oximetry 95 01/04/24 09:32 Oxygen Delivery Method Room Air 01/04/24 09:32 General: Healthy appearing, in no acute distress. Slightly confused but does appear to be close to her baseline. She has not complaining of any pain. She is very clear she did not hit her head HEENT: Moist mucous membranes, normal sclera with reactive pupils, no bruises or contusions to the head Neck: No cervical spine tenderness Respiratory: Lungs are clear to auscultation, no wheezing no rales no rhonchi. Full and symmetrical air movement, no tenderness to chest wall with compression Cardiac: Regular rate and rhythm no murmurs no bruits Abdomen: Soft, nontender, good bowel tones, no flank pain Skin: Warm and dry, no rashes, no bruises Neurologic: Grossly neurologically intact with no obvious asymmetries or abnormalities Extremities: No trauma, well perfused Psych: Cooperative, appropriate insight and affect, a bit of confusion surrounding her medications what she is taking when she is taking and how she is taking them Course Orders Ordered: ED Orders 01/04/24 09:35 Complete Blood Count AUTO DIFF Stat Comprehensive Metabolic Panel Stat Lipase Stat [place] Stat Magnesium Stat NT-proBNP (BNP-Adult 18+) Stat PTT Partial Thromboplastin [place] Stat Prothrombin Time INR Stat Troponin & CK Cardiac Panel Stat 01/04/24 09:36 XR chest 1V Stat EKG-12 Lead Stat 01/04/24 10:59 Urine Culture Stat Urine Microscopic Stat Discontinued Medications Aspirin (Aspirin 81 Mg Chew Tab) 324 mg PO NOW ONE Stop: 01/04/24 09:37 Last Admin: 01/04/24 09:38 Dose: Not Given Documented By: STEFAN Sodium Chloride (Normal Saline 0.9%) 1,000 mls @ 1,000 mls/hr IV BOLUS ONE Stop: 01/04/24 10:43 Last Admin: 01/04/24 09:45 Dose: 1,000 mls/hr Documented By: GERARDO Ondansetron HCl (Ondansetron 4 Mg/2 Ml Inj) 4 mg IV NOW ONE Stop: 01/04/24 09:45 Vital Signs Vital signs: Vital Signs - 8 hr 01/04/24 09:32 Temperature 97.3 F L Pulse Rate 78 Respiratory Rate 18 Blood Pressure 129/60 Pulse Oximetry 95 Oxygen Delivery Method Room Air Medical Decision Making Lab Data 01/04/24 09:35 01/04/24 09:35 Labs: Lab Results 01/04/24 01/04/24 Range/Units 09:35 10:59 WBC 12.0 H (4.5-11.0) X10^3/uL RBC 4.86 (4.0-5.2) X10^6/uL Hgb 13.7 (12.0-16.0) g/dL Hct 42.3 (36-46) % MCV 87.0 (80-100) fL MCH 28.2 (26-34) PG MCHC 32.4 (30-36) % RDW 14.9 H (11.6-14.8) % Plt Count 504 H (150-400) X10^3/uL Neut % (Auto) 78.6 H (50-75) % Lymph % (Auto) 11.1 L (25-40) % [place] % (Auto) 8.2 (3-14) % Eos % (Auto) 1.0 L (2-4) % Baso % (Auto) 1.1 (0-2) % Neut # (Auto) 9500 H (7318-8744) /uL Lymph # (Auto) 1300 (6994-4531) /uL [place] # (Auto) 1000 H (0-900) /uL Eos # (Auto) 100 (0-450) /uL Baso # (Auto) 100 (0-100) /uL PT 12.0 (9.4-12.5) SECONDS INR 1.0 (0.9-1.3) APTT 30 (25.1-36.5) SECONDS Sodium 139 (137-145) mmol/L Potassium 4.2 (3.4-5.1) mmol/L Chloride 106 (98-107) mmol/L Carbon Dioxide 26 (22-32) mmol/L BUN 12 (7-17) mg/dL Creatinine 1.07 H (0.52-1.04) mg/dL Estimated GFR 53 L (>60) mL/min BUN/Creatinine Ratio 11.2 (6-22) Glucose 142 H (80-110) mg/dL Calcium 9.9 (8.4-10.2) mg/dL Magnesium 2.3 (1.6-2.3) mg/dL Total Bilirubin 1.1 (0.2-1.3) mg/dL AST 30 (14-36) IU/L ALT 19 (<35) IU/L Alkaline Phosphatase 72 (38-126) U/L Total Creatine Kinase 128 (30-135) U/L Troponin I < 0.012 (0.01-0.034) ng/mL NT-Pro-B Natriuret Pep 169 (<450) pg/mL Total Protein 7.1 (6.3-8.2) g/dL Albumin 4.2 (3.5-5.0) g/dL Globulin 2.9 (1.7-4.1) g/dL Albumin/Globulin Ratio 1.4 (1.0-2.8) Lipase 61 (23-300) U/L Urine RBC 0-1/hpf (0-5/HPF) Urine WBC 0-1/hpf (0-5/HPF) Ur Squamous Epith Cells 0-1 /hpf (0-5/HPF) Urine Bacteria Occasional (0-1) (None) Ur Culture Indicated? Specimen cultured Vol Urine Centrifuged 10ml (spun) [place] 0.9 (0.6-1.2) mmol/L Urine Dip Bedside Urine Glucose Negative Bedside Urine Bilirubin - Negative Bedside Urine Ketone - Negative Urine Specific [place] 1.015 Bedside Urine Occult Blood - Negative Bedside Urine pH 7.0 Bedside Urine Protein - Negative Bedside Urine Urobilinogen - Negative Bedside Urine Nitrite - Negative Bedside Urine Leukocytes +/- 15 Esterase Point of care testing: Urine Dip Bedside Urine Glucose Negative Bedside Urine Bilirubin - Negative Bedside Urine Ketone - Negative Urine Specific [place] 1.015 Bedside Urine Occult Blood - Negative Bedside Urine pH 7.0 Bedside Urine Protein - Negative Bedside Urine Urobilinogen - Negative Bedside Urine Nitrite - Negative Bedside Urine Leukocytes +/- 15 Esterase MDM Narrative Medical decision making narrative: CC: Syncope, Complicating co-morbidities: Anticoagulated Data collected from: patient Social determinants of health that may influence the patients condition: Unclear if she is taking her medications appropriately. Has has not been helping with medications. Both seem surprised when I suggested the possibility of using a Medi set or if asking the pharmacy to bubble pack her medications to make sure that they are being taken for Medical records reviewed: Multiple recent ER notes without consistent diagnosis are recurrent problem Differential considered: Vasovagal syncope due to nor oral intake yesterday, cardiac syncope, sepsis Exam documented above, pertinent findings include: No obvious injuries. Exam is relatively benign. Patient is confused regarding medications Lab Test results independently reviewed as above. Pertinent findings: CBC shows a slight leukocytosis at 12 without significant left shift no anemia Chemistries show slight bump in her creatinine from 0.75-1. Troponin is undetectable BNP is negative [place] level is actually therapeutic at 0.9 Independently reviewed EKG: Sinus rhythm at a rate of 70. No acute ischemic changes Imaging studies independently reviewed: Chest x-ray has no immediate findings Consultations: Treatments: Saline, Zofran, aspirin Discussion: 78-year-old woman who had an esophageal dilation yesterday did not eat or drink. Had a syncopal episode while making breakfast this morning. Slight bump in her creatinine suggest that she likely is dehydrated in his very likely was a orthostatic hypotension type episode. There was no evidence of injury, she did not hit her head and had imaging is not indicated. Labs are completely reassuring no evidence of acute coronary disease, infection or electrolyte abnormalities. She is feeling better after a L of fluid. We did talk about getting a Medi set so that she make sure that she is taking medications consistently and appropriately. Also told her that she could talk to her pharmacy about getting her medications bubble packed 2 again, make sure that medicine compliance is safe as possible. At this point she is safe for discharge Discharge Plan Departure Patient Disposition: Home Clinical Impression: Orthostatic hypotension Instructions: DI for Syncope in Adults (Fainting) Activity Restrictions/Additional Instructions: Thank you for coming in today. Your lab work was quite reassuring. There was no evidence of heart attack, significant electrolyte abnormalities, infection, bleeding. It does not look like you were slightly dehydrated which is consistent with not eating or drinking yesterday due to your procedure. You received a L of fluid in the emergency department in his this point I do believe discharge home is safe Regarding your medications, I would strongly recommend that you get Medi set that you can put your daily medications in to make sure that you have taken them and not accidentally take extra dose. If that seems to challenging, almost every pharmacy is willing to put scheduled medications into a bubble pack so you can just punched the about the back and take as needed. If you find that you are getting worse or develop any new symptoms, please feel free to return to the emergency department for further evaluation. Prescriptions: No Action lithium carbonate 300 mg capsule 600 mg PO BEDTIME Qty: 180 3RF Rx Instructions: Take 2 caps at bedtime lamotrigine 100 mg tablet 200 mg PO DAILY Qty: 180 3RF bupropion HCl 150 mg tablet extended release 24 hr 150 mg PO QAM Qty: 30 3RF propranolol 10 mg tablet 10 mg PO TID Qty: 90 3RF Eliquis 5 mg tablet See Rx Instructions .ROUTE .COMPLEX Qty: 180 0RF Dose Instruction: take 1 tablet by mouth twice a day Rx Instructions: take 1 tablet by mouth twice a day diltiazem HCl 30 mg tablet 30 mg feeding tube DAILY Patient Comments: take 1 tablet VIA FEEDING TUBE every 6 hours Referrals: Juanito Hoffman ARNP [Primary Care Provider] - Stand Alone Forms: Patient Portal/API
[2024-01-04 09:49] LABS: Add Manual Diff / Slide Review NO; Basophils Absolute Auto 100 /uL (0-100); Basophils Percent Auto 1.1 % (0-2); Eosinophils Absolute Auto 100 /uL (0-450); Hematocrit 42.3 % (36-46); Hemoglobin 13.7 g/dL (12.0-16.0); Lymphocytes Absolute Auto 1300 /uL (1100-4500); Lymphocytes Percent Auto 11.1 % (25-40); Mean Corpuscular HGB Conc 32.4 % (30-36); Mean Corpuscular Hemoglobin 28.2 PG (26-34); Monocytes Absolute Auto 1000 /uL (0-900); Monocytes Percent Auto 8.2 % (3-14); Neutrophils Absolute Auto 9500 /uL (1500-7000); Neutrophils Percent Auto 78.6 % (50-75); Platelet Count 504 X10^3/uL (150-400); Red Blood Cell Count 4.86 X10^6/uL (4.0-5.2); Red Cell Distribution Width 14.9 % (11.6-14.8)
--- NOTE | 2024-01-04 09:59 | EKG_ITS ---
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
[2024-01-04 10:05] LABS: PTT Partial Thromboplastin Tim 30 SECONDS (25.1-36.5)
[2024-01-04 10:06] LABS: Alanine Aminotransferase 19 IU/L (<35); Albumin 4.2 g/dL (3.5-5.0); Albumin Globulin Ratio 1.4 (1.0-2.8); Alkaline Phosphatase 72 U/L (38-126); Aspartate Aminotransferase 30 IU/L (14-36); BUN Creatinine Ratio 11.2 (6-22); Bilirubin Total 1.1 mg/dL (0.2-1.3); Blood Urea Nitrogen 12 mg/dL (7-17); Calcium 9.9 mg/dL (8.4-10.2); Carbon Dioxide 26 mmol/L (22-32); Chloride 106 mmol/L (98-107); Creatine Kinase 128 U/L (30-135); Estimated Glomerular Filt Rate 53 mL/min (>60); Globulin 2.9 g/dL (1.7-4.1); Glucose 142 mg/dL (80-110); HEMOLYSIS 34 (0-50); Lipase 61 U/L (23-300); Magnesium 2.3 mg/dL (1.6-2.3); Potassium 4.2 mmol/L (3.4-5.1); Sodium 139 mmol/L (137-145); Total Protein 7.1 g/dL (6.3-8.2)
[2024-01-04 10:11] LABS: Lithium 0.9 mmol/L (0.6-1.2)
[2024-01-04 10:18] LABS: NT-proBNP (BNP-Adult 18+) 169 pg/mL (<450); Troponin I < 0.012 ng/mL (0.01-0.034)
--- NOTE | 2024-01-04 11:06 | PC.NURSE ---
Ambulatory. Pt reports making breakfast when she collapsed. Pt having n/v upon arrival to ED. Pt reports not eating much recently.
--- NOTE | 2024-01-04 11:17 | PC.NURSE ---
Pt ate, drank, and ambulated w/o issue
[2024-01-04 11:23] LABS: Bacteria Urine Occasional (0-1); RBC Urine 0-1/HPF (0-5/HPF); Squamous Epithelial Cell Urine 0-1 /HPF (0-5/HPF); Urine Volume 10mL (spun); WBC Urine 0-1/HPF (0-5/HPF)
[2024-01-04 11:24] LABS: Culture Indicated Urine Cult Not Indicated
== END 2024-01-04 11:52 | disposition home or self-care (01) ==
PROVIDERS: Emergency Provider Emergency Medicine; PCP Registered Nurse Diabetes Educator
DX: I95.1 Orthostatic hypotension (principal); R07.9 Chest pain, unspecified; I49.8 Other specified cardiac arrhythmias; I48.91 Unspecified atrial fibrillation; Z79.01 Long term (current) use of anticoagulants
CPT/HCPCS: 36415; 71045; 80053; 80178; 81003; 81015; 82550; 83690; 83735; 83880; 84484; 85025; 85610; 85730; 93005; 93010; 96360; 96361; 99284

== ENCOUNTER → 2024-03-30 09:38 | Outpatient (CLI) | payer OTHER, SELFPAY ==
[2022-10-28 10:19] VITALS: BMI 23.3
[2024-03-30 10:46] LABS: COVID-19 CEPHEID 4-PLEX PCR Negative (Negative); Influenza A - CEPHEID Flu A NEGATIVE (NEGATIVE); Influenza B - CEPHEID Flu B NEGATIVE (NEGATIVE); Respiratory Syncytial Virus Negative (Negative)
== END ==
PROVIDERS: PCP Registered Nurse Diabetes Educator; Visit Provider Nurse Practitioner Family
DX: R05.1 Acute cough (principal)
CPT/HCPCS: 0241U

== ENCOUNTER 2024-04-09 10:03 | Emergency (ER) | payer OTHER, SELFPAY ==
[2022-10-28 10:19] VITALS: BMI 23.3
[2024-04-09 10:14] VITALS: BP 136/69; PULSE 100; RESP 16; TEMP 36.4; O2SAT 97; BMI 20.6
[2024-04-09 13:05] VITALS: BP 140/81; PULSE 74; RESP 18; O2SAT 98
--- NOTE | 2024-04-09 14:18 | ED.URI ---
HPI - URI/Sore Throat General Chief Complaint: Upper Respiratory Symptoms Stated Complaint: doesnt feel good for 1 week Time Seen by Provider: 04/09/24 10:51 History of Present Illness HPI Narrative: 78-year-old female history bipolar atrial fibrillation on Eliquis COPD, presenting today with weakness. Reports that she has been weak since about March 25 she feels nauseous but no vomiting. She is still drinking she is still urinating. No significant fever he has significant decreased appetite. No cough sore throat or shortness of breath. No abdominal pain. Went to walk-in clinic on March 30 had a viral panel which was negative. But symptoms are not getting any better. Denies any chest pain or palpitations Related Data Home Medications Medication Instructions Recorded Confirmed diltiazem HCl 30 mg tablet 30 mg feeding tube DAILY 07/01/22 06/15/23 Previous Rx's Medication Instructions Recorded propranolol 10 mg tablet 10 mg PO TID #90 tabs 07/25/23 lamotrigine 100 mg tablet 200 mg (2 x 100 mg) PO DAILY #180 11/28/23 tabs bupropion HCl 150 mg 24 hr tablet, 150 mg PO QAM #30 tabs 01/02/24 extended release apixaban 5 mg tablet (Eliquis) 5 mg PO BID #180 tabs 01/18/24 lithium carbonate 300 mg capsule 600 mg (2 x 300 mg) PO BEDTIME 03/19/24 #180 caps Allergies Allergy/AdvReac Type Severity Reaction Status Date / Time No Known Drug Allergies Allergy Verified 03/30/24 09:33 Patient History Medical History (Updated 04/09/24 @ 15:51 by Daysi Pulido DO) Esophageal stricture Afib History of basal cell carcinoma (BCC) Thrombocytosis (08/2020) Unintentional weight loss (03/2020) COPD (chronic obstructive pulmonary disease) Lesion of lower eyelid History of vaginal delivery Measles Chicken pox Fibroids Skin cancer (~1975) Surgical History Anesthesia History of elbow surgery Broken ankle Family History Father Hypertension Mother Hypertension Dementia Social History household members: spouse Smoking Status: Never smoker second hand exposure: No alcohol intake: current substance use type: does not use Smoking Status: Never smoker alcohol intake frequency: 0-2 drinks per day Exam Initial Vital Signs Initial Vital Signs: Vital Signs Temperature 97.5 F L 04/09/24 10:14 Pulse Rate 100 H 04/09/24 10:14 Respiratory Rate 16 04/09/24 10:14 Blood Pressure 136/69 04/09/24 10:14 Pulse Oximetry 97 04/09/24 10:14 Oxygen Delivery Method Room Air 04/09/24 10:14 GENERAL: Alert very well-appearing 78-year-old female and in no acute distress. HEENT: Head atraumatic,EOMI, pupils reactive, face symmetric, moist mucous membranes CARDIOVASCULAR: Regular rate and rhythm without murmurs, rubs or gallops. RESPIRATORY: Breath sounds equal bilaterally, no wheezes rales or rhonchi. ABDOMEN: Soft, nontender. Normoactive bowel sounds all 4 quadrants. No guarding or rebound. EXTREMITIES: Normal range of motion, no clubbing or edema. Neurovascularly intact NEUROLOGICAL: Alert and oriented x4.Normal gait and speech. SKIN: Warm, dry, no laceration, no petechiae, no rashes or lesions. Course Orders Ordered: ED Orders 04/09/24 14:53 CBC Auto Diff [Complete Blood Count AUTO DIFF] Stat CMP [Comprehensive Metabolic Panel] Stat [place] Stat Vital Signs Vital signs: Vital Signs - 8 hr 04/09/24 10:14 04/09/24 13:05 04/09/24 15:39 Temperature 97.5 F L Pulse Rate 100 H 74 84 Respiratory Rate 16 18 18 Blood Pressure 136/69 140/81 144/83 H Pulse Oximetry 97 98 98 Oxygen Delivery Method Room Air Room Air Room Air MDM - URI/Sore Throat Lab Data 04/09/24 14:53 04/09/24 14:53 Labs: Lab Results 04/09/24 Range/Units 14:53 WBC 6.8 (4.5-11.0) X10^3/uL RBC 5.15 (4.0-5.2) X10^6/uL Hgb 14.4 (12.0-16.0) g/dL Hct 44.3 (36-46) % MCV 86.1 (80-100) fL MCH 28.1 (26-34) PG MCHC 32.6 (30-36) % RDW 13.3 (11.6-14.8) % Plt Count 344 (150-400) X10^3/uL Neut % (Auto) 67.4 (50-75) % Lymph % (Auto) 19.0 L (25-40) % [place] % (Auto) 11.7 (3-14) % Eos % (Auto) 0.7 L (2-4) % Baso % (Auto) 1.2 (0-2) % Neut # (Auto) 4600 (2492-7695) /uL Lymph # (Auto) 1300 (9710-9169) /uL [place] # (Auto) 800 (0-900) /uL Eos # (Auto) 0 (0-450) /uL Baso # (Auto) 100 (0-100) /uL Sodium 137 (137-145) mmol/L Potassium 3.4 (3.4-5.1) mmol/L Chloride 107 (98-107) mmol/L Carbon Dioxide 26 (22-32) mmol/L BUN 17 (7-17) mg/dL Creatinine 0.69 (0.52-1.04) mg/dL Estimated GFR > 60 (>60) mL/min BUN/Creatinine Ratio 24.6 H (6-22) Glucose 91 (80-110) mg/dL Calcium 9.0 (8.4-10.2) mg/dL Total Bilirubin 0.7 (0.2-1.3) mg/dL AST 38 H (14-36) IU/L ALT 19 (<35) IU/L Alkaline Phosphatase 71 (38-126) U/L Total Protein 6.3 (6.3-8.2) g/dL Albumin 3.5 (3.5-5.0) g/dL Globulin 2.8 (1.7-4.1) g/dL Albumin/Globulin Ratio 1.3 (1.0-2.8) [place] < 0.2 L (0.6-1.2) mmol/L MDM Narrative Medical decision making narrative: 78-year-old female history of bipolar AFib on Eliquis presenting today with increased weakness. She was decreased appetite but really no other symptoms. Refused a repeat viral panel today want to blood work. CBC shows no leukocytosis or anemia CMP no electrolyte abnormality creatinine 0.69 [place] is undetectable At this time unclear why patient continues to be weak I suspect that she had some sort of virus. She has no evidence of sepsis no anemia lithium level is undetectable no evidence of lithium toxicity. She reports that she is taking her medication. Discharge Plan Departure Patient Disposition: Home Clinical Impression: Lethargic Activity Restrictions/Additional Instructions: *You have been diagnosed with lethargy weakness *What to do: At this time I recommend that you follow up with your primary care provider. This may still just be a slow recovery from a virus. *Continue to take medications as directed *Follow up with your primary care provider in 2-3 days or call [phone] *Return to ER if you should have any new, worsening or concerning symptoms Prescriptions: No Action lamotrigine 100 mg tablet 200 mg PO DAILY Qty: 180 3RF bupropion HCl 150 mg tablet extended release 24 hr 150 mg PO QAM Qty: 30 3RF propranolol 10 mg tablet 10 mg PO TID Qty: 90 3RF lithium carbonate 300 mg capsule 600 mg PO BEDTIME Qty: 180 3RF Rx Instructions: Take 2 caps at bedtime Eliquis 5 mg tablet 5 mg PO BID Qty: 180 1RF Rx Instructions: PLEASE REMEMBER TO SCHEDULE APPT WITH CARDIOLOGY MIGUELITO diltiazem HCl 30 mg tablet 30 mg feeding tube DAILY Patient Comments: take 1 tablet VIA FEEDING TUBE every 6 hours Referrals: Juanito Hoffman ARNP [Primary Care Provider] - Stand Alone Forms: Patient Portal/API/Survey
--- NOTE | 2024-04-09 14:30 | PC.NURSE ---
reports fatigue and queasiness in her stomach for a few days. seen at [facility]. 4pack was negative. refusing new swab. denies CP, SOB, or any other sx.
[2024-04-09 15:01] LABS: Add Manual Diff / Slide Review NO; Basophils Absolute Auto 100 /uL (0-100); Basophils Percent Auto 1.2 % (0-2); Eosinophils Absolute Auto 0 /uL (0-450); Eosinophils Percent Auto 0.7 % (2-4); Hematocrit 44.3 % (36-46); Hemoglobin 14.4 g/dL (12.0-16.0); Lymphocytes Absolute Auto 1300 /uL (1100-4500); Mean Corpuscular HGB Conc 32.6 % (30-36); Mean Corpuscular Hemoglobin 28.1 PG (26-34); Mean Corpuscular Volume 86.1 fL (80-100); Monocytes Absolute Auto 800 /uL (0-900); Monocytes Percent Auto 11.7 % (3-14); Neutrophils Absolute Auto 4600 /uL (1500-7000); Neutrophils Percent Auto 67.4 % (50-75); Platelet Count 344 X10^3/uL (150-400); Red Blood Cell Count 5.15 X10^6/uL (4.0-5.2); Red Cell Distribution Width 13.3 % (11.6-14.8); White Blood Cell Count 6.8 X10^3/uL (4.5-11.0)
[2024-04-09 15:11] LABS: Lithium < 0.2 mmol/L (0.6-1.2)
[2024-04-09 15:27] LABS: Alanine Aminotransferase 19 IU/L (<35); Albumin 3.5 g/dL (3.5-5.0); Albumin Globulin Ratio 1.3 (1.0-2.8); Alkaline Phosphatase 71 U/L (38-126); BUN Creatinine Ratio 24.6 (6-22); Bilirubin Total 0.7 mg/dL (0.2-1.3); Blood Urea Nitrogen 17 mg/dL (7-17); Carbon Dioxide 26 mmol/L (22-32); Chloride 107 mmol/L (98-107); Estimated Glomerular Filt Rate > 60 mL/min (>60); Globulin 2.8 g/dL (1.7-4.1); Glucose 91 mg/dL (80-110); Sodium 137 mmol/L (137-145); Total Protein 6.3 g/dL (6.3-8.2)
[2024-04-09 15:28] LABS: HEMOLYSIS 58 (0-50)
[2024-04-09 15:29] LABS: Aspartate Aminotransferase 38 IU/L (14-36); Potassium 3.4 mmol/L (3.4-5.1)
[2024-04-09 15:39] VITALS: BP 144/83; PULSE 84; RESP 18; O2SAT 98
[2024-04-09 15:56] VITALS: BP 142/78; PULSE 66; RESP 16; O2SAT 98
== END 2024-04-09 15:57 | disposition home or self-care (01) ==
PROVIDERS: Emergency Provider Emergency Medicine; PCP Registered Nurse Diabetes Educator
DX: R53.83 Other fatigue (principal)
CPT/HCPCS: 80053; 80178; 85025; 99281; 99283

== ENCOUNTER → 2024-05-10 09:42 | Outpatient (CLI) | payer OTHER, SELFPAY ==
[2022-10-28 10:19] VITALS: BMI 23.3
[2024-05-10 11:03] LABS: Lithium 0.5 mmol/L (0.6-1.2)
== END ==
PROVIDERS: PCP Registered Nurse Diabetes Educator; Referring Provider Psychiatry & Neurology Psychiatry; Visit Provider Psychiatry & Neurology Psychiatry
DX: Z79.899 Other long term (current) drug therapy (principal)
CPT/HCPCS: 36415; 80178